=== PATIENT | female | born 1970 | race Caucasian/White ===

== ENCOUNTER 2018-09-19 14:58 | Emergency (ER) | payer OTHER ==
[~2018-09-19] VITALS: Ht 162.6 cm; Wt 91.6 kg
--- OUTSIDE RECORDS SUMMARY | 2018-09-19 15:03 | XMS REPORT | Summary of Care ---
Author Author [facility] Organization [facility] Address Unknown Phone Unavailable Encounter [facility](FIN) [phone] Date(s): 04/11/17 - 04/11/17 [facility] [address], [address] [place] [address]- [phone] Discharge Disposition: Home or Self Care Attending Physician: Joanne Yi MD Vital Signs Most recent to 1 oldest [Reference Range]: Height 154.94 cm (04/11/17 1:07 PM) Temperature Oral 98.1 DegF [96.4-99.1 DegF] (04/11/17 1:07 PM) Blood Pressure 132/74 mmHg [90-140/60-90 mmHg] (04/11/17 1:07 PM) Respiratory Rate 14 BRMIN [14-20 BRMIN] (04/11/17 1:07 PM) Peripheral Pulse 83 bpm Rate [60-100 bpm] (04/11/17 1:07 PM) Weight 101.591 kg (04/11/17 1:07 PM) Body Mass Index 42.32 m2 (04/11/17 1:07 PM) Problem List Condition Effective Dates Status Health Status Informant Amenorrhea1 11/02/08 Active Anemia(Confirmed) Active Anxiety(Confirmed) Active Asthma(Confirmed) Active Asthma(Confirmed)2 02/12/08 Active Asthma(Confirmed) Active Benign essential Active HTN(Confirmed) Benign hypertension3 Active Breast cancer Active screening(Confirmed) Pap smear for Active cervical cancer screening(Confirmed) Carpal tunnel Active syndrome4 Chronic Active cough(Confirmed) Coarse Active tremors(Confirmed) Cough5 07/30/08 Active Depressive disorder6 02/12/08 Active Ringworm(Confirmed) Active Diabetes(Confirmed) Resolved DM type 2 with Active diabetic peripheral neuropathy(Confirmed ) Dysplastic nevus of 11/04/08 Active skin7 Fatigue8 02/12/08 Active Foot pain9 12/09/07 Active Graves' 03/24/09 Active Hand pain11 11/02/08 Active Fuetrnjj95 11/27/07 Active HTN Resolved (hypertension)(Confi rmed) Skmwpcipworcpfg74 02/08/09 Active Lbwifusncyrlgf95 11/10/08 Active Increased frequency 02/12/08 Active of nwcglmutc21 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 Knee pain17 11/02/08 Active Ovynodkitoolx56 11/04/08 Active Malabsorption of 11/02/08 Active bkqayua83 Anxiety and Active depression(Confirmed ) Mixed anxiety and 04/16/08 Active depressive xycaqixi54 Morbid Active obesity(Confirmed) Bleeding Active nose(Confirmed) Obstructive sleep Active apnea Onychomycosis(Confir Active med) Annual physical Active exam(Confirmed) Severe major Active depression(Confirmed ) Skin tag22 11/04/08 Active Sleep Active apnea(Confirmed) Spasm of back 11/27/07 Active zhawlna36 Swelling of both Active lower extremities(Confirme d) Tear meniscus Active knee(Confirmed) Hnozepolvbh43 11/19/08 Active Type 2 diabetes 02/08/09 Active hgsdmaya36 Lhsxvdkpn46 11/26/08 Active Vitamin D 11/19/08 Active onexrihjsz86 1Data migrated from [employer] on 10/10/14. 2Data migrated from [employer] on 10/10/14. 3Data migrated from [employer] on 10/10/14. 4Data migrated from [employer] on 10/10/14. 5Data migrated from [employer] on 10/10/14. 6Data migrated from [employer] on 10/10/14. 7Data migrated from [employer] on 10/10/14. 8Data migrated from [employer] on 10/10/14. 9Data migrated from [employer] on 10/10/14. 10Data migrated from [employer] on 10/10/14. 11Data migrated from [employer] on 10/10/14. 12Data migrated from [employer] on 10/10/14. 13Data migrated from [employer] on 10/10/14. 14Data migrated from [employer] on 10/10/14. 15Data migrated from [employer] on 10/10/14. 16Data migrated from [employer] on 10/10/14. 17Data migrated from [employer] on 10/10/14. 18Data migrated from [employer] on 10/10/14. 19Data migrated from [employer] on 10/10/14. 20Data migrated from [employer] on 10/10/14. 21Data migrated from [employer] on 10/10/14. 22Data migrated from [employer] on 10/10/14. 23Data migrated from [employer] on 10/10/14. 24Data migrated from [employer] on 10/10/14. 25Data migrated from [employer] on 10/10/14. 26Data migrated from [employer] on 10/10/14. 27Data migrated from [employer] on 10/10/14. Allergies, Adverse Reactions, Alerts Substance Reaction Severity Status glipiZIDE Rash Mild Active Food Nuts1 Active Other Food Allergy2 Active NKDA Active 1Data migrated from [employer] on 07/09/15. Originally documented as PEANUTS. 2Data migrated from [employer] on 07/09/15. Originally documented as APRICOTS. Medications sertraline 100 mg oral tablet 100 mg=1 tab, PO, Daily, # 90 tab, 1 Refill(s), Pharmacy: [facility]/pharmacy #[id number] Start Date: 04/11/17 Stop Date: 04/11/17 Status: Discontinued Zoloft 100 mg oral tablet 100 mg=1 tab, PO, Daily, # 90 tab, 1 Refill(s), Pharmacy: [facility]/pharmacy #[id number] Start Date: 04/11/17 Stop Date: 10/08/17 Status: Ordered Results No data available for this section Immunizations Given and Recorded Vaccine Date Status Refusal Reason influenza virus vaccine, inactivated 03/08/17 Given Hx influenza vaccine-unspecified1 02/08/09 Given Not Given Vaccine Date Status Refusal Reason pneumococcal 23-valent vaccine 03/19/16 Not Given Patient Refuses 1Result Comment: fluvirin. Migrated from OBS ; Data migrated from [employer] on 06/14/2015. Procedures Procedure Date Related Diagnosis Body Site Diabetic retinopathy screening1 10/2016 CS - Caesarean section CS - section 1No retinopathy Social History Social History Type Response Smoking Status Never smoker; Type: Cigarettes; Exposure to Tobacco Smoke None; Cigarette Smoking Last 365 Days No; Reg Smoking Cessation Counseling No Assessment and Plan No data available for this section
--- OUTSIDE RECORDS SUMMARY | 2018-09-19 15:03 | XMS REPORT | Continuity of Care Document ---
Author Author [facility] Interface Address Unknown Phone Unavailable Problems Problem Status Onset Date Classification Date Reported Comments Source UNSTEADINESS ON FEET; KNEE PAIN, OA Active 07/31/2018 [facility] [place] Shortness of breath 01/19/2018 07/31/2018 [facility] XRAY Active 01/11/2018 [facility] XRAY Active 01/11/2018 [facility] UNK Active 10/24/2017 [facility] Other fracture of upper and lower end of right fibula, initial encounter for closed fracture 07/05/2017 10/05/2017 [facility] FALL Active 06/27/2017 [facility] CLOSED RT FIBULAR FX Active 06/27/2017 [facility] E66.01 - MORBID (SEVERE) OBESITY DUE TO Active 09/04/2016 [facility] ASTHMA Active 07/12/2016 [facility] Exacerbation of asthma 03/18/2016 Diagnosis 03/18/2016 [facility] ACUTE ASTHMA EXACERBATION Active 03/18/2016 [facility] WHEEZING Active 03/18/2016 [facility] Discharge Diagnosis: Back pain 02/29/2016 03/03/2016 [facility] BACK PAIN Active 02/28/2016 [facility] DX: E66.01=MORBID (SEVERE) OBESITY DUE T Active 12/23/2015 [facility] ASTHMA EXACERBATION Active 10/03/2015 [facility] SOB Active 10/03/2015 [facility] G11.9 - "HEREDITARY ATAXIA, UNSPECIFIED" Active 05/03/2015 [facility] Graves' disease<sup>10</sup> Active 03/24/2009 Problem 11/24/2017 Data migrated from [employer] on 10/10/14. [facility] Graves' disease<sup>8</sup> Active 03/24/2009 Problem 08/03/2018 Data migrated from [employer] on 10/10/14. [facility] Hyperthyroidism<sup>13</sup> Resolved 02/08/2009 Problem 11/24/2017 Data migrated from [employer] on 10/10/14. [facility] Type 2 diabetes mellitus<sup>25</sup> Active 02/08/2009 Problem 11/24/2017 Data migrated from [employer] on 10/10/14. [facility] Hyperthyroidism<sup>9</sup> Resolved 02/08/2009 Problem 08/03/2018 Data migrated from [employer] on 10/10/14. [facility] Type 2 diabetes mellitus<sup>18</sup> Active 02/08/2009 Problem 08/03/2018 Data migrated from [employer] on 10/10/14. [facility] Vaginitis<sup>26</sup> Active 11/26/2008 Problem 11/24/2017 Data migrated from [employer] on 10/10/14. [facility] Thyroiditis<sup>24</sup> Active 11/19/2008 Problem 11/24/2017 Data migrated from [employer] on 10/10/14. [facility] Vitamin D deficiency<sup>27</sup> Active 11/19/2008 Problem 11/24/2017 Data migrated from [employer] on 10/10/14. [facility] Thyroiditis<sup>17</sup> Active 11/19/2008 Problem 08/03/2018 Data migrated from [employer] on 10/10/14. [facility] Vitamin D deficiency<sup>19</sup> Active 11/19/2008 Problem 08/03/2018 Data migrated from [employer] on 10/10/14. [facility] Hypothyroidism<sup>14</sup> Resolved 11/10/2008 Problem 11/24/2017 Data migrated from [employer] on 10/10/14. [facility] Hypothyroidism<sup>10</sup> Resolved 11/10/2008 Problem 08/03/2018 Data migrated from [employer] on 10/10/14. [facility] Dysplastic nevus of skin<sup>7</sup> Active 11/04/2008 Problem 11/24/2017 Data migrated from [employer] on 10/10/14. [facility] Lymphadenitis<sup>18</sup> Active 11/04/2008 Problem 11/24/2017 Data migrated from [employer] on 10/10/14. [facility] Skin tag<sup>22</sup> Active 11/04/2008 Problem 11/24/2017 Data migrated from [employer] on 10/10/14. [facility] Dysplastic nevus of skin<sup>5</sup> Active 11/04/2008 Problem 08/03/2018 Data migrated from [employer] on 10/10/14. [facility] Lymphadenitis<sup>13</sup> Active 11/04/2008 Problem 08/03/2018 Data migrated from [employer] on 10/10/14. [facility] Amenorrhea<sup>1</sup> Active 11/02/2008 Problem 11/24/2017 Data migrated from [employer] on 10/10/14. [facility] Hand pain<sup>11</sup> Active 11/02/2008 Problem 11/24/2017 Data migrated from [employer] on 10/10/14. [facility] Knee pain<sup>17</sup> Active 11/02/2008 Problem 11/24/2017 Data migrated from [employer] on 10/10/14. 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 [facility] Knee pain<sup>12</sup> Active 11/02/2008 Problem 08/03/2018 Data migrated from [employer] on 10/10/14. 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 [facility] Cough<sup>5</sup> Active 07/30/2008 Problem 11/24/2017 Data migrated from [employer] on 10/10/14. [facility] Intrinsic asthma<sup>16</sup> Active 07/30/2008 Problem 11/24/2017 Data migrated from [employer] on 10/10/14. [facility] Mixed anxiety and depressive disorder<sup>20</sup> Active 04/16/2008 Problem 11/24/2017 Data migrated from [employer] on 10/10/14. [facility] Mixed anxiety and depressive disorder<sup>15</sup> Active 04/16/2008 Problem 08/03/2018 Data migrated from [employer] on 10/10/14. [facility] Asthma<sup>2</sup> Active 02/12/2008 Problem 11/24/2017 Data migrated from [employer] on 10/10/14. [facility] Depressive disorder<sup>6</sup> Active 02/12/2008 Problem 11/24/2017 Data migrated from [employer] on 10/10/14. [facility] Fatigue<sup>8</sup> Active 02/12/2008 Problem 11/24/2017 Data migrated from [employer] on 10/10/14. [facility] Increased frequency of urination<sup>15</sup> Active 02/12/2008 Problem 11/24/2017 Data migrated from [employer] on 10/10/14. [facility] Asthma<sup>1</sup> Active 02/12/2008 Problem 08/03/2018 Data migrated from [employer] on 10/10/14. [facility] Depressive disorder<sup>4</sup> Active 02/12/2008 Problem 08/03/2018 Data migrated from [employer] on 10/10/14. [facility] Fatigue<sup>6</sup> Active 02/12/2008 Problem 08/03/2018 Data migrated from [employer] on 10/10/14. [facility] Increased frequency of urination<sup>11</sup> Active 02/12/2008 Problem 08/03/2018 Data migrated from [employer] on 10/10/14. [facility] Foot pain<sup>9</sup> Active 12/09/2007 Problem 11/24/2017 Data migrated from [employer] on 10/10/14. [facility] Foot pain<sup>7</sup> Active 12/09/2007 Problem 08/03/2018 Data migrated from [employer] on 10/10/14. [facility] Headache<sup>12</sup> Active 11/27/2007 Problem 11/24/2017 Data migrated from [employer] on 10/10/14. Medical Group,[facility] Spasm of back muscles<sup>23</sup> Active 11/27/2007 Problem 11/24/2017 Data migrated from [employer] [facility] on 10/10/14. Medical Group,[facility] Pharyngitis Problem 03/18/2016 [facility] Exacerbation of Asthma Problem 03/18/2016 [facility] Anemia Active Problem 08/03/2018 [facility] Group,[facility] Anxiety Active Problem 08/03/2018 [facility] Group,[facility] Asthma Active Problem 08/03/2018 [facility] Group,[facility] Chronic cough Active Problem 08/03/2018 [facility] Coarse tremors Active Problem 08/03/2018 [facility] Diabetes Resolved Problem 08/03/2018 [facility] DM type 2 with diabetic peripheral neuropathy Active Problem 08/03/2018 [facility] HTN (<span ID="[id number]">Confirmed</span>) Resolved Problem 08/03/2018 [facility] Group,[facility] Morbid obesity Active Problem 08/03/2018 [facility] Onychomycosis Active Problem 08/03/2018 [facility] Severe major depression Active Problem 08/03/2018 [facility] Sleep apnea Active Problem 08/03/2018 [facility] Swelling of both lower extremities Active Problem 08/03/2018 [facility] Tear meniscus knee Active Problem 08/03/2018 [facility] Benign essential HTN Active Problem 11/24/2017 [facility] Benign hypertension<sup>3</sup> Active Problem 11/24/2017 Data migrated from [place] [facility] on 10/10/14[facility] Carpal tunnel syndrome<sup>4</sup> Active Problem 11/24/2017 Data migrated from [employer] on 10/10/14. Medical Group,[facility] Anxiety and depression Active Problem 11/24/2017 [facility] Group,[facility] Bleeding nose Active Problem 11/24/2017 [facility] Group,[facility] Obstructive sleep apnea syndrome<sup>21</sup> Active Problem 11/24/2017 Data migrated from [employer] on 10/10/14. Medical Group,[facility] Benign hypertension<sup>2</sup> Active Problem 08/03/2018 Data migrated from [employer] on 10/10/14. [facility] Carpal tunnel syndrome<sup>3</sup> Active Problem 08/03/2018 Data migrated from [employer] on 10/10/14. [facility] Closed right fibular fracture Active Problem 08/03/2018 [facility] Diverticular disease Active Problem 08/03/2018 [facility] Heart murmur Active Problem 08/03/2018 [facility] Hemorrhoids Active Problem 08/03/2018 [facility] Abnormal liver enzymes Active Problem 08/03/2018 [facility] Hyperlipidemia, mixed Active Problem 08/03/2018 [facility] Numbness Active Problem 08/03/2018 [facility] Obstructive sleep apnea syndrome<sup>16</sup> Active Problem 08/03/2018 Data migrated from [employer] on 10/10/14. [facility] Seasonal allergies Active Problem 08/03/2018 [facility] Splenomegaly Active Problem 08/03/2018 [facility] Varicose vein of leg Active Problem 08/03/2018 [facility] Acute bronchitis Active Problem 11/24/2017 [facility] Group,[facility] Breast cancer screening Active Problem 11/24/2017 [facility] Pap smear for cervical cancer screening Active Problem 11/24/2017 [facility] Group,[facility] Ringworm Active Problem 11/24/2017 [facility] Mild intermittent asthma Active Problem 11/24/2017 [facility] Right ankle swelling Active Problem 11/24/2017 [facility] Viral upper respiratory infection Active Problem 11/24/2017 [facility] Group,[facility] Type 2 diabetes mellitus with diabetic polyneuropathy 10/05/2017 [facility] Body mass index 40.0-44.9, adult 10/05/2017 [facility] Fall (from) unspecified stairs and steps, initial encounter 10/05/2017 [facility] Morbid obesity due to excess calories 10/05/2017 [facility] Essential hypertension 10/05/2017 [facility] Major depressive disorder, single episode, unspecified 10/05/2017 [facility] Obstructive sleep apnea (pediatric) 10/05/2017 [facility] Unspecified fracture of shaft of right fibula, initial encounter for closed fracture 10/05/2017 [facility] SOB (<span ID="[id number]">Confirmed</span>) Active Problem 08/03/2018 [facility] Menopause Active Problem 08/03/2018 [facility] DJD of knee(<span ID="[id number]">Confirmed</span>) Active Problem 08/03/2018 [facility] Tremor Active Problem 08/03/2018 [facility] Unstable gait Active Problem 08/03/2018 [facility] UNSPECIFIED ASTHMA WITH (ACUTE) EXACERBA Active [facility] UNSP FRACTURE OF SHAFT OF RIGHT FIBULA, Active [facility] Medications Medication Details Route Status Patient Instructions Ordering Provider Order Date Source citalopram 10 mg oral tablet 10 mg=1 tab, PO, Daily, # 90 tab, 0 Refill(s), Pharmacy: [facility]/pharmacy #[id number] Active 07/31/2018 [facility] Calcium Carbonate 1500 MG / Cholecalciferol 400 UNT Oral Tablet 1 tab, PO, Daily, # 90 tab, 1 Refill(s), Pharmacy: [facility]/pharmacy #[id number] Active 07/31/2018 [facility] lisinopril 10 mg oral tablet 10 mg=1 tab, PO, Daily, # 90 tab, 1 Refill(s), Pharmacy: [facility]/pharmacy #[id number] Active 07/31/2018 [facility] 200 ACTUAT Albuterol 0.09 MG/ACTUAT Metered Dose Inhaler [ProAir HFA] See Instructions, TAKE 2 PUFF(S) (INHALATION) EVERY 6 HOURS NEEDED FOR WHEEZING DISPENSE 2 INHALERS, # 2 ea, 1 Refill(s), Pharmacy: [facility]/pharmacy #[id number] Active 07/31/2018 [facility] Metformin hydrochloride 500 MG Oral Tablet =1 tab, PO, BID-Meals, # 60 tab, 0 Refill(s), Pharmacy: [facility], NEEDS APPOINTMENT Inactive 07/08/2018 [facility] Brompheniramine Maleate 0.4 MG/ML / Dextromethorphan Hydrobromide 2 MG/ML / Pseudoephedrine Hydrochloride 6 MG/ML Oral Solution [Bromfed DM] 5 mL, PO, TID, PRN cough, X 10 day, # 150 mL, 0 Refill(s), [id number] 06/21/2018 [facility] azithromycin 250 mg oral tablet 250 mg=1 tab, PO, Daily, take 2 tablets on the first day, 1 tablet daily to continue, X 5 day, # 6 tab, 0 Refill(s), Pharmacy: [facility]/pharmacy #[id number] Active 06/21/2018 [facility] predniSONE 20 mg oral tablet 40 mg=2 tab, PO, Daily, X 7 day, # 14 tab, 0 Refill(s), [id number] Active 06/21/2018 [facility] Albuterol 0.83 MG/ML Inhalant Solution 2.49 mg, Route: NEB, Drug form: SOLN, ONCE, Dosing Weight 95, kg, Start date: 06/21/18 16:22:00 [employer], Stop date: 06/21/18 16:22:00 [employer] Inactive 06/21/2018 [facility] Hydrochlorothiazide 12.5 MG / Losartan Potassium 100 MG Oral Tablet 1 tab, PO, Daily, # 90 tab, 1 Refill(s), [id number] Active 01/11/2018 [facility] Metformin hydrochloride 500 MG Oral Tablet See Instructions, TAKE 1 TABLET TWICE A DAY WITH MEALS, # 180 tab, 1 Refill(s), [id number] No Longer Active 01/09/2018 [facility] sertraline 100 mg oral tablet 150 mg=1.5 tab, PO, Daily, # 135 tab, 1 Refill(s), Pharmacy: [facility] Active 01/09/2018 [facility] 200 ACTUAT Albuterol 0.09 MG/ACTUAT Metered Dose Inhaler [ProAir HFA] See Instructions, TAKE 2 PUFF(S) (INHALATION) EVERY 6 HOURS NEEDED FOR WHEEZING, # 1 ea, 1 Refill(s), Pharmacy: [facility]/pharmacy #[id number] Active 01/09/2018 [facility] Hydrochlorothiazide 12.5 MG / Losartan Potassium 100 MG Oral Tablet 1 tab, PO, Daily, X 90 day, # 90 tab, 1 Refill(s), Pharmacy: [facility] No Longer Active 01/09/2018 [facility] Metformin hydrochloride 500 MG Oral Tablet See Instructions, # 180 tab, Refill(s) 1, TAKE 1 TABLET TWICE A DAY WITH MEALS, 01/09/18 16:07:28 CDT, Pharmacy: [facility] No Longer Active 01/08/2018 [facility] losartan 100 mg oral tablet 100 mg=1 tab, PO, Daily, # 90 tab, 1 Refill(s), Pharmacy: [facility]/pharmacy #[id number] Active 12/12/2017 [facility] Sertraline 100 MG Oral Tablet [Zoloft] 150 mg=1.5 tab, PO, Daily, # 135 tab, 1 Refill(s), Pharmacy: [facility]/pharmacy #[id number] No Longer Active 12/12/2017 [facility] Sodium Chloride 0.9% IV 1,000 mL 1,000 mL, Rate: 25 ml/hr, Infuse over: 40 hr, Route: IV, Dosing Weight 101.818 kg, Total Volume: 1,000, Start date: 11/21/17 10:14:00 CDT, Duration: 1 day, Stop date: 11/22/17 10:13:00 CDT, 2.14, m2 Inactive 11/21/2017 [facility] 2 ML HYLAN G-F 20 8 MG/ML Prefilled Syringe [Synvisc] intra- ARTICULAR, 0 Refill(s) Active 11/19/2017 [facility] Hydrochlorothiazide 12.5 MG / valsartan 320 MG Oral Tablet See Instructions, # 90 tab, Refill(s) 1, TAKE 1 TABLET BY MOUTH EVERY DAY, Pharmacy: [facility]/pharmacy #[id number] Active 11/06/2017 [facility] Azelastine hydrochloride 0.5 MG/ML Ophthalmic Solution 1 drp, BOTH EYES, BID, PRN Allergic reaction, X 7 day, # 6 mL, 0 Refill(s), Pharmacy: [facility] Active 10/16/2017 [facility] celecoxib 100 mg oral capsule 100 mg=1 cap, PO, Daily, 0 Refill(s) Active 10/16/2017 [facility] 3 ML liraglutide 6 MG/ML Prefilled Syringe [Saxenda] 1.2 mg, SUB-Q, Daily, # 15 mL, 1 Refill(s) Active 09/03/2017 [facility] Brompheniramine Maleate 0.4 MG/ML / Dextromethorphan Hydrobromide 2 MG/ML / Pseudoephedrine Hydrochloride 6 MG/ML Oral Solution [Bromfed DM] 5 mL, PO, TID, PRN cough, X 8 day, # 120 mL, 0 Refill(s), Pharmacy: [facility] Active 09/03/2017 [facility] ibuprofen 800 mg oral tablet 800 mg=1 tab, PO, Q8H, PRN Pain, Take with food, X 10 day, # 30 tab, 0 Refill(s), Pharmacy: [facility] Active 09/03/2017 [facility] loratadine 10 mg oral tablet 10 mg=1 tab, PO, Daily, # 90 tab, 0 Refill(s), Pharmacy: [facility] Active 09/03/2017 [facility] 200 ACTUAT Albuterol 0.09 MG/ACTUAT Metered Dose Inhaler [ProAir HFA] See Instructions, TAKE 2 PUFF(S) (INHALATION) EVERY 6 HOURS NEEDED FOR WHEEZING, # 1 ea, 1 Refill(s), Pharmacy: [facility] Active 09/03/2017 [facility] ibuprofen 800 mg oral tablet 800 mg=1 tab, PO, Q8H, PRN Pain, Take with food, X 10 day, # 30 tab, 0 Refill(s), Pharmacy: [facility] No Longer Active 08/02/2017 [facility] Calcium Carbonate 1500 MG / Cholecalciferol 400 UNT Oral Tablet 1 tab, PO, Daily, # 90 tab, 1 Refill(s), Pharmacy: [facility] Active 08/02/2017 [facility] Sertraline 100 MG Oral Tablet [Zoloft] 150 mg=1.5 tab, PO, Daily, # 135 tab, 1 Refill(s), Pharmacy: [facility] Active 08/02/2017 [facility] sennosides, CARE HOME 8.6 MG Oral Tablet 17.2 mg=2 tab, PO, Bedtime, X 10 day, # 20 tab, 0 Refill(s), Pharmacy: [facility]/pharmacy #[id number] No Longer Active 06/29/2017 [facility] tramadol hydrochloride 50 MG Oral Tablet 50 mg=1 tab, PO, Q6H, X 10 day, # 40 tab, 0 Refill(s) No Longer Active 06/29/2017 [facility] oxyCODONE 5 mg oral capsule 5 mg=1 cap, PO, Q6H, X 5 day, # 20 cap, 0 Refill(s) No Longer Active 06/29/2017 [facility] naproxen 500 mg oral tablet 500 mg=1 tab, PO, A11Emmb, X 10 day, # 20 tab, 0 Refill(s), [id number] Long[facility] Active 06/29/2017 [facility] gabapentin 300 MG Oral Capsule 300 mg=1 cap, PO, Q8Hnow, # 30 cap, 0 Refill(s), [id number] Active 06/29/2017 [facility] Docusate Sodium 100 MG Oral Capsule 100 mg=1 cap, PO, BID, # 20 cap, 0 Refill(s), [id number] Active 06/29/2017 [facility] acetaminophen 500 mg oral tablet 1,000 mg=2 tab, PO, Q6Hnow, X 10 day, # 80 tab, 0 Refill(s), [id number] No Long[facility] Active 06/29/2017 [facility] Lidocaine Hydrochloride 0.05 MG/MG Transdermal Patch [Lidoderm] 1 patch, TOP, Q24H, # 30 patch, 0 Refill(s), [id number] Active 06/29/2017 [facility] remove patch 1 patch, Route: TOP, Daily, Drug form: ERFILM, Start date: 06/29/17 4:00:00 [employer], Duration: 30 day, Stop date: 07/28/17 4:00:00 CDTNotes: Remove patch 12 hours after application each day. Inactive 06/29/2017 [facility] sennosides, CARE [facility] 17.2 mg, 2 tab, Route: PO, Drug Form: TAB, Dosing Weight 100, kg, Bedtime, Start date: 06/28/17 21:00:00 [employer], Duration: 30 day, Stop date: 07/27/17 21:00:00 CDTNotes: (Same as: Senokot) No Longer Active 06/29/2017 [facility] tramadol hydrochloride 50 MG Oral Tablet 50 mg, 1 tab, Route: PO, Drug form: TAB, Q6H, Dosing Weight 100, kg, Start date: 06/28/17 18:00:00 [employer], Duration: 30 day, Stop date: 07/28/17 12:00:00 CDTNotes: Not to exceed 400mg/day. (Same As: Ultram) No Longer Active 06/29/2017 [facility] Docusate 100 mg, 1 cap, Route: PO, Drug form: CAP, BID, Dosing Weight 100, kg, Start date: 06/28/17 17:00:00 [employer], Duration: 30 day, Stop date: 07/28/17 9:00:00 CDTNotes: (Same as: Colace) (Do Not Crush) No Longer Active 06/28/2017 [facility] Acetaminophen 1,000 mg, 2 tab, Route: PO, Drug form: TAB, Q6Hnow, Dosing Weight 100, kg, Start date: 06/28/17 16:00:00 [employer], Duration: 30 day, Stop date: 07/28/17 10:00:00 CDTNotes: Max acetaminophen 4000 mg/day (4 gm/day). (Same as: Tylenol Extra Strength) No Longer Active 06/28/2017 [facility] Lidocaine Hydrochloride 0.05 MG/MG Transdermal Patch [Lidoderm] 1 patch, Route: TOP, Q24H, Drug form: FILM, Start date: 06/28/17 16:00:00 [employer], Duration: 30 day, Stop date: 07/27/17 16:00:00 CDTNotes: Apply only once for up to 12 hours in a 24-hour period (12 hours on and 12 hours off). (Same as: Lidoderm) "Remove old patch before application of new patch" No Longer Active 06/28/2017 [facility] gabapentin 300 mg, 1 cap, Route: PO, Drug form: CAP, Q8Hnow, Dosing Weight 100, kg, Start date: 06/28/17 16:00:00 [employer], Duration: 30 day, Stop date: 07/28/17 8:00:00 CDTNotes: (Same as: Neurontin) No Longer Active 06/28/2017 [facility] Naproxen 500 mg, 1 tab, Route: PO, Drug form: TAB, [id number], Dosing Weight 100, kg, Start date: 06/28/17 16:00:00 [employer], Duration: 30 day, Stop date: 07/28/17 4:00:00 CDTNotes: (Same as: Naprosyn) Take with food. No Longer Active 06/28/2017 [facility] Losartan Potassium 100 MG Oral Tablet [Cozaar] 100 mg=1 tab, PO, Daily, 0 Refill(s) Inactive 06/28/2017 [facility] atorvastatin 20 mg oral tablet 20 mg=1 tab, PO, QPM, 0 Refill(s) Inactive 06/28/2017 [facility] Ondansetron 4 mg, 2 mL, Route: IVP, Drug form: INJ, Q8H, Dosing Weight 100, kg, PRN Nausea & Vomiting, Start date: 06/28/17 15:26:00 [employer], Duration: 30 day, Stop date: 07/28/17 15:25:00 CDTNotes: (Same as: Zofran) MEDICATION WASTE Product Size: 4 mg Product Wasted: _0_ mg No Longer Active 06/28/2017 [facility] Oxycodone Hydrochloride 5 MG Oral Tablet 10 mg, 2 tab, Route: PO, Drug form: TAB, Q4H, Dosing Weight 100, kg, PRN Pain Score 7-10, Start date: 06/28/17 15:26:00 [employer], Duration: 30 day, Stop date: 07/28/17 15:25:00 CDTNotes: (Same as: Roxicodone) No Longer Active 06/28/2017 [facility] Ibuprofen 400 MG Oral Tablet 800 mg, 1 tab, Route: PO, Drug form: TAB, Q8H, Dosing Weight 100, kg, PRN For Temp > 100.4 F, Start date: 06/28/17 11:44:00 [employer], Duration: 30 day, Stop date: 07/28/17 11:43:00 CDTNotes: (Same as: Motrin) "Do Not Crush" Take with food. No Longer Active 06/28/2017 [facility] Zoloft 100 mg, 1 tab, Route: PO, Drug form: TAB, Daily, Dosing Weight 100, kg, Start date: 06/28/17 9:00:00 [employer], Duration: 30 day, Stop date: 07/27/17 9:00:00 CDTNotes: (Same as: Zoloft) No Longer Active 06/28/2017 [facility] Hydrochlorothiazide 12.5 MG / valsartan 320 MG Oral Tablet 1 tab, Route: PO, Drug Form: TAB, Dosing Weight 100, kg, Daily, Start date: 06/28/17 9:00:00 [employer], Duration: 30 day, Stop date: 07/27/17 9:00:00 CDT No Longer Active 06/28/2017 [facility] Microzide 12.5 mg, 1 cap, Route: PO, Drug form: CAP, Daily, Start date: 06/28/17 9:00:00 [employer], Duration: 30 day, Stop date: 07/27/17 9:00:00 CDTNotes: (Same as: Microzide) With food. No Longer Active 06/28/2017 [facility] valsartan 320 mg, 2 tab, Route: PO, Drug form: TAB, Daily, Start date: 06/28/17 9:00:00 [employer], Duration: 30 day, Stop date: 07/27/17 9:00:00 CDTNotes: Same as Diovan No Longer Active 06/28/2017 [facility] Metformin hydrochloride 1000 MG Oral Tablet 1,000 mg, 1 tab, Route: PO, Drug form: TAB, BID-Meals, Dosing Weight 100, kg, Start date: 06/28/17 8:00:00 [employer], Duration: 30 day, Stop date: 07/27/17 17:00:00 CDTNotes: Same as Glucophage No Longer Active 06/28/2017 [facility] Ativan 0.5 mg, 1 tab, Route: PO, Drug form: TAB, TID, Dosing Weight 100, kg, PRN Anxiety, Start date: 06/27/17 21:56:00 [employer], Duration: 30 day, Stop date: 07/27/17 21:55:00 CDT No Longer Active 06/28/2017 [facility] meloxicam 10 mg, PO, PRN, 0 Refill(s) Active 06/28/2017 [facility] Enoxaparin 40 mg, 0.4 mL, Route: SUB-Q, Drug form: INJ, [id number], Dosing Weight 100, kg, Consider for obese patients, Start date: 06/27/17 20:00:00 [employer], Duration: 30 day, Stop date: 07/27/17 8:00:00 CDTNotes: ( Same as: Lovenox) No Longer Active 06/28/2017 [facility] Acetaminophen 325 MG / Hydrocodone Bitartrate 5 MG Oral Tablet 1 tab, Route: PO, Drug Form: TAB, Dosing Weight 100, kg, Q4H, PRN Pain Score 4-6, Start date: 06/27/17 19:57:00 [employer], Duration: 30 day, Stop date: 07/27/17 19:56:00 CDTNotes: (Same as: [place] 325/5) Do not exceed 4gm/day of acetaminophen. No Longer Active 06/28/2017 [facility] Morphine 2 mg, 0.5 mL, Route: IVP, Drug form: SOLN, Q4H, Dosing Weight 100, kg, PRN Pain Score 7-10, Start date: 06/27/17 19:57:00 [employer], Duration: 30 day, Stop date: 07/27/17 19:56:00 CDTNotes: (Same as:MORPhine Sulfate) No Longer Active 06/28/2017 [facility] Acetaminophen 650 mg, 2 tab, Route: PO, Drug form: TAB, Q4H, Dosing Weight 100, kg, PRN Pain 1-3/Temp > 100.4 F, Start date: 06/27/17 19:57:00 [employer], Duration: 30 day, Stop date: 07/27/17 19:56:00 CDTNotes: Do not e xceed 4 gm/day. (Same as: Tylenol) No Longer Active 06/28/2017 [facility] Acetaminophen 325 MG / Hydrocodone Bitartrate 5 MG Oral Tablet [[place] 5/325] 1 tab, Route: PO, Drug Form: TAB, Dosing Weight 99.545, kg, ONCE, PRN Pain Score 1-3, Start date: 06/27/17 18:50:00 [employer] Inactive 06/28/2017 [facility] Sodium Chloride 0.9% (Bolus) IV 1,000 mL, Infuse Over: 1 hr, Route: IV, ONCE, Priority: STAT, Dosing Weight 99.545 kg, Start date: 06/27/17 15:25:00 [employer], Stop date: 06/27/17 15:25:00 [employer] Inactive 06/27/2017 [facility] Ibuprofen 600 mg, Route: PO, ONCE, Dosing Weight 99.545, kg, Priority: STAT, Start date: 06/27/17 14:58:00 [employer], Stop date: 06/27/17 14:58:00 [employer] MARK[employer]ER Inactive 06/27/2017 [facility] Acetaminophen 650 mg, Route: PO, Drug form: TAB, ONCE, Dosing Weight 99.545, kg, Priority: STAT, Start date: 06/27/17 14:58:00 [employer], Stop date: 06/27/17 14:58:00 [employer] MARK[employer]ER Inactive 06/27/2017 [facility] Zofran 4 mg, 2 mL, Route: IVP, Drug form: INJ, ONCE, Dosing Weight 99.545, kg, Priority: STAT, Start date: 06/27/17 12:31:00 [employer], Stop date: 06/27/17 12:31:00 CSTNotes: (Same as: Zofran) MEDICATION WASTE Product Size: 4 mg Product Wasted: ___ mg Inactive 06/27/2017 [facility] Morphine 4 mg, 1 mL, Route: IVP, Drug form: SOLN, ONCE, Dosing Weight 99.545, kg, Priority: STAT, Start date: 06/27/17 12:31:00 [employer], Stop date: 06/27/17 12:31:00 CSTNotes: (Same as:MORPhine Sulfate) Inactive 06/27/2017 [facility] Zofran 4 mg, Route: IVP, Drug form: INJ, ONCE, Dosing Weight 99.545, kg, Priority: STAT, Start date: 06/27/17 9:42:00 [employer], Stop date: 06/27/17 9:42:00 [employer] MARKETER Inactive 06/27/2017 [facility] Morphine 4 mg, Route: IVP, ONCE, Dosing Weight 99.545, kg, Priority: STAT, Start date: 06/27/17 9:41:00 [employer], Stop date: 06/27/17 9:41:00 [employer] MARK[employer]ER Inactive 06/27/2017 [facility] Zofran ODT 4 mg, Route: PO, Drug form: TABDIS, ONCE, Dosing Weight 99.545, kg, Priority: STAT, Start date: 06/27/17 7:45:00 [employer], Stop date: 06/27/17 7:45:00 [employer] MARKETER Inactive 06/27/2017 [facility] Zofran ODT 4 mg, Route: PO, Drug form: TABDIS, ONCE, Dosing Weight 99.545, kg, Priority: STAT, Start date: 06/27/17 7:43:00 [employer] MARKETER, Stop date: 06/27/17 7:43:00 [employer] MARKETER Inactive 06/27/2017 [facility] Acetaminophen 325 MG / Hydrocodone Bitartrate 5 MG Oral Tablet 1 tab, Route: PO, Drug Form: TAB, Dosing Weight 99.545, kg, ONCE, STAT, Start date: 06/27/17 7:26:00 [employer], Stop date: 06/27/17 7:26:00 [employer] MARKETER Inactive 06/27/2017 [facility] biotin 5000 mcg oral tablet, disintegrating 5,000 microgram=1 tab, PO, Daily, # 90 tab, 1 Refill(s), Pharmacy: [facility]/pharmacy #[id number] Active [facility] zinc acetate 50 mg oral capsule 50 mg=1 cap, PO, Daily, # 90 cap, 1 Refill(s), Pharmacy: [facility]/pharmacy #[id number] Active 05/15/[facility] Brompheniramine Maleate 0.4 MG/ML / Dextromethorphan Hydrobromide 2 MG/ML / Pseudoephedrine Hydrochloride 6 MG/ML Oral Solution [Bromfed DM] 5 mL, PO, TID, PRN cough, X 8 day, # 120 mL, 0 Refill(s), Pharmacy: [facility]/pharmacy #[id number] Active 05/15/[facility] Metformin hydrochloride 1000 MG Oral Tablet 1,000 mg=1 tab, PO, BID-Meals, # 180 tab, 1 Refill(s) Active 05/15/2017 [facility] Sertraline 100 MG Oral Tablet [Zoloft] 100 mg=1 tab, PO, Daily, # 90 tab, 1 Refill(s), Pharmacy: [facility]/pharmacy #[id number] Active 04/11/2017 [facility] sertraline 100 mg oral tablet 100 mg=1 tab, PO, Daily, # 90 tab, 1 Refill(s), Pharmacy: [facility]/pharmacy #[id number] Inactive 04/11/2017 [facility] Vitamin D2 Route: PO, Drug form: CAP, Daily, Dosing Weight 130.909, kg, Start date: 03/20/16 9:00:00 [employer], Duration: 30 day, Stop date: 04/18/16 9:00:00 [employer] MARKETER No Longer Active 03/20/2016 [facility] Simvastatin 20 mg, 1 tab, Route: PO, Drug form: TAB, Bedtime, Dosing Weight 130.909, kg, Start date: 03/19/16 21:00:00 [employer] MARKETER, Duration: 30 day, Stop date: 04/17/16 21:00:00 CSTNotes: (Same as: Zocor) Inactive 03/20/2016 [facility] Clarithromycin 500 mg, 1 tab, Route: PO, Drug form: TAB, Q12H, Dosing Weight 130.909, kg, Start date: 03/19/16 21:00:00 [employer] MARKETER, Duration: 30 day, Stop date: 04/18/16 9:00:00 CSTNotes: (Same As: Biaxin) Inactive 03/20/2016 [facility] Amoxicillin 1,000 mg, 2 cap, Route: PO, Drug form: CAP, Q12H, Dosing Weight 130.909, kg, Start date: 03/19/16 21:00:00 [employer] MARKETER, Duration: 30 day, Stop date: 04/18/16 9:00:00 CSTNotes: (Same as: Amoxil) Inactive 03/20/2016 [facility] Metformin hydrochloride 1000 MG Oral Tablet 1,000 mg, 2 tab, Route: PO, Drug form: TAB, BID-Meals, Dosing Weight 130.909, kg, Start date: 03/19/16 17:00:00 [employer] MARKETER, Duration: 30 day, Stop date: 04/18/16 8:00:00 CSTNotes: (Same as: Glucophage) Take with meal Inactive 03/19/2016 [facility] pantoprazole 40 mg, 1 tab, Route: PO, Drug form: ECTAB, Before Dinner, Dosing Weight 130.909, kg, Start date: 03/19/16 16:30:00 [employer] MARKETER, Duration: 30 day, Stop date: 04/17/16 16:30:00 CSTNotes: Tablet should not be c hewed or crushed. (Same as: Protonix) Inactive 03/19/2016 [facility] Glipizide 10 MG Oral Tablet 10 mg, 1 tab, Route: PO, Drug form: TAB, BID-Before Meals, Dosing Weight 130.909, kg, Start date: 03/19/16 16:30:00 [employer] MARKETER, Duration: 30 day, Stop date: 04/18/16 7:30:00 CSTNotes: (Same as: Glucotrol) 30 min before meals. Inactive 03/19/2016 [facility] Atenolol 25 MG Oral Tablet 25 mg=1 tab, PO, BID, # 60 tab, 0 Refill(s) No Longer Active 03/19/2016 [facility] Prednisone 40 mg, 2 tab, Route: PO, Drug form: TAB, Daily, Dosing Weight 130.909, kg, Start date: 03/19/16 9:00:00 [employer] MARKETER, Duration: 30 day, Stop date: 04/17/16 9:00:00 CSTNotes: Take with food. Inactive 03/19/2016 [facility] pneumococcal capsular polysaccharide type 1 vaccine / pneumococcal capsular polysaccharide type 10A vaccine / pneumococcal capsular polysaccharide type 11A vaccine / pneumococcal capsular polysaccharide type 12F vaccine / pneumococcal capsular polysacchar 0.5 mL, Route: IM, Drug Form: INJ, Daily, Start date: 03/19/16 9:00:00 [employer] MED[employer] MARKETER, Stop date: 03/19/16 11:00:00 CSTNotes: (Same as: Pneumovax 23) Refrigerate Inactive 03/19/2016 [facility] Ibuprofen 400 MG Oral Tablet 400 mg, 1 tab, Route: PO, Drug form: TAB, Q6H, Dosing Weight 130.909, kg, PRN Pain Score 1-5, Start date: 03/19/16 3:04:00 [employer] MARKETER, Duration: 30 day, Stop date: 04/18/16 3:03:00 CSTNotes: (Same as: Motrin) "Do Not Crush" Give with food. Inactive 03/19/2016 [facility] Albuterol 0.833 MG/ML / Ipratropium Drayden 0.167 MG/ML Inhalant Solution 3 mL, Route: NEB, Drug Form: SOLN, Dosing Weight 130.909, kg, RQ6H, Start date: 03/19/16 2:00:00 [employer] MARKETER, Duration: 30 day, Stop date: 04/17/16 20:00:00 CSTNotes: (Same as: Duoneb) Inactive 03/19/2016 [facility] Ibuprofen 400 MG Oral Tablet 400 mg, 1 tab, Route: PO, Drug form: TAB, ONCE, Dosing Weight 130.909, kg, Start date: 03/19/16 0:12:00 CDT, Stop date: 03/19/16 0:12:00 CDTNotes: (Same as: Phyllisrin) "Do Not Crush" Give with food. Inactive 03/19/2016 [facility] Insulin, Aspart, Human 4 unit, 0.04 mL, Route: SUB-Q, Drug form: SOLN, TID-Before Meals, Dosing Weight 130.909, kg, PRN Blood Glucose Results, Start date: 03/19/16 0:11:00 CDT, Duration: 30 day, Stop date: 04/18/16 0:10:00 CSTNotes: Roll in palms of hands gently; Do not shake vigorously. (Same as: NovoLOG) "single patient use only" WASTE: F/P - Black; E - Municipal Trash Bin Stable for 28 days at room temperature. Expires in days from Date Inactive 03/19/2016 [facility] Dextrose 50% Syringe 25 gm, 50 mL, Route: IVP, Drug Form: INJ, Dosing Weight 130.909, kg, PRN, PRN Blood Glucose Results, Start date: 03/19/16 0:11:00 CDT, Duration: 30 day, Stop date: 04/17/16 23:10:00 [employer] MARKETER Inactive 03/19/2016 [facility] Glucagon 1 mg, Route: IM, Drug form: PDR/INJ, PRN, Dosing Weight 130.909, kg, PRN Blood Glucose Results, Start date: 03/19/16 0:11:00 CDT, Duration: 30 day, Stop date: 04/17/16 23:10:00 SOC[employer] MARKETER Inactive 03/19/2016 [facility] lisinopril 20 mg oral tablet 20 mg=1 tab, PO, Daily, # 30 tab, 0 Refill(s) No Longer Active 03/19/2016 [facility] Enoxaparin 40 mg, 0.4 mL, Route: SUB-Q, Drug form: INJ, [id number], Dosing Weight 130.909, kg, Consider for obese patients, Start date: 03/18/16 22:00:00 CDT, Duration: 30 day, Stop date: 04/17/16 10:00:00 CSTNotes: (Same as: Lovenox) No Longer Active 03/19/2016 [facility] Amoxicillin 875 MG / Clavulanate 125 MG Oral Tablet 1 tab, Route: PO, Drug Form: TAB, Dosing Weight 130.909, kg, [id number], For CrCl >/=30, Start date: 03/18/16 22:00:00 CDT, Duration: 30 day, Stop date: 04/17/16 10:00:00 CSTNotes: With food. (Same as: Augmentin 875) No Longer Active 03/19/2016 [facility] ketOROLAC 30 mg/mL injectable solution 30 mg, 1 mL, Route: IVP, Drug form: INJ, ONCE, Dosing Weight 130.909, kg, Priority: STAT, Start date: 03/18/16 19:51:00 CDT, Stop date: 03/18/16 19:51:00 CDTNotes: (Same as:Toradol) IV bolus must be given >15 seconds. Give IM administration slowly and deeply into the muscle. Not for use > 4 days MEDICATION WASTE Product Size: 30 mg Product Wasted: ___ mg Inactive 03/19/2016 [facility] Albuterol 0.833 MG/ML / Ipratropium Drayden 0.167 MG/ML Inhalant Solution 3 mL, Route: NEB, Drug Form: SOLN, Dosing Weight 130.909, kg, ONCE, STAT, Start date: 03/18/16 18:54:00 CDT, Stop date: 03/18/16 18:54:00 CDTNotes: (Same as: Duoneb) Inactive 03/18/2016 [facility] Saline Flush 0.9% 10 mL, Route: IVP, Drug Form: INJ, Dosing Weight 130.909, kg, PRN, PRN Line Flush, Start date: 03/18/16 18:54:00 CDT, Duration: 30 day, Stop date: 04/17/16 17:53:00 CSTNotes: (Same as: BD Posiflush) No Longer Active 03/18/2016 [facility] Albuterol 0.833 MG/ML / Ipratropium Drayden 0.167 MG/ML Inhalant Solution 3 mL, Route: NEB, Drug Form: SOLN, Dosing Weight 130.909, kg, PRN, PRN Wheezing, Routine, Start date: 03/18/16 18:33:00 CDT, Stop date: 04/17/16 17:32:00 CSTNotes: (Same as: Duoneb) No Longer Active 03/18/2016 [facility] GI cocktail 30 mL, Route: PO, Drug Form: SUSP, Dosing Weight 130.909, kg, ONCE, STAT, Start date: 03/18/16 18:22:00 CDT, Stop date: 03/18/16 18:22:00 CDTNotes: G.I. Cocktail=antacid with simethicone 22.5 mL - lidocaine viscous 7.5 mL Inactive 03/18/2016 [facility] Racepinephrine 22.5 MG/ML Inhalant Solution 11.25 mg, 0.5 mL, Route: NEB, Drug Form: SOLN, Dosing Weight 130.909, kg, ONCE, STAT, Start date: 03/18/16 18:21:00 CDT, Stop date: 03/18/16 18:21:00 CDTNotes: (racepinephrine *2.25% inh 0.5ml SOLN) (Same as:S2) Inactive 03/18/2016 [facility] Magnesium Sulfate 2 gm, 50 mL, Route: IV, Drug form: INJ, ONCE, Dosing Weight 130.909, kg, Priority: STAT, Start date: 03/18/16 18:20:00 CDT, Stop date: 03/18/16 18:20:00 CDTNotes: WASTE: F/P - Sink; E - Municipal Tra Bin Inactive 03/18/2016 [facility] Albuterol 0.833 MG/ML / Ipratropium Drayden 0.167 MG/ML Inhalant Solution 3 mL, Route: NEB, Drug Form: SOLN, Dosing Weight 130.909, kg, ONCE, STAT, Start date: 03/18/16 17:47:00 CDT, Stop date: 03/18/16 17:47:00 CDTNotes: (Same as: Duoneb) Inactive 03/18/2016 [facility] Solu-Medrol 125 mg, Route: IVP, ONCE, Dosing Weight 130.909, kg, Priority: STAT, Start date: 03/18/16 17:47:00 CDT, Stop date: 03/18/16 17:47:00 CDT Inactive 03/18/2016 [facility] Acetaminophen 300 MG / Codeine Phosphate 60 MG Oral Tablet [Tylenol with Codeine #4] 1 tab, PO, Q6H, PRN pain, X 7 day, # 20 tab, 0 Refill(s) Active 02/29/2016 [facility] diazepam 10 mg oral tablet 10 mg=1 tab, PO, BID, PRN Muscle Spasms, X 5 day, # 10 tab, 0 Refill(s) Active 02/29/2016 [facility] naproxen 500 mg oral tablet 500 mg=1 tab, PO, BID, PRN Pain, X 7 day, # 30 tab, 0 Refill(s) Active 02/29/2016 [facility] 12 HR Orphenadrine Citrate 100 MG Extended Release Tablet 100 mg=1 tab, PO, BID, X 7 day, # 14 tab, 0 Refill(s) Active 02/29/2016 [facility] Dexamethasone 10 mg, 2.5 mL, Route: IM, Drug form: INJ, ONCE, Dosing Weight 141.989, kg, Priority: STAT, Start date: 02/29/16 14:25:00 CDT, Stop date: 02/29/16 14:25:00 CDT Inactive 02/29/2016 [facility] Valium 10 mg, 2 tab, Route: PO, Drug form: TAB, ONCE, Dosing Weight 141.989, kg, Priority: STAT, Start date: 02/29/16 14:24:00 CDT, Stop date: 02/29/16 14:24:00 CDTNotes: (Same as: Valium) Inactive 02/29/2016 [facility] Ketorolac 60 mg, 2 mL, Route: IM, Drug form: INJ, ONCE, Dosing Weight 141.989, kg, Priority: STAT, Start date: 02/29/16 14:24:00 CDT, Stop date: 02/29/16 14:24:00 CDTNotes: (Same as:Toradol) IV bolus must be given >15 seconds. Give IM administration slowly and deeply into the muscle. Not for use > 4 days MEDICATION WASTE Product Size: 60 mg Product Wasted: ___ mg Inactive 02/29/2016 [facility] Acetaminophen 325 MG / Hydrocodone Bitartrate 10 MG Oral Tablet [[place] 10/325] 1 tab, Route: PO, Drug Form: TAB, Dosing Weight 141.989, kg, ONCE, Start date: 02/29/16 14:24:00 CDT, Stop date: 02/29/16 14:24:00 CDTNotes: Do not exceed 4gm/day of acetaminophen. (Same as: [place] 325/10) Inactive 02/29/2016 [facility] Protonix 40 mg, 1 tab, Route: PO, Drug form: ECTAB, Before Dinner, Dosing Weight 139.545, kg, Start date: 10/04/15 16:30:00 CDT, Duration: 30 day, Stop date: 11/02/15 16:30:00 CDTNotes: Tablet should not be chewed or crushed. (Same as: Protonix) Inactive 10/04/2015 [facility] 200 ACTUAT Albuterol 0.09 MG/ACTUAT Metered Dose Inhaler [Proventil] 180 microgram=2 puff, INHALER, Q4H, PRN wheezing, coughing, or shortness of breath, # 1 ea, 1 Refill(s) Active 10/04/2015 [facility] levofloxacin 750 mg oral tablet 750 mg=1 tab, PO, Daily, X 7 day, # 7 tab, 0 Refill(s) Active 10/04/2015 [facility] dextromethorphan-guaiFENesin 10 mg-100 mg/5 mL oral liquid 5 mL, PO, Q4H, PRN Cough, X 7 day, # 210 mL, 0 Refill(s) Active 10/04/2015 [facility] benzonatate 100 MG Oral Capsule [Tessalon Perles] 200 mg, PO, TID, PRN Cough, X 7 day, # 21 ea, 0 Refill(s) Active 10/04/2015 [facility] Albuterol 0.83 MG/ML Inhalant Solution 2.5 mg=3 mL, NEB, PRN, PRN Respiratory Protocol, # 100 ea, 0 Refill(s) Active 10/04/2015 [facility] predniSONE 20 mg oral tablet 60 mg=3 tab, PO, Daily, Take 3 tablets for 60 mg dose, X 5 day, # 15 tab, 0 Refill(s) Active 10/04/2015 [facility] Nebulizer 1 ea, MISC, ONCALL, # 1 ea, 0 Refill(s) Active 10/04/2015 [facility] dextromethorphan-guaiFENesin 10 mg-100 mg/5 mL oral liquid 5 ml, Route: PO, Drug Form: SYRP, Dosing Weight 139.545, kg, Q4H, PRN Cough, Start date: 10/04/15 13:44:00 CDT, Duration: 30 day, Stop date: 11/03/15 13:43:00 CDTNotes: (dextromethorphan-guaifenesin 10-100mg/5ml 10 ml oral SOLN ud) (Same as: Robitussin DM) Inactive 10/04/2015 [facility] Tessalon Perles 200 mg, 2 cap, Route: PO, Drug form: CAP, TID, Dosing Weight 139.545, kg, PRN Cough, Start date: 10/04/15 13:43:00 CDT, Duration: 30 day, Stop date: 11/03/15 13:42:00 CDTNotes: (Same As: Tessalon Per les) "Do Not Crush" Inactive 10/04/2015 [facility] Prednisone 60 mg, 3 tab, Route: PO, Drug form: TAB, Daily, Dosing Weight 120.455, kg, Start date: 10/04/15 9:00:00 CDT, Duration: 30 day, Stop date: 11/02/15 9:00:00 CDTNotes: Take with food. Inactive 10/04/2015 [facility] Enoxaparin 40 mg, 0.4 mL, Route: SUB-Q, Drug form: INJ, [id number], Dosing Weight 139.545, kg, Start date: 10/04/15 8:00:00 CDT, Duration: 30 day, Stop date: 11/02/15 20:00:00 CDTNotes: (Same as: Lovenox) Inactive 10/04/2015 [facility] Zofran 4 mg, 2 mL, Route: IV, Drug form: INJ, Q8H, Dosing Weight 139.545, kg, PRN Nausea, Start date: 10/04/15 7:53:00 CDT, Duration: 30 day, Stop date: 11/03/15 7:52:00 CDTNotes: (Same as: Zofran) MEDICATION WASTE Product Size: 4 mg Product Wasted: ___ mg Inactive 10/04/2015 [facility] docusate sodium 100 mg oral capsule 100 mg, 1 cap, Route: PO, Drug form: CAP, BID, Dosing Weight 139.545, kg, PRN Constipation, Start date: 10/04/15 7:53:00 CDT, Duration: 30 day, Stop date: 11/03/15 7:52:00 CDTNotes: (Same as: Colace) (Do Not Crush) Inactive 10/04/2015 [facility] tramadol hydrochloride 50 MG Oral Tablet 50 mg, 1 tab, Route: PO, Drug form: TAB, Q6H, Dosing Weight 139.545, kg, PRN Pain Score 4-6, Start date: 10/04/15 7:52:00 CDT, Duration: 30 day, Stop date: 11/03/15 7:51:00 CDTNotes: Not to exceed 400mg/day. (Same As: Ultram) Inactive 10/04/2015 [facility] Acetaminophen 650 mg, 2 tab, Route: PO, Drug form: TAB, Q6H, Dosing Weight 139.545, kg, PRN Pain 1-3/Temp > 99.5 F, Start date: 10/04/15 7:52:00 CDT, Duration: 30 day, Stop date: 11/03/15 7:51:00 CDTNotes: Do not exceed 4 gm/day. (Same as: Tylenol) Inactive 10/04/2015 [facility] 200 ACTUAT Albuterol 0.09 MG/ACTUAT Metered Dose Inhaler [Proventil] 2 puff, Route: INHALER, Drug Form: AERO/A, Dosing Weight 139.545, kg, Q4H, PRN as needed for wheezing, Start date: 10/04/15 7:51:00 CDT, Duration: 30 day, Stop date: 11/03/15 7:50:00 CDTNotes: Same as: Ventolin HFA WASTE: Aerosol - Return to Pharmacy Inactive 10/04/2015 [facility] 200 ACTUAT Albuterol 0.09 MG/ACTUAT Metered Dose Inhaler [Proventil] 2 puff, INHALER, Q4H, PRN wheezing, coughing, or shortness of breath, # 1 ea, 1 Refill(s) Inactive 10/04/2015 [facility] Azithromycin 500 mg, Route: IVPB, [id number], Dosing Weight 120.455, kg, Start date: 10/04/15 2:00:00 CDT, Duration: 30 day, Stop date: 11/02/15 2:00:00 CDTNotes: (Same As: Zithromax IV) Inactive 10/04/2015 [facility] Albuterol 0.833 MG/ML / Ipratropium Drayden 0.167 MG/ML Inhalant Solution 3 mL, Route: NEB, Drug Form: SOLN, Dosing Weight 120.455, kg, RQ6H, PRN Respiratory Protocol, Start date: 10/04/15 1:28:00 CDT, Duration: 30 day, Stop date: 11/03/15 1:27:00 CDTNotes: (Same as: Duoneb) Inactive 10/04/2015 [facility] Albuterol 0.83 MG/ML Inhalant Solution 2.49 mg, 3 mL, Route: NEB, Drug form: SOLN, PRN, Dosing Weight 120.455, kg, PRN Respiratory Protocol, Start date: 10/04/15 1:28:00 CDT, Duration: 30 day, Stop date: 11/03/15 1:27:00 CDTNotes: SEE RT DOCUMENTATION (Same as: Proventil) Inactive 10/04/2015 [facility] Hydralazine 20 mg, 2 tab, Route: PO, Drug form: TAB, Q6H, Dosing Weight 120.455, kg, PRN Hypertension, Start date: 10/03/15 23:44:00 CDT, Duration: 30 day, Stop date: 11/02/15 23:43:00 CDTNotes: (Same as: Apresoline) May interfere w/enteral feedings. Take With Food No Longer Active 10/04/2015 [facility] Labetalol 10 mg, 2 mL, Route: IVP, Drug form: INJ, ONCE, Dosing Weight 120.455, kg, Priority: STAT, Start date: 10/03/15 20:35:00 CDT, Stop date: 10/03/15 20:35:00 CDTNotes: (Same as: Normodyne, Trandate) Push over 2 minutes Give bolus over 2-3 minutes. Inactive 10/04/2015 [facility] Magnesium Sulfate 2 gm, 50 mL, Route: IV, Drug form: INJ, ONCE, Dosing Weight 120.455, kg, Priority: STAT, Start date: 10/03/15 20:29:00 CDT, Stop date: 10/03/15 20:29:00 CDTNotes: WASTE: F/P - Sink; E - Municipal Tra sh Bin Inactive 10/04/2015 [facility] Albuterol 0.833 MG/ML / Ipratropium [place]ray[place] 0.167 MG/ML Inhalant Solution [DuoNeb] 3 ml, Route: NEB, Drug Form: SOLN, Dosing Weight 120.455, kg, PRN, PRN Respiratory Protocol, Start date: 10/03/15 20:29:00 CDT, Duration: 30 day, Stop date: 11/02/15 20:28:00 CDTNotes: (Same as: Duoneb) No Longer Active 10/04/2015 [facility] Solu-Medrol 125 mg, 2 mL, Route: IVP, Drug form: INJ, ONCE, Dosing Weight 120.455, kg, Priority: STAT, Start date: 10/03/15 20:14:00 CDT, Stop date: 10/03/15 20:14:00 CDTNotes: (Same as:Solu-MEDROL, A-Methapred) Inactive 10/04/2015 [facility] Albuterol 0.833 MG/ML / Ipratropium Drayden 0.167 MG/ML Inhalant Solution [DuoNeb] 3 ml, Route: INHALATION, Drug Form: SOLN, Dosing Weight 120.455, kg, PRN, PRN Respiratory Protocol, Start date: 10/03/15 20:14:00 CDT, Duration: 30 day, Stop date: 11/02/15 20:13:00 CDTNotes: (Same as: [place]) Inactive 10/04/2015 [facility] Acetaminophen 300 MG / Codeine Phosphate 60 MG Oral Tablet acetaminophen 300 mg-codeine 60 mg tablet Active [facility] Albuterol 0.83 MG/ML Inhalant Solution albuterol sulfate 2.5 mg/3 mL (0.083 %) solution for nebulization Give 1 inhalation every 20 minutes by nebulizer route as needed Active [facility] Azelastine hydrochloride 0.5 MG/ML Ophthalmic Solution azelastine 0.05 % eye drops Active [facility] Azithromycin 250 MG Oral Tablet azithromycin 250 mg tablet Active [facility] benzonatate 100 MG Oral Capsule benzonatate 100 mg capsule Active [facility] Clarithromycin 500 MG Oral Tablet clarithromycin 500 mg tablet Active [facility] Diazepam 10 MG Oral Tablet diazepam 10 mg tablet Active [facility] Fluticasone propionate 0.05 MG/ACTUAT Metered Dose Nasal [place] fluticasone 50 mcg/actuation nasal spray,suspension Active [facility] Glipizide 10 MG Oral Tablet glipizide 10 mg tablet Active [facility] Levofloxacin 750 MG Oral Tablet levofloxacin 750 mg tablet Active [facility] Lisinopril 10 MG Oral Tablet lisinopril 10 mg tablet Active [facility] Hydrochlorothiazide 12.5 MG / Lisinopril 10 MG Oral Tablet lisinopril 10 mg-hydrochlorothiazide 12.5 mg tablet Active [facility] Metformin hydrochloride 1000 MG Oral Tablet metformin 1,000 mg tablet Active [facility] Metformin hydrochloride 500 MG Oral Tablet metformin 500 mg tablet Active [facility] Naproxen 500 MG Oral Tablet naproxen 500 mg tablet Active [facility] Dexamethasone 1 MG/ML / Neomycin 3.5 MG/ML / Polymyxin B 84810 UNT/ML Ophthalmic Suspension zgzygeoq-mzyuwzlwo-yagktgvo 3.5 mg/mL-10,000 unit/mL-0.1% eye drops Active [facility] OneTouch Delica Lancets 30 gauge OneTouch Delica Lancets 30 gauge Active [facility] OneTouch Verio IQ Meter OneTouch Verio IQ Meter Active [facility] OneTouch Verio strips OneTouch Verio strips Active [facility] 12 HR Orphenadrine Citrate 100 MG Extended Release Oral Tablet orphenadrine citrate ER 100 mg tablet,extended release Active [facility] pantoprazole 40 MG Delayed Release Oral Tablet pantoprazole 40 mg tablet,delayed release Active [facility] Prednisone 20 MG Oral Tablet prednisone 20 mg tablet Active [facility] 200 ACTUAT Albuterol 0.09 MG/ACTUAT Metered Dose Inhaler [ProAir] ProAir HFA 90 mcg/actuation aerosol inhaler TAKE 2 PUFF(S) (INHALATION) EVERY 6 HOURS NEEDED FOR WHEEZING Active [facility] Dextromethorphan Hydrobromide 2 MG/ML / Guaifenesin 20 MG/ML Oral Solution Q-Tussin DM 10 mg-100 mg/5 mL syrup TAKE 5 MLS BY MOUTH EVERY 4 HOURS NEEDED FOR COUGH FOR 7 DAYS Active [facility] Simvastatin 20 MG Oral Tablet simvastatin 20 mg tablet Active [facility] Ergocalciferol 83403 UNT Oral Capsule Vitamin D2 50,000 unit capsule Active [facility] Allergies, Adverse Reactions, Alerts Substance Category Reaction Severity Reaction type Status Date Reported Comments Source glipiZIDE Assertion Rash Mild Drug allergy Active [facility] Food Nuts<sup>1</sup> Assertion Drug allergy Active Data migrated from [facility] on 07/09/15. Originally documented as PEANUTS. [facility] Other Food Allergy<sup>2</sup> Assertion Drug allergy Active Data migrated from [facility] on 07/09/15. Originally documented as APRICOTS. [facility] Immunizations Immunization Date Given Site Status Last Updated Comments Source influenza virus vaccine, inactivated 03/08/2017 Right Deltoid completed [facility] pneumococcal 23-valent vaccine 03/19/2016 Not Given [facility] pneumococcal 23-valent vaccine<sup>2</sup> 03/19/2016 Not Given [facility] Hx influenza vaccine-unspecified<sup>1</sup> 02/08/2009 Left Deltoid completed [facility] Result Comment: fluvirin. Migrated from OBS ; Data migrated from [facility] on 06/14/2015. [facility] Results Order Name Results Value Reference Range Date Interpretation Comments Source Chest 2 views DX Chest 2 views DX Patient Name: ROMEO LARA : 1970; Age: 47 years y/o Female MR: [id number] Study: Chest 2 views DX 01/11/2018 5:22 PM CDT Ordering Physician: Clinical Indication: ; Comparison: July 12, 2016 Chest 2 views Lungs are clear. Heart size normal. There is no pleural effusion or pneumothorax. No bony abnormalities. IMPRESSION: Negative. SL: [id number] 01/11/2018 - - Read by: Yoan Smith MD Dictated Date/time: 01/11/18 17:36 Electronically Signed by: Yoan Smith MD 01/11/18 17:36 FINAL REPORT [facility] ED Abdomen/Pelvis IV contrast only CT ED Abdomen/Pelvis IV contrast only CT Patient Name: ROMEO LARA : 1970; Age: 47 years y/o Female MR: [id number] Study: ED Abdomen/Pelvis IV contrast only CT 11/21/2017 12:01 PM CDT Ordering Physician: Ofelia Cota MD Clinical Indication: - RETROPERITONEAL MASS, s/p endoscopy, pt states she has a mass in her lower abd; c/o mid to lower abd pain Comparison: US of same day TECHNIQUE: Sequential trans-axial images were obtained with a multi-detector helical CT with IV contrast. Coronal and sagittal reconstructions were obtained. 100 mL of Omni intravenously were used for the exam. CT Radiation Dose DLP 1190 mGy-cm FINDINGS: CT ABDOMEN: VISUALIZED LUNG BASES: demonstrate some LLL subsegmental atelectasis. ABDOMINAL ORGANS: The liver, spleen, pancreas, adrenals and kidneys demonstrate no acute pathology. The spleen is mildly enlarged at 12.3cm in craniocaudal dimension. Further work up for etiology and follow up recommended. STOMACH AND ABDOMINAL BOWEL: The stomach demonstrates no acute pathology. There is no evidence of bowel obstruction or free air. PERITONEUM AND RETROPERITONEUM: There is no lymphadenopathy appreciated. VASCULAR STRUCTURES: The abdominal aorta demonstrates no acute pathology, moderate amount of atheromatous plaque noted at left common iliac artery origin. CT PELVIS: PELVIC BOWEL: The appendix does not appear inflamed. PERITONEUM AND EXTRAPERITONEAL REGIONS: There is no pelvic sidewall lymphadenopathy. The inguinal regions demonstrate no acute pathology. BLADDER: The bladder demonstrate no acute pathology. OSSEOUS STRUCTURES: There are no focal suspicious lesions appreciated. IMPRESSION: Splenomegaly, follow up recommended as above. Left common iliac moderate plaque, does not appear likely hemodynamically significant at this point. No mass appreciated, it appears finding on US may have been caused by bone artifact. STEPHAN: MILLI 11/21/2017 - - Read by: Patito Jones MD Dictated Date/time: 11/21/17 16:03 Electronically Signed by: Patito Jones MD 11/21/17 16:25 FINAL REPORT [facility] Abdomen complete US Abdomen complete US Patient Name: ROMEO LARA : 1970; Age: 47 years y/o Female MR: [id number] Study: Abdomen complete US 11/21/2017 8:53 AM CDT Ordering Physician: Ofelia Cota MD Clinical Indication: - R10.9 Unspecified abdominal pain. Comparison: None TECHNIQUE: Grayscale and limited color sonographic evaluation of the abdomen was performed with standard technique. FINDINGS: LIVER: The visualized liver shows normal contour, size, and morphology with normal parenchymal echo texture. BILE DUCTS: The intrahepatic duct is not dilated. The common bile duct measuring 7.0 mm. GALLBLADDER: There are no gallstones, gallbladder sludge, pericholecystic fluid or wall thickening. PANCREAS: The visualized pancreas appears unremarkable.. SPLEEN: The spleen is unremarkable and measures 12.9 cm x 7.0 cm x 6.4 cm. KIDNEY: The right kidney measures 11.0 cm x 5.3 cm x 4.0 cm. The left kidney measures 11.2 cm x 5.2 cm x 5.1 cm. There is normal renal contour and morphology, with normal parenchymal echotexture. There is no hydronephrosis. AORTA AND INFERIOR VENA CAVA: Visualized portions appear unremarkable. ASCITES: There is no right abdominal ascites. A 11.5 cm x 5.7 cm x 5.0 cm complex lesion is present within deep lower abdomen near the iliac vasculature may represent retroperitoneal adenopathy or mass. IMPRESSION: 1. No definite gallstones. 2. A 11.5 cm x 5.7 cm x 5.0 cm complex lesion is present within deep lower abdomen near the iliac vasculature may represent retroperitoneal adenopathy or mass. Dedicated CT abdomen pelvis with IV and p.o. contrast recommended for further evaluation. Critical findings were called to medical coding technician Becca to notify Ofelia Cota MD on 11/21/2017 11:41 AM CDT. SL: [id number] 11/21/2017 - - Read by: Abhishek Pearl MD Dictated Date/time: 11/21/17 11:21 Electronically Signed by: Abhishek Pearl MD 11/21/17 12:03 FINAL REPORT [facility] ELECTROLYTES CO2 32 meq/L 24 - 32 11/19/2017 [facility] ELECTROLYTES Chloride Lvl 107 meq/L 95 - 109 11/19/2017 [facility] eGFR 117 mL/min/1.73m2 11/19/2017 Result Comment: The eGFR is calculated using the CKD-EPI formula. In most young, healthy individuals the eGFR will be >90 mL/min/1.73m2. The eGFR declines with age. An eGFR of 60-89 may be normal in some populations, particularly the elderly, for whom the CKD-EPI formula has not been extensively validated. Use of the eGFR is not recommended in the following populations: Individuals with unstable creatinine concentrations, including patients and those with serious co-morbid conditions. Patients with extremes in muscle mass or diet. The data above are obtained from the National Kidney Disease Education Program (NKDEP) which additionally recommends that when the eGFR is used in patients with extremes of body mass index for purposes of drug dosing, the eGFR should be multiplied by the estimated BMI. [facility] ELECTROLYTES Potassium Lvl 4.9 meq/L 3.5 - 5.1 11/19/2017 [facility] ELECTROLYTES Creatinine Lvl 0.47 mg/dL 0.50 - 1.40 11/19/2017 [facility] ELECTROLYTES Sodium Lvl 144 meq/L 135 - 145 11/19/2017 [facility] ELECTROLYTES Calcium Lvl 9.9 mg/dL 8.5 - 10.5 11/19/2017 [facility] ELECTROLYTES AGAP 9.9 meq/L 10.0 - 20.0 11/19/2017 [facility] ELECTROLYTES BUN 16 mg/dL 7 - 22 11/19/2017 [facility] ELECTROLYTES Glucose Lvl 104 mg/dL 70 - 99 11/19/2017 [facility] ANEMIA STUDY % Satur Fe 18 % 12 - 57 06/28/2017 [facility] ANEMIA STUDY UIBC 206 ug/dl 110 - 370 06/28/2017 [facility] ANEMIA STUDY TIBC 252 ug/dl 228 - 428 06/28/2017 [facility] ANEMIA STUDY Iron 46 ug/dl 30 - 160 06/28/2017 [facility] Knee wo contrast MRI Knee wo contrast MRI EXAM: MR LEFT KNEE WITHOUT CONTRAST DATE: 06/27/2017 4:53 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 FINDINGS: MENISCI: Medial meniscus: * Complex degenerative tearing of the anterior horn and horn/body junction with extrusion of macerated meniscal tissue into the inferior recess. * Degenerative tearing extends into the anterior root ligament. * Intrameniscal degenerative changes of the posterior horn. Lateral meniscus: * Small undersurface fraying of the posterior horn/body junction. Capsular ligaments remain intact LIGAMENTS: ACL: The anterior cruciate ligament is intact. High signal within the mid substance of the ligament may represent a low-grade sprain. PCL: The posterior cruciate ligament is intact. MCL: The medial collateral ligament is intact. LCL: The lateral collateral ligament complex is intact. EXTENSOR MECHANISM: The quadriceps tendon, patella and the patellar tendon are intact. MUSCLES: No signal abnormality in the muscles. CARTILAGE: Patellofemoral compartment: Diffuse patellar cartilage thinning with focal full- thickness fissuring of the lateral patellar facet with small amount of underlying reactive bone marrow edema. Mild thinning of the trochlear cartilage. Medial compartment: Severe cartilage thinning involving the almost entire weightbearing surface of the medial compartment with minimal subjacent marrow edema. Lateral compartment: Diffuse cartilage thinning without focal defect BONE: No fractures. Visualized bone marrow signal is normal. SOFT TISSUE: Small septated popliteal bursal effusion . Small knee joint effusion and synovitis. No abnormality of the neurovascular structures. IMPRESSION: 1. Complex degenerative tearing of the anterior horn and horn/body junction of the medial meniscus with extension into the anterior root ligament and extrusion of macerated meniscal tissue. 2. Undersurface fraying of the posterior horn/body junction of the lateral meniscus. 3. Increased signal of the ACL may represent mucoid degeneration or low-grade sprain. 4. Severe cartilage thinning involving the almost entire weightbearing surface of the medial compartment with minimal subjacent marrow edema. 5. Small knee joint effusion and synovitis. 06/27/2017 - - This report was dictated by a Generation Manager/Fellow. I have personally reviewed the images as well as the Resident's interpretation and agree with the findings. Read by: Miguel Carter (Fellow Resident: Miguel Carter (Fellow Dictated Date/time: 06/27/17 22:52 Electronically Signed by: Billy Araujo MD 06/29/17 10:54 FINAL REPORT [facility] CHEM PANEL Calcium Lvl 9.9 mg/dL 8.5 - 10.5 06/27/2017 [facility] CHEM PANEL Chloride Lvl 105 meq/L 95 - 109 06/27/2017 [facility] CHEM PANEL CO2 27 meq/L 24 - 32 06/27/2017 [facility] CHEM PANEL Creatinine Lvl 0.43 mg/dL 0.50 - 1.40 06/27/2017 [facility] CHEM PANEL Sodium Lvl 139 meq/L 135 - 145 06/27/2017 [facility] CHEM PANEL Potassium Lvl 5.0 meq/L 3.5 - 5.1 06/27/2017 [facility] CHEM PANEL BUN 20 mg/dL 7 - 22 06/27/2017 [facility] CHEM PANEL Glucose Lvl 115 mg/dL 70 - 99 06/27/2017 [facility] CHEM PANEL eGFR 120 mL/min/1.73m2 06/27/2017 Result Comment: The eGFR is calculated using the CKD-EPI formula. In most young, healthy individuals the eGFR will be >90 mL/min/1.73m2. The eGFR declines with age. An eGFR of 60-89 may be normal in some populations, particularly the elderly, for whom the CKD-EPI formula has not been extensively validated. Use of the eGFR is not recommended in the following populations: Individuals with unstable creatinine concentrations, including patients and those with serious co-morbid conditions. Patients with extremes in muscle mass or diet. The data above are obtained from the National Kidney Disease Education Program (NKDEP) which additionally recommends that when the eGFR is used in patients with extremes of body mass index for purposes of drug dosing, the eGFR should be multiplied by the estimated BMI. [facility] CHEM PANEL AGAP 12.0 meq/L 10.0 - 20.0 06/27/2017 [facility] HEMATOLOGY Monocytes # 0.6 K/CMM 0.0 - 0.8 06/27/2017 [facility] HEMATOLOGY Lymphocytes # 2.4 K/CMM 1.0 - 5.5 06/27/2017 [facility] HEMATOLOGY Segs-Bands # 3.9 K/CMM 1.5 - 8.1 06/27/2017 [facility] HEMATOLOGY Basophils 0.4 % 0.0 - 1.0 06/27/2017 [facility] HEMATOLOGY Eosinophils # 0.2 K/CMM 0.0 - 0.5 06/27/2017 [facility] HEMATOLOGY Microcyte 1+ *ABN* (06/27/17 10:00 AM) None Seen 06/27/2017 [facility] HEMATOLOGY Lymphocytes 33.7 % 20.0 - 40.0 06/27/2017 [facility] HEMATOLOGY Segs 55.4 % 45.0 - 75.0 06/27/2017 [facility] HEMATOLOGY Monocytes 8.3 % 2.0 - 12.0 06/27/2017 [facility] HEMATOLOGY Eosinophils 2.2 % 0.0 - 4.0 06/27/2017 [facility] HEMATOLOGY PTT 32.2 s 22.9 - 35.8 06/27/2017 [facility] HEMATOLOGY PT 13.6 s 12.0 - 14.7 06/27/2017 [facility] HEMATOLOGY INR 1.04 0.85 - 1.17 06/27/2017 [facility] HEMATOLOGY RDW 14.0 % 11.5 - 14.5 06/27/2017 [facility] HEMATOLOGY Hct 34.6 % 36.0 - 48.0 06/27/2017 [facility] HEMATOLOGY MCH 25.5 pg 27.0 - 31.0 06/27/2017 [facility] HEMATOLOGY MCV 76.8 fL 80.0 - 98.0 06/27/2017 [facility] HEMATOLOGY MPV 8.4 fL 7.4 - 10.4 06/27/2017 [facility] HEMATOLOGY Platelet 234 K/CMM 133 - 450 06/27/2017 [facility] HEMATOLOGY MCHC 33.2 g/dL 32.0 - 36.0 06/27/2017 [facility] HEMATOLOGY RBC 4.51 M/CMM 4.20 - 5.40 06/27/2017 [facility] HEMATOLOGY WBC 7.1 K/CMM 3.7 - 10.4 06/27/2017 [facility] HEMATOLOGY Hgb 11.5 g/dL 12.0 - 16.0 06/27/2017 [facility] Ankle 2 views DX Ankle 2 views DX EXAM: XR RIGHT ANKLE 2 VIEWS DATE: 06/27/2017 12:39 PM 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 There is no widening of the ankle joint on the stress view. No acute fracture or malalignment is identified. No evidence of fracture. No soft tissue abnormality is identified. IMPRESSION: Right ankle joint osteoarthritis medially with no evidence of instability on stress view. 06/27/2017 - - Read by: Sherman Hood MD Dictated Date/time: 06/27/17 13:39 Electronically Signed by: Sherman Hood MD 06/27/17 13:41 FINAL REPORT [facility] Ankle 3 views DX Ankle 3 views DX EXAM: XR RIGHT ANKLE 3 VIEWS DATE: 06/27/2017 8:54 AM SOCIAL MEDIA MARKETER INDICATION: - prox fibula fx COMPARISON: Previous right tibia and fibula showing a proximal shaft fibular fracture TECHNIQUE: AP, oblique and lateral radiographs of the ankle FINDINGS: No acute fracture or malalignment is identified. The ankle mortise is congruent. No soft tissue abnormality is identified. IMPRESSION: No acute abnormality. 06/27/2017 - - Read by: Sherman Hood MD Dictated Date/time: 06/27/17 10:47 Electronically Signed by: Sherman Hood MD 06/27/17 10:47 FINAL REPORT [facility] Foot series DX Foot series DX EXAM: XR RIGHT FOOT 3 VIEWS DATE: 06/27/2017 9:12 AM SOCIAL MEDIA MARKETER INDICATION: - high fibula fracture, assess for foot and ankle (pain) COMPARISON: Accompanying right ankle TECHNIQUE: AP, lateral and oblique radiographs of the foot FINDINGS: No acute fracture or malalignment is identified. There is osteoarthritis of the first MTP joint. A prominent talar beak is present and a large plantar calcaneal enthesophyte is noted. No soft tissue abnormality is identified. IMPRESSION: No acute abnormality. First MTP osteoarthritis. 06/27/2017 - - Read by: Sherman Hood MD Dictated Date/time: 06/27/17 10:47 Electronically Signed by: Sherman Hood MD 06/27/17 10:49 FINAL REPORT [facility] Tibia fibula series DX Tibia fibula series DX EXAM: XR RIGHT TIBIA 2 VIEWS DATE: 06/27/2017 7:28 AM SOCIAL MEDIA MARKETER INDICATION: - trauma fall COMPARISON: Accompanying right knee radiographs TECHNIQUE: AP and lateral radiographs of the tibia FINDINGS: Acute long oblique fracture of the proximal shaft of the fibula is noted. No abnormality is seen at the ankle but a medial ankle injury needs to be excluded with a standard 3 view right ankle series. No other abnormalities are seen elsewhere in the right tibia and fibula. No soft tissue abnormality is identified. IMPRESSION: Acute proximal shaft fracture the fibula. Standard 3 view right ankle series recommended. 06/27/2017 - - Read by: Sherman Hood MD Dictated Date/time: 06/27/17 08:46 Electronically Signed by: Sherman Hood MD 06/27/17 08:47 FINAL REPORT [facility] Pelvis AP DX Pelvis AP DX EXAM: XR PELVIS 1 VIEW DATE: 06/27/2017 7:33 AM SOCIAL MEDIA MARKETER INDICATION: - trauma fall, hip and leg pain COMPARISON: None TECHNIQUE: A single AP supine radiograph of the pelvis FINDINGS: No acute fracture or malalignment is identified. The soft tissues are unremarkable. IMPRESSION: No acute abnormality. 06/27/2017 - - Read by: Sherman Hood MD Dictated Date/time: 06/27/17 08:39 Electronically Signed by: Sherman Hood MD 06/27/17 08:42 FINAL REPORT [facility] Knee 3 views DX Knee 3 views DX EXAM: XR LEFT KNEE 3 VIEWS DATE: 06/27/2017 7:58 AM SOCIAL MEDIA MARKETER INDICATION: - trauma fall, knee pain COMPARISON: 11/10/1999 TECHNIQUE: 3 views of the knee FINDINGS: No acute fracture or malalignment is identified. Joint space narrowing seen in the medial compartment. Marginal osteophytes are seen in all 3 compartments, largest medially. No knee joint effusion is present. No soft tissue abnormality is identified. IMPRESSION: 3 compartment osteoarthritis, most severe medially, new since 2008. 06/27/2017 - - Read by: Sherman Hood MD Dictated Date/time: 06/27/17 08:49 Electronically Signed by: Sherman Hood MD 06/27/17 08:50 FINAL REPORT [facility] Knee 3 views DX Knee 3 views DX EXAM: XR RIGHT KNEE 3 VIEWS DATE: 06/27/2017 7:28 AM SOCIAL MEDIA MARKETER INDICATION: - fall COMPARISON: None TECHNIQUE: 3 views of the knee FINDINGS: An acute long oblique fracture of the proximal shaft of the fibula is seen, minimally displaced. Joint space narrowing is seen in the medial compartment on this nonweightbearing image. Moderately large marginal osteophytes are seen along the medial compartment. Smaller osteophytes are seen along the lateral compartment and the patellofemoral joint No knee joint effusion is present. No soft tissue abnormality is identified. IMPRESSION: 1. Acute proximal shaft fracture the fibula. 2. Osteoarthritis of the right knee 3 compartment but most severe medially. 06/27/2017 - - Read by: Sherman Hood MD Dictated Date/time: 06/27/17 08:42 Electronically Signed by: Sherman Hood MD 06/27/17 09:12 FINAL REPORT [facility] Chest 4 views DX Chest 4 views DX Study: 4 views of chest History: Short of breath Comments: The trachea is midline. The cardiomediastinal silhouette is normal in size. No pneumonia. No pleural effusions or pneumothorax. Impression: No acute cardiopulmonary disease. 07/12/2016 - - Read by: Molly Faria MD Dictated Date/time: 07/12/16 18:36 Electronically Signed by: Molly Faria MD 07/13/16 02:12 FINAL REPORT [facility] CHEM PANEL eGFR 108 mL/min/1.73m2 03/18/2016 Result Comment: The eGFR is calculated using the CKD-EPI formula. In most young, healthy individuals the eGFR will be >90 mL/min/1.73m2. The eGFR declines with age. An eGFR of 60-89 may be normal in some populations, particularly the elderly, for whom the CKD-EPI formula has not been extensively validated. Use of the eGFR is not recommended in the following populations: Individuals with unstable creatinine concentrations, including patients and those with serious co-morbid conditions. Patients with extremes in muscle mass or diet. The data above are obtained from the National Kidney Disease Education Program (NKDEP) which additionally recommends that when the eGFR is used in patients with extremes of body mass index for purposes of drug dosing, the eGFR should be multiplied by the estimated BMI. [facility] CHEM PANEL CO2 30 meq/L 24 - 32 03/18/2016 [facility] CHEM PANEL Potassium Lvl 3.8 meq/L 3.5 - 5.1 03/18/2016 [facility] CHEM PANEL Chloride Lvl 98 meq/L 95 - 109 03/18/2016 [facility] CHEM PANEL Calcium Lvl 9.2 mg/dL 8.5 - 10.5 03/18/2016 [facility] CHEM PANEL Sodium Lvl 134 meq/L 135 - 145 03/18/2016 [facility] CHEM PANEL BUN 12 mg/dL 7 - 22 03/18/2016 [facility] CHEM PANEL Creatinine Lvl 0.62 mg/dL 0.50 - 1.40 03/18/2016 [facility] CHEM PANEL Glucose Lvl 146 mg/dL 70 - 99 03/18/2016 [facility] CHEM PANEL AGAP 9.8 meq/L 10.0 - 20.0 03/18/2016 [facility] HEMATOLOGY MCHC 32.5 g/dL 32.0 - 36.0 03/18/2016 [facility] HEMATOLOGY RDW 13.1 % 11.5 - 14.5 03/18/2016 [facility] HEMATOLOGY Platelet 247 K/CMM 133 - 450 03/18/2016 [facility] [facility] HEMATOLOGY MPV 8.8 fL 7.4 - 10.4 03/18/2016 [facility] HEMATOLOGY RBC 5.51 M/CMM 4.20 - 5.40 03/18/2016 [facility] HEMATOLOGY WBC 7.5 K/CMM 3.7 - 10.4 03/18/2016 [facility] HEMATOLOGY Hgb 14.7 g/dL 12.0 - 16.0 03/18/2016 [facility] HEMATOLOGY Hct 45.2 % 36.0 - 48.0 03/18/2016 [facility] HEMATOLOGY MCH 26.7 pg 27.0 - 31.0 03/18/2016 [facility] HEMATOLOGY MCV 82.0 fL 80.0 - 98.0 03/18/2016 [facility] HEMATOLOGY Segs 50.7 % 45.0 - 75.0 03/18/2016 [facility] HEMATOLOGY Monocytes 11.7 % 2.0 - 12.0 03/18/2016 [facility] HEMATOLOGY Lymphocytes 33.6 % 20.0 - 40.0 03/18/2016 [facility] HEMATOLOGY Basophils 0.5 % 0.0 - 1.0 03/18/2016 [facility] HEMATOLOGY Eosinophils 3.5 % 0.0 - 4.0 03/18/2016 [facility] HEMATOLOGY Lymphocytes # 2.5 K/CMM 1.0 - 5.5 03/18/2016 [facility] HEMATOLOGY Segs-Bands # 3.8 K/CMM 1.5 - 8.1 03/18/2016 [facility] HEMATOLOGY Eosinophils # 0.3 K/CMM 0.0 - 0.5 03/18/2016 [facility] HEMATOLOGY Monocytes # 0.9 K/CMM 0.0 - 0.8 03/18/2016 [facility] Neck soft tissue DX Neck soft tissue DX EXAM: XR NECK SOFT TISSUE, 2 VIEWS DATE: 03/18/2016 6:20 PM CDT INDICATION: Coughing. Hoarseness. COMPARISON: 10/03/2015 TECHNIQUE: AP and lateral views of the neck were obtained. FINDINGS: The visualized airway is patent. The lower airway was not well visualized due to body habitus. No abnormality of the epiglottis or aryepiglottic folds are identified. Minimal prominence of the prevertebral soft tissues at the C2 vertebral body level is unchanged from the prior exam. No acute osseous abnormality is present. Mild degenerative changes of the cervical spine are visualized. IMPRESSION: Unremarkable radiographs of the neck. The upper airway is patent. SL: [id number] 03/18/2016 - - Read by: Eduardo Avitia MD Dictated Date/time: 03/18/16 19:26 Electronically Signed by: Eduardo Avitia MD 03/18/16 19:27 FINAL REPORT [facility] Chest 1view DX Chest 1view DX CHEST RADIOGRAPH SINGLE VIEW INDICATION: Coughing COMPARISON: Chest radiograph 10/03/2015 IMPRESSION: The lungs are underinflated. The cardiac silhouette appears prominent. There may be mild pulmonary vascular congestion. Grossly, no consolidation, pleural effusion, or pneumothorax are visible. SL:16 03/18/2016 - - Read by: Marcello Trejo MD Dictated Date/time: 03/18/16 18:14 Electronically Signed by: Marcello Trejo MD 03/18/16 18:14 FINAL REPORT [facility] RESULT negative 03/18/2016 [facility] SWAB LOCATION Left and Right tonsillar pillars 03/18/2016 [facility] URINE CHEM U Preg Negative (02/29/16 4:36 PM) Negative 02/29/2016 [facility] URINE AND STOOL UA Spec Grav 1.030 <=1.030 02/29/2016 [facility] URINE AND STOOL UA Turbidity Clear (02/29/16 4:34 PM) Clear 02/29/2016 [facility] URINE AND STOOL UA pH 6.0 5.0 - 8.0 02/29/2016 [facility] URINE AND STOOL UA Protein 30 mg/dL Negative mg/dL 02/29/2016 [facility] URINE AND STOOL UA Sq Epi Occasional /LPF Few /LPF 02/29/2016 [facility] URINE AND STOOL UA Bacteria Occasional /HPF None Seen /HPF 02/29/2016 [facility] URINE AND STOOL UA Urobilinogen <=1.0 mg/dL 0.1 - 1.0 02/29/2016 [facility] URINE AND STOOL UA Color Ltyellow 02/29/2016 [facility] URINE AND STOOL UA Ketones Negative mg/dL Negative mg/dL 02/29/2016 [facility] URINE AND STOOL UA Glucose 500 mg/dL Negative mg/dL 02/29/2016 [facility] URINE AND STOOL UA Nitrite Negative (02/29/16 4:34 PM) Negative 02/29/2016 [facility] URINE AND STOOL UA Leuk Est Negative (02/29/16 4:34 PM) Negative 02/29/2016 [facility] URINE AND STOOL UA Blood Negative (02/29/16 4:34 PM) Negative 02/29/2016 [facility] URINE AND STOOL UA Bili Negative *NA* (02/29/16 4:34 PM) Negative 02/29/2016 [facility] Spine lumbar 2 or 3 views DX Spine lumbar 2 or 3 views DX Study: Lumbar spine, 3 views Clinical Indication: Backache Comparison: None FINDINGS: Multiple views of the lumbar spine show 5 nonrib-bearing lumbar vertebra. No acute compression fracture or subluxation is seen. Intervertebral disc spaces are well-maintained. IMPRESSION: No acute bony abnormality of the lumbar spine. SL: [id number] 02/29/2016 - - Read by: Moses Lu MD Dictated Date/time: 02/29/16 17:04 Electronically Signed by: Moses Lu MD 02/29/16 17:05 FINAL REPORT [facility] CHEM PANEL eGFR 86 mL/min/1.73m2 10/04/2015 Result Comment: The eGFR is calculated using the CKD-EPI formula. In most young, healthy individuals the eGFR will be >90 mL/min/1.73m2. The eGFR declines with age. An eGFR of 60-89 may be normal in some populations, particularly the elderly, for whom the CKD-EPI formula has not been extensively validated. Use of the eGFR is not recommended in the following populations: Individuals with unstable creatinine concentrations, including patients and those with serious co-morbid conditions. Patients with extremes in muscle mass or diet. The data above are obtained from the National Kidney Disease Education Program (NKDEP) which additionally recommends that when the eGFR is used in patients with extremes of body mass index for purposes of drug dosing, the eGFR should be multiplied by the estimated BMI. [facility] CHEM PANEL AGAP 16.2 meq/L 10.0 - 20.0 10/04/2015 [facility] CHEM PANEL CO2 23 meq/L 24 - 32 10/04/2015 [facility] CHEM PANEL Calcium Lvl 9.3 mg/dL 8.5 - 10.5 10/04/2015 [facility] CHEM PANEL Glucose Lvl 295 mg/dL 70 - 99 10/04/2015 [facility] CHEM PANEL Creatinine Lvl 0.81 mg/dL 0.50 - 1.40 10/04/2015 [facility] CHEM PANEL BUN 10 mg/dL 7 - 22 10/04/2015 [facility] CHEM PANEL Chloride Lvl 100 meq/L 95 - 109 10/04/2015 [facility] CHEM PANEL Potassium Lvl 4.2 meq/L 3.5 - 5.1 10/04/2015 [facility] CHEM PANEL Sodium Lvl 135 meq/L 135 - 145 10/04/2015 [facility] CHEM PANEL Phosphorus 3.2 mg/dL 2.5 - 4.5 10/04/2015 [facility] CHEM PANEL Magnesium Lvl 2.0 mg/dL 1.8 - 2.4 10/04/2015 [facility] HEMATOLOGY Lymphocytes 10.4 % 20.0 - 40.0 10/04/2015 [facility] HEMATOLOGY Segs 88.1 % 45.0 - 75.0 10/04/2015 [facility] HEMATOLOGY Monocytes 1.2 % 2.0 - 12.0 10/04/2015 [facility] HEMATOLOGY Eosinophils 0.1 % 0.0 - 4.0 10/04/2015 [facility] HEMATOLOGY Basophils 0.2 % 0.0 - 1.0 10/04/2015 [facility] HEMATOLOGY Segs-Bands # 6.7 K/CMM 1.5 - 8.1 10/04/2015 [facility] HEMATOLOGY Lymphocytes # 0.8 K/CMM 1.0 - 5.5 10/04/2015 [facility] HEMATOLOGY Monocytes # 0.1 K/CMM 0.0 - 0.8 10/04/2015 [facility] HEMATOLOGY RDW 13.4 % 11.5 - 14.5 10/04/2015 [facility] HEMATOLOGY Platelet 212 K/CMM 133 - 450 10/04/2015 [facility] HEMATOLOGY MCV 82.7 fL 80.0 - 98.0 10/04/2015 [facility] HEMATOLOGY MCH 27.1 pg 27.0 - 31.0 10/04/2015 [facility] HEMATOLOGY MPV 8.4 fL 7.4 - 10.4 10/04/2015 [facility] HEMATOLOGY MCHC 32.8 g/dL 32.0 - 36.0 10/04/2015 [facility] HEMATOLOGY Hct 40.4 % 36.0 - 48.0 10/04/2015 [facility] HEMATOLOGY WBC 7.6 K/CMM 3.7 - 10.4 10/04/2015 [facility] HEMATOLOGY RBC 4.88 M/CMM 4.20 - 5.40 10/04/2015 [facility] HEMATOLOGY Hgb 13.2 g/dL 12.0 - 16.0 10/04/2015 [facility] URINE AND STOOL UA Glucose Negative mg/dL Negative mg/dL 10/04/2015 [facility] URINE AND STOOL UA Protein 30 mg/dL Negative mg/dL 10/04/2015 [facility] URINE AND STOOL UA Spec Grav 1.012 <=1.030 10/04/2015 [facility] URINE AND STOOL UA pH 6.0 5.0 - 8.0 10/04/2015 [facility] URINE AND STOOL UA Blood Negative (10/04/15 12:03 AM) Negative 10/04/2015 [facility] URINE AND STOOL UA Turbidity Clear (10/04/15 12:03 AM) Clear 10/04/2015 [facility] URINE AND STOOL UA RBC 3 /HPF 0 - 2 10/04/2015 [facility] URINE AND STOOL UA WBC null 0 - 5 10/04/2015 [facility] URINE AND STOOL UA Bili Negative *NA* (10/04/15 12:03 AM) Negative 10/04/2015 [facility] URINE AND STOOL UA Ketones Negative mg/dL Negative mg/dL 10/04/2015 [facility] URINE AND STOOL UA Leuk Est Negative (10/04/15 12:03 AM) Negative 10/04/2015 [facility] URINE AND STOOL UA Sq Epi Occasional /LPF Few /LPF 10/04/2015 [facility] URINE AND STOOL UA Nitrite Negative (10/04/15 12:03 AM) Negative 10/04/2015 [facility] URINE AND STOOL UA Mucus Few /LPF None Seen /LPF 10/04/2015 [facility] URINE AND STOOL UA Color Ltyellow 10/04/2015 [facility] URINE AND STOOL UA Urobilinogen <=1.0 mg/dL 0.1 - 1.0 10/04/2015 [facility] CARDIAC ENZYMES BNP 12 pg/mL <=100 pg/mL 10/04/2015 [facility] CHEM PANEL eGFR 107 mL/min/1.73m2 10/04/2015 Result Comment: The eGFR is calculated using the CKD-EPI formula. In most young, healthy individuals the eGFR will be >90 mL/min/1.73m2. The eGFR declines with age. An eGFR of 60-89 may be normal in some populations, particularly the elderly, for whom the CKD-EPI formula has not been extensively validated. Use of the eGFR is not recommended in the following populations: Individuals with unstable creatinine concentrations, including patients and those with serious co-morbid conditions. Patients with extremes in muscle mass or diet. The data above are obtained from the National Kidney Disease Education Program (NKDEP) which additionally recommends that when the eGFR is used in patients with extremes of body mass index for purposes of drug dosing, the eGFR should be multiplied by the estimated BMI. [facility] CHEM PANEL Chloride Lvl 100 meq/L 95 - 109 10/04/2015 [facility] CHEM PANEL Calcium Lvl 8.8 mg/dL 8.5 - 10.5 10/04/2015 [facility] CHEM PANEL CO2 27 meq/L 24 - 32 10/04/2015 [facility] CHEM PANEL Alk Phos 88 unit/L 39 - 136 10/04/2015 [facility] CHEM PANEL ALT 47 unit/L 0 - 65 10/04/2015 [facility] CHEM PANEL AST 23 unit/L 0 - 37 10/04/2015 [facility] CHEM PANEL Bili Total 0.5 mg/dL 0.2 - 1.3 10/04/2015 [facility] CHEM PANEL Creatinine Lvl 0.64 mg/dL 0.50 - 1.40 10/04/2015 [facility] CHEM PANEL Sodium Lvl 137 meq/L 135 - 145 10/04/2015 [facility] CHEM PANEL Potassium Lvl 3.8 meq/L 3.5 - 5.1 10/04/2015 [facility] CHEM PANEL BUN 8 mg/dL 7 - 22 10/04/2015 [facility] CHEM PANEL Glucose Lvl 104 mg/dL 70 - 99 10/04/2015 [facility] CHEM PANEL Albumin Lvl 3.9 g/dL 3.5 - 5.0 10/04/2015 [facility] CHEM PANEL Total Protein 7.8 g/dL 6.4 - 8.4 10/04/2015 [facility] CHEM PANEL B/C Ratio 12 6 - 25 10/04/2015 [facility] CHEM PANEL AGAP 13.8 meq/L 10.0 - 20.0 10/04/2015 [facility] CHEM PANEL A/G Ratio 1.0 0.7 - 1.6 10/04/2015 [facility] CHEM PANEL Globulin 3.9 g/dL 2.0 - 4.0 10/04/2015 [facility] HEMATOLOGY Basophils # 0.1 K/CMM 0.0 - 0.2 10/04/2015 [facility] HEMATOLOGY Eosinophils # 0.5 K/CMM 0.0 - 0.5 10/04/2015 [facility] HEMATOLOGY Segs-Bands # 6.5 K/CMM 1.5 - 8.1 10/04/2015 [facility] HEMATOLOGY Lymphocytes # 2.4 K/CMM 1.0 - 5.5 10/04/2015 [facility] HEMATOLOGY Monocytes # 0.8 K/CMM 0.0 - 0.8 10/04/2015 [facility] HEMATOLOGY Eosinophils 4.9 % 0.0 - 4.0 10/04/2015 [facility] HEMATOLOGY Monocytes 7.6 % 2.0 - 12.0 10/04/2015 [facility] HEMATOLOGY Lymphocytes 23.7 % 20.0 - 40.0 10/04/2015 [facility] HEMATOLOGY Segs 63.2 % 45.0 - 75.0 10/04/2015 [facility] HEMATOLOGY Basophils 0.6 % 0.0 - 1.0 10/04/2015 [facility] HEMATOLOGY MPV 8.2 fL 7.4 - 10.4 10/04/2015 [facility] MCHC 32.7 g/dL 32.0 - 36.0 10/04/2015 [facility] HEMATOLOGY RDW 13.8 % 11.5 - 14.5 10/04/2015 [facility] HEMATOLOGY Platelet 212 K/CMM 133 - 450 10/04/2015 [facility] HEMATOLOGY RBC 5.05 M/CMM 4.20 - 5.40 10/04/2015 [facility] HEMATOLOGY Hct 41.5 % 36.0 - 48.0 10/04/2015 [facility] Hgb 13.6 g/dL 12.0 - 16.0 10/04/2015 [facility] HEMATOLOGY MCH 26.8 pg 27.0 - 31.0 10/04/2015 [facility] HEMATOLOGY MCV 82.1 fL 80.0 - 98.0 10/04/2015 [facility] HEMATOLOGY WBC 10.2 K/CMM 3.7 - 10.4 10/04/2015 [facility] Chest 2 views DX Chest 2 views DX Patient Name: ROMEO LARA : 1970; Age: 45 years y/o Female MR: [id number] * CHEST, 2 views HISTORY: Coughing, ; COMPARISON: 05/03/2015 TECHNIQUE: Frontal and lateral radiographs of the chest were obtained. FINDINGS: The lungs are clear. There are no pleural effusions. There is borderline cardiomegaly. There is no overt failure. The cardiac size may be accentuated by the patient's habitus. The regional skeleton is unremarkable. IMPRESSION: 1. No active disease. 2. Borderline cardiomegaly. 3. No significant change from 05/03/2015. SL: [id number] 10/03/2015 - - Read by: Mikey Adler MD Dictated Date/time: 10/03/15 21:38 Electronically Signed by: Mikey Adler MD 10/03/15 21:39 FINAL REPORT [facility] Neck soft tissue DX Neck soft tissue DX Patient Name: ROMEO LARA : 1970; Age: 45 years Female MR: [id number] Study: Neck soft tissue DX 10/03/2015 8:30 PM CDT Clinical Indication: Cough and fever. COMPARISON: None FINDINGS: 2 views left Limited exam secondary to motion. Prevertebral soft tissue prominence anterior to C1 and C2. Cervical spondylosis spanning C4-C6. Small bilateral cervical ribs. IMPRESSION: 1. Prevertebral soft tissue prominence anterior to C1 and C2. This could be secondary to expiration and technique. Consider repeat imaging without motion to reevaluate. 2. Cervical spondylosis spanning C4-C6. SL: [id number] 10/03/2015 - - Read by: Samuel Tompkins MD Dictated Date/time: 10/03/15 23:39 Electronically Signed by: Samuel Tompkins MD 10/03/15 23:40 FINAL REPORT [facility] Chest 2 views DX Chest 2 views DX REASON FOR EXAM: Pneumonia, unspecified organism. Note: The patient reports chest congestion and weakness. COMPARISON: Chest x-ray 07/30/2008. FINDINGS: Two view chest x-ray. The lateral view is limited due to underpenetration likely from the patient's body habitus. The cardiac silhouette is enlarged demonstrating interval increase in size from the comparison examination. The central pulmonary vessels are upper limits of normal. There is no demonstrable infiltrate, pneumothorax or significant pleural effusion. There is no significant osseous abnormality. IMPRESSION: 1. Enlarged cardiac silhouette. 2. There is no demonstrable acute pulmonary abnormality. SL: 15 05/03/2015 - - Read by: Narciso Varma MD Dictated Date/time: 05/03/15 14:44 Electronically Signed by: Narciso Varma MD 05/03/15 15:06 FINAL REPORT [facility] Vital Signs Vital Sign Value Date Comments Source BMI Calculated 39.19 07/31/2018 [facility] Weight 94.091 07/31/2018 [facility] Temperature Oral (F) 97.2 F 07/31/2018 [facility] Respitory Rate 15 07/31/2018 [facility] Heart Rate 73 07/31/2018 [facility] Height 154.94 cm 07/31/2018 [facility] Systolic (mm Hg) 149 07/31/2018 [facility] Diastolic (mm Hg) 80 07/31/2018 [facility] Height 154.94 cm 06/21/2018 [facility] Weight 95 06/21/2018 [facility] BMI Calculated 39.57 06/21/2018 [facility] Systolic (mm Hg) 139 06/21/2018 [facility] Diastolic (mm Hg) 83 06/21/2018 [facility] Heart Rate 83 06/21/2018 [facility] Temperature Oral (F) 98.1 F 06/21/2018 [facility] Respitory Rate 14 06/21/2018 [facility] Temperature Oral (F) 98.7 F 01/09/2018 [facility] Respitory Rate 14 01/09/2018 [facility] BMI Calculated 44.16 01/09/2018 [facility] Weight 106.023 01/09/2018 [facility] Height 154.94 cm 01/09/2018 [facility] Heart Rate 69 01/09/2018 [facility] BMI Calculated 43.03 12/12/2017 [facility] Weight 103.295 12/12/2017 [facility] Temperature Oral (F) 99.1 F 12/12/2017 [facility] Heart Rate 83 12/12/2017 [facility] Respitory Rate 14 12/12/2017 [facility] Systolic (mm Hg) 152 12/12/2017 [facility] Diastolic (mm Hg) 85 12/12/2017 [facility] Height 154.94 cm 12/12/2017 [facility] Systolic (mm Hg) 122 11/21/2017 [facility] Diastolic (mm Hg) 70 11/21/2017 [facility] Respitory Rate 12 11/21/2017 [facility] Systolic (mm Hg) 109 11/21/2017 [facility] Diastolic (mm Hg) 95 11/21/2017 [facility] Respitory Rate 13 11/21/2017 [facility] Respitory Rate 17 11/21/2017 [facility] Heart Rate 81 11/21/2017 [facility] Systolic (mm Hg) 120 11/21/2017 [facility] Diastolic (mm Hg) 48 11/21/2017 [facility] BMI Calculated 42.41 11/19/2017 [facility] Weight 101.818 11/19/2017 [facility] Height 154.94 cm 11/19/2017 [facility] Heart Rate 64 11/19/2017 [facility] Temperature Oral (F) 98.4 F 11/19/2017 [facility] Weight 102.955 10/16/2017 [facility] BMI Calculated 42.89 10/16/2017 [facility] Height 154.94 cm 10/16/2017 [facility] Temperature Oral (F) 98.3 F 10/16/2017 [facility] Systolic (mm Hg) 120 10/16/2017 [facility] Diastolic (mm Hg) 67 10/16/2017 [facility] Heart Rate 58 10/16/2017 [facility] BMI Calculated 42.22 09/03/2017 [facility] Weight 101.364 09/03/2017 [facility] Systolic (mm Hg) 136 09/03/2017 [facility] Diastolic (mm Hg) 77 09/03/2017 [facility] Respitory Rate 14 09/03/2017 [facility] Heart Rate 95 09/03/2017 [facility] Temperature Oral (F) 98.4 F 09/03/2017 [facility] Height 154.94 cm 09/03/2017 [facility] Height 154.94 cm 08/02/2017 [facility] Weight 99.773 08/02/2017 [facility] BMI Calculated 41.56 08/02/2017 [facility] Heart Rate 79 08/02/2017 [facility] Respitory Rate 14 08/02/2017 [facility] Temperature Oral (F) 98.6 F 08/02/2017 [facility] Systolic (mm Hg) 141 08/02/2017 [facility] Diastolic (mm Hg) 85 08/02/2017 [facility] BMI Calculated 41.28 07/03/2017 [facility] Weight 99.091 07/03/2017 [facility] Height 154.94 cm 07/03/2017 [facility] Heart Rate 62 07/03/2017 [facility] Temperature Oral (F) 97.1 F 07/03/2017 [facility] Respitory Rate 14 07/03/2017 [facility] Systolic (mm Hg) 152 07/03/2017 [facility] Diastolic (mm Hg) 81 07/03/2017 [facility] Respitory Rate 18 06/29/2017 [facility] Heart Rate 63 06/29/2017 [facility] Temperature Oral (F) 97.7 F 06/29/2017 [facility] Systolic (mm Hg) 131 06/29/2017 [facility] Diastolic (mm Hg) 76 06/29/2017 [facility] Systolic (mm Hg) 124 06/29/2017 [facility] Diastolic (mm Hg) 76 06/29/2017 [facility] Temperature Oral (F) 97.3 F 06/29/2017 [facility] Respitory Rate 18 06/29/2017 [facility] Heart Rate 69 06/29/2017 [facility] Respitory Rate 18 06/29/2017 [facility] Temperature Oral (F) 97 F 06/29/2017 [facility] Heart Rate 60 06/29/2017 [facility] Systolic (mm Hg) 112 06/29/2017 [facility] Diastolic (mm Hg) 56 06/29/2017 [facility] Height 152.4 cm 06/28/2017 [facility] BMI Calculated 43.06 06/28/2017 [facility] Weight 100 06/28/2017 [facility] BMI Calculated 41.47 05/15/2017 [facility] Weight 99.545 05/15/2017 [facility] Temperature Oral (F) 98 F 05/15/2017 [facility] Respitory Rate 14 05/15/2017 [facility] Height 154.94 cm 05/15/2017 [facility] Heart Rate 71 05/15/2017 [facility] Systolic (mm Hg) 146 05/15/2017 [facility] Diastolic (mm Hg) 80 05/15/2017 [facility] BMI Calculated 42.32 04/11/2017 [facility] Height 154.94 cm 04/11/2017 [facility] Weight 101.591 04/11/2017 [facility] Systolic (mm Hg) 132 04/11/2017 [facility] Diastolic (mm Hg) 74 04/11/2017 [facility] Respitory Rate 14 04/11/2017 [facility] Heart Rate 83 04/11/2017 [facility] Temperature Oral (F) 98.1 F 04/11/2017 [facility] Respitory Rate 20 03/19/2016 [facility] Systolic (mm Hg) 119 03/19/2016 [facility] Diastolic (mm Hg) 65 03/19/2016 [facility] Heart Rate 75 03/19/2016 [facility] Temperature Oral (F) 97.5 F 03/19/2016 [facility] Systolic (mm Hg) 145 03/19/2016 [facility] Diastolic (mm Hg) 76 03/19/2016 [facility] Temperature Oral (F) 97.6 F 03/19/2016 [facility] Heart Rate 69 03/19/2016 [facility] Respitory Rate 19 03/19/2016 [facility] Systolic (mm Hg) 105 03/19/2016 [facility] Diastolic (mm Hg) 70 03/19/2016 [facility] Respitory Rate 15 03/19/2016 [facility] Heart Rate 68 03/19/2016 [facility] Temperature Oral (F) 97.8 F 03/19/2016 [facility] Height 154.94 cm 03/19/2016 [facility] BMI Calculated 54.53 03/19/2016 [facility] Weight 130.909 03/19/2016 [facility] BMI Calculated 54.53 03/18/2016 [facility] Weight 130.909 03/18/2016 [facility] Height 154.94 cm 03/18/2016 [facility] Diastolic (mm Hg) 88 03/18/2016 [facility] Height 61 03/18/2016 [facility] Systolic (mm Hg) 150 03/18/2016 [facility] Weight 288 03/18/2016 [facility] Temperature Oral (F) 98.1 F 02/29/2016 [facility] Systolic (mm Hg) 153 02/29/2016 [facility] Diastolic (mm Hg) 98 02/29/2016 [facility] Respitory Rate 18 02/29/2016 [facility] Heart Rate 82 02/29/2016 [facility] Weight 136.364 02/29/2016 [facility] Height 154.94 cm 02/29/2016 [facility] Temperature Oral (F) 97.9 F 02/29/2016 [facility] Respitory Rate 18 02/29/2016 [facility] BMI Calculated 56.8 02/29/2016 [facility] Heart Rate 79 02/29/2016 [facility] Systolic (mm Hg) 171 02/29/2016 [facility] Diastolic (mm Hg) 104 02/29/2016 [facility] Systolic (mm Hg) 148 10/04/2015 [facility] Diastolic (mm Hg) 74 10/04/2015 [facility] Respitory Rate 19 10/04/2015 [facility] Heart Rate 83 10/04/2015 [facility] Temperature Oral (F) 98.1 F 10/04/2015 [facility] Systolic (mm Hg) 113 10/04/2015 [facility] Diastolic (mm Hg) 71 10/04/2015 [facility] Heart Rate 85 10/04/2015 [facility] Temperature Oral (F) 98.5 F 10/04/2015 [facility] Respitory Rate 20 10/04/2015 [facility] Temperature Oral (F) 98.3 F 10/04/2015 [facility] Heart Rate 101 10/04/2015 [facility] Systolic (mm Hg) 126 10/04/2015 [facility] Diastolic (mm Hg) 78 10/04/2015 [facility] Respitory Rate 20 10/04/2015 [facility] Weight 139.545 10/04/2015 [facility] BMI Calculated 58.13 10/04/2015 [facility] Height 154.94 cm 10/04/2015 [facility] Encounters Location Location Details Encounter Type Encounter Number Reason For Visit Attending Provider ADM Date DC Date Status Source [facility] Outpatient Imaging [facility] Services [id number] Cate Shane 05/03/2015 05/04/2015 [facility] OBS Observation Patient [id number] Anjelica Patino 10/04/2015 10/04/2015 [facility] Outpatient [id number] JOANNE MANE 12/22/2015 Active [facility] Emergency [id number] Miguel Adore 02/29/2016 02/29/2016 [facility] Outpatient [id number] JOANNE MANE 03/02/2016 Active [facility] Outpatient [id number] JOANNE MANE 03/09/2016 Active [facility] [place] - [facility] - [id number] Anatoliy Emiola, RUG WASHER: [id number] [facility] [place] [address], Ph. [phone] [id number] Anatoliy Emiola 03/18/2016 [facility] [place] - [facility] - [id number] Anatoliy Emiola, RUG WASHER: [id number] [facility] [place] [address], Ph. [phone] [id number] Anatoliy Emiola 03/18/2016 [facility] [id number] Anant Hitchcock Jr 03/18/2016 03/19/2016 [facility] Outpatient [id number] JOANNE MANE 03/20/2016 Active [facility] Outpatient [id number] JOANNE MANE 03/27/2016 Active [facility] Outpatient [id number] JOANNE MANE 04/13/2016 Active [facility] Outpatient [id number] JOANNE MANE 06/06/2016 Active [facility] [id number] JOANNE MANE 06/23/2016 [facility] [id number] JOANNE MANE 07/07/2016 Active [facility] Outpatient [id number] JOANNE MANE 07/12/2016 Active [facility] Outpatient [id number] Joanne Herron 07/12/2016 07/13/2016 [facility] Outpatient [id number] JOANNE MANE 07/24/2016 Active [facility]patient [id number] JOANNE MANE 09/05/2016 Active [facility] Outpatient [id number] [place] 09/12/2016 09/13/2016 [facility] Outpatient [id number] JOANNE MANE 10/16/2016 Active [facility] [id number] JOANNE MANE 11/24/2016 Active [facility] [id number] JOANNE MANE 12/01/2016 Active [facility] [id number] JOANNE MANE 02/06/2017 Active [facility] Outpatient [id number] JOANNE MANE 03/08/2017 Active [facility] Outpatient [id number] JOANNE MANE 04/11/[address] [facility] Primary [facility] Outpatient [id number] Joanne Herron 04/11/2017 04/12/2017 [facility] Outpatient [id number] JOANNE MANE 05/15/[address] [facility] Outpatient [id number] Joanne Herron 05/15/2017 05/16/2017 [facility] Inpatient [id number] [place] 06/27/2017 06/29/2017 [facility] Outpatient [id number] JOANNE MANE 07/03/[address] [facility] Outpatient [id number] Joanne Herron 07/03/2017 07/04/2017 [facility] Outpatient [id number] JOANNE MANE 08/02/[address] [facility] Outpatient [id number] Joanne Herron 08/02/2017 08/03/2017 [facility] Outpatient [id number] JOANNE MANE 09/03/[address] [facility] Primary [facility] Outpatient [id number] Joanne Herron 09/03/2017 09/04/2017 [facility] Outpatient [id number] JOANNE MANE 10/16/[address] [facility] Outpatient [id number] Joanne Herron 10/16/2017 10/17/2017 [facility] Phone Message [id number] 11/06/2017 11/08/[address] [facility] [id number] Ofelia Cota 11/21/2017 11/21/2017 [facility] Outpatient [id number] JOANNE MANE 12/12/[address] [facility] Outpatient [id number] Joanne Herron 12/12/2017 12/13/2017 [facility] Outpatient [id number] JOANNE MANE 01/09/[address] [facility] [id number] Joanne Herron 01/09/2018 01/10/[address] [facility] Outpatient [id number] Joanne Herron 01/11/2018 01/12/2018 [facility] Outpatient [id number] JOANNE MANE 05/22/2018 Active [facility] Outpatient [id number] TALIB CHAGO 06/21/[address] [facility] Outpatient [id number] Talib Riverah 06/21/2018 06/22/2018 [facility] Outpatient [id number] JOANNE MANE 07/31/[address] [facility] Outpatient [id number] Joanne Herron 07/31/2018 08/01/2018 Medical [facility] Procedures Procedure Code Date Perfomer Comments Source Colon cancer screening<sup>1</sup> [id number] 11/21/2017 Repeat in 2027 Diverticular disease [facility] Colon cancer screening<sup>1</sup> [id number] 11/21/2017 Repeat in 2027 Diverticular disease [facility] Diabetic retinopathy screening<sup>1</sup> [id number] 10/12/2016 No retinopathy [facility] Diabetic retinopathy screening<sup>2</sup> [id number] 10/12/2016 No retinopathy [facility] Diabetic retinopathy screening<sup>2</sup> [id number] 10/12/2016 No retinopathy [facility] Diabetic retinopathy screening<sup>1</sup> [id number] 10/12/2016 No retinopathy [facility] Diabetic retinopathy screening<sup>1</sup> [id number] 10/12/2016 No retinopathy [facility] CS - Caesarean section [id number] [facility] CS - section [id number] [facility] CS - Caesarean section [id number] [facility] CS - section [id number] [facility] Operation [id number] [facility] Operation [id number] [facility] CS - Caesarean section [id number] [facility] CS - section [id number] [facility]
--- OUTSIDE RECORDS SUMMARY | 2018-09-19 15:03 | XMS REPORT | Summary of Care ---
Author Author [facility] Organization [facility] Address Unknown Phone Unavailable Encounter HENRIETTA Tinajero(BLU) [id number] Date(s): 06/27/17 - 06/29/17 [facility] [address] [employer] provided by [facility] [place] [address]- Encounter Diagnosis Other fracture of upper and lower end of right fibula, initial encounter for aziza sed fracture (Final) - 07/04/17 Type 2 diabetes mellitus with diabetic polyneuropathy (Final) - Body mass index (BMI) 40.0-44.9, adult (Final) - Fall (on) (from) unspecified stairs and steps, initial encounter (Final) - Morbid (severe) obesity due to excess calories (Final) - Essential (primary) hypertension (Final) - Major depressive disorder, single episode, unspecified (Final) - Obstructive sleep apnea (adult) (pediatric) (Final) - Unspecified fracture of shaft of right fibula, initial encounter for closed frac ture (Final) - Discharge Disposition: Home Care with Home Health Attending Physician: Rancho Denis DO Admitting Physician: Rancho Denis DO Vital Signs 1 2 3 Most recent to oldest [Reference Range]: 152.4 cm (06/27/17 7:28 PM) Height 97.7 DegF (06/29/17 3:24 PM) 97.3 DegF (06/29/17 11:50 AM) 97 DegF (06/29/17 8:03 AM) Temperature Oral [96.4-99.1 DegF] 131/76 mmHg (06/29/17 3:24 PM) 124/76 mmHg (06/29/17 11:50 AM) 112/56 mmHg (06/29/17 8:03 AM) Blood Pressure [90-140/60-90 mmHg] 18 BRMIN (06/29/17 3:24 PM) 18 BRMIN (06/29/17 11:50 AM) 18 BRMIN (06/29/17 8:03 AM) Respiratory Rate [14-20 BRMIN] 63 bpm (06/29/17 3:24 PM) 69 bpm (06/29/17 11:50 AM) 60 bpm (06/29/17 8:03 AM) Peripheral Pulse Rate [60-100 bpm] 100 kg (06/27/17 7:28 PM) Weight 43.06 m2 (06/27/17 7:28 PM) Body Mass Index Problem List Condition Effective Dates Status Health Status Informant Acute Active bronchitis(Confirmed ) Amenorrhea1 11/02/08 Active Anemia(Confirmed) Active Anxiety(Confirmed) Active Asthma(Confirmed) Active Asthma(Confirmed)2 02/12/08 Active Asthma(Confirmed) Active Benign essential Active HTN(Confirmed) Benign hypertension3 Active Breast cancer Active screening(Confirmed) Pap smear for Active cervical cancer screening(Confirmed) Carpal tunnel Active syndrome4 Chronic Active cough(Confirmed) Closed right fibular Active fracture(Confirmed) Coarse Active tremors(Confirmed) Cough5 07/30/08 Active Depressive 02/12/08 Active disorder(Confirmed)6 Ringworm(Confirmed) Active Diabetes(Confirmed) Resolved DM type 2 with Active diabetic peripheral neuropathy(Confirmed ) Dysplastic nevus of 11/04/08 Active skin7 Fatigue8 02/12/08 Active Foot pain9 12/09/07 Active Graves' oowgmnc96 03/24/09 Active Hand pain11 11/02/08 Active Zeuozxqs37 11/27/07 Active HTN Resolved (hypertension)(Confi rmed) Kvagmjywwnnrffg50 02/08/09 Resolved Lpbixkrnonyzlq13 11/10/08 Resolved Increased frequency 02/12/08 Active of bbarnejos23 Intrinsic vbselw05 07/30/08 Active Knee pain17 11/02/08 Active Jcnmidokxcigi43 11/04/08 Active Malabsorption of 11/02/08 Active ednayyo57 Anxiety and Active depression(Confirmed ) Mixed anxiety and 04/16/08 Active depressive zjnmavgh39 Hyperlipidemia, Active mixed(Confirmed) Morbid Active obesity(Confirmed) Bleeding Active nose(Confirmed) Obstructive sleep Active apnea yvtdgdlm50 Onychomycosis(Confir Active med) Annual physical Active exam(Confirmed) Seasonal Active allergies(Confirmed) Severe major Active depression(Confirmed ) Skin tag22 11/04/08 Active Sleep Active apnea(Confirmed) Spasm of back 11/27/07 Active wtaukwe66 Swelling of both Active lower extremities(Confirme d) Right ankle Active swelling(Confirmed) Tear meniscus Active knee(Confirmed) Uxluufbbwxr67 11/19/08 Active Type 2 diabetes 02/08/09 Active mellitus(Confirmed)2 5 Dcbnefxca61 11/26/08 Active Viral upper Active respiratory infection(Confirmed) Vitamin D 11/19/08 Active zceioroieq73 1Data migrated from [employer] on 10/10/14. [...] [employer] on 10/10/14. 27Data migrated from [employer] on 10/10/14. Allergies, Adverse Reactions, Alerts Substance Reaction Severity Status glipiZIDE Rash Mild Active Food Nuts1 Active Other Food Allergy2 Active 1Data migrated from [employer] on 07/09/15. Originally documented as PEANUTS. 2Data migrated from [employer] on 07/09/15. Originally documented as APRICOTS. Medications acetaminophen 1,000 mg, 2 tab, Route: PO, Drug form: TAB, Q6Hnow, Dosing Weight 100, kg, Start date: 06/28/17 16:00:00 ACTIVITIES DIRECTOR SCOUTING, Duration: 30 day, Stop date: 07/28/17 10:00:00 CDT Notes: Max acetaminophen 4000 mg/day (4 gm/day). (Same as: Tylenol Extra Streng th) Start Date: 06/28/17 Stop Date: 06/29/17 Status: Discontinued acetaminophen 650 mg, 2 tab, Route: PO, Drug form: TAB, Q4H, Dosing Weight 100, kg, PRN Pain 1 -3/Temp > 100.4 F, Start date: 06/27/17 19:57:00 ACTIVITIES DIRECTOR SCOUTING, Duration: 30 day, Stop date: 07/27/17 19:56:00 CDT Notes: Do not exceed 4 gm/day. (Same as: Tylenol) Start Date: 06/27/17 Stop Date: 06/28/17 Status: Discontinued acetaminophen 650 mg, Route: PO, Drug form: TAB, ONCE, Dosing Weight 99.545, kg, Priority: STA T, Start date: 06/27/17 14:58:00 ACTIVITIES DIRECTOR SCOUTING, Stop date: 06/27/17 14:58:00 ACTIVITIES DIRECTOR SCOUTING Start Date: 06/27/17 Stop Date: 06/27/17 Status: Completed acetaminophen 500 mg oral tablet 1,000 mg=2 tab, PO, Q6Hnow, X 10 day, # 80 tab, 0 Refill(s), Pharmacy: [id number] Start Date: 06/29/17 Stop Date: 07/09/17 Status: Completed acetaminophen-hydrocodone 325 mg-5 mg oral tablet 1 tab, Route: PO, Drug Form: TAB, Dosing Weight 100, kg, Q4H, PRN Pain Score 4-6 , Start date: 06/27/17 19:57:00 ACTIVITIES DIRECTOR SCOUTING, Duration: 30 day, Stop date: 07/27/17 19:56 :00 CDT Notes: (Same as: Clute 325/5) Do not exceed 4gm/day of acetaminophen. Start Date: 06/27/17 Stop Date: 06/28/17 Status: Discontinued acetaminophen-hydrocodone 325 mg-5 mg oral tablet 2 tab, Route: PO, Drug Form: TAB, Dosing Weight 100, kg, Q4H, PRN Pain Score 7-1 0, Start date: 06/27/17 19:57:00 ACTIVITIES DIRECTOR SCOUTING, Duration: 30 day, Stop date: 07/27/17 19:5 6:00 CDT Notes: (Same as: Clute 325/5) Do not exceed 4gm/day of acetaminophen. Start Date: 06/27/17 Stop Date: 06/28/17 Status: Discontinued acetaminophen-hydrocodone 325 mg-5 mg oral tablet 1 tab, Route: PO, Drug Form: TAB, Dosing Weight 99.545, kg, ONCE, STAT, Start da te: 06/27/17 7:26:00 ACTIVITIES DIRECTOR SCOUTING, Stop date: 06/27/17 7:26:00 ACTIVITIES DIRECTOR SCOUTING Start Date: 06/27/17 Stop Date: 06/27/17 Status: Completed Ativan 0.5 mg, 1 tab, Route: PO, Drug form: TAB, TID, Dosing Weight 100, kg, PRN Anxiet y, Start date: 06/27/17 21:56:00 ACTIVITIES DIRECTOR SCOUTING, Duration: 30 day, Stop date: 07/27/17 21:5 5:00 CDT Start Date: 06/27/17 Stop Date: 06/29/17 Status: Discontinued atorvastatin 20 mg oral tablet 20 mg=1 tab, PO, QPM, 0 Refill(s) Start Date: 06/28/17 Stop Date: 06/28/17 Status: Discontinued Cozaar 100 mg oral tablet 100 mg=1 tab, PO, Daily, 0 Refill(s) Start Date: 06/28/17 Stop Date: 06/28/17 Status: Discontinued docusate 100 mg, 1 cap, Route: PO, Drug form: CAP, BID, Dosing Weight 100, kg, Start date : 06/28/17 17:00:00 ACTIVITIES DIRECTOR SCOUTING, Duration: 30 day, Stop date: 07/28/17 9:00:00 CDT Notes: (Same as: Colace) (Do Not Crush) Start Date: 06/28/17 Stop Date: 06/29/17 Status: Discontinued docusate sodium 100 mg oral capsule 100 mg=1 cap, PO, BID, # 20 cap, 0 Refill(s), Pharmacy: [facility]/pharmacy #[id number] Start Date: 06/29/17 Stop Date: 07/09/17 Status: Ordered enoxaparin 40 mg, 0.4 mL, Route: SUB-Q, Drug form: INJ, [id number], Dosing Weight 100, kg, Co nsider for obese patients, Start date: 06/27/17 20:00:00 ACTIVITIES DIRECTOR SCOUTING, Duration: 30 day, Stop date: 07/27/17 8:00:00 CDT Notes: (Same as: Lovenox) Start Date: 06/27/17 Stop Date: 06/29/17 Status: Discontinued gabapentin 300 mg, 1 cap, Route: PO, Drug form: CAP, Q8Hnow, Dosing Weight 100, kg, Start d ate: 06/28/17 16:00:00 ACTIVITIES DIRECTOR SCOUTING, Duration: 30 day, Stop date: 07/28/17 8:00:00 CDT Notes: (Same as: Neurontin) Start Date: 06/28/17 Stop Date: 06/29/17 Status: Discontinued gabapentin 300 mg oral capsule 300 mg=1 cap, PO, Q8Hnow, # 30 cap, 0 Refill(s), Pharmacy: [facility]/pharmacy #[id number] Start Date: 06/29/17 Stop Date: 07/09/17 Status: Ordered hydrochlorothiazide-valsartan 12.5 mg-320 mg oral tablet 1 tab, Route: PO, Drug Form: TAB, Dosing Weight 100, kg, Daily, Start date: 06/14 09/28 9:00:00 ACTIVITIES DIRECTOR SCOUTING, Duration: 30 day, Stop date: 07/27/17 9:00:00 CDT Start Date: 06/28/17 Stop Date: 06/27/17 Status: Discontinued ibuprofen 800 mg, 1 tab, Route: PO, Drug form: TAB, Q8H, Dosing Weight 100, kg, PRN For Te mp > 100.4 F, Start date: 06/28/17 11:44:00 ACTIVITIES DIRECTOR SCOUTING, Duration: 30 day, Stop date: 07/28/17 11:43:00 CDT Notes: (Same as: Motrin)"Do Not Crush" Take with food. Start Date: 06/28/17 Stop Date: 06/29/17 Status: Discontinued ibuprofen 600 mg, Route: PO, ONCE, Dosing Weight 99.545, kg, Priority: STAT, Start date: 0 06/27/17 14:58:00 ACTIVITIES DIRECTOR SCOUTING, Stop date: 06/27/17 14:58:00 ACTIVITIES DIRECTOR SCOUTING Start Date: 06/27/17 Stop Date: 06/27/17 Status: Completed Lidoderm 5% topical film (patch) 1 patch, Route: TOP, Q24H, Drug form: FILM, Start date: 06/28/17 16:00:00 ACTIVITIES DIRECTOR SCOUTING, D uration: 30 day, Stop date: 07/27/17 16:00:00 CDT Notes: Apply only once for up to 12 hours in p98-hfoh period (12 hours on and 12 hours off).(Same as: Lidoderm)"Remove old patch before application of new patch" Start Date: 06/28/17 Stop Date: 06/29/17 Status: Discontinued Lidoderm 5% topical film (patch) 1 patch, TOP, Q24H, # 30 patch, 0 Refill(s), Pharmacy: [facility]/pharmacy #[id number] Start Date: 06/29/17 Stop Date: 07/29/17 Status: Ordered meloxicam 10 mg, PO, PRN, 0 Refill(s) Start Date: 06/27/17 Status: Ordered metFORMIN 1000 mg oral tablet 1,000 mg, 1 tab, Route: PO, Drug form: TAB, BID-Meals, Dosing Weight 100, kg, St art date: 06/28/17 8:00:00 ACTIVITIES DIRECTOR SCOUTING, Duration: 30 day, Stop date: 07/27/17 17:00:00 C DT Notes: Same as Glucophage Start Date: 06/28/17 Stop Date: 06/29/17 Status: Discontinued Microzide 12.5 mg, 1 cap, Route: PO, Drug form: CAP, Daily, Start date: 06/28/17 9:00:[address], Duration: 30 day, Stop date: 07/27/17 9:00:00 CDT Notes: (Same as: Microzide) With food. Start Date: 06/28/17 Stop Date: 06/29/17 Status: Discontinued morphine Sulfate 2 mg, 0.5 mL, Route: IVP, Drug form: SOLN, Q4H, Dosing Weight 100, kg, PRN Pain Score 7-10, Start date: 06/27/17 19:57:00 ACTIVITIES DIRECTOR SCOUTING, Duration: 30 day, Stop date: 07/12 10/29 19:56:00 CDT Notes: (Same as:MORPhine Sulfate) Start Date: 06/27/17 Stop Date: 06/29/17 Status: Discontinued morphine Sulfate 4 mg, 1 mL, Route: IVP, Drug form: SOLN, ONCE, Dosing Weight 99.545, kg, Priorit y: STAT, Start date: 06/27/17 12:31:00 ACTIVITIES DIRECTOR SCOUTING, Stop date: 06/27/17 12:31:00 ACTIVITIES DIRECTOR SCOUTING Notes: (Same as:MORPhine Sulfate) Start Date: 06/27/17 Stop Date: 06/27/17 Status: Completed morphine Sulfate 4 mg, Route: IVP, ONCE, Dosing Weight 99.545, kg, Priority: STAT, Start date: 9:41:00 ACTIVITIES DIRECTOR SCOUTING, Stop date: 06/27/17 9:41:00 ACTIVITIES DIRECTOR SCOUTING Start Date: 06/27/17 Stop Date: 06/27/17 Status: Completed naproxen 500 mg, 1 tab, Route: PO, Drug form: TAB, [id number], Dosing Weight 100, kg, Start date: 06/28/17 16:00:00 ACTIVITIES DIRECTOR SCOUTING, Duration: 30 day, Stop date: 07/28/17 4:00:00 CDT Notes: (Same as: Naprosyn) Take with food. Start Date: 06/28/17 Stop Date: 06/29/17 Status: Discontinued naproxen 500 mg oral tablet 500 mg=1 tab, PO, [id number], X 10 day, # 20 tab, 0 Refill(s), Pharmacy: [facility] #[id number] Start Date: 06/29/17 Stop Date: 07/09/17 Status: Completed Clute 5/325 oral tablet 1 tab, Route: PO, Drug Form: TAB, Dosing Weight 99.545, kg, ONCE, PRN Pain Score 1-3, Start date: 06/27/17 18:50:00 ACTIVITIES DIRECTOR SCOUTING Start Date: 06/27/17 Stop Date: 06/27/17 Status: Completed ondansetron 4 mg, 2 mL, Route: IVP, Drug form: INJ, Q8H, Dosing Weight 100, kg, PRN Nausea & Vomiting, Start date: 06/28/17 15:26:00 ACTIVITIES DIRECTOR SCOUTING, Duration: 30 day, Stop date: 07/28 15:25:00 CDT Notes: (Same as: Roberth) MEDICATION WASTE Product Size: 4 mgProduct Was vel: _0_ mg Start Date: 06/28/17 Stop Date: 06/29/17 Status: Discontinued oxyCODONE 5 mg immediate release 10 mg, 2 tab, Route: PO, Drug form: TAB, Q4H, Dosing Weight 100, kg, PRN Pain Sc ore 7-10, Start date: 06/28/17 15:26:00 ACTIVITIES DIRECTOR SCOUTING, Duration: 30 day, Stop date: 15:25:00 CDT Notes: (Same as: Roxicodone) Start Date: 06/28/17 Stop Date: 06/29/17 Status: Discontinued oxyCODONE 5 mg immediate release 5 mg, 1 tab, Route: PO, Drug form: TAB, Q4H, Dosing Weight 100, kg, PRN Pain Sco re 4-6, Start date: 06/28/17 15:26:00 ACTIVITIES DIRECTOR SCOUTING, Duration: 30 day, Stop date: 07/28/17 15:25:00 CDT Notes: (Same as: Roxicodone) Start Date: 06/28/17 Stop Date: 06/29/17 Status: Discontinued oxyCODONE 5 mg oral capsule 5 mg=1 cap, PO, Q6H, X 5 day, # 20 cap, 0 Refill(s) Start Date: 06/29/17 Stop Date: 07/04/17 Status: Completed remove patch 1 patch, Route: TOP, Daily, Drug form: ERFILM, Start date: 06/29/17 4:00:00 ACTIVITIES DIRECTOR SCOUTING, Duration: 30 day, Stop date: 07/28/17 4:00:00 CDT Notes: Remove patch 12 hours after application each day. Start Date: 06/29/17 Stop Date: 06/29/17 Status: Discontinued senna 17.2 mg, 2 tab, Route: PO, Drug Form: TAB, Dosing Weight 100, kg, Bedtime, Start date: 06/28/17 21:00:00 ACTIVITIES DIRECTOR SCOUTING, Duration: 30 day, Stop date: 07/27/17 21:00:00 CDT Notes: (Same as: Sury) Start Date: 06/28/17 Stop Date: 06/29/17 Status: Discontinued senna 8.6 mg oral tablet 17.2 mg=2 tab, PO, Bedtime, X 10 day, # 20 tab, 0 Refill(s), Pharmacy: [facility] #[id number] Start Date: 06/29/17 Stop Date: 07/09/17 Status: Completed Sodium Chloride 0.9% (Bolus) IV 1,000 mL, Infuse Over: 1 hr, Route: IV, ONCE, Priority: STAT, Dosing Weight 99.5 45 kg, Start date: 06/27/17 15:25:00 ACTIVITIES DIRECTOR SCOUTING, Stop date: 06/27/17 15:25:00 ACTIVITIES DIRECTOR SCOUTING Start Date: 06/27/17 Stop Date: 06/27/17 Status: Completed tramadol 50 mg oral tablet 50 mg, 1 tab, Route: PO, Drug form: TAB, Q6H, Dosing Weight 100, kg, Start date: 06/28/17 18:00:00 ACTIVITIES DIRECTOR SCOUTING, Duration: 30 day, Stop date: 07/28/17 12:00:00 CDT Notes: Not to exceed 400mg/day. (Same As: Michael) Start Date: 06/28/17 Stop Date: 06/29/17 Status: Discontinued tramadol 50 mg oral tablet 50 mg=1 tab, PO, Q6H, X 10 day, # 40 tab, 0 Refill(s) Start Date: 06/29/17 Stop Date: 07/09/17 Status: Completed valsartan 320 mg, 2 tab, Route: PO, Drug form: TAB, Daily, Start date: 06/28/17 9:00:00 CS T, Duration: 30 day, Stop date: 07/27/17 9:00:00 CDT Notes: Same as Saskia Start Date: 06/28/17 Stop Date: 06/29/17 Status: Discontinued Zofran 4 mg, 2 mL, Route: IVP, Drug form: INJ, ONCE, Dosing Weight 99.545, kg, Priority : STAT, Start date: 06/27/17 12:31:00 ACTIVITIES DIRECTOR SCOUTING, Stop date: 06/27/17 12:31:00 ACTIVITIES DIRECTOR SCOUTING Notes: (Same as: Zofran) MEDICATION WASTE Product Size: 4 mgProduct Was vel: ___ mg Start Date: 06/27/17 Stop Date: 06/27/17 Status: Completed Zofran 4 mg, Route: IVP, Drug form: INJ, ONCE, Dosing Weight 99.545, kg, Priority: STAT , Start date: 06/27/17 9:42:00 ACTIVITIES DIRECTOR SCOUTING, Stop date: 06/27/17 9:42:00 ACTIVITIES DIRECTOR SCOUTING Start Date: 06/27/17 Stop Date: 06/27/17 Status: Completed Zofran ODT 4 mg, Route: PO, Drug form: TABDIS, ONCE, Dosing Weight 99.545, kg, Priority: ST AT, Start date: 06/27/17 7:43:00 ACTIVITIES DIRECTOR SCOUTING, Stop date: 06/27/17 7:43:00 ACTIVITIES DIRECTOR SCOUTING Start Date: 06/27/17 Stop Date: 06/27/17 Status: Completed Zofran ODT 4 mg, Route: PO, Drug form: TABDIS, ONCE, Dosing Weight 99.545, kg, Priority: ST AT, Start date: 06/27/17 7:45:00 ACTIVITIES DIRECTOR SCOUTING, Stop date: 06/27/17 7:45:00 ACTIVITIES DIRECTOR SCOUTING Start Date: 06/27/17 Stop Date: 06/27/17 Status: Completed Zoloft 100 mg, 1 tab, Route: PO, Drug form: TAB, Daily, Dosing Weight 100, kg, Start da te: 06/28/17 9:00:00 ACTIVITIES DIRECTOR SCOUTING, Duration: 30 day, Stop date: 07/27/17 9:00:00 CDT Notes: (Same as: Zoloft) Start Date: 06/28/17 Stop Date: 06/29/17 Status: Discontinued Results ELECTROLYTES Most recent to 1 oldest [Reference Range]: Sodium Lvl [135-145 139 mEq/L mEq/L] (06/27/17 10:00 AM) Potassium Lvl 5.0 mEq/L [3.5-5.1 mEq/L] (06/27/17 10:00 AM) Chloride Lvl [95-109 105 mEq/L mEq/L] (06/27/17 10:00 AM) CO2 [24-32 mEq/L] 27 mEq/L (06/27/17 10:00 AM) AGAP [10.0-20.0 12.0 mEq/L mEq/L] (06/27/17 10:00 AM) CHEM PANEL Most recent to 1 oldest [Reference Range]: Creatinine Lvl 0.43 mg/dL [0.50-1.40 mg/dL] *LOW* (06/27/17 10:00 AM) eGFR 120 mL/min/1.73m2 1 *NA* (06/27/17 10:00 AM) BUN [7-22 mg/dL] 20 mg/dL (06/27/17 10:00 AM) Glucose Lvl [70-99 115 mg/dL mg/dL] *HI* (06/27/17 10:00 AM) Calcium Lvl 9.9 mg/dL [8.5-10.5 mg/dL] (06/27/17 10:00 AM) 1Result Comment: The eGFR is calculated using the [...] from the National Kidney Disease Education Program ( NKDEP) which additionally recommends that when the eGFR is used in patients with extremes of body mass index for purposes of drug dosing, the eGFR should be mul tiplied by the estimated BMI. ANEMIA STUDY Most recent to 1 oldest [Reference Range]: Iron [30-160 ug/dl] 46 ug/dl (06/28/17 4:12 AM) % Satur Fe [12-57 %] 18 % (06/28/17 4:12 AM) UIBC [110-370 ug/dl] 206 ug/dl (06/28/17 4:12 AM) TIBC [228-428 ug/dl] 252 ug/dl (06/28/17 4:12 AM) HEMATOLOGY Most recent to 1 oldest [Reference Range]: WBC [3.7-10.4 K/CMM] 7.1 K/CMM (06/27/17 10:00 AM) RBC [4.20-5.40 4.51 M/CMM M/CMM] (06/27/17 10:00 AM) Hgb [12.0-16.0 g/dL] 11.5 g/dL *LOW* (06/27/17:00 AM) Hct [36.0-48.0 %] 34.6 % *LOW* (06/27/17 10:00 AM) MCV [80.0-98.0 fL] 76.8 fL *LOW* (06/27/17 10:00 AM) MCH [27.0-31.0 pg] 25.5 pg *LOW* (06/27/17 10:00 AM) MCHC [32.0-36.0 33.2 g/dL g/dL] (06/27/17 10:00 AM) RDW [11.5-14.5 %] 14.0 % (06/27/17 10:00 AM) MPV [7.4-10.4 fL] 8.4 fL (06/27/17 10:00 AM) Platelet [133-450 234 K/CMM K/CMM] (06/27/17 10:00 AM) Segs [45.0-75.0 %] 55.4 % (06/27/17 10:00 AM) Lymphocytes 33.7 % [20.0-40.0 %] (06/27/17 10:00 AM) Monocytes [2.0-12.0 8.3 % %] (06/27/17 10:00 AM) Eosinophils [0.0-4.0 2.2 % %] (06/27/17 10:00 AM) Basophils [0.0-1.0 0.4 % %] (06/27/17 10:00 AM) Segs-Bands # 3.9 K/CMM [1.5-8.1 K/CMM] (06/27/17 10:00 AM) Lymphocytes # 2.4 K/CMM [1.0-5.5 K/CMM] (06/27/17 10:00 AM) Monocytes # [0.0-0.8 0.6 K/CMM K/CMM] (06/27/17 10:00 AM) Eosinophils # 0.2 K/CMM [0.0-0.5 K/CMM] (06/27/17 10:00 AM) [employer]te [None 1+ Seen] *ABN* (06/27/17 10:00 AM) PT [12.0-14.7 13.6 seconds seconds] (06/27/17 10:00 AM) INR [0.85-1.17] 1.04 (06/27/17 10:00 AM) PTT [22.9-35.8 32.2 seconds seconds] (06/27/17 10:00 AM) Immunizations Given and Recorded Vaccine Date Status Refusal Reason influenza virus vaccine, inactivated 03/08/17 Given Hx influenza vaccine-unspecified1 02/08/09 Given Not Given Vaccine Date Status Refusal Reason pneumococcal 23-valent vaccine 03/19/16 Not Given Patient Refuses 1Result Comment: fluvirin. Migrated from OBS ; Data migrated from [employer] on 06/14/2015. Procedures Procedure Date Related Diagnosis Body Site Status Diabetic retinopathy screening1 10/2016 Completed CS - Caesarean section Completed CS - section Completed 1No retinopathy Social History Social History Type Response Alcohol Current, Type Wine. Frequency: 1-2 times per month. Smoking Status Never smoker; Type: Cigarettes; Exposure to Tobacco Smoke None; Cigarette Smoking Last 365 Days No; Reg Smoking Cessation Counseling No entered on: 09/03/17 Assessment and Plan Extracted from: Title: Progress Note Author: Rancho Denis DO Date: 06/28/17 47 year old with PMH obesity, HTN, T2DM who tripped and fell and suffered a proximal nondisplaced fibular fracture. 1.Closed right fibular fracture WBAT BLE. Shruthi RLE for comfort. pt/ot/is/pain control Ordered: Admit/Condition, 06/28/17 15:27:00 ACTIVITIES DIRECTOR SCOUTING, Status: Inpatient, Acute, Expected LOS: 2 Midnights, Rancho Denis DO, Admit MD Review/Approve Yes, Isolation: No Isolation/Standard Precautions 2.Benign essential HTN bp well controlled. continue current meds 3.DM type 2 with diabetic peripheral neuropathy fsbg well controlled 4.Depressive disorder sertraline 5.NIDIA on CPAP cpap while sleeping 6.Intractable pain start acute pain mpp with apap / gabapentin / lidoderm / naproxen / tramadol. prn oxycodone 7.Debility pt/ot lovenox home pending pt/ot, pain control please page with any further questions Extracted from: Title: History and Physical Author: Star Schroeder DO Date: 06/27/17 1.Closed right fibular fracture The orthopedic surgical service has placed her in a knee immobilizer brace. There is no immediate surgical intervention planned. They recommended her to be weightbearing as tolerated with physical therapytomorrow. Continue multimodal regimen for pain control. MRI of the left knee is pending at this time. 2.Benign essential HTN Continue home regimen of hydrochlorothiazide lylfkfmj74.5 320 mg p.o. daily. 3.DM type 2 with diabetic peripheral neuropathy Continue home regimen of metformin 1 g p.o. twice daily. 4.Depressive disorder Continue Zoloft 100 mg p.o. daily. 5.NIDIA on CPAP Respiratory therapy has been consulted for CPAPwhile sleeping. SCDs observation pending PT evaluation Addendum by She also has a microcytic anemia. Alexandre, She should have a colonoscopy as an outpatient to look for possible sources of anemia. Star Gerardo will check iron studies. Lester FORTUNE on 06/27/2017 23:26 ACTIVITIES DIRECTOR SCOUTING Extracted from: Title: ORS Consultation Note Author: Sal Humphrey MD Date: 06/27/17 ORS Trauma History and Physical Reason for consult: left proximal fibula fracture Consulting physician: Adi Joshi MD Attending physician: Dr. Boyer Date of service: 06/27/2017 12:42 Chief complaint: R leg pain HPI: The pt is a 47 year old female with a history of HTN, T2DM, and NIDIA who presents after a fall from on stair with Right leg pain. ORS consublted to evaluate R proximal fibula fracture. She reports that she was descending her stairs at home, thought she was at the bottom, mis-stepped, and then fell. She had immediate pain to her RLE located directly over the proximal fibula and inability to bear weight due to pain. She denies trauma to her head or LOC. The patient denies any numbness ot tingling to the Right leg. She denies pain to her R hip and R ankle. She also endorse mild L knee pain. Kavin reports she has chronic osteoarthritis of bilateral knees. PMH: -HTN -T2DM (A1c 5 per pt) -NIDIA -Anxiety PSH: -C/S 1990 Medications: denies blood thinner/anti-coagulants, denies bisphosphonates -Valsartan-HCTZ -Zoloft Qam Allergies: NKDA; Other Food Allergy; Food Nuts; glipiZIDE Review of Systems: Gen: Denies fever/chills/night sweats HEENT: Denies vision change, hearing changes CV: Denies CP, Palpitations Resp: Denies SOB, wheezing, cough GI: Denies Abd pain, N/V/D/Constipation. Denies incontinence. : Denies urinary retention/urgency Back/Spine: Denies pain. Neuro: Denies headaches, weakness/numbness in extremities. Integumentary: Denies open wounds, rashes, simpson. Endocrine: Denies recent weight changes, Psych: Endorses anxiety Musculoskeletal: Denies all but HPI. All other systems negative except HPI. Social History: Employment/Lifestyle: primary grade teacher, lives with son Tobacco: Denies EtOH: Social Illicit drugs: Denies Physical Exam VitalsTmp(F)[id number] 06/27 10:37----[id number]--- 06/27 08:27----[id number]--- 06/27 07:[id number]--- 24 Hr Tmax: 97.6F (36.44c) at 06/27 07:00Vital Signs are the last 5 in the past 48 hours. Gen:A/Ox4, NAD HEENT:no C-collar in place Resp: Unlabored, NOLVIA CV: Distal pulses palpated, RRR Abd:NT, ND Pelvis:Nontender to A/P and lateral compression stress, no open wounds. RUE: Inspection: No erythema or ecchymosis. No tenderness, no obvious abnormalities, no open wounds. Compartments soft and compressible, no pain to passive stretch Sensation: SILT to D1W, palmar IF, palmar SF at the hand Motor: intact AIN/PIN/Ulnar in hand; 5/5 Wrist flex/ext; 5/5 Elbow flex/ext; 5/5 Shoulder ABd,Flex Vascular: 2+ radial pulse palpated, BCR all fingers <2 sec. LUE: Inspection: No erythema or ecchymosis. No tenderness, no obvious abnormalities, no open wounds. Compartments soft and compressible, pain within proportion, no pain to passive stretch Sensation: SILT to D1W, palmar IF, palmar SF at the hand Motor: intact AIN/PIN/Ulnar in hand; 5/5 Wrist flex/ext; 5/5 Elbow flex/ext; 5/5 Shoulder ABd,Flex Vascular: 2+ radial pulse palpated, BCR all fingers <2 sec. RLE: Inspection: No open wounds, minimal knee effusion, TTP about the proximal fibula. Non ttp about the knee joint. Patient is very sensitive to pain and screams on gentle palpation to the proximal fibula. -PROM/AROM is limited by pain, 0-70 degrees -No appreciable laxity to varus/valgus stress, mariluz stable Sensation: SPLT DP, SP, Tib, Shayy, Saph Motor: 5/5 EHL, 5/5 FHL, 5/5 TA, 5/5GS, 4/5 Quad, 3/5 Hamexam limited by pain Vascular: 2+ DP/PT, all toes BCR <2 sec LLE: Inspection: no open wounds compartments are s/c, mild ttp about the left knee Pain to direct palpation over the medial joint line Pain with compression of medial knee with ROM Patinet is able to PROM/AROM to the L knee from 0-100 with minimal pain No laxity to varus valgus stress Sensation: SPLT DP, SP, Tib, Shayy, Saph Motor: 5/5 EHL, 5/5 FHL, 5/5 TA, 5/5GS, 5/5 Quad, 5/5 Ham, 5/5 hip extension Vascular: 2+ DP/PT, all toes BCR <2 sec Labs: 24hr Labs 06/27 1000 WBC7.1 RBC4.51 Hgb11.5 L Mndbasae268 PT13.6 INR1.04 PTT32.2 Imaging: EXAM: XR RIGHT KNEE 3 VIEWS DATE: 06/27/2017 7:28 AM [employer]IVITIES DIRECTOR [employer]ING IMPRESSION: 1. Acute proximal shaft fracture the fibula. 2. Osteoarthritis of the right knee 3 compartment but most severe medially. EXAM: XR RIGHT ANKLE 2 VIEWS DATE: 06/27/2017 12:39 PM ACTIVITIES DIRECTOR SCOUTING IMPRESSION: Right ankle joint osteoarthritis medially with no evidence of instability on stress view. Assessment: Patient is a 47 year old female with a history of T2DM, HTN, and NIDIA s/p fall from one stair a closed Right proximal fibula fracture Plan: -R ankle stress views obtained in the ED showing a stable ankle mortise -Placed in a RLE KI -L knee MRI to evaluate for soft tissue injury -PT/OT for ambulation -Acute traumatic pain control: MMPT - Weight bearing status: WBAT RLE in KI - Dispo: Pending discussion with staff Ortho Surgery PGY-2 Attestation: I have personally and independently examined the patient and agree with the above note. Changes have been made as needed. Assessment and Plan: Patient is a 47 yo F s/p fall down stair who sustained the following injuries: 1) R proximal fibula fx 2) Subacute vs acute L knee medial and lateral meniscus tears - Weight bearing status: WBAT BLE - KI to RLE for comfort - Admit to: Hospitalist - Pain control: per primary - DVT PPx: TEDS/SCD, chem ppx per primary - PT: consulted - Pending ORS surgeries: None acutely - Dispo: -Admit for pain control, PT clearance -Will f/u official read of L knee MRI - Follow up with Dr. Boyer in 2 weeks. Please call [phone] for an appointment. Michael Perez MD [facility] Orthopedic Surgery PGY-2 Pager # [phone]
--- OUTSIDE RECORDS SUMMARY | 2018-09-19 15:03 | XMS REPORT | Summary of Care ---
Author Author [facility] Organization [facility] Address Unknown Phone Unavailable Encounter [facility] Lior(FIN) [id number] Date(s): 05/15/17 - 05/15/17 [facility] [address], [address] [place], [place] [address]- [phone] Discharge Disposition: Home or Self Care Attending Physician: Joanne Yi MD Vital Signs Most recent to 1 oldest [Reference Range]: Height 154.94 cm (05/15/17 9:30 AM) Temperature Oral 98 DegF [96.4-99.1 DegF] (05/15/17 9:30 AM) Blood Pressure 146/80 mmHg [90-140/60-90 mmHg] *HI* (05/15/17 9:30 AM) Respiratory Rate 14 BRMIN [14-20 BRMIN] (05/15/17 9:30 AM) Peripheral Pulse 71 bpm Rate [60-100 bpm] (05/15/17 9:30 AM) Weight 99.545 kg (05/15/17 9:30 AM) Body Mass Index 41.47 m2 (05/15/17 9:30 AM) Problem List Condition Effective Dates Status Health [...] 02/12/08 Active Foot pain9 12/09/07 Active Graves' vonflkf42 03/24/09 Active Hand pain11 11/02/08 Active Dkqpkwpw11 11/27/07 Active HTN Resolved (hypertension)(Confi rmed) Sqrkvivoxpqgksx42 02/08/09 Resolved Abfzbwajtdugpf13 11/10/08 Resolved Increased frequency 02/12/08 Active of lnsebagtq92 Intrinsic 07/30/08 Active Knee pain17 11/02/08 Active Ipjovuyviourn31 11/04/08 Active Malabsorption of 11/02/08 Active gpdgiiv67 Anxiety and Active depression(Confirmed ) Mixed anxiety and 04/16/08 Active depressive vhobaixc67 Morbid Active obesity(Confirmed) Bleeding Active nose(Confirmed) Obstructive sleep Active apnea sakdfcmw22 Onychomycosis(Confir Active med) Annual physical Active exam(Confirmed) Severe major Active depression(Confirmed ) Skin tag22 11/04/08 Active Sleep Active apnea(Confirmed) Spasm of back 11/27/07 Active wzyrmib83 Swelling of both Active lower extremities(Confirme d) Tear meniscus Active knee(Confirmed) Icbohvncvzo34 11/19/08 Active Type 2 diabetes 02/08/09 Active iggkinbt27 Xxobbtrjy83 11/26/08 Active Vitamin D 11/19/08 Active qxjmzgubui29 1Data migrated from [employer] on 10/10/14. [...] on 07/09/15. Originally documented as APRICOTS. Medications biotin 5000 mcg oral tablet, disintegrating 5,000 microgram=1 tab, PO, Daily, # 90 tab, 1 Refill(s), [id number] Start Date: 05/15/17 Stop Date: 11/11/17 Status: Ordered Bromfed DM oral syrup 5 mL, PO, TID, PRN cough, X 8 day, # 120 mL, 0 Refill(s), [id number] Start Date: 05/15/17 Stop Date: 05/23/17 Status: Ordered metFORMIN 1000 mg oral tablet 1,000 mg=1 tab, PO, BID-Meals, # 180 tab, 1 Refill(s) Start Date: 05/15/17 Status: Ordered zinc acetate 50 mg oral capsule 50 mg=1 cap, PO, Daily, # 90 cap, 1 Refill(s), [id number] Start Date: 05/15/17 Stop Date: 11/11/17 Status: Ordered Results No data available for this section Immunizations Given and Recorded Vaccine Date Status Refusal Reason influenza virus vaccine, inactivated 03/08/17 Given Hx influenza vaccine-unspecified1 02/08/09 Given Not Given Vaccine Date Status Refusal Reason pneumococcal 23-valent vaccine 03/19/16 Not Given Patient Refuses 1Result Comment: fluvirin. Migrated from OBS ; Data migrated from Whistle on 06/14/2015. Procedures Procedure Date Related Diagnosis [...]
--- OUTSIDE RECORDS SUMMARY | 2018-09-19 15:03 | XMS REPORT | Encounter Summary ---
Author Organization Unknown Address [address] [place] [address] Phone [phone] Reason for Visit Medical Complaint Instructions 1. Pharyngitis rapid strep group A, throat albuterol sulfate 2.5 mg/3 mL (0.083 %) solution for nebulization patient follow up phone call 2. Exacerbation of asthma Discussion Note Follow up immediately with ER for further evaluation and treatment Patient educational handouts: No information available. Plan of Care Reminders Provider Appointments None recorded. Lab Rapid Strep Group a, Throat 03/18/2016 [facility] Referral None recorded. Procedures None recorded. Surgeries None recorded. Imaging None recorded. Medications Name Start Date acetaminophen 300 mg-codeine 60 mg tablet albuterol sulfate 2.5 mg/3 mL (0.083 %) solution for nebulization Give 1 inhalation every 20 minutes by nebulizer route as needed azelastine 0.05 % eye drops azithromycin 250 mg tablet benzonatate 100 mg capsule clarithromycin 500 mg tablet diazepam 10 mg tablet fluticasone 50 mcg/actuation nasal spray,suspension glipizide 10 mg tablet levofloxacin 750 mg tablet lisinopril 10 mg tablet lisinopril 10 mg-hydrochlorothiazide 12.5 mg tablet metformin 1,000 mg tablet metformin 500 mg tablet naproxen 500 mg tablet gzgravfx-tmxdslvao-hswbzgoi 3.5 mg/mL-10,000 unit/mL-0.1% eye drops OneTouch Delica Lancets 30 gauge OneTouch Verio IQ Meter OneTouch Verio strips orphenadrine citrate ER 100 mg tablet,extended release pantoprazole 40 mg tablet,delayed release prednisone 20 mg tablet ProAir HFA 90 mcg/actuation aerosol inhaler TAKE 2 PUFF(S) (INHALATION) EVERY 6 HOURS NEEDED FOR WHEEZING Q-Tussin DM 10 mg-100 mg/5 mL syrup TAKE 5 MLS BY MOUTH EVERY 4 HOURS NEEDED FOR COUGH FOR 7 DAYS simvastatin 20 mg tablet Vitamin D2 50,000 unit capsule Medications Administered Name Date albuterol sulfate 2.5 mg/3 mL (0.083 %) solution for nebulization Give 1 inhalation every 20 minutes by nebulizer route as needed [id number]:40:23 Vitals Height Weight BMI Blood Pressure 5 ft 1 in 288 lbs 54.4 150/88 Lab Results Date Name Result Description Value Range Status Rapid Strep Group a, Throat Result negative Swab Location Left and Right tonsillar pillars Allergies Name Reaction Severity Onset NKDA Problems Name Status Onset Date Source Pharyngitis Active Encounter Exacerbation of Asthma Active Encounter Procedures None recorded. Vaccine List None recorded. Social History Smoking Status Never Smoker Past Encounters 03/18/2016 Pharyngitis; Exacerbation of Asthma Anatoliyeric Beasleymika, [facility]: [address] [place] [address], Ph. [phone] History of Present Illness Wheezing / Cough Reported By: Patient HPI: Quality: tightness, productive cough, wheezy cough, wheezing. Severity: moderate. Duration: 3 days. Onset/Timing: gradual. Context: no sick contacts, no foreign travel, non-smoker, hx of asthma. Modifying factors: inhaler: using how often? Review of Systems Basic Reported By: Patient Constitutional: Constitutional: no fever Frrm-Mfgb-Ptzpa-Throat: Ears: no ear complaints. Nose: no nose/sinus problems. Mouth/Throat: no bleeding gums, no mouth complaints, no teeth problems, sore throat Cardiovascular: Cardiovascular: no chest pain, no shortness of breath, no known heart murmur Respiratory: Respiratory: cough, wheezing, shortness of breath Musculoskeletal: Musculoskeletal: no muscle aches, no muscle weakness, no arthralgias/joint pain, no back pain Neurologic: Neurologic: no loss of consciousness, no weakness, no numbness, no seizures, no dizziness, no headaches Physical Exam Adult Basic, Adult Female Complete Reported By: Patient Constitutional: General Appearance: healthy-appearing, well-nourished, well-developed. Level of Distress: NAD. Ambulation: ambulating normally Psychiatric: Mental Status: active and alert. Orientation: to time, to place, to person Sfl-Mjmr-Rhmwb-Throat: Ears: no lesions on external ear, no outer ear tenderness, EACs clear, TMs clear. Hearing: no hearing loss. Nose: no lesions on external nose, nares patent, no septal deviation, nasal passages clear, no sinus tenderness, no nasal discharge. Lips, Teeth, and Gums: no mouth or lip ulcers, no bleeding gums, normal dentition. Oropharynx: moist mucous membranes, no erythema, no exudates, tonsils not enlarged Lungs: Respiratory effort: no dyspnea, no tachypnea, no use of accessory muscles, no intercostal retractions. Auscultation: inspiratory wheezing, rhonchi Cardiovascular: Heart Auscultation: RRR, no murmurs. Pulses including femoral / pedal: normal throughout
--- OUTSIDE RECORDS SUMMARY | 2018-09-19 15:03 | XMS REPORT | Encounter Summary ---
Author Organization Unknown Address [address] [place] [address] Phone [phone] Reason for Visit Medical Complaint Instructions 1. Pharyngitis rapid strep group A, throat albuterol sulfate 2.5 mg/3 mL (0.083 %) solution for nebulization 2. Exacerbation of asthma Discussion Note Follow [...] 500 mg tablet naproxen 500 mg tablet cksurkul-lpnqnqldh-flsdpmtl 3.5 mg/mL-10,000 unit/mL-0.1% eye drops OneTouch Delica [...] 20 minutes by nebulizer route as needed [id number]:40:23 Vitals Height Weight BMI Blood Pressure 5 [...] Past Encounters 03/18/2016 Pharyngitis; Exacerbation of Asthma Anatoliy Gleason, [facility]: [address] [place] [address], Ph. [phone] History of Present Illness Wheezing / Cough Reported By: Patient HPI: Quality: tightness, productive cough, wheezy cough, wheezing. Severity: moderate. Duration: 3 days. Onset/Timing: gradual. Context: no sick contacts, no foreign travel, non-smoker, hx of asthma. Modifying factors: inhaler: using how often? Review of Systems Basic Reported By: Patient Constitutional: Constitutional: no fever Aizj-Emmp-Zloxd-Throat: Ears: no ear complaints. Nose: no nose/sinus [...] Orientation: to time, to place, to person Boe-Dcfv-Wopgo-Throat: Ears: no lesions on external ear, no [...]
--- OUTSIDE RECORDS SUMMARY | 2018-09-19 15:03 | XMS REPORT | Summary of Care ---
Author Author [facility] Primary [facility] Organization [facility] [place] [facility] Address Unknown Phone Unavailable Encounter HQ Lior(FIN) [id number] Date(s): 07/03/17 - 07/03/17 [facility] [place] [facility] [address], [address] [place] [address] [phone] Discharge Disposition: Home or Self Care Attending Physician: Joanne Yi MD Vital Signs Most recent to 1 oldest [Reference Range]: Height 154.94 cm (07/03/17 11:57 AM) Temperature Oral 97.1 DegF [96.4-99.1 DegF] (07/03/17 11:57 AM) Blood Pressure 152/81 mmHg [90-140/60-90 mmHg] *HI* (07/03/17 11:57 AM) Respiratory Rate 14 BRMIN [14-20 BRMIN] (07/03/17 11:57 AM) Peripheral Pulse 62 bpm Rate [60-100 bpm] (07/03/17 11:57 AM) Weight 99.091 kg (07/03/17 11:57 AM) Body Mass Index 41.28 m2 (07/03/17 11:57 AM) Problem List Condition Effective Dates Status [...] Graves' 03/24/09 Active Hand pain11 11/02/08 Active Fjsppchc12 11/27/07 Active HTN Resolved (hypertension)(Confi rmed) Csvgltuhlrjqswm24 02/08/09 Resolved Euajyyebkaxmog39 11/10/08 Resolved Increased frequency 02/12/08 Active of vfcyvixpc86 Intrinsic 07/30/08 Active Knee pain17 11/02/08 Active Ktfqylmnwjwpq40 11/04/08 Active Malabsorption of 11/02/08 Active Anxiety and Active depression(Confirmed ) Mixed anxiety and 04/16/08 Active depressive icbpiytu96 Hyperlipidemia, Active mixed(Confirmed) Morbid Active obesity(Confirmed) Bleeding Active nose(Confirmed) Obstructive sleep Active apnea ulytegrg20 Onychomycosis(Confir Active med) Annual physical Active exam(Confirmed) Seasonal Active allergies(Confirmed) Severe major Active depression(Confirmed ) Skin tag22 11/04/08 Active Sleep Active apnea(Confirmed) Spasm of back 11/27/07 Active ebcaduq90 Swelling of both Active lower extremities(Confirme d) Right ankle Active swelling(Confirmed) Tear meniscus Active knee(Confirmed) Vpnhadbiujk79 11/19/08 Active Type 2 diabetes 02/08/09 Active mellitus(Confirmed)2 5 Hagyqziul45 11/26/08 Active Viral upper Active respiratory infection(Confirmed) Vitamin D 11/19/08 Active ubrfblkebz51 1Data migrated from [employer] on 10/10/14. [...] Other Food Allergy2 Active 1Data migrated from [employer] on 07/09/15. Originally documented as PEANUTS. 2Data migrated from [employer] on 07/09/15. Originally documented as APRICOTS. Medications No Known Medications Results No data available for this section [...] No entered on: 09/03/17 Assessment and Plan No data available for this section
--- OUTSIDE RECORDS SUMMARY | 2018-09-19 15:03 | XMS REPORT | Summary of Care ---
Author Author [facility] Primary [facility] Organization [facility] Address Unknown Phone Unavailable Encounter [facility]ior(FIN) [id number] Date(s): 09/03/17 - 09/03/17 [facility] [address], [address] [place] [address]- [phone] Discharge Disposition: Home or Self Care Attending Physician: Joanne Yi MD Vital Signs Most recent to 1 oldest [Reference Range]: Height 154.94 cm (09/03/17 1:07 PM) Temperature Oral 98.4 DegF [96.4-99.1 DegF] (09/03/17 1:07 PM) Blood Pressure 136/77 mmHg [90-140/60-90 mmHg] (09/03/17 1:07 PM) Respiratory Rate 14 BRMIN [14-20 BRMIN] (09/03/17 1:07 PM) Peripheral Pulse 95 bpm Rate [60-100 bpm] (09/03/17 1:07 PM) Weight 101.364 kg (09/03/17 1:07 PM) Body Mass Index 42.22 m2 (09/03/17 1:07 PM) Problem List Condition Effective Dates [...] 02/12/08 Active Foot pain9 12/09/07 Active Graves' ozntjxw50 03/24/09 Active Hand pain11 11/02/08 Active Luefdpdk45 11/27/07 Active HTN Resolved (hypertension)(Confi rmed) Vfqparsfiabmfsw45 02/08/09 Resolved Kczyuxzhruhrzl97 11/10/08 Resolved Increased frequency 02/12/08 Active of xyrqyikls67 Intrinsic almyfi42 07/30/08 Active Knee pain17 11/02/08 Active Cjjpduqfeqzpj26 11/04/08 Active Malabsorption of 11/02/08 Active nhsmjiq81 Anxiety and Active depression(Confirmed ) Mixed anxiety and 04/16/08 Active depressive tuxqdrtr29 Hyperlipidemia, Active mixed(Confirmed) Morbid Active obesity(Confirmed) Bleeding Active nose(Confirmed) Obstructive sleep Active apnea Onychomycosis(Confir Active med) Annual physical Active exam(Confirmed) Seasonal Active allergies(Confirmed) Severe major Active depression(Confirmed ) Skin tag22 11/04/08 Active Sleep Active apnea(Confirmed) Spasm of back 11/27/07 Active fcllruo40 Swelling of both Active lower extremities(Confirme d) Right ankle Active swelling(Confirmed) Tear meniscus Active knee(Confirmed) Mnjhtjvwvat97 11/19/08 Active Type 2 diabetes 02/08/09 Active mellitus(Confirmed)2 5 Kxntbqokq84 11/26/08 Active Viral upper Active respiratory infection(Confirmed) Vitamin D 11/19/08 Active oceyuzdtad38 1Data migrated from [employer] on 10/10/14. [...] on 07/09/15. Originally documented as APRICOTS. Medications Bromfed DM oral syrup 5 mL, PO, TID, PRN cough, X 8 day, # 120 mL, 0 Refill(s), Pharmacy: [facility] Start Date: 09/03/17 Stop Date: 09/11/17 Status: Ordered ibuprofen 800 mg oral tablet 800 mg=1 tab, PO, Q8H, PRN Pain, Take with food, X 10 day, # 30 tab, 0 Refill(s) , Pharmacy: [facility] Start Date: 09/03/17 Stop Date: 09/13/17 Status: Ordered loratadine 10 mg oral tablet 10 mg=1 tab, PO, Daily, # 90 tab, 0 Refill(s), Pharmacy: [facility] Start Date: 09/03/17 Stop Date: 12/02/17 Status: Ordered ProAir HFA 90 mcg/inh inhalation aerosol with adapter See Instructions, TAKE 2 PUFF(S) (INHALATION) EVERY 6 HOURS NEEDED FOR WHEEZI NG, # 1 ea, 1 Refill(s), Pharmacy: [facility] Start Date: 09/03/17 Status: Ordered Saxenda 18 mg/3 mL subcutaneous solution 1.2 mg, SUB-Q, Daily, # 15 mL, 1 Refill(s) Start Date: 09/03/17 Stop Date: 03/02/18 Status: Ordered Results No data available for this section Immunizations Given and Recorded Vaccine Date Status Refusal Reason influenza virus vaccine, inactivated 03/08/17 Given Hx influenza vaccine-unspecified1 02/08/09 Given Not Given Vaccine Date Status Refusal Reason pneumococcal 23-valent vaccine 03/19/16 Not Given Patient Refuses 1Result Comment: fluvirin. Migrated from OBS ; Data migrated from [email or web address] on 06/14/2015. Procedures Procedure Date Related Diagnosis [...]
--- OUTSIDE RECORDS SUMMARY | 2018-09-19 15:04 | XMS REPORT | Summary of Care ---
Author Author [facility] Organization [facility] Address Unknown Phone Unavailable Encounter HQ Lior(FIN) [id number] Date(s): 07/31/18 - 07/31/18 [facility] [address] [facility] [address] [place] [address]- Discharge Disposition: Home or Self Care Attending Physician: Joanne Yi MD Vital Signs Most recent to 1 oldest [Reference Range]: Height 154.94 cm (07/31/18 1:25 PM) Temperature Oral 97.2 DegF [96.4-99.1 DegF] (07/31/18 1:25 PM) Blood Pressure 149/80 mmHg [90-140/60-90 mmHg] *HI* (07/31/18 1:25 PM) Respiratory Rate 15 BRMIN [14-20 BRMIN] (07/31/18 1:25 PM) Peripheral Pulse 73 bpm Rate [60-100 bpm] (07/31/18 1:25 PM) Weight 94.091 kg (07/31/18 1:25 PM) Body Mass Index 39.19 m2 (07/31/18 1:25 PM) Problem List Condition Effective Dates Status Health Status Informant Anemia(Confirmed) Active Anxiety(Confirmed) Active Asthma(Confirmed) Active Asthma(Confirmed)1 02/12/08 Active Benign hypertension2 Active Carpal tunnel Active syndrome3 Chronic Active cough(Confirmed) Closed right fibular Active fracture(Confirmed) Coarse Active tremors(Confirmed) Depressive 02/12/08 Active disorder(Confirmed)4 Diabetes(Confirmed) Resolved DM type 2 with Active diabetic peripheral neuropathy(Confirmed ) Diverticular Active disease(Confirmed) Dysplastic nevus of 11/04/08 Active skin5 SOB (shortness of Active breath)(Confirmed) Fatigue6 02/12/08 Active Foot pain7 12/09/07 Active Graves' disease8 03/24/09 Active Heart Active murmur(Confirmed) Hemorrhoids(Confirme Active d) HTN Resolved (hypertension)(Confi rmed) Hyperthyroidism9 02/08/09 Resolved Wcryezhgmbsqkm99 11/10/08 Resolved Increased frequency 02/12/08 Active of Knee pain12 11/02/08 Active Abnormal liver Active enzymes(Confirmed) Svunxqgipfknn57 11/04/08 Active Malabsorption of 11/02/08 Active plrhwno96 Menopause(Confirmed) Active Mixed anxiety and 04/16/08 Active depressive xuyxalxp83 Hyperlipidemia, Active mixed(Confirmed) Morbid Active obesity(Confirmed) Numbness(Confirmed) Active Obstructive sleep Active apnea ntgyrelp86 Onychomycosis(Confir Active med) DJD (degenerative Active joint disease) of knee(Confirmed) Seasonal Active allergies(Confirmed) Severe major Active depression(Confirmed ) Sleep Active apnea(Confirmed) Splenomegaly(Confirm Active ed) Swelling of both Active lower extremities(Confirme d) Tear meniscus Active knee(Confirmed) Allobisclad75 11/19/08 Active Tremor(Confirmed) Active Type 2 diabetes 02/08/09 Active mellitus(Confirmed)1 8 Unstable Active gait(Confirmed) Varicose vein of Active leg(Confirmed) Vitamin D 11/19/08 Active zozsmuuucp76 1Data migrated from [employer] on 10/10/14. [...] [employer] on 10/10/14. 17Data migrated from [facility] [employer] on 10/10/14. 18Data migrated from [facility] [employer] on 10/10/14. 19Data migrated from [employer] on 10/10/14. Allergies, Adverse Reactions, Alerts Substance Reaction Severity Status glipiZIDE Rash Mild Active Food Nuts1 Active Other Food Allergy2 Active 1Data migrated from [employer] on 07/09/15. Originally documented as PEANUTS. 2Data migrated from [employer] on 07/09/15. Originally documented as APRICOTS. Medications calcium-vitamin D 600 mg-400 intl units oral tablet 1 tab, PO, Daily, # 90 tab, 1 Refill(s), [id number] Start Date: 07/31/18 Stop Date: 01/27/19 Status: Ordered citalopram 10 mg oral tablet 10 mg=1 tab, PO, Daily, # 90 tab, 0 Refill(s), [id number] Start Date: 07/31/18 Stop Date: 10/29/18 Status: Ordered lisinopril 10 mg oral tablet 10 mg=1 tab, PO, Daily, # 90 tab, 1 Refill(s), [id number] Start Date: 07/31/18 Stop Date: 01/27/19 Status: Ordered ProAir HFA 90 mcg/inh inhalation aerosol with adapter See Instructions, TAKE 2 PUFF(S) (INHALATION) EVERY 6 HOURS NEEDED FOR WHEEZI NG DISPENSE 2 INHALERS, # 2 ea, 1 Refill(s), [id number] Start Date: 07/31/18 Status: Ordered Results No data available for this section Immunizations Given and Recorded Vaccine Date Status Refusal Reason influenza virus vaccine, inactivated 03/08/17 Given Hx influenza vaccine-unspecified1 02/08/09 Given Not Given Vaccine Date Status Refusal Reason pneumococcal 23-valent vaccine2 03/19/16 Not Given Patient Refuses 1Result Comment: fluvirin. Migrated from OBS ; Data migrated from [employer] on 06/14/2015. 2Result Note: patient stated she could get the vaccine at school. Procedures Procedure Date Related Diagnosis Body Site Status Colon cancer screening1 11/21/17 Completed Diabetic retinopathy screening2 10/2016 Completed CS - Caesarean section Completed CS - section Completed Operation Completed 1Repeat in 2027 Diverticular disease 2No retinopathy Social History Social History Type Response Employment/School Status: Employed. 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 Alcohol Current, Type Wine. Frequency: 1-2 times per month. Smoking Status Never smoker; Type: Cigarettes; Exposure to Tobacco Smoke None; Cigarette Smoking Last 365 Days No; Reg Smoking Cessation Counseling No entered on: 07/31/18 Assessment and Plan No data available for this section
--- OUTSIDE RECORDS SUMMARY | 2018-09-19 15:04 | XMS REPORT | Summary of Care ---
Author Author [facility] Primary [facility] Organization [facility] Address Unknown Phone Unavailable Encounter HQ Derrickr_eliza(FIN) [id number] Date(s): 11/06/17 - 11/07/17 [facility] [address], [address] [place], [place] [address]- [phone] Vital Signs No data available for this section Problem List Condition Effective Dates Status Health [...] 02/12/08 Active Foot pain9 12/09/07 Active Graves' plemewt08 03/24/09 Active Hand pain11 11/02/08 Active Kecrnhei20 11/27/07 Active Heart Active murmur(Confirmed) Hemorrhoids(Confirme Active d) HTN Resolved (hypertension)(Confi rmed) Owxarrasogfbiap44 02/08/09 Resolved Ydxsmssnkrppdb94 11/10/08 Resolved Increased frequency 02/12/08 Active of zfqrdjcup47 Intrinsic noxchs11 07/30/08 Active Knee pain17 11/02/08 Active Abnormal liver Active enzymes(Confirmed) Onmhpxqevulkx76 11/04/08 Active Malabsorption of 11/02/08 Active Mild intermittent Active asthma(Confirmed) Anxiety and Active depression(Confirmed ) Mixed anxiety and 04/16/08 Active depressive qbzoidzq32 Hyperlipidemia, Active mixed(Confirmed) Morbid Active obesity(Confirmed) Bleeding Active nose(Confirmed) Obstructive sleep Active apnea zoavsijv74 Onychomycosis(Confir Active med) Annual physical Active exam(Confirmed) Seasonal Active allergies(Confirmed) Severe major Active depression(Confirmed ) Skin tag22 11/04/08 Active Sleep Active apnea(Confirmed) Spasm of back 11/27/07 Active ldikbvm44 Swelling of both Active lower extremities(Confirme d) Right ankle Active swelling(Confirmed) Tear meniscus Active knee(Confirmed) Nnkrldxhjgs26 11/19/08 Active Type 2 diabetes 02/08/09 Active mellitus(Confirmed)2 5 Itovpfnph99 11/26/08 Active Varicose vein of Active leg(Confirmed) Viral upper Active respiratory infection(Confirmed) Vitamin D 11/19/08 Active xotpziryke31 1Data migrated from [employer] on 10/10/14. [...] on 07/09/15. Originally documented as APRICOTS. Medications hydrochlorothiazide-valsartan 12.5 mg-320 mg oral tablet See Instructions, # 90 tab, Refill(s) 1, TAKE 1 TABLET BY MOUTH EVERY DAY, Pharm acy: [id number] Start Date: 11/06/17 Status: Ordered Results No data available for [...] Reg Smoking Cessation Counseling No entered on: 10/16/17 Assessment and Plan No data available for this section
--- OUTSIDE RECORDS SUMMARY | 2018-09-19 15:04 | XMS REPORT | Summary of Care ---
Author Author [facility] Organization [facility] Address Unknown Phone Unavailable Encounter HENRIETTA Tinajero(BLU) [id number] Date(s): 11/21/17 - 11/21/17 [facility] [address] [place] [address]- Discharge Disposition: Home or Self Care Attending Physician: Ofelia Cota V Referring Physician: Ofelia Cota V Vital Signs 1 2 3 Most recent to oldest [Reference Range]: 154.94 cm (11/19/17 10:55 AM) Height 98.4 DegF (11/19/17 10:55 AM) Temperature Oral [96.4-99.1 DegF] 122/70 mmHg (11/21/17 2:56 PM) 109/95 mmHg (11/21/17 2:36 PM) 120/48 mmHg (11/21/17 10:00 AM) Blood Pressure [90-140/60-90 mmHg] 12 BRMIN *LOW* (11/21/17 2:56 PM) 13 BRMIN *LOW* (11/21/17 2:36 PM) 17 BRMIN (11/21/17 10:00 AM) Respiratory Rate [14-20 BRMIN] 81 bpm (11/21/17 10:00 AM) 64 bpm (11/19/17 10:55 AM) Peripheral Pulse Rate [60-100 bpm] 101.818 kg (11/19/17 10:55 AM) Weight 42.41 m2 (11/19/17 10:55 AM) Body Mass Index Problem List Condition Effective [...] 02/12/08 Active Foot pain9 12/09/07 Active Graves' heomqnm18 03/24/09 Active Hand pain11 11/02/08 Active Ygyxwelo94 11/27/07 Active Heart Active murmur(Confirmed) Hemorrhoids(Confirme Active d) HTN Resolved (hypertension)(Confi rmed) Vexweuhuwpndtxg94 02/08/09 Resolved Irrwavnskzrasb74 11/10/08 Resolved Increased frequency 02/12/08 Active of runccdizk82 Intrinsic eonjqa63 07/30/08 Active Knee pain17 11/02/08 Active Abnormal liver Active enzymes(Confirmed) Vhsyxlhykgeuw21 11/04/08 Active Malabsorption of 11/02/08 Active culvgom33 Mild intermittent Active asthma(Confirmed) Anxiety and Active depression(Confirmed ) Mixed anxiety and 04/16/08 Active depressive evhhdbrs59 Hyperlipidemia, Active mixed(Confirmed) Morbid Active obesity(Confirmed) Bleeding Active nose(Confirmed) Obstructive sleep Active apnea Onychomycosis(Confir Active med) Annual physical Active exam(Confirmed) Seasonal Active allergies(Confirmed) Severe major Active depression(Confirmed ) Skin tag22 11/04/08 Active Sleep Active apnea(Confirmed) Spasm of back 11/27/07 Active tidcnjl67 Swelling of both Active lower extremities(Confirme d) Right ankle Active swelling(Confirmed) Tear meniscus Active knee(Confirmed) Rqzbcaamqzz91 11/19/08 Active Type 2 diabetes 02/08/09 Active mellitus(Confirmed)2 5 Xutgxtkzj04 11/26/08 Active Varicose vein of Active leg(Confirmed) Viral upper Active respiratory infection(Confirmed) Vitamin D 11/19/08 Active lhalrilojx29 1Data migrated from [employer] on 10/10/14. [...] on 07/09/15. Originally documented as APRICOTS. Medications Sodium Chloride 0.9% IV 1,000 mL 1,000 mL, Rate: 25 ml/hr, Infuse over: 40 hr, Route: IV, Dosing Weight 101.818 k g, Total Volume: 1,000, Start date: 11/21/17 10:14:00 CDT, Duration: 1 day, Stop date: 11/22/17 10:13:00 CDT, 2.14, m2 Start Date: 11/21/17 Stop Date: 11/21/17 Status: Discontinued Synvisc 8 mg/mL intra-articular solution intra-ARTICULAR, 0 Refill(s) Start Date: 11/19/17 Status: Ordered Results ELECTROLYTES Most recent to 1 oldest [Reference Range]: Sodium Lvl [135-145 144 mEq/L mEq/L] (11/19/17 11:08 AM) Potassium Lvl 4.9 mEq/L [3.5-5.1 mEq/L] (11/19/17 11:08 AM) Chloride Lvl [95-109 107 mEq/L mEq/L] (11/19/17 11:08 AM) CO2 [24-32 mEq/L] 32 mEq/L (11/19/17 11:08 AM) AGAP [10.0-20.0 9.9 mEq/L mEq/L] *LOW* (11/19/17 11:08 AM) CHEM PANEL Most recent to 1 oldest [Reference Range]: Creatinine Lvl 0.47 mg/dL [0.50-1.40 mg/dL] *LOW* (11/19/17 11:08 AM) eGFR 117 mL/min/1.73m2 1 *NA* (11/19/17 11:08 AM) BUN [7-22 mg/dL] 16 mg/dL (11/19/17 11:08 AM) Glucose Lvl [70-99 104 mg/dL mg/dL] *HI* (11/19/17 11:08 AM) Calcium Lvl 9.9 mg/dL [8.5-10.5 mg/dL] (11/19/17 11:08 AM) 1Result Comment: The eGFR is calculated [...] be mul tiplied by the estimated BMI. Immunizations Given and Recorded Vaccine Date Status Refusal Reason influenza virus vaccine, inactivated 03/08/17 Given Hx influenza vaccine-unspecified1 02/08/09 Given Not Given Vaccine Date Status Refusal Reason pneumococcal 23-valent vaccine 03/19/16 Not Given Patient Refuses 1Result Comment: fluvirin. Migrated from OBS ; Data migrated from [employer] on 06/14/2015. Procedures Procedure Date Related Diagnosis Body Site Status Diabetic retinopathy screening1 10/2016 Completed CS - Caesarean section Completed CS - section Completed Operation Completed 1No retinopathy Social History Social History Type Response Alcohol Current, Type Wine. Frequency: 1-2 times per month. Smoking Status Never smoker; Type: Cigarettes; Exposure to Tobacco Smoke None; Cigarette Smoking Last 365 Days No; Reg Smoking Cessation Counseling No entered on: 11/19/17 Assessment and Plan No data available for this section
--- OUTSIDE RECORDS SUMMARY | 2018-09-19 15:04 | XMS REPORT | Summary of Care ---
Author Author [facility] Primary [facility] Organization [facility] Address Unknown Phone Unavailable Encounter HQ Lior(FIN) [id number] Date(s): 12/12/17 - 12/12/17 [facility] [address], [address] [place] [address] [phone] Discharge Disposition: Home or Self Care Attending Physician: Joanne Yi MD Vital Signs Most recent to 1 oldest [Reference Range]: Height 154.94 cm (12/12/17 1:24 PM) Temperature Oral 99.1 DegF [96.4-99.1 DegF] (12/12/17 1:24 PM) Blood Pressure 152/85 mmHg [90-140/60-90 mmHg] *HI* (12/12/17 1:24 PM) Respiratory Rate 14 BRMIN [14-20 BRMIN] (12/12/17 1:24 PM) Peripheral Pulse 83 bpm Rate [60-100 bpm] (12/12/17 1:24 PM) Weight 103.295 kg (12/12/17 1:24 PM) Body Mass Index 43.03 m2 (12/12/17 1:24 PM) Problem List Condition Effective Dates Status Health Status Informant Anemia(Confirmed) Active Anxiety(Confirmed) Active Asthma(Confirmed) Active Asthma(Confirmed)1 02/12/08 Active Benign hypertension2 Active Carpal tunnel Active syndrome3 Chronic Active cough(Confirmed) Closed right fibular Active fracture(Confirmed) Coarse Active tremors(Confirmed) Depressive 02/12/08 Active disorder(Confirmed)4 Diabetes(Confirmed) Resolved DM type 2 with Active diabetic peripheral neuropathy(Confirmed ) Diverticular Active disease(Confirmed) Dysplastic nevus of 11/04/08 Active skin5 Fatigue6 02/12/08 Active Foot pain7 12/09/07 Active Graves' disease8 03/24/09 Active Heart Active murmur(Confirmed) Hemorrhoids(Confirme Active d) HTN Resolved (hypertension)(Confi rmed) Hyperthyroidism9 02/08/09 Resolved Fnqdxfwsgmrhhq55 11/10/08 Resolved Increased frequency 02/12/08 Active of vnfwsugsf37 Knee pain12 11/02/08 Active Abnormal liver Active enzymes(Confirmed) Ubbeyrczvjfdg63 11/04/08 Active Malabsorption of 11/02/08 Active hnykrua67 Mixed anxiety and 04/16/08 Active depressive nkklhmoc86 Hyperlipidemia, Active mixed(Confirmed) Morbid Active obesity(Confirmed) Numbness(Confirmed) Active Obstructive sleep Active apnea ljrpakge50 Onychomycosis(Confir Active med) Seasonal Active allergies(Confirmed) Severe major Active depression(Confirmed ) Sleep Active apnea(Confirmed) Splenomegaly(Confirm Active ed) Swelling of both Active lower extremities(Confirme d) Tear meniscus Active knee(Confirmed) Ilejzfwtcua84 11/19/08 Active Type 2 diabetes 02/08/09 Active mellitus(Confirmed)1 8 Varicose vein of Active leg(Confirmed) Vitamin D 11/19/08 Active pdweyhxmnj46 1Data migrated from [employer] on 10/10/14. [...] Other Food Allergy2 Active 1Data migrated from [employer] on 07/09/15. Originally documented as PEANUTS. 2Data migrated from [employer] on 07/09/15. Originally documented as APRICOTS. Medications losartan 100 mg oral tablet 100 mg=1 tab, PO, Daily, # 90 tab, 1 Refill(s), Pharmacy: [id number] Start Date: 12/12/17 Stop Date: 06/10/18 Status: Ordered metFORMIN 500 mg oral tablet See Instructions, # 180 tab, Refill(s) 1, TAKE 1 TABLET TWICE A DAY WITH MEALS, 01/09/18 16:07:28 CDT, Pharmacy: [facility] Start Date: 01/08/18 Stop Date: 01/09/18 Status: Completed Zoloft 100 mg oral tablet 150 mg=1.5 tab, PO, Daily, # 135 tab, 1 Refill(s), [id number] Start Date: 12/12/17 Stop Date: 12/17/17 Status: Completed Results No data available for this section Immunizations Given and Recorded Vaccine Date Status Refusal Reason influenza virus vaccine, inactivated 03/08/17 Given Hx influenza vaccine-unspecified1 02/08/09 Given Not Given Vaccine Date Status Refusal Reason pneumococcal 23-valent vaccine2 03/19/16 Not Given Patient Refuses 1Result Comment: fluvirin. Migrated from [facility] ; Data migrated from [employer] on 06/14/2015. 2Result Note: patient stated she could get the vaccine at school. Procedures Procedure Date Related Diagnosis Body Site Status Colon cancer screening1 11/21/17 Completed Diabetic retinopathy screening2 10/2016 Completed CS - Caesarean section Completed CS - section Completed Operation Completed 1Repeat in 2027 Diverticular disease 2No retinopathy Social History Social History Type Response Employment/School Status: Employed. 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 Alcohol Current, Type Wine. Frequency: 1-2 times per month. Smoking Status Never smoker; Type: Cigarettes; Exposure to Tobacco Smoke None; Cigarette Smoking Last 365 Days No; Reg Smoking Cessation Counseling No entered on: 06/21/18 Assessment and Plan No data available for this section
--- OUTSIDE RECORDS SUMMARY | 2018-09-19 15:04 | XMS REPORT | Summary of Care ---
Author Author [facility] Organization [facility] Address Unknown Phone Unavailable Encounter HQ Lior(FIN) [id number] Date(s): 08/02/17 - 08/02/17 [facility] [address], [address] [place], [place] [address]- [phone] Discharge Disposition: Home or Self Care Attending Physician: Joanne Yi MD Vital Signs Most recent to 1 oldest [Reference Range]: Height 154.94 cm (08/02/17 2:10 PM) Temperature Oral 98.6 DegF [96.4-99.1 DegF] (08/02/17 2:10 PM) Blood Pressure 141/85 mmHg [90-140/60-90 mmHg] *HI* (08/02/17 2:10 PM) Respiratory Rate 14 BRMIN [14-20 BRMIN] (08/02/17 2:10 PM) Peripheral Pulse 79 bpm Rate [60-100 bpm] (08/02/17 2:10 PM) Weight 99.773 kg (08/02/17 2:10 PM) Body Mass Index 41.56 m2 (08/02/17 2:10 PM) Problem List Condition Effective Dates Status [...] 02/12/08 Active Foot pain9 12/09/07 Active Graves' udirkhw52 03/24/09 Active Hand pain11 11/02/08 Active Macgixuq46 11/27/07 Active Heart Active murmur(Confirmed) Hemorrhoids(Confirme Active d) HTN Resolved (hypertension)(Confi rmed) Cvfnvezgcpmfcol68 02/08/09 Resolved Mbhuvrqdkvsmdr65 11/10/08 Resolved Increased frequency 02/12/08 Active of Intrinsic ceusjf85 07/30/08 Active Knee pain17 11/02/08 Active Abnormal liver Active enzymes(Confirmed) Jvsblwxohomxn03 11/04/08 Active Malabsorption of 11/02/08 Active qzdmejx31 Mild intermittent Active asthma(Confirmed) Anxiety and Active depression(Confirmed ) Mixed anxiety and 04/16/08 Active depressive mvgumypw94 Hyperlipidemia, Active mixed(Confirmed) Morbid Active obesity(Confirmed) Bleeding Active nose(Confirmed) Obstructive sleep Active apnea vzxzcine06 Onychomycosis(Confir Active med) Annual physical Active exam(Confirmed) Seasonal Active allergies(Confirmed) Severe major Active depression(Confirmed ) Skin tag22 11/04/08 Active Sleep Active apnea(Confirmed) Spasm of back 11/27/07 Active ormjkcg20 Swelling of both Active lower extremities(Confirme d) Right ankle Active swelling(Confirmed) Tear meniscus Active knee(Confirmed) Pucgzhawpkq30 11/19/08 Active Type 2 diabetes 02/08/09 Active mellitus(Confirmed)2 5 Egkrsslck82 11/26/08 Active Varicose vein of Active leg(Confirmed) Viral upper Active respiratory infection(Confirmed) Vitamin D 11/19/08 Active cvedvymmpt72 1Data migrated from [employer] on 10/10/14. [...] Daily, # 90 tab, 1 Refill(s), Pharmacy: [facility] Start Date: 08/02/17 Stop Date: 01/29/18 Status: Ordered ibuprofen 800 mg oral tablet 800 mg=1 tab, PO, Q8H, PRN Pain, Take with food, X 10 day, # 30 tab, 0 Refill(s) , Pharmacy: [facility] Start Date: 08/02/17 Stop Date: 08/12/17 Status: Completed Zoloft 100 mg oral tablet 150 mg=1.5 tab, PO, Daily, # 135 tab, 1 Refill(s), [facility]acy[facility] Start Date: 08/02/17 Stop Date: 01/29/18 Status: Ordered Results No data available for this section Immunizations Given and Recorded Vaccine Date Status Refusal Reason influenza virus vaccine, inactivated 03/08/17 Given Hx influenza vaccine-unspecified1 02/08/09 Given Not Given Vaccine Date Status Refusal Reason pneumococcal 23-valent vaccine 03/19/16 Not Given Patient Refuses 1Result Comment: fluvirin. Migrated from OBS ; Data migrated from [employer] on 06/14/2015. Procedures Procedure Date Related Diagnosis [...]
--- OUTSIDE RECORDS SUMMARY | 2018-09-19 15:04 | XMS REPORT | Summary of Care ---
Author Author [facility] Organization [facility] Address Unknown Phone Unavailable Encounter [facility] Lior(FIN) [id number] Date(s): 01/09/18 - 01/09/18 [facility] [address], [address] [place] [address]- [phone] Discharge Disposition: Home or Self Care Attending Physician: Joanne Yi MD Vital Signs Most recent to 1 oldest [Reference Range]: Height 154.94 cm (01/09/18 3:54 PM) Temperature Oral 98.7 DegF [96.4-99.1 DegF] (01/09/18 3:54 PM) Respiratory Rate 14 BRMIN [14-20 BRMIN] (01/09/18 3:54 PM) Peripheral Pulse 69 bpm Rate [60-100 bpm] (01/09/18 3:54 PM) Weight 106.023 kg (01/09/18 3:54 PM) Body Mass Index 44.16 m2 (01/09/18 3:54 PM) Problem List Condition Effective Dates Status [...] HTN Resolved (hypertension)(Confi rmed) Hyperthyroidism9 02/08/09 Resolved Uqhyvhovdwpisi48 11/10/08 Resolved Increased frequency 02/12/08 Active of wxnghevex01 Knee pain12 11/02/08 Active Abnormal liver Active enzymes(Confirmed) Ktqncacsgymtx57 11/04/08 Active Malabsorption of 11/02/08 Active suhcesv04 Mixed anxiety and 04/16/08 Active depressive pytporir15 Hyperlipidemia, Active mixed(Confirmed) Morbid Active obesity(Confirmed) Numbness(Confirmed) Active Obstructive sleep Active apnea Onychomycosis(Confir Active med) Seasonal Active allergies(Confirmed) Severe major Active depression(Confirmed ) Sleep Active apnea(Confirmed) Splenomegaly(Confirm Active ed) Swelling of both Active lower extremities(Confirme d) Tear meniscus Active knee(Confirmed) Qineyhibhcw42 11/19/08 Active Type 2 diabetes 02/08/09 Active mellitus(Confirmed)1 8 Varicose vein of Active leg(Confirmed) Vitamin D 11/19/08 Active zsyvosfnsc92 1Data migrated from [employer] on 10/10/14. [...] Other Food Allergy2 Active 1Data migrated from [employer] on 07/09/15. Originally documented as PEANUTS. 2Data migrated from [employer] on 07/09/15. Originally documented as APRICOTS. Medications hydrochlorothiazide-losartan 12.5 mg-100 mg oral tablet 1 tab, PO, Daily, X 90 day, # 90 tab, 1 Refill(s), Pharmacy: [facility] Start Date: 01/09/18 Stop Date: 01/11/18 Status: Completed hydrochlorothiazide-losartan 12.5 mg-100 mg oral tablet 1 tab, PO, Daily, # 90 tab, 1 Refill(s), Pharmacy: [facility]/pharmacy #[id number] Start Date: 01/11/18 Stop Date: 07/10/18 Status: Ordered metFORMIN 500 mg oral tablet See Instructions, TAKE 1 TABLET TWICE A DAY WITH MEALS, # 180 tab, 1 Refill(s), Pharmacy: [facility] #[id number] Start Date: 01/09/18 Stop Date: 07/08/18 Status: Completed ProAir HFA 90 mcg/inh inhalation aerosol with adapter See Instructions, TAKE 2 PUFF(S) (INHALATION) EVERY 6 HOURS NEEDED FOR WHEEZI NG, # 1 ea, 1 Refill(s), Pharmacy: [facility]/pharmacy #[id number] Start Date: 01/09/18 Status: Ordered sertraline 100 mg oral tablet 150 mg=1.5 tab, PO, Daily, # 135 tab, 1 Refill(s), Pharmacy: [facility] Start Date: 01/09/18 Stop Date: 07/08/18 Status: Ordered Results No data available for this section Immunizations Given and Recorded Vaccine Date Status Refusal Reason influenza virus vaccine, inactivated 03/08/17 Given Hx influenza vaccine-unspecified1 02/08/09 Given Not Given Vaccine Date Status Refusal Reason pneumococcal 23-valent vaccine2 03/19/16 Not Given Patient Refuses 1Result Comment: fluvirin. Migrated from OBS ; Data migrated from [employer] on 06/14/2015. 2Result Note: patient stated she could get the vaccine at school. Procedures Procedure Date Related Diagnosis Body Site Status Colon cancer screening1 11/21/17 Completed Diabetic retinopathy screening2 10/2016 Completed CS - Caesarean section Completed CS - section Completed Operation Completed 1Repeat in 2027 Diverticular disease 2No retinopathy Social History Social History Type Response Employment/School Status: Employed. Work/School description: [employer]. Alcohol Current, Type Wine. Frequency: 1-2 times per month. Smoking Status Never smoker; Type: Cigarettes; Exposure to Tobacco Smoke None; Cigarette Smoking Last 365 Days No; Reg Smoking Cessation Counseling No entered on: 06/21/18 Assessment and Plan No data available for this section
--- OUTSIDE RECORDS SUMMARY | 2018-09-19 15:04 | XMS REPORT | Summary of Care ---
Author Author [facility] Organization [facility] Address Unknown Phone Unavailable Encounter [facility] Lior(FIN) [id number] Date(s): 01/11/18 - 01/11/18 [facility] [address] [place] [address]- [phone] Encounter Diagnosis Shortness of breath (Final) - 01/18/18 Discharge Disposition: Home or Self Care Attending Physician: Joanne Yi MD Vital Signs No data available for this [...] HTN Resolved (hypertension)(Confi rmed) Hyperthyroidism9 02/08/09 Resolved Dhydibjyshdqir22 11/10/08 Resolved Increased frequency 02/12/08 Active of ohsqwoqir70 Knee pain12 11/02/08 Active Abnormal liver Active enzymes(Confirmed) Amgegxvdumhti84 11/04/08 Active Malabsorption of 11/02/08 Active aesklij99 Mixed anxiety and 04/16/08 Active depressive yqvpeobl66 Hyperlipidemia, Active mixed(Confirmed) Morbid Active obesity(Confirmed) Numbness(Confirmed) Active Obstructive sleep Active apnea bycpjqpd66 Onychomycosis(Confir Active med) Seasonal Active allergies(Confirmed) Severe major Active depression(Confirmed ) Sleep Active apnea(Confirmed) Splenomegaly(Confirm Active ed) Swelling of both Active lower extremities(Confirme d) Tear meniscus Active knee(Confirmed) Nuatjqhcbpx36 11/19/08 Active Type 2 diabetes 02/08/09 Active mellitus(Confirmed)1 8 Varicose vein of Active leg(Confirmed) Vitamin D 11/19/08 Active sslqekwcgr58 1Data migrated from [employer] on 10/10/14. [...] on 07/09/15. Originally documented as APRICOTS. Medications metFORMIN 500 mg oral tablet =1 tab, PO, BID-Meals, # 60 tab, 0 Refill(s), Pharmacy: [facility] Start Date: 07/08/18 Stop Date: 07/08/18 Status: Discontinued Results No data available for this section Immunizations Given and Recorded Vaccine Date Status Refusal Reason influenza virus vaccine, inactivated 03/08/17 Given Hx influenza vaccine-unspecified1 02/08/09 Given Not Given Vaccine Date Status Refusal Reason pneumococcal 23-valent vaccine2 03/19/16 Not Given Patient Refuses 1Result Comment: fluvirin. Migrated from OBS ; Data migrated from [employer] on 06/14/2015. 2Result Note: patient stated she could get the vaccine at school. Procedures Procedure Date Related Diagnosis Body Site Status Colon cancer screening1 11/21/17 Completed Diabetic retinopathy screening2 10/2016 Completed CS - Caesarean section Completed CS - section Completed Operation Completed 1Repeat in 2027 Diverticular disease 2No retinopathy Social History Social History Type Response Employment/School Status: Employed. Work/School description: [employer]. Alcohol Current, Type Wine. Frequency: 1-2 times per month. Smoking Status Never smoker; Type: Cigarettes; Exposure to Tobacco Smoke None; Cigarette Smoking Last 365 Days No; Reg Smoking Cessation Counseling No entered on: 06/21/18 Assessment and Plan No data available for this section
--- OUTSIDE RECORDS SUMMARY | 2018-09-19 15:04 | XMS REPORT | Summary of Care ---
Author Author [facility] Primary [facility] Organization [facility] Address Unknown Phone Unavailable Encounter [facility] Lior(FIN) [id number] Date(s): 10/16/17 - 10/16/17 [facility] [address], [address] [place], [place] [address]- [phone] Discharge Disposition: Home or Self Care Attending Physician: Joanne Yi MD Vital Signs Most recent to 1 oldest [Reference Range]: Height 154.94 cm (10/16/17 10:39 AM) Temperature Oral 98.3 DegF [96.4-99.1 DegF] (10/16/17 10:39 AM) Blood Pressure 120/67 mmHg [90-140/60-90 mmHg] (10/16/17 10:39 AM) Peripheral Pulse 58 bpm Rate [60-100 bpm] *LOW* (10/16/17 10:39 AM) Weight 102.955 kg (10/16/17 10:39 AM) Body Mass Index 42.89 m2 (10/16/17 10:39 AM) Problem List Condition Effective Dates Status [...] 02/12/08 Active Foot pain9 12/09/07 Active Graves' gunqldw42 03/24/09 Active Hand pain11 11/02/08 Active Zfuewqsr40 11/27/07 Active Heart Active murmur(Confirmed) Hemorrhoids(Confirme Active d) HTN Resolved (hypertension)(Confi rmed) Pofhnnkjnypezke38 02/08/09 Resolved Wrropgykndpwul77 11/10/08 Resolved Increased frequency 02/12/08 Active of wlujijxti51 Intrinsic rqdryw98 07/30/08 Active Knee pain17 11/02/08 Active Abnormal liver Active enzymes(Confirmed) Rnenxulkmymec56 11/04/08 Active Malabsorption of 11/02/08 Active qoumqem18 Mild intermittent Active asthma(Confirmed) Anxiety and Active depression(Confirmed ) Mixed anxiety and 04/16/08 Active depressive Hyperlipidemia, Active mixed(Confirmed) Morbid Active obesity(Confirmed) Bleeding Active nose(Confirmed) Obstructive sleep Active apnea latekujw67 Onychomycosis(Confir Active med) Annual physical Active exam(Confirmed) Seasonal Active allergies(Confirmed) Severe major Active depression(Confirmed ) Skin tag22 11/04/08 Active Sleep Active apnea(Confirmed) Spasm of back 11/27/07 Active mqdrpgu32 Swelling of both Active lower extremities(Confirme d) Right ankle Active swelling(Confirmed) Tear meniscus Active knee(Confirmed) Pgklvkhrzgn43 11/19/08 Active Type 2 diabetes 02/08/09 Active mellitus(Confirmed)2 5 Mwyjclyfk87 11/26/08 Active Varicose vein of Active leg(Confirmed) Viral upper Active respiratory infection(Confirmed) Vitamin D 11/19/08 Active pusdwyctsr49 1Data migrated from [employer] on 10/10/14. [...] on 07/09/15. Originally documented as [employer]. Medications azelastine 0.05% ophthalmic solution 1 drp, BOTH EYES, BID, PRN Allergic reaction, X 7 day, # 6 mL, 0 Refill(s), [facility]: [facility] Start Date: 10/16/17 Stop Date: 10/23/17 Status: Ordered celecoxib 100 mg oral capsule 100 mg=1 cap, PO, Daily, 0 Refill(s) Start Date: 10/16/17 Status: Ordered Results No data available for this section Immunizations Given and Recorded Vaccine Date Status Refusal Reason influenza virus vaccine, inactivated 03/08/17 Given Hx influenza vaccine-unspecified1 02/08/09 Given Not Given Vaccine Date Status Refusal Reason pneumococcal 23-valent vaccine 03/19/16 Not Given Patient Refuses 1Result Comment: fluvirin. Migrated from OBS ; Data migrated from [facility] on 06/14/2015. Procedures Procedure Date Related Diagnosis [...]
--- OUTSIDE RECORDS SUMMARY | 2018-09-19 15:04 | XMS REPORT | Summary of Care ---
Author Author [facility] Primary [facility] Organization [facility] Address Unknown Phone Unavailable Encounter [facility] Lior(FIN) [id number] Date(s): 06/21/18 - 06/21/18 [facility] [address], [address] [place] [address]- [phone] Discharge Disposition: Home or Self Care Attending Physician: Vielka Anders DO Vital Signs Most recent to 1 oldest [Reference Range]: Height 154.94 cm (06/21/18 4:03 PM) Temperature Oral 98.1 DegF [96.4-99.1 DegF] (06/21/18 4:03 PM) Blood Pressure 139/83 mmHg [90-140/60-90 mmHg] (06/21/18 4:03 PM) Respiratory Rate 14 BRMIN [14-20 BRMIN] (06/21/18 4:03 PM) Peripheral Pulse 83 bpm Rate [60-100 bpm] (06/21/18 4:03 PM) Weight 95 kg (06/21/18 4:03 PM) Body Mass Index 39.57 m2 (06/21/18 4:03 PM) Problem List Condition Effective Dates Status [...] HTN Resolved (hypertension)(Confi rmed) Hyperthyroidism9 02/08/09 Resolved Bmbmlqpdpocncu40 11/10/08 Resolved Increased frequency 02/12/08 Active of ttborqbnc05 Knee pain12 11/02/08 Active Abnormal liver Active enzymes(Confirmed) Oaljxdapfzzod42 11/04/08 Active Malabsorption of 11/02/08 Active bshhhak31 Mixed anxiety and 04/16/08 Active depressive ixexxsto83 Hyperlipidemia, Active mixed(Confirmed) Morbid Active obesity(Confirmed) Numbness(Confirmed) Active Obstructive sleep Active apnea gpmovjyc02 Onychomycosis(Confir Active med) Seasonal Active allergies(Confirmed) Severe major Active depression(Confirmed ) Sleep Active apnea(Confirmed) Splenomegaly(Confirm Active ed) Swelling of both Active lower extremities(Confirme d) Tear meniscus Active knee(Confirmed) Pftzplcrapl11 11/19/08 Active Type 2 diabetes 02/08/09 Active mellitus(Confirmed)1 8 Varicose vein of Active leg(Confirmed) Vitamin D 11/19/08 Active 1Data migrated from [employer] on 10/10/14. [...] Other Food Allergy2 Active 1Data migrated from [employer] on 07/09/15. Originally documented as PEANUTS. 2Data migrated from [employer] on 07/09/15. Originally documented as APRICOTS. Medications albuterol 0.083% inhalation solution 2.49 mg, Route: NEB, Drug form: SOLN, ONCE, Dosing Weight 95, kg, Start date: 16:22:00 [employer]INT [employer], Stop date: 06/21/18 16:22:00 [employer] COM[employer]INT [employer]ERK Start Date: 06/21/18 Stop Date: 06/21/18 Status: Completed azithromycin 250 mg oral tablet 250 mg=1 tab, PO, Daily, take 2 tablets on the first day, 1 tablet daily to cont inue, X 5 day, # 6 tab, 0 Refill(s), Pharmacy: [facility]/pharmacy #[id number] Start Date: 06/21/18 Stop Date: 06/26/18 Status: Ordered Bromfed DM oral syrup 5 mL, PO, TID, PRN cough, X 10 day, # 150 mL, 0 Refill(s), Pharmacy: [facility]/pharmac y #[id number] Start Date: 06/21/18 Stop Date: 07/01/18 Status: Ordered predniSONE 20 mg oral tablet 40 mg=2 tab, PO, Daily, X 7 day, # 14 tab, 0 Refill(s), Pharmacy: [facility]/pharmacy # [id number] Start Date: 06/21/18 Stop Date: 06/28/18 Status: Ordered Results No data available for this section Immunizations Given and Recorded Vaccine Date Status Refusal Reason influenza virus vaccine, inactivated 03/08/17 Given Hx influenza vaccine-unspecified1 02/08/09 Given Not Given Vaccine Date Status Refusal Reason pneumococcal 23-valent vaccine2 03/19/16 Not Given Patient Refuses 1Result Comment: fluvirin. Migrated from OBS ; Data migrated from [employer] on 06/14/2015. 2Result Note: patient stated she could get the vaccine at school. Procedures Procedure Date Related Diagnosis Body Site Status Colon cancer screening1 11/21/17 Completed Diabetic retinopathy screening2 10/2016 Completed CS - Caesarean section Completed CS - section Completed Operation Completed 1Repeat in 2028 Diverticular disease 2No retinopathy Social History Social History Type Response Employment/School Status: Employed. Work/School description: [employer]. Alcohol Current, Type Wine. Frequency: 1-2 times per month. Smoking Status Never smoker; Type: Cigarettes; Exposure to Tobacco Smoke None; Cigarette Smoking Last 365 Days No; Reg Smoking Cessation Counseling No entered on: 06/21/18 Assessment and Plan No data available for this section
--- OUTSIDE RECORDS SUMMARY | 2018-09-19 15:05 | XMS REPORT | Summary of Care ---
Author Author [facility] Organization [facility] Address Unknown Phone Unavailable Encounter [facility](BLU) [id number] Date(s): 10/03/15 - 10/04/15 [facility] [address] [place] [address]- Discharge Disposition: Home Attending Physician: Anjelica Patino MD Admitting Physician: Anjelica Patino MD Vital Signs 1 2 3 Most recent to oldest [Reference Range]: 154.94 cm (10/04/15 1:42 AM) Height 98.1 DegF (10/04/15 3:04 PM) 98.5 DegF (10/04/15 11:08 AM) 98.3 DegF (10/04/15 7:12 AM) Temperature Oral [96.4-99.1 DegF] 148/74 mmHg *HI* (10/04/15 3:04 PM) 113/71 mmHg (10/04/15 11:08 AM) 126/78 mmHg (10/04/15 7:12 AM) Blood Pressure [90-140/60-90 mmHg] 19 BRMIN (10/04/15 3:04 PM) 20 BRMIN (10/04/15 11:08 AM) 20 BRMIN (10/04/15 7:12 AM) Respiratory Rate [14-20 BRMIN] 83 bpm (10/04/15 3:04 PM) 85 bpm (10/04/15 11:08 AM) 101 bpm *HI* (10/04/15 7:12 AM) Peripheral Pulse Rate [60-100 bpm] 139.545 kg (10/04/15 1:42 AM) Weight 58.13 m2 (10/04/15 1:42 AM) Body Mass Index Problem List Condition Effective Dates Status Health Status Informant Amenorrhea1 11/02/08 Active Asthma2 02/12/08 Active Asthma(Confirmed) Active Benign hypertension3 Active Carpal tunnel Active syndrome4 Cough5 07/30/08 Active Depressive disorder6 02/12/08 Active Dysplastic nevus of 11/04/08 Active skin7 Fatigue8 02/12/08 Active Foot pain9 12/09/07 Active Graves' klxkelc02 03/24/09 Active Hand pain11 11/02/08 Active Nfrgfeam15 11/27/07 Active Jmpkzhetdhxvbru41 02/08/09 Active Flbkmuvhtyzneg79 11/10/08 Active Increased frequency 02/12/08 Active of dbhdgeywp30 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 [...] Adverse Reactions, Alerts Substance Reaction Severity Status Food Nuts1 Active NKDA Active Other Food Allergy2 Active 1Data migrated from [employer] on 07/09/15. Originally documented as PEANUTS. 2Data migrated from [employer] on 07/09/15. Originally documented as APRICOTS. Medications acetaminophen 650 mg, 2 tab, Route: PO, Drug form: TAB, Q6H, Dosing Weight 139.545, kg, PRN Pa in 1-3/Temp > 99.5 F, Start date: 10/04/15 7:52:00 CDT, Duration: 30 day, Stop date: 11/03/15 7:51:00 CDT Notes: Do not exceed 4 gm/day. (Same as: Tylenol) Start Date: 10/04/15 Stop Date: 10/04/15 Status: Discontinued albuterol 0.083% inhalation solution 2.5 mg=3 mL, NEB, PRN, PRN Respiratory Protocol, # 100 ea, 0 Refill(s) Start Date: 10/04/15 Stop Date: 11/03/15 Status: Ordered albuterol 0.083% inhalation solution 2.49 mg, 3 mL, Route: NEB, Drug form: SOLN, PRN, Dosing Weight 120.455, kg, PRN Respiratory Protocol, Start date: 10/04/15 1:28:00 CDT, Duration: 30 day, Stop d ate: 11/03/15 1:27:00 CDT Notes: SEE RT DOCUMENTATION (Same as: Proventil) Start Date: 10/04/15 Stop Date: 10/04/15 Status: Discontinued albuterol-ipratropium 2.5-0.5 mg inhalation solution 3 mL, Route: NEB, Drug Form: SOLN, Dosing Weight 120.455, kg, RQ6H, PRN Respirat ory Protocol, Start date: 10/04/15 1:28:00 CDT, Duration: 30 day, Stop date: 1:27:00 CDT Notes: (Same as: Duoneb) Start Date: 10/04/15 Stop Date: 10/04/15 Status: Discontinued azithromycin + Sodium Chloride 0.9% IV 250 mL 500 mg, Route: IVPB, [id number], Dosing Weight 120.455, kg, Start date: 10/04/15 2: 00:00 CDT, Duration: 30 day, Stop date: 11/02/15 2:00:00 CDT Notes: (Same As: Zithromax IV) Start Date: 10/04/15 Stop Date: 10/04/15 Status: Discontinued dextromethorphan-guaiFENesin 10 mg-100 mg/5 mL oral liquid 5 mL, PO, Q4H, PRN Cough, X 7 day, # 210 mL, 0 Refill(s) Start Date: 10/04/15 Stop Date: 10/11/15 Status: Ordered dextromethorphan-guaiFENesin 10 mg-100 mg/5 mL oral liquid 5 ml, Route: PO, Drug Form: SYRP, Dosing Weight 139.545, kg, Q4H, PRN Cough, Sta rt date: 10/04/15 13:44:00 CDT, Duration: 30 day, Stop date: 11/03/15 13:43:00 C DT Notes: (dextromethorphan-guaifenesin 10-100mg/5ml 10 ml oral SOLN ud) (Same as: Efrenitussin DM) Start Date: 10/04/15 Stop Date: 10/04/15 Status: Discontinued docusate sodium 100 mg oral capsule 100 mg, 1 cap, Route: PO, Drug form: CAP, BID, Dosing Weight 139.545, kg, PRN Co nstipation, Start date: 10/04/15 7:53:00 CDT, Duration: 30 day, Stop date: 11/02 7:52:00 CDT Notes: (Same as: Colace) (Do Not Crush) Start Date: 10/04/15 Stop Date: 10/04/15 Status: Discontinued DuoNeb inhalation solution 3 ml, Route: NEB, Drug Form: SOLN, Dosing Weight 120.455, kg, PRN, PRN Respirato ry Protocol, Start date: 10/03/15 20:29:00 CDT, Duration: 30 day, Stop date: 20:28:00 CDT Notes: (Same as: Duoneb) Start Date: 10/03/15 Stop Date: 10/04/15 Status: Discontinued DuoNeb inhalation solution 3 ml, Route: INHALATION, Drug Form: SOLN, Dosing Weight 120.455, kg, PRN, PRN Re spiratory Protocol, Start date: 10/03/15 20:14:00 CDT, Duration: 30 day, Stop da te: 11/02/15 20:13:00 CDT Notes: (Same as: Duoneb) Start Date: 10/03/15 Stop Date: 10/03/15 Status: Voided With Results enoxaparin 40 mg, 0.4 mL, Route: SUB-Q, Drug form: INJ, [id number], Dosing Weight 139.545, kg , Start date: 10/04/15 8:00:00 CDT, Duration: 30 day, Stop date: 11/02/15 20:00: 00 CDT Notes: (Same as: Lovenox) Start Date: 10/04/15 Stop Date: 10/04/15 Status: Discontinued hydrALAZINE 20 mg, 2 tab, Route: PO, Drug form: TAB, Q6H, Dosing Weight 120.455, kg, PRN Hyp ertension, Start date: 10/03/15 23:44:00 CDT, Duration: 30 day, Stop date: 11/01 23:43:00 CDT Notes: (Same as: Apresoline) May interfere w/enteral feedings.Take With Food Start Date: 10/03/15 Stop Date: 10/04/15 Status: Discontinued labetalol 10 mg, 2 mL, Route: IVP, Drug form: INJ, ONCE, Dosing Weight 120.455, kg, Priori ty: STAT, Start date: 10/03/15 20:35:00 CDT, Stop date: 10/03/15 20:35:00 CDT Notes: (Same as: Normodyne, Trandate)Push over 2 minutes Give bolus over 2-3 mi nutes. Start Date: 10/03/15 Stop Date: 10/03/15 Status: Discontinued levofloxacin 750 mg oral tablet 750 mg=1 tab, PO, Daily, X 7 day, # 7 tab, 0 Refill(s) Start Date: 10/04/15 Stop Date: 10/11/15 Status: Ordered magnesium sulfate 2 gm, 50 mL, Route: IV, Drug form: INJ, ONCE, Dosing Weight 120.455, kg, Priorit y: STAT, Start date: 10/03/15 20:29:00 CDT, Stop date: 10/03/15 20:29:00 CDT Notes: WASTE: F/P - Sink; E - Municipal Trash Bin Start Date: 10/03/15 Stop Date: 10/03/15 Status: Completed Nebulizer 1 ea, MISC, ONCALL, # 1 ea, 0 Refill(s) Start Date: 10/04/15 Status: Ordered predniSONE 60 mg, 3 tab, Route: PO, Drug form: TAB, Daily, Dosing Weight 120.455, kg, Start date: 10/04/15 9:00:00 CDT, Duration: 30 day, Stop date: 11/02/15 9:00:00 CDT Notes: Take with food. Start Date: 10/04/15 Stop Date: 10/04/15 Status: Discontinued predniSONE 20 mg oral tablet 60 mg=3 tab, PO, Daily, Take 3 tablets for 60 mg dose, X 5 day, # 15 tab, 0 Refi ll(s) Start Date: 10/04/15 Stop Date: 10/09/15 Status: Ordered Protonix 40 mg, 1 tab, Route: PO, Drug form: ECTAB, Before Dinner, Dosing Weight 139.545, kg, Start date: 10/04/15 16:30:00 CDT, Duration: 30 day, Stop date: 11/02/15 16 :30:00 CDT Notes: Tablet should not be chewed or crushed.(Same as: Protonix) Start Date: 10/04/15 Stop Date: 10/04/15 Status: Discontinued Proventil HFA 90 mcg/inh inhalation aerosol with adapter 2 puff, INHALER, Q4H, PRN wheezing, coughing, or shortness of breath, # 1 ea, 1 Refill(s) Start Date: 10/04/15 Stop Date: 10/04/15 Status: Discontinued Proventil HFA 90 mcg/inh inhalation aerosol with adapter 2 puff, Route: INHALER, Drug Form: AERO/A, Dosing Weight 139.545, kg, Q4H, PRN a s needed for wheezing, Start date: 10/04/15 7:51:00 CDT, Duration: 30 day, Stop date: 11/03/15 7:50:00 CDT Notes: Same as: Ventolin HFAWASTE: Aerosol - Return to Pharmacy Start Date: 10/04/15 Stop Date: 10/04/15 Status: Discontinued Proventil HFA 90 mcg/inh inhalation aerosol with adapter 180 microgram=2 puff, INHALER, Q4H, PRN wheezing, coughing, or shortness of nandini th, # 1 ea, 1 Refill(s) Start Date: 10/04/15 Status: Ordered Solu-MEDROL 125 mg, 2 mL, Route: IVP, Drug form: INJ, ONCE, Dosing Weight 120.455, kg, Prior ity: STAT, Start date: 10/03/15 20:14:00 CDT, Stop date: 10/03/15 20:14:00 CDT Notes: (Same as:Solu-MEDROL, A-Methapred) Start Date: 10/03/15 Stop Date: 10/03/15 Status: Completed Tessalon Perles 200 mg, 2 cap, Route: PO, Drug form: CAP, TID, Dosing Weight 139.545, kg, PRN Co ugh, Start date: 10/04/15 13:43:00 CDT, Duration: 30 day, Stop date: 11/03/15 13 :42:00 CDT Notes: (Same As: Tessalon Perles)"Do Not Crush" Start Date: 10/04/15 Stop Date: 10/04/15 Status: Discontinued Tessalon Perles 100 mg oral capsule 200 mg, PO, TID, PRN Cough, X 7 day, # 21 ea, 0 Refill(s) Start Date: 10/04/15 Stop Date: 10/11/15 Status: Ordered tramadol 50 mg oral tablet 50 mg, 1 tab, Route: PO, Drug form: TAB, Q6H, Dosing Weight 139.545, kg, PRN Taylor n Score 4-6, Start date: 10/04/15 7:52:00 CDT, Duration: 30 day, Stop date: 10/13 06/29 7:51:00 CDT Notes: Not to exceed 400mg/day. (Same As: Ultram) Start Date: 10/04/15 Stop Date: 10/04/15 Status: Discontinued Zofran 4 mg, 2 mL, Route: IV, Drug form: INJ, Q8H, Dosing Weight 139.545, kg, PRN Nause a, Start date: 10/04/15 7:53:00 CDT, Duration: 30 day, Stop date: 11/03/15 7:52: 00 CDT Notes: (Same as: Zofran) MEDICATION WASTE Product Size: 4 mgProduct Was vel: ___ mg Start Date: 10/04/15 Stop Date: 10/04/15 Status: Discontinued Results ELECTROLYTES Most recent to 1 2 oldest [Reference Range]: Sodium Lvl [135-145 135 mEq/L 137 mEq/L mEq/L] (10/04/15 8:07 AM) (10/03/15 8:31 PM) Potassium Lvl 4.2 mEq/L 3.8 mEq/L [3.5-5.1 mEq/L] (10/04/15 8:07 AM) (10/03/15 8:31 PM) Chloride Lvl [95-109 100 mEq/L 100 mEq/L mEq/L] (10/04/15 8:07 AM) (10/03/15 8:31 PM) CO2 [24-32 mEq/L] 23 mEq/L 27 mEq/L *LOW* (10/03/15 8:31 PM) (10/04/15 8:07 AM) AGAP [10.0-20.0 16.2 mEq/L 13.8 mEq/L mEq/L] (10/04/15 8:07 AM) (10/03/15 8:31 PM) CHEM PANEL Most recent to 1 2 oldest [Reference Range]: Creatinine Lvl 0.81 mg/dL 0.64 mg/dL [0.50-1.40 mg/dL] (10/04/15 8:07 AM) (10/03/15 8:31 PM) eGFR 86 mL/min/1.73m2 1 107 mL/min/1.73m2 2 *NA* *NA* (10/04/15 8:07 AM) (10/03/15 8:31 PM) BUN [7-22 mg/dL] 10 mg/dL 8 mg/dL (10/04/15 8:07 AM) (10/03/15 8:31 PM) B/C Ratio [6-25] 12 (10/03/15 8:31 PM) Glucose Lvl [70-99 295 mg/dL 104 mg/dL mg/dL] *HI* *HI* (10/04/15 8:07 AM) (10/03/15 8:31 PM) Total Protein 7.8 g/dL [6.4-8.4 g/dL] (10/03/15 8:31 PM) Albumin Lvl [3.5-5.0 3.9 g/dL g/dL] (10/03/15 8:31 PM) Globulin [2.0-4.0 3.9 g/dL g/dL] (10/03/15 8:31 PM) A/G Ratio [0.7-1.6] 1.0 (10/03/15 8:31 PM) Calcium Lvl 9.3 mg/dL 8.8 mg/dL [8.5-10.5 mg/dL] (10/04/15 8:07 AM) (10/03/15 8:31 PM) Phosphorus [2.5-4.5 3.2 mg/dL mg/dL] (10/04/15 8:07 AM) Magnesium Lvl 2.0 mg/dL [1.8-2.4 mg/dL] (10/04/15 8:07 AM) ALT [0-65 unit/L] 47 unit/L (10/03/15 8:31 PM) AST [0-37 unit/L] 23 unit/L (10/03/15 8:31 PM) Alk Phos [39-136 88 unit/L unit/L] (10/03/15 8:31 PM) Bili Total [0.2-1.3 0.5 mg/dL mg/dL] (10/03/15 8:31 PM) 1Result Comment: The eGFR is calculated using [...] be mul tiplied by the estimated BMI. 2Result Comment: The eGFR is calculated using the [...] be mul tiplied by the estimated BMI. CARDIAC ENZYMES Most recent to 1 2 oldest [Reference Range]: BNP [<=100 pg/mL] 12 pg/mL (10/03/15 8:31 PM) URINE AND STOOL Most recent to 1 2 oldest [Reference Range]: UA Turbidity [Clear] Clear (10/04/15 12:03 AM) UA Color Ltyellow *NA* (10/04/15 12:03 AM) UA pH [5.0-8.0] 6.0 (10/04/15 12:03 AM) UA Spec Grav 1.012 [<=1.030] (10/04/15 12:03 AM) UA Glucose [Negative Negative mg/dL mg/dL] *NA* (10/04/15 12:03 AM) UA Blood [Negative] Negative (10/04/15 12:03 AM) UA Ketones [Negative Negative mg/dL mg/dL] *NA* (10/04/15 12:03 AM) UA Protein [Negative 30 mg/dL mg/dL] *ABN* (10/04/15 12:03 AM) UA Urobilinogen <=1.0 mg/dL [0.1-1.0 mg/dL] *NA* (10/04/15 12:03 AM) UA Bili [Negative] Negative *NA* (10/04/15 12:03 AM) UA Leuk Est Negative [Negative] (10/04/15 12:03 AM) UA Nitrite Negative [Negative] (10/04/15 12:03 AM) UA WBC [0-5 /HPF] <1 /HPF (10/04/15 12:03 AM) UA RBC [0-2 /HPF] 3 /HPF *HI* (10/04/15 12:03 AM) UA Sq Epi [Few /LPF] Occasional /LPF *NA* (10/04/15 12:03 AM) UA Mucus [None Seen Few /LPF /LPF] *NA* (10/04/15 12:03 AM) HEMATOLOGY Most recent to 1 2 oldest [Reference Range]: WBC [3.7-10.4 K/CMM] 7.6 K/CMM 10.2 K/CMM (10/04/15 8:07 AM) (10/03/15 8:31 PM) RBC [4.20-5.40 4.88 M/CMM 5.05 M/CMM M/CMM] (10/04/15 8:07 AM) (10/03/15 8:31 PM) Hgb [12.0-16.0 g/dL] 13.2 g/dL 13.6 g/dL (10/04/15 8:07 AM) (10/03/15 8:31 PM) Hct [36.0-48.0 %] 40.4 % 41.5 % (10/04/15 8:07 AM) (10/03/15 8:31 PM) MCV [80.0-98.0 fL] 82.7 fL 82.1 fL (10/04/15 8:07 AM) (10/03/15 8:31 PM) MCH [27.0-31.0 pg] 27.1 pg 26.8 pg (10/04/15 8:07 AM) *LOW* (10/03/15 PM) MCHC [32.0-36.0 32.8 g/dL 32.7 g/dL g/dL] (10/04/15 8:07 AM) (10/03/15 8:31 PM) RDW [11.5-14.5 %] 13.4 % 13.8 % (10/04/15 8:07 AM) (10/03/15 8:31 PM) Platelet [133-450 212 K/CMM 212 K/CMM K/CMM] (10/04/15 8:07 AM) (10/03/15 8:31 PM) MPV [7.4-10.4 fL] 8.4 fL 8.2 fL (10/04/15 8:07 AM) (10/03/15 8:31 PM) Segs [45.0-75.0 %] 88.1 % 63.2 % *HI* (10/03/15 8:31 PM) (10/04/15 8:07 AM) Lymphocytes 10.4 % 23.7 % [20.0-40.0 %] *LOW* (10/03/15 8:31 PM) (10/04/15 8:07 AM) Monocytes [2.0-12.0 1.2 % 7.6 % %] *LOW* (10/03/15:31 PM) (10/04/15 8:07 AM) Eosinophils [0.0-4.0 0.1 % 4.9 % %] (10/04/15 8:07 AM) *HI* (10/03/15 8:31 PM) Basophils [0.0-1.0 0.2 % 0.6 % %] (10/04/15 8:07 AM) (10/03/15 8:31 PM) Segs-Bands # 6.7 K/CMM 6.5 K/CMM [1.5-8.1 K/CMM] (10/04/15 8:07 AM) (10/03/15 8:31 PM) Lymphocytes # 0.8 K/CMM 2.4 K/CMM [1.0-5.5 K/CMM] *LOW* (10/03/15 8:31 PM) (10/04/15 8:07 AM) Monocytes # [0.0-0.8 0.1 K/CMM 0.8 K/CMM K/CMM] (10/04/15 8:07 AM) (10/03/15 8:31 PM) Eosinophils # 0.5 K/CMM [0.0-0.5 K/CMM] (10/03/15 8:31 PM) Basophils # [0.0-0.2 0.1 K/CMM K/CMM] (10/03/15 8:31 PM) Immunizations Vaccine Date Refusal Reason Hx influenza vaccine-unspecified1 02/08/09 1Result Comment: fluvirin. Migrated from [employer] ; Data migrated from [employer] on 06/14/2015. Procedures Procedure Date Related Diagnosis Body Site CS - section Social History Social History Type Response Smoking Status Never smoker; Type: Cigarettes; Exposure to Tobacco Smoke None; Cigarette Smoking Last 365 Days No; Reg Smoking Cessation Counseling No Assessment and Plan Extracted from: Title: Clinical Document Author: Jin Javed MD Date: 10/03/15 History and Physical Attending: Estevan Jo MDPhone: Service: Emergency Medicine Service Code status: None Specified=FULL CODE Reason for Admission: SOB Working DRG: None Documented Isolation: None Documented Consulting Physicians: (none on file) CC: SOB HPI: This is a 45 yo w/ below PMHx who p/w 2 day h/o SOB. SOB at rest but worsens w/ exertion. Wheezing and cough w/ greenish sputum. Her nebulizer and inhalers have not helped. Some subjective fevers. No new exposures, no sick contacts. Denies CP or any other additional complaints. Gets about 3-4 asthma exacerbations a year, this feels like her past pneumonia than her asthma exacerbation. No recent intubation, may have been intubated as a kid but no sure. PMHx: asthma HTN NIDIA PSHx: section FHx: reviewed and noncontributory SHx: Denies T/E/D Meds: See medicine reconciliation Medication List Active Medications Ordered albuterol-ipratropium: 3 ml, NEB, PRN, PRN: Respiratory Protocol. Medications Inactivated in the Last 72 Hours albuterol-ipratropium: 3 ml, INHALATION, PRN, PRN: Respiratory Protocol. albuterol-ipratropium: 9 mL, PYXIS, ONCE. labetalol: 10 mg, 2 mL, IVP, ONCE. magnesium sulfate: 2 gm, 50 mL, PYXIS, ONCE. magnesium sulfate: 2 gm, 50 mL, 25 ml/hr, IV, ONCE. methylPREDNISolone: 125 mg, 2 mL, PYXIS, ONCE. methylPREDNISolone: 125 mg, 2 mL, IVP, ONCE. Allergies: Other Food Allergy, Food Nuts, NKDA ROS: See HPI. All other systems reviewed by myself are negative unless noted above. Physical Exam: VitalsTmp(F)[id number] 10/02 21:[id number] 3.0L/m 10/02 20:23 2496 3.0L/m 10/02 20:[id number]--- 24 Hr Tmax: 97.8F (36.56c) at 10/02 21:00Vital Signs are the last 5 in the past 48 hours. General: NAD, nontoxic appearing, morbidly obese HEENT: NCAT, PERRL, MMM, no JVD Cardiovascular: RRR, S1S2 Respiratory: diffuse expiratory wheezes Abdomen: soft, +BS, NT/ND Extremities: no b/l LE edema Skin: no rashes Neurologic: comprehension and speech intact, CN III-XII grossly intact Musculoskeletal: symmetric strength in all extremities Rectal/: deferred Labs: 24hr Labs 10/025 Site ArtRight Br Temp Art37.0 pH Art7.41 pCO2 Art39 pO2 Art85 HCO3 Art25 BE Art0 O2 Sat Art96.5 Allens ArtN/A Flow Art3.0 Mode ArtNC FiO2 Art32.0 10/02 203 Sodium Pig469 Potassium Lvl3.8 Chloride Nig955 CO227 AGAP13.8 Glucose Lxd273 H Creatinine Lvl0.64 BUN8 B/C Ratio12 Total Protein7.8 Albumin Lvl3.9 Globulin3.9 A/G Ratio1.0 Calcium Lvl8.8 ALT47 AST23 Alk Phos88 Bili Total0.5 yNVF940 BNP12 WBC10.2 RBC5.05 Hgb13.6 Hct41.5 MCV82.1 MCH26.8 L MCHC32.7 RDW13.8 Pfvctgwo865 MPV8.2 Segs63.2 Monocytes7.6 Usnbikeriqm03.7 Eosinophils4.9 H Basophils0.6 Segs-Bands #6.5 Lymphocytes #2.4 Monocytes #0.8 Eosinophils #0.5 Basophils #0.1 Micro: none Imaging: CXR: 1. No active disease. 2. Borderline cardiomegaly. 3. No significant change from 05/03/2015. CT neck pending Assessment and Plan: This is a 45 yo who p/w SOB, wheezing, and productive cough. Admitted for asthma exacerbation. # asthma exacerbation: breathing txts, prednisone burst, peak flows; pt states that it feels like pneumonia and with her increased sputum production will give azithromycin # h/o NIDIA: CPAP 12 # elevated BP and h/o HTN: does not take her meds, will give something prn for now Prophylaxis: ambulation Diet: heart healthy Jin Javed Executive Vice President And Chief Operating Officer
--- OUTSIDE RECORDS SUMMARY | 2018-09-19 15:05 | XMS REPORT | Summary of Care ---
Author Author [facility] [place] Address Unknown Phone Unavailable Encounter [facility](BLU) [id number] Date(s): 05/03/15 - 05/03/15 [facility] [address] [place], [place] [address]- [phone] Discharge Disposition: Home Attending Physician: Cate Shane MD Vital Signs No data available for this section Problem List Condition Effective Dates Status Health Status Informant Amenorrhea1 11/02/08 Active Asthma2 02/12/08 Active Benign hypertension3 Active Carpal tunnel Active syndrome4 Cough5 07/30/08 Active Depressive disorder6 02/12/08 Active Dysplastic nevus of 11/04/08 Active skin7 Fatigue8 02/12/08 Active Foot pain9 12/09/07 Active Graves' 03/24/09 Active Hand pain11 11/02/08 Active Vjcvnyok32 11/27/07 Active Xgnlmrwvbatihbz06 02/08/09 Active Bezvdoexddiibm56 11/10/08 Active Increased frequency 02/12/08 Active of yvumhnerz91 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 [...] Adverse Reactions, Alerts Substance Reaction Severity Status NKDA Active Medications No data available for this section Results No data available for this section Immunizations No data available for this section Procedures No data available for this section Social History No data available for this section Assessment and Plan No data available for this section
--- OUTSIDE RECORDS SUMMARY | 2018-09-19 15:05 | XMS REPORT | Summary of Care ---
Author Author [facility] Organization [facility] Address Unknown Phone Unavailable Encounter [facility](BLU) [id number] Date(s): 09/12/16 - 09/12/16 [facility] [address] [address]- Discharge Disposition: Home or Self Care Attending Physician: Rancho Meng MD Referring Physician: Rancho Meng MD Vital Signs No data available for this section Problem List Condition Effective Dates Status Health Status Informant Amenorrhea1 11/02/08 Active Anxiety(Confirmed) Active Asthma(Confirmed) Active Asthma(Confirmed)2 02/12/08 Active Asthma(Confirmed) Active Benign essential Active HTN(Confirmed) Benign hypertension3 Active Carpal tunnel Active syndrome4 Chronic Active cough(Confirmed) Coarse Active tremors(Confirmed) Cough5 07/30/08 Active Depressive disorder6 02/12/08 Active Diabetes(Confirmed) Resolved DM type 2 with Active diabetic peripheral neuropathy(Confirmed ) Dysplastic nevus of 11/04/08 Active skin7 Fatigue8 02/12/08 Active Foot pain9 12/09/07 Active Graves' fzomkdq46 03/24/09 Active Hand pain11 11/02/08 Active Ggbfzskc39 11/27/07 Active HTN Resolved (hypertension)(Confi rmed) Ojtaimczxpbhzvp75 02/08/09 Active Cehrcxblnrjrsm99 11/10/08 Active Increased frequency 02/12/08 Active of bcrqfepsa41 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 Knee pain17 11/02/08 Active Ievuhliqhlwkx71 11/04/08 Active Malabsorption of 11/02/08 Active lnjvsli52 Anxiety and Active depression(Confirmed ) Mixed anxiety and 04/16/08 Active depressive dhgyefjv22 Morbid Active obesity(Confirmed) Bleeding Active nose(Confirmed) Obstructive sleep Active apnea Skin tag22 11/04/08 Active Sleep Active apnea(Confirmed) Spasm of back 11/27/07 Active nqvhnuk34 Swelling of both Active lower extremities(Confirme d) Ncnzidjjzqq20 11/19/08 Active Type 2 diabetes 02/08/09 Active jzfajsru25 Jocfirqyh78 11/26/08 Active Vitamin D 11/19/08 Active vvwupuutoz59 1Data migrated from [employer] on 10/10/14. [...] Substance Reaction Severity Status Food Nuts1 Active glipiZIDE Rash Mild Active NKDA Active Other Food Allergy2 Active 1Data migrated from [employer] on 07/09/15. Originally documented as PEANUTS. 2Data migrated from [employer] on 07/09/15. Originally documented as APRICOTS. Medications No data available for this section Results No data available for this section Immunizations Given and Recorded Vaccine Date Status Refusal Reason Hx influenza vaccine-unspecified1 02/08/09 Given Not Given Vaccine Date Status Refusal Reason pneumococcal 23-valent vaccine 03/19/16 Not Given Patient Refuses 1Result Comment: fluvirin. Migrated from [facility] ; Data migrated from [employer] on 06/14/2015. Procedures Procedure Date Related Diagnosis Body Site CS - Caesarean section CS - section Social History Social History Type Response Smoking Status Never smoker; Type: Cigarettes; Exposure to Tobacco Smoke None; Cigarette Smoking Last 365 Days No; Reg Smoking Cessation Counseling No Assessment and Plan No data available for this section
--- OUTSIDE RECORDS SUMMARY | 2018-09-19 15:05 | XMS REPORT | Summary of Care ---
Author Author [facility] Organization [facility] Address Unknown Phone Unavailable Encounter HENRIETTA Tinajero(BLU) [id number] Date(s): 03/18/16 - 03/19/16 [facility] [address] [place] [address]- Discharge Disposition: Home or Self Care Attending Physician: Anant Guevara MD Admitting Physician: Anant Guevara MD Vital Signs 1 2 3 Most recent to oldest [Reference Range]: 154.94 cm (03/18/16 11:22 PM) 154.94 cm (03/18/16 5:39 PM) Height 97.5 DegF (03/19/16 11:14 AM) 97.6 DegF (03/19/16 7:13 AM) 97.8 DegF (03/19/16 4:49 AM) Temperature Oral [96.4-99.1 DegF] 119/65 mmHg (03/19/16 11:14 AM) 145/76 mmHg *HI* (03/19/16 10:04 AM) 105/70 mmHg (03/19/16 7:13 AM) Blood Pressure [90-140/60-90 mmHg] 20 BRMIN (03/19/16 11:14 AM) 19 BRMIN (03/19/16 7:13 AM) 15 BRMIN (03/19/16 6:37 AM) Respiratory Rate [14-20 BRMIN] 75 bpm (03/19/16 11:14 AM) 69 bpm (03/19/16 7:13 AM) 68 bpm (03/19/16 4:49 AM) Peripheral Pulse Rate [60-100 bpm] 130.909 kg (03/18/16 11:22 PM) 130.909 kg (03/18/16 5:39 PM) Weight 54.53 m2 (03/18/16 11:22 PM) 54.53 m2 (03/18/16 5:39 PM) Body Mass Index Problem List Condition Effective Dates Status Health Status Informant Amenorrhea1 11/02/08 Active Asthma2 02/12/08 Active Asthma(Confirmed) Active Benign hypertension3 Active Carpal tunnel Active syndrome4 Cough5 07/30/08 Active Depressive disorder6 02/12/08 Active Diabetes(Confirmed) Resolved Dysplastic nevus of 11/04/08 Active skin7 Fatigue8 02/12/08 Active Foot pain9 12/09/07 Active Graves' nxkedcn54 03/24/09 Active Hand pain11 11/02/08 Active Juwswakt57 11/27/07 Active HTN Resolved (hypertension)(Confi rmed) Xhkdflxljozvkxl16 02/08/09 Active Jvljxjsswtczel60 11/10/08 Active Increased frequency 02/12/08 Active of nlrpvzwiz56 Intrinsic tfagkm95 07/30/08 Active Knee pain17 11/02/08 Active Dsyibajrsnrnj22 11/04/08 Active Malabsorption of 11/02/08 Active ramqsvj45 Mixed anxiety and 04/16/08 Active depressive yfztkjts36 Morbid Active obesity(Confirmed) Obstructive sleep Active apnea zrhwarfk89 Skin tag22 11/04/08 Active Sleep Active apnea(Confirmed) Spasm of back 11/27/07 Active ogpsbjg16 Jmysmgnxbxr97 11/19/08 Active Type 2 diabetes 02/08/09 Active mwtksnfy55 Zrtcbqaot10 11/26/08 Active Vitamin D 11/19/08 Active bzxvdksmyc55 1Data migrated from [employer] on 10/10/14. [...] on 07/09/15. Originally documented as APRICOTS. Medications albuterol-ipratropium 2.5-0.5 mg inhalation solution 3 mL, Route: NEB, Drug Form: SOLN, Dosing Weight 130.909, kg, ONCE, STAT, Start date: 03/18/16 18:54:00 CDT, Stop date: 03/18/16 18:54:00 CDT Notes: (Same as: Ky) Start Date: 03/18/16 Stop Date: 03/18/16 Status: Completed albuterol-ipratropium 2.5-0.5 mg inhalation solution 3 mL, Route: NEB, Drug Form: SOLN, Dosing Weight 130.909, kg, ONCE, STAT, Start date: 03/18/16 17:47:00 CDT, Stop date: 03/18/16 17:47:00 CDT Notes: (Same as: Duoneb) Start Date: 03/18/16 Stop Date: 03/18/16 Status: Completed albuterol-ipratropium 2.5-0.5 mg inhalation solution 3 mL, Route: NEB, Drug Form: SOLN, Dosing Weight 130.909, kg, PRN, PRN Wheezing, Routine, Start date: 03/18/16 18:33:00 CDT, Stop date: 04/17/16 17:32:00 CHILD ATTENDANT Notes: (Same as: Duoneb) Start Date: 03/18/16 Stop Date: 03/19/16 Status: Discontinued albuterol-ipratropium 2.5-0.5 mg inhalation solution 3 mL, Route: NEB, Drug Form: SOLN, Dosing Weight 130.909, kg, RQ6H, Start date: 03/19/16 2:00:00 CHILD ATTENDANT, Duration: 30 day, Stop date: 04/17/16 20:00:00 CHILD ATTENDANT Notes: (Same as: Duoneb) Start Date: 03/19/16 Stop Date: 03/19/16 Status: Discontinued amoxicillin 1,000 mg, 2 cap, Route: PO, Drug form: CAP, Q12H, Dosing Weight 130.909, kg, Sta rt date: 03/19/16 21:00:00 CHILD ATTENDANT, Duration: 30 day, Stop date: 04/18/16 9:00:00 CS T Notes: (Same as: Amoxil) Start Date: 03/19/16 Stop Date: 03/19/16 Status: Canceled amoxicillin-clavulanate 875 mg-125 mg oral tablet 1 tab, Route: PO, Drug Form: TAB, Dosing Weight 130.909, kg, [id number], For CrCl > /=30, Start date: 03/18/16 22:00:00 CDT, Duration: 30 day, Stop date: 04/17/16 1 0:00:00 CHILD ATTENDANT Notes: With food.(Same as: Augmentin 875) Start Date: 03/18/16 Stop Date: 03/19/16 Status: Discontinued atenolol 25 mg oral tablet 25 mg=1 tab, PO, BID, # 60 tab, 0 Refill(s) Start Date: 03/19/16 Stop Date: 03/20/16 Status: Discontinued clarithromycin 500 mg, 1 tab, Route: PO, Drug form: TAB, Q12H, Dosing Weight 130.909, kg, Start date: 03/19/16 21:00:00 CHILD ATTENDANT, Duration: 30 day, Stop date: 04/18/16 9:00:00 CHILD ATTENDANT Notes: (Same As: Biaxin) Start Date: 03/19/16 Stop Date: 03/19/16 Status: Canceled Dextrose 50% Syringe 25 gm, 50 mL, Route: IVP, Drug Form: INJ, Dosing Weight 130.909, kg, PRN, PRN Bl ood Glucose Results, Start date: 03/19/16 0:11:00 CDT, Duration: 30 day, Stop da te: 04/17/16 23:10:00 CHILD ATTENDANT Start Date: 03/19/16 Stop Date: 03/19/16 Status: Discontinued Dextrose 50% Syringe 12.5 gm, 25 mL, Route: IVP, Drug Form: INJ, Dosing Weight 130.909, kg, PRN, PRN Blood Glucose Results, Start date: 03/19/16 0:11:00 CDT, Duration: 30 day, Stop date: 04/17/16 23:10:00 CHILD ATTENDANT Start Date: 03/19/16 Stop Date: 03/19/16 Status: Discontinued enoxaparin 40 mg, 0.4 mL, Route: SUB-Q, Drug form: INJ, [id number], Dosing Weight 130.909, kg , Consider for obese patients, Start date: 03/18/16 22:00:00 CDT, Duration: 30 d ay, Stop date: 04/17/16 10:00:00 CHILD ATTENDANT Notes: (Same as: Lovenox) Start Date: 03/18/16 Stop Date: 03/19/16 Status: Discontinued GI cocktail 30 mL, Route: PO, Drug Form: SUSP, Dosing Weight 130.909, kg, ONCE, STAT, Start date: 03/18/16 18:22:00 CDT, Stop date: 03/18/16 18:22:00 CDT Notes: G.I. Cocktail=antacid with simethicone 22.5 mL - lidocaine viscous 7.5 mL Start Date: 03/18/16 Stop Date: 03/18/16 Status: Completed glipiZIDE 10 mg oral tablet 10 mg, 1 tab, Route: PO, Drug form: TAB, BID-Before Meals, Dosing Weight 130.909 , kg, Start date: 03/19/16 16:30:00 CHILD ATTENDANT, Duration: 30 day, Stop date: 04/18/16 7 :30:00 CHILD ATTENDANT Notes: (Same as: Glucotrol) 30 min before meals. Start Date: 03/19/16 Stop Date: 03/19/16 Status: Discontinued glucagon 1 mg, Route: IM, Drug form: PDR/INJ, PRN, Dosing Weight 130.909, kg, PRN Blood G lucose Results, Start date: 03/19/16 0:11:00 CDT, Duration: 30 day, Stop date: 06/18/15 23:10:00 CHILD ATTENDANT Start Date: 03/19/16 Stop Date: 03/19/16 Status: Discontinued ibuprofen 400 mg oral tablet 400 mg, 1 tab, Route: PO, Drug form: TAB, ONCE, Dosing Weight 130.909, kg, Start date: 03/19/16 0:12:00 CDT, Stop date: 03/19/16 0:12:00 CDT Notes: (Same as: Motrin)"Do Not Crush" Give with food. Start Date: 03/19/16 Stop Date: 03/19/16 Status: Completed ibuprofen 400 mg oral tablet 400 mg, 1 tab, Route: PO, Drug form: TAB, Q6H, Dosing Weight 130.909, kg, PRN Pa in Score 1-5, Start date: 03/19/16 3:04:00 CHILD ATTENDANT, Duration: 30 day, Stop date: 10/27 3:03:00 CHILD ATTENDANT Notes: (Same as: Motrin)"Do Not Crush" Give with food. Start Date: 03/19/16 Stop Date: 03/19/16 Status: Discontinued insulin aspart 4 unit, 0.04 mL, Route: SUB-Q, Drug form: SOLN, TID-Before Meals, Dosing Weight 130.909, kg, PRN Blood Glucose Results, Start date: 03/19/16 0:11:00 CDT, Durati on: 30 day, Stop date: 04/18/16 0:10:00 CHILD ATTENDANT Notes: Roll in palms of hands gently; Do not shake vigorously. (Same as: NovoLO G)"single patient use only"WASTE: F/P - Black; E - Municipal Trash Bin Stable f or 28 days at room temperature.Expires in days from Date Start Date: 03/19/16 Stop Date: 03/19/16 Status: Discontinued insulin aspart 6 unit, 0.06 mL, Route: SUB-Q, Drug form: SOLN, TID-Before Meals, Dosing Weight 130.909, kg, PRN Blood Glucose Results, Start date: 03/19/16 0:11:00 CDT, Durati on: 30 day, Stop date: 04/18/16 0:10:00 CHILD ATTENDANT Notes: Roll in palms of hands gently; Do not shake vigorously. (Same as: Marley Peña)"single patient use only"WASTE: F/P - Black; E - Municipal Trash Bin Stable f or 28 days at room temperature.Expires in days from Date Start Date: 03/19/16 Stop Date: 03/19/16 Status: Discontinued insulin aspart 2 unit, 0.02 mL, Route: SUB-Q, Drug form: SOLN, TID-Before Meals, Dosing Weight 130.909, kg, PRN Blood Glucose Results, Start date: 03/19/16 0:11:00 CDT, Durati on: 30 day, Stop date: 04/18/16 0:10:00 CHILD ATTENDANT Notes: Roll in palms of hands gently; Do not shake vigorously. (Same as: Marley Peña)"single patient use only"WASTE: F/P - Black; E - Municipal Trash Bin Stable f or 28 days at room temperature.Expires in days from Date Start Date: 03/19/16 Stop Date: 03/19/16 Status: Discontinued insulin aspart 3 unit, 0.03 mL, Route: SUB-Q, Drug form: SOLN, Bedtime, Dosing Weight 130.909, kg, PRN Blood Glucose Results, Start date: 03/19/16 0:11:00 CDT, Duration: 30 da y, Stop date: 04/18/16 0:10:00 CHILD ATTENDANT Notes: Roll in palms of hands gently; Do not shake vigorously. (Same as: NovoPHIL Peña)"single patient use only"WASTE: F/P - Black; E - Municipal Trash Bin Stable f or 28 days at room temperature.Expires in days from Date Start Date: 03/19/16 Stop Date: 03/19/16 Status: Discontinued insulin aspart 4 unit, 0.04 mL, Route: SUB-Q, Drug form: SOLN, Bedtime, Dosing Weight 130.909, kg, PRN Blood Glucose Results, Start date: 03/19/16 0:11:00 CDT, Duration: 30 da y, Stop date: 04/18/16 0:10:00 CHILD ATTENDANT Notes: Roll in palms of hands gently; Do not shake vigorously. (Same as: Marley Peña)"single patient use only"WASTE: F/P - Black; E - Municipal Trash Bin Stable f or 28 days at room temperature.Expires in days from Date Start Date: 03/19/16 Stop Date: 03/19/16 Status: Discontinued insulin aspart 1 unit, 0.01 mL, Route: SUB-Q, Drug form: SOLN, Bedtime, Dosing Weight 130.909, kg, PRN Blood Glucose Results, Start date: 03/19/16 0:11:00 CDT, Duration: 30 da y, Stop date: 04/18/16 0:10:00 CHILD ATTENDANT Notes: Roll in palms of hands gently; Do not shake vigorously. (Same as: NovoPHIL Peña)"single patient use only"WASTE: F/P - Black; E - Municipal Trash Bin Stable f or 28 days at room temperature.Expires in days from Date Start Date: 03/19/16 Stop Date: 03/19/16 Status: Discontinued insulin aspart 2 unit, 0.02 mL, Route: SUB-Q, Drug form: SOLN, Bedtime, Dosing Weight 130.909, kg, PRN Blood Glucose Results, Start date: 03/19/16 0:11:00 CDT, Duration: 30 da y, Stop date: 04/18/16 0:10:00 CHILD ATTENDANT Notes: Roll in palms of hands gently; Do not shake vigorously. (Same as: Marley Peña)"single patient use only"WASTE: F/P - Black; E - Municipal Trash Bin Stable f or 28 days at room temperature.Expires in days from Date Start Date: 03/19/16 Stop Date: 03/19/16 Status: Discontinued insulin aspart 10 unit, 0.1 mL, Route: SUB-Q, Drug form: SOLN, TID-Before Meals, Dosing Weight 130.909, kg, PRN Blood Glucose Results, Start date: 03/19/16 0:11:00 CDT, Durati on: 30 day, Stop date: 04/18/16 0:10:00 CHILD ATTENDANT Notes: Roll in palms of hands gently; Do not shake vigorously. (Same as: Marley Peña)"single patient use only"WASTE: F/P - Black; E - Municipal Trash Bin Stable f or 28 days at room temperature.Expires in days from Date Start Date: 03/19/16 Stop Date: 03/19/16 Status: Discontinued insulin aspart 8 unit, 0.08 mL, Route: SUB-Q, Drug form: SOLN, TID-Before Meals, Dosing Weight 130.909, kg, PRN Blood Glucose Results, Start date: 03/19/16 0:11:00 CDT, Durati on: 30 day, Stop date: 04/18/16 0:10:00 CHILD ATTENDANT Notes: Roll in palms of hands gently; Do not shake vigorously. (Same as: Marley Peña)"single patient use only"WASTE: F/P - Black; E - Municipal Trash Bin Stable f or 28 days at room temperature.Expires in days from Date Start Date: 03/19/16 Stop Date: 03/19/16 Status: Discontinued ketOROLAC 30 mg/mL injectable solution 30 mg, 1 mL, Route: IVP, Drug form: INJ, ONCE, Dosing Weight 130.909, kg, Priori ty: STAT, Start date: 03/18/16 19:51:00 CDT, Stop date: 03/18/16 19:51:00 CDT Notes: (Same as:Toradol) IV bolus must be given >15 seconds. Give IM administration slowly and deeply into the muscle.Not for use > 4 days MEDICATION WASTE Product Size: 30 mgProduct Wasted: ___ mg Start Date: 03/18/16 Stop Date: 03/18/16 Status: Completed lisinopril 20 mg oral tablet 20 mg=1 tab, PO, Daily, # 30 tab, 0 Refill(s) Start Date: 03/18/16 Stop Date: 03/19/16 Status: Discontinued magnesium sulfate 2 gm, 50 mL, Route: IV, Drug form: INJ, ONCE, Dosing Weight 130.909, kg, Priorit y: STAT, Start date: 03/18/16 18:20:00 CDT, Stop date: 03/18/16 18:20:00 CDT Notes: WASTE: F/P - Sink; E - Municipal Trash Bin Start Date: 03/18/16 Stop Date: 03/18/16 Status: Completed metFORMIN 1000 mg oral tablet 1,000 mg, 2 tab, Route: PO, Drug form: TAB, BID-Meals, Dosing Weight 130.909, kg , Start date: 03/19/16 17:00:00 CHILD ATTENDANT, Duration: 30 day, Stop date: 04/18/16 8:00: 00 CHILD ATTENDANT Notes: (Same as: Glucophage) Take with meal Start Date: 03/19/16 Stop Date: 03/19/16 Status: Discontinued pantoprazole 40 mg, 1 tab, Route: PO, Drug form: ECTAB, Before Dinner, Dosing Weight 130.909, kg, Start date: 03/19/16 16:30:00 CHILD ATTENDANT, Duration: 30 day, Stop date: 04/17/16 16 :30:00 CHILD ATTENDANT Notes: Tablet should not be chewed or crushed.(Same as: Protonix) Start Date: 03/19/16 Stop Date: 03/19/16 Status: Discontinued pneumococcal 23-valent vaccine 0.5 mL, Route: IM, Drug Form: INJ, Daily, Start date: 03/19/16 9:00:00 CHILD ATTENDANT, Stop date: 03/19/16 11:00:00 CHILD ATTENDANT Notes: (Same as: Pneumovax 23) Refrigerate Start Date: 03/19/16 Stop Date: 03/19/16 Status: Completed predniSONE 40 mg, 2 tab, Route: PO, Drug form: TAB, Daily, Dosing Weight 130.909, kg, Start date: 03/19/16 9:00:00 CHILD ATTENDANT, Duration: 30 day, Stop date: 04/17/16 9:00:00 CHILD ATTENDANT Notes: Take with food. Start Date: 03/19/16 Stop Date: 03/19/16 Status: Discontinued racemic epinephrine 2.25% inhalation solution 11.25 mg, 0.5 mL, Route: NEB, Drug Form: SOLN, Dosing Weight 130.909, kg, ONCE, STAT, Start date: 03/18/16 18:21:00 CDT, Stop date: 03/18/16 18:21:00 CDT Notes: (racepinephrine *2.25% inh 0.5ml SOLN) (Same as:S2) Start Date: 03/18/16 Stop Date: 03/18/16 Status: Completed Saline Flush 0.9% 10 mL, Route: IVP, Drug Form: INJ, Dosing Weight 130.909, kg, PRN, PRN Line Flus h, Start date: 03/18/16 18:54:00 CDT, Duration: 30 day, Stop date: 04/17/16 17:5 3:00 CHILD ATTENDANT Notes: (Same as: BD Posiflush) Start Date: 03/18/16 Stop Date: 03/19/16 Status: Discontinued simvastatin 20 mg, 1 tab, Route: PO, Drug form: TAB, Bedtime, Dosing Weight 130.909, kg, Sta rt date: 03/19/16 21:00:00 CHILD ATTENDANT, Duration: 30 day, Stop date: 04/17/16 21:00:[address] Notes: (Same as: Zocor) Start Date: 03/19/16 Stop Date: 03/19/16 Status: Canceled Solu-MEDROL 125 mg, Route: IVP, ONCE, Dosing Weight 130.909, kg, Priority: STAT, Start date: 03/18/16 17:47:00 CDT, Stop date: 03/18/16 17:47:00 CDT Start Date: 03/18/16 Stop Date: 03/18/16 Status: Completed Vitamin D2 Route: PO, Drug form: CAP, Daily, Dosing Weight 130.909, kg, Start date: 9:00:00 CHILD ATTENDANT, Duration: 30 day, Stop date: 04/18/16 9:00:00 CHILD ATTENDANT Start Date: 03/20/16 Stop Date: 03/19/16 Status: Discontinued Results ELECTROLYTES Most recent to 1 oldest [Reference Range]: Sodium Lvl [135-145 134 mEq/L mEq/L] *LOW* (03/18/16 6:57 PM) Potassium Lvl 3.8 mEq/L [3.5-5.1 mEq/L] (03/18/16 6:57 PM) Chloride Lvl [95-109 98 mEq/L mEq/L] (03/18/16 6:57 PM) CO2 [24-32 mEq/L] 30 mEq/L (03/18/16 6:57 PM) AGAP [10.0-20.0 9.8 mEq/L mEq/L] *LOW* (03/18/16 6:57 PM) CHEM PANEL Most recent to 1 oldest [Reference Range]: Creatinine Lvl 0.62 mg/dL [0.50-1.40 mg/dL] (03/18/16 6:57 PM) eGFR 108 mL/min/1.73m2 1 *NA* (03/18/16 6:57 PM) BUN [7-22 mg/dL] 12 mg/dL (03/18/16 6:57 PM) Glucose Lvl [70-99 146 mg/dL mg/dL] *HI* (03/18/16 6:57 PM) Calcium Lvl 9.2 mg/dL [8.5-10.5 mg/dL] (03/18/16 6:57 PM) 1Result Comment: The eGFR is calculated [...] be mul tiplied by the estimated BMI. HEMATOLOGY Most recent to 1 oldest [Reference Range]: WBC [3.7-10.4 K/CMM] 7.5 K/CMM (03/18/16 6:57 PM) RBC [4.20-5.40 5.51 M/CMM M/CMM] *HI* (03/18/16 6:57 PM) Hgb [12.0-16.0 g/dL] 14.7 g/dL (03/18/16 6:57 PM) Hct [36.0-48.0 %] 45.2 % (03/18/16 6:57 PM) MCV [80.0-98.0 fL] 82.0 fL (03/18/16 6:57 PM) MCH [27.0-31.0 pg] 26.7 pg *LOW* (03/18/16 6:57 PM) MCHC [32.0-36.0 32.5 g/dL g/dL] (03/18/16 6:57 PM) RDW [11.5-14.5 %] 13.1 % (03/18/16 6:57 PM) Platelet [133-450 247 K/CMM K/CMM] (03/18/16 6:57 PM) MPV [7.4-10.4 fL] 8.8 fL (03/18/16 6:57 PM) Segs [45.0-75.0 %] 50.7 % (03/18/16 6:57 PM) Lymphocytes 33.6 % [20.0-40.0 %] (03/18/16 6:57 PM) Monocytes [2.0-12.0 11.7 % %] (03/18/16 6:57 PM) Eosinophils [0.0-4.0 3.5 % %] (03/18/16 6:57 PM) Basophils [0.0-1.0 0.5 % %] (03/18/16 6:57 PM) Segs-Bands # 3.8 K/CMM [1.5-8.1 K/CMM] (03/18/16 6:57 PM) Lymphocytes # 2.5 K/CMM [1.0-5.5 K/CMM] (03/18/16 6:57 PM) Monocytes # [0.0-0.8 0.9 K/CMM K/CMM] *HI* (03/18/16 6:57 PM) Eosinophils # 0.3 K/CMM [0.0-0.5 K/CMM] (03/18/16 6:57 PM) Immunizations Given and Recorded Vaccine Date Status Refusal Reason Hx influenza vaccine-unspecified1 02/08/09 Given Not Given Vaccine Date Status Refusal Reason pneumococcal 23-valent vaccine 03/19/16 Not Given Patient Refuses 1Result Comment: fluvirin. Migrated from OBS ; Data migrated from [employer] on 06/14/2015. Procedures Procedure Date Related Diagnosis Body Site CS - Caesarean section CS - section Social History Social History Type Response Smoking Status Never smoker; Type: Cigarettes; Exposure to Tobacco Smoke None; Cigarette Smoking Last 365 Days No; Reg Smoking Cessation Counseling No Assessment and Plan Extracted from: Title: Clinical Document Author: Anant Guevara Date: 03/19/16 Progress Note - Daily [facility] Completed: Mar, 13:45 by Anant Guevara MD RM: CCDU - 10, SE CORY [id number] (: 1970) F Attending: Anant Guevara MDPhone: Service: Internal Medicine Reason for Admission: ACUTE ASTHMA EXACERBATION Working DRG: None Documented Code status: Full Code [Ordered]Current diet: Isolation: None Documented Allergies: Other Food Allergy, Food Nuts, NKDA SUBJECTIVE Dyspnea x 5 days, wheezings, sore throat OBJECTIVE Heart: S1, S2 Lungs: clear bilaterally Abd: soft, non-tender, BS + Skin: no rash, no lesions Extremeties: no clubbing, no edema, no cyanosis Neuro: Alert oriented X 3, non-focal Psych: normal mood, no anxiety, proper judgement HEENT: no gross abnomalities, neck supple, no JVD 24hr Labs 03/19 1209 Glucose SUF973 H 03/19 0727 Glucose QVG610 H 03/19 0450 Glucose TNN017 H 03/18 2346 Glucose VBW764 H 03/18 1857 Glucose Bcx146 H BUN12 Creatinine Lvl0.62 Sodium Kry852 L Potassium Lvl3.8 Chloride Lvl98 CO230 AGAP9.8 L Calcium Lvl9.2 wTXW409 WBC7.5 RBC5.51 H Hgb14.7 Hct45.2 MCV82.0 MCH26.7 L MCHC32.5 RDW13.1 Pvyvlgjs928 MPV8.8 Segs50.7 Gittdrizb56.7 Delubinyesu87.6 Eosinophils3.5 Basophils0.5 Segs-Bands #3.8 Lymphocytes #2.5 Monocytes #0.9 H Eosinophils #0.3 Garvin still necessary (Yes/No): Line still necessary (Yes/No): VitalsTmp(F)IqjgpWYKIKpY1FBG9 03/19 12:00 94 21% 03/19 11:1497.434855/[id number]--- 03/19 10:04-------145/76-------- 03/19 07:1397.131741/[id number]--- 03/19 06:37 79094 30% 24 Hr Tmax: 98.4F (36.89c) at 03/18 23:36Vital Signs are the last 5 in the past 48 hours. DateWt(kg)Wt(lb)Ht(cm)Ht(in)Method 03/18 (initial)130.91 288.00Measured 03/18154.94 61.00Stated I&ORecordInOutBal 03/624hr Tot 0 0 0 03/524hr Tot 30 0 30 Medications (26) Active Scheduled Meds (4): 03/19/16 albuterol-ipratropium (albuterol-ipratropium 2.5-0.5 mg inhalation solution) 3 mL NEB RQ6H 03/18/16 amoxicillin-clavulanate (amoxicillin-clavulanate 875 mg-125 mg oral tablet) 1 tab PO [id number] 03/18/16 enoxaparin 40 mg SUB-Q [id number] 03/19/16 predniSONE 40 mg PO Daily Unscheduled Meds: None PRN Meds (14): 03/19/16 Dextrose 50% in Water IV (Dextrose 50% Syringe) 12.5 gm IVP PRN 03/19/16 Dextrose 50% in Water IV (Dextrose 50% Syringe) 25 gm IVP PRN 03/18/16 albuterol-ipratropium (albuterol-ipratropium 2.5-0.5 mg inhalation solution) 3 mL NEB PRN 03/19/16 glucagon 1 mg IM PRN 03/19/16 ibuprofen (ibuprofen 400 mg oral tablet) 400 mg PO Q6H 03/19/16 insulin aspart 2 unit SUB-Q TID-Before Meals 03/19/16 insulin aspart 4 unit SUB-Q TID-Before Meals 03/19/16 insulin aspart 6 unit SUB-Q TID-Before Meals 03/19/16 insulin aspart 8 unit SUB-Q TID-Before Meals 03/19/16 insulin aspart 10 unit SUB-Q TID-Before Meals 03/19/16 insulin aspart 1 unit SUB-Q Bedtime 03/19/16 insulin aspart 2 unit SUB-Q Bedtime 03/19/16 insulin aspart 3 unit SUB-Q Bedtime 03/19/16 insulin aspart 4 unit SUB-Q Bedtime One Time Meds (8): 03/18/16 (Completed) GI cocktail 30 mL PO ONCE 03/18/16 (Completed) albuterol-ipratropium (albuterol-ipratropium 2.5-0.5 mg inhalation solution) 3 mL NEB ONCE 03/18/16 (Completed) albuterol-ipratropium (albuterol-ipratropium 2.5-0.5 mg inhalation solution) 3 mL NEB ONCE 03/19/16 (Completed) ibuprofen (ibuprofen 400 mg oral tablet) 400 mg PO ONCE 03/18/16 (Completed) ketOROLAC (ketOROLAC 30 mg/mL injectable solution) 30 mg IVP ONCE 03/18/16 (Completed) magnesium sulfate 2 gm IV ONCE 150 ml/hr 03/18/16 (Completed) methylPREDNISolone (Solu-MEDROL) 125 mg IVP ONCE 03/18/16 (Completed) racepinephrine (racemic epinephrine 2.25% inhalation solution) 11.25 mg NEB ONCE Continuous Infusions: None ASSESSMENT & EXAM Admitting dx 1. Upper respiratory infection. 2. Acute asthmatic exacerbation. 3. Asthmatic bronchi. 4. Acute bronchitis. 5. The rest of the medical history is as detailed above. 6 Uncontrolled diabetes mellitus. DISCHARGE DX SEE DISCHARGE SUMMARY PLAN & TREATMENT Antibiotics Breahting treatments DVT PROPHYLAXIS IN VIEW OF STABILITY DISCHARGE. DIAGNOSES & PROBLEMS Ready for Discharge (Yes/No)? TEACHING ATTESTATION
--- OUTSIDE RECORDS SUMMARY | 2018-09-19 15:05 | XMS REPORT | Summary of Care ---
Author Author Organization Address Unknown Phone Unavailable Encounter HENRIETTA Tinajero(BLU) [id number] Date(s): 02/29/16 - 02/29/16 [address] [place] [address]- Discharge Diagnosis: Back pain Discharge Disposition: Home or Self Care Attending Physician: Miguel Avitia MD Vital Signs Most recent to 1 2 oldest [Reference Range]: Height 154.94 cm (02/29/16 2:24 PM) Temperature Oral 98.1 DegF 97.9 DegF [96.4-99.1 DegF] (02/29/16 6:42 PM) (02/29/16 2:24 PM) Blood Pressure 153/98 mmHg 171/104 mmHg [90-140/60-90 mmHg] *HI* *HI* (02/29/16 6:42 PM) (02/29/16 2:24 PM) Respiratory Rate 18 BRMIN 18 BRMIN [14-20 BRMIN] (02/29/16 6:42 PM) (02/29/16 2:24 PM) Peripheral Pulse 82 bpm 79 bpm Rate [60-100 bpm] (02/29/16 6:42 PM) (02/29/16 2:24 PM) Weight 136.364 kg (02/29/16 2:24 PM) Body Mass Index 56.8 m2 (02/29/16 2:24 PM) Problem List Condition Effective Dates Status Health Status Informant Amenorrhea1 11/02/08 Active Asthma2 02/12/08 Active Asthma(Confirmed) Active Benign hypertension3 Active Carpal tunnel Active syndrome4 Cough5 07/30/08 Active Depressive disorder6 02/12/08 Active Diabetes(Confirmed) Resolved Dysplastic nevus of 11/04/08 Active skin7 Fatigue8 02/12/08 Active Foot pain9 12/09/07 Active Graves' xswomwa58 03/24/09 Active Hand pain11 11/02/08 Active Hsfnabcd06 11/27/07 Active HTN Resolved (hypertension)(Confi rmed) Vhjouktmgfzujym76 02/08/09 Active Mibartltwxfjrl41 11/10/08 Active Increased frequency 02/12/08 Active of thoehrogt77 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 [...] on 07/09/15. Originally documented as APRICOTS. Medications dexamethasone 10 mg, 2.5 mL, Route: IM, Drug form: INJ, ONCE, Dosing Weight 141.989, kg, Prior ity: STAT, Start date: 02/29/16 14:25:00 CDT, Stop date: 02/29/16 14:25:00 CDT Start Date: 02/29/16 Stop Date: 02/29/16 Status: Completed diazepam 10 mg oral tablet 10 mg=1 tab, PO, BID, PRN Muscle Spasms, X 5 day, # 10 tab, 0 Refill(s) Start Date: 02/29/16 Stop Date: 03/05/16 Status: Ordered ketOROLAC 60 mg, 2 mL, Route: IM, Drug form: INJ, ONCE, Dosing Weight 141.989, kg, Priorit y: STAT, Start date: 02/29/16 14:24:00 CDT, Stop date: 02/29/16 14:24:00 CDT Notes: (Same as:Toradol) IV bolus must be given >15 seconds. Give IM administration slowly and deeply into the muscle.Not for use > 4 days MEDICATION WASTE Product Size: 60 mgProduct Wasted: ___ mg Start Date: 02/29/16 Stop Date: 02/29/16 Status: Completed naproxen 500 mg oral tablet 500 mg=1 tab, PO, BID, PRN Pain, X 7 day, # 30 tab, 0 Refill(s) Start Date: 02/29/16 Stop Date: 03/07/16 Status: Ordered [place] 10/325 oral tablet 1 tab, Route: PO, Drug Form: TAB, Dosing Weight 141.989, kg, ONCE, Start date: 1 14:24:00 CDT, Stop date: 02/29/16 14:24:00 CDT Notes: Do not exceed 4gm/day of acetaminophen. (Same as: [place] 325/10) Start Date: 02/29/16 Stop Date: 02/29/16 Status: Completed orphenadrine 100 mg oral tablet, extended release 100 mg=1 tab, PO, BID, X 7 day, # 14 tab, 0 Refill(s) Start Date: 02/29/16 Stop Date: 03/07/16 Status: Ordered Tylenol with Codeine #4 oral tablet 1 tab, PO, Q6H, PRN pain, X 7 day, # 20 tab, 0 Refill(s) Start Date: 02/29/16 Stop Date: 03/07/16 Status: Ordered Valium 10 mg, 2 tab, Route: PO, Drug form: TAB, ONCE, Dosing Weight 141.989, kg, Priori ty: STAT, Start date: 02/29/16 14:24:00 CDT, Stop date: 02/29/16 14:24:00 CDT Notes: (Same as: Valium) Start Date: 02/29/16 Stop Date: 02/29/16 Status: Completed Results URINE CHEM Most recent to 1 oldest [Reference Range]: U Preg [Negative] Negative (02/29/16 4:36 PM) URINE AND STOOL Most recent to 1 oldest [Reference Range]: UA Turbidity [Clear] Clear (02/29/16 4:34 PM) UA Color Ltyellow *NA* (02/29/16 4:34 PM) UA pH [5.0-8.0] 6.0 (02/29/16 4:34 PM) UA Spec Grav 1.030 [<=1.030] (02/29/16 4:34 PM) UA Glucose [Negative 500 mg/dL mg/dL] *ABN* (02/29/16 4:34 PM) UA Blood [Negative] Negative (02/29/16 4:34 PM) UA Ketones [Negative Negative mg/dL mg/dL] *NA* (02/29/16 4:34 PM) UA Protein [Negative 30 mg/dL mg/dL] *ABN* (02/29/16 4:34 PM) UA Urobilinogen <=1.0 mg/dL [0.1-1.0 mg/dL] *NA* (02/29/16 4:34 PM) UA Bili [Negative] Negative *NA* (02/29/16 4:34 PM) UA Leuk Est Negative [Negative] (02/29/16 4:34 PM) UA Nitrite Negative [Negative] (02/29/16 4:34 PM) UA Bacteria [None Occasional /HPF Seen /HPF] *NA* (02/29/16 4:34 PM) UA Sq Epi [Few /LPF] Occasional /LPF *NA* (02/29/16 4:34 PM) Immunizations Given and Recorded Vaccine Date Status Refusal Reason Hx influenza vaccine-unspecified1 02/08/09 Given 1Result Comment: fluvirin. Migrated from OBS ; Data migrated from [employer] on 06/14/2015. Procedures Procedure Date Related Diagnosis Body Site CS - Caesarean section CS - section Social History Social History Type Response Smoking Status Never smoker; Type: Cigarettes; Exposure to Tobacco Smoke None; Cigarette Smoking Last 365 Days No; Reg Smoking Cessation Counseling No Assessment and Plan No data available for this section
--- OUTSIDE RECORDS SUMMARY | 2018-09-19 15:05 | XMS REPORT ---
Author Author [facility] Address Unknown Phone Unavailable Care Team Providers Care Gas Engine Repairer Name Role Phone Unavailable Unavailable Problems This patient has no known problems. Allergies, Adverse Reactions, Alerts This patient has no known allergies or adverse reactions. Medications This patient has no known medications.
--- OUTSIDE RECORDS SUMMARY | 2018-09-19 15:05 | XMS REPORT | Summary of Care ---
Author Author CLYDE HICKS M.D. Unknown Address Unknown Phone Unavailable Care Team Providers Care Inorganic Chemist Name Role Phone CLYDE HICKS M.D. Unavailable Unavailable CHE ALBARRAN MD Unavailable Unavailable Unavailable Unavailable Functional Status Name Dates Details Functional status health issues are not documented Status: Name Dates Details Cognitive status health issues are not documented Status: Problems Name Dates Details Diabetes (250.00, E11.9) Status: Active Hypertension (401.9, I10) Status: Active Menopause (627.2, Z78.0) Status: Active Menopausal symptoms (627.2, N95.1) Status: Active Cervical cancer screening (V76.2, Z12.4) Status: Active Asthma (493.90, J45.909) Status: Active Helicobacter pylori infection (041.86, A04.8) Status: Active Sleep apnea in adult (327.23, G47.30) Status: Active Morbid obesity (278.01, E66.01) Status: Active Adult BMI 50.0-59.9 kg/sq m (V85.43, Z68.43) Status: Active Breast cancer screening (V76.10, Z12.31) Status: Active Prediabetes (790.29, R73.03) Status: Active Limb pain (729.5, M79.609) Status: Active Pain of right tibia (729.5, M89.8X6) Status: Active Other closed fracture of proximal end of right fibula with routine healing, subsequent encounter (V54.16, S82.831D) Status: Active Primary osteoarthritis of both knees (715.16, M17.0) Status: Active Plantar fasciitis of left foot (728.71, M72.2) Status: Active Medications Name Dates Details MetFORMIN HCl - 500 MG Oral Tablet Active Sertraline HCl TABS * Refills: 0 Active Valsartan TABS * Refills: 0 Active Celecoxib 200 MG Oral Capsule TAKE 1 CAPSULE DAILY WITH A MEAL. * Quantity: 30 Refills: 0 KURT M.D., CLYDE * Start : 02-Oct-2017 Active Synvisc One 48 MG/6ML Intra-articular Solution Prefilled Syringe ONE INJECTION INTO EACH KNEE * Quantity: 2 Refills: 0 CLYDE HICKS M.D. * Start : 10-Oct-2017 Active 6 ML Syringe Allergies and Adverse Reactions Name Dates Details BuSpar (Allergy) Status: Active Past Medical History Name Dates Details History of Diabetes type 2, controlled (250.00, E11.9) Status: Resolved History of essential hypertension (V12.59, Z86.79) Status: Resolved Procedures Procedure Dates Details History of Section Completed Immunization Name Dates Details Immunizations not documented Family History Name Dates Details Family history of diabetes mellitus (V18.0, Z83.3) Status: Active Family history of cardiac disorder (V17.49, Z82.49) Status: Active Family history of cerebrovascular accident (CVA) (V17.1, Z82.3) Status: Active Name Dates Details Family history of diabetes mellitus (V18.0, Z83.3) Status: Active Family history of cardiac disorder (V17.49, Z82.49) Status: Active Family history of cerebrovascular accident (CVA) (V17.1, Z82.3) Status: Active Social History Name Dates Details Unknown if ever smoked Vital Signs Date Test Result Details [id number] BP Systolic 94 mm[Hg] Status: BP Diastolic 79 mm[Hg] Status: Height 61 in Status: Weight 220 lb Status: Body Mass Index Calculated 41.57 kg/m2 Status: Body Surface Area Calculated 1.97 m2 Status: Heart Rate 66 /min Status: Results Date Description Value Details [id number] [U] XR CALCANEUS (HEEL) 2 VWS, MIN. LEFT 19007 XR CALCANEUS (HEEL) 2 VWS, MIN. LEFT Images acquired, not reported on this accession number. Plan of Care Name Dates Details Planned Observations Planned Goals not documented Planned Encounters Appointment; ARCHIE GUERIN On: 21-Nov-2017 11:30 Interventions Provided Labs/Procedures/Imaging* [U] XR CALCANEUS (HEEL) 2 VWS, MIN. LEFT 76231; Done: 08 Nov 2017 Plan* Completed at Today's Appointment: * Injection * Patient Education/Instructions: * Patient Education Provided * Reassurance * Counseling Provided - Discussed with Family/Patient * Instructed to return if experiences any loss of motion, visible deformity or increased pain. * Family/Patient given opportunity to ask questions. * Family/Patient Verbalized Understanding. * Family/Patient informed will continue to monitor. * Physical Activity/ Sports Clearance: Physical Activity: Rest, Home exercise program and Patient advised of activity modifications * Patient/Parent to call or return with any abnormal changes * Orders: * Physical Therapy * Patient Status: routine. * Diagnosis: rehabilitation of the knees. * Rehabilitation Services: evaluate and treat patient as needed and create home exercise program. * Exercise/Treatment: aquatic therapy. * Frequency: 3 times per week, for 4 weeks. Please send progress report. * I hereby certify that the services indicated above are medically necessary. * Medications: * Medications (prescribed or recommended at this visit): * - Celebrex 200mg 1 tab PO QD with meals. * Follow Up: * Return to the clinic in 4 weeks or as needed. * X-rays to be completed at next visit: No follow up Xrays required Instructions Name Dates Details Instructions not documented Encounters Appointment; QUITA BAILEY M.D. Encounter Diagnosis: Problem not documented On: 19-Jan-2016 8:00 Appointment; QUITA BAILEY M.D. Encounter Diagnosis: Problem not documented On: 20-Jan-2016 8:00 Appointment; DOUG MUNROE M.D. Encounter Diagnosis: Problem not documented On: 30-Aug-2016 15:00 Appointment; DOUG MUNROE M.D. Encounter Diagnosis: Problem not documented On: 01-Dec-2016 12:00 Appointment; JEFF DUGAN M.D. Encounter Diagnosis: Problem not documented On: 14-Mar-2017 8:45 Appointment; JEFF DUGAN M.D. Encounter Diagnosis: Problem not documented On: 09-May-2017 10:00 Appointment; CLYDE HICKS M.D. Encounter Diagnosis: Problem not documented On: 11-Jul-2017 15:00 Appointment; CLYDE HICKS M.D. Encounter Diagnosis: Problem not documented On: 01-Aug-2017 15:00 Appointment; CLYDE HICKS M.D. Encounter Diagnosis: Problem not documented On: 16-Aug-2017 9:30 Appointment; CLYDE HICKS M.D. Encounter Diagnosis: Problem not documented On: 02-Oct-2017 14:45 Appointment; ARCHIE GUERIN Encounter Diagnosis: Problem not documented On: 22-Oct-2017 10:30 Appointment; CLYDE HICKS M.D. Encounter Diagnosis: Problem not documented On: 01-Nov-2017 10:00 Appointment; CLYDE HICKS M.D. Encounter Diagnosis: Problem not documented On: 08-Nov-2017 10:45
--- OUTSIDE RECORDS SUMMARY | 2018-09-19 15:05 | XMS REPORT | Summary of Care ---
Author Author [facility] Organization [facility] Address Unknown Phone Unavailable Encounter HENRIETTA Tinajero(BLU) [id number] Date(s): 07/12/16 - 07/12/16 [facility] [address] [place] [address]- [phone] Discharge Disposition: Home or Self Care Attending Physician: Joanne Yi MD Vital Signs No data available for this section Problem List Condition Effective Dates Status Health Status Informant Amenorrhea1 11/02/08 Active Asthma(Confirmed) Active Asthma(Confirmed)2 02/12/08 Active Asthma(Confirmed) Active Benign essential Active HTN(Confirmed) Benign hypertension3 Active Carpal tunnel Active syndrome4 Chronic Active cough(Confirmed) Cough5 07/30/08 Active Depressive disorder6 02/12/08 Active Diabetes(Confirmed) Resolved DM type 2 with Active diabetic peripheral neuropathy(Confirmed ) Dysplastic nevus of 11/04/08 Active skin7 Fatigue8 02/12/08 Active Foot pain9 12/09/07 Active Graves' bkpprty79 03/24/09 Active Hand pain11 11/02/08 Active Ntimngav57 11/27/07 Active HTN Resolved (hypertension)(Confi rmed) Yrzxaaeuhteyolb55 02/08/09 Active Janabzwojaqvdm75 11/10/08 Active Increased frequency 02/12/08 Active of qcrjhvkcy51 Intrinsic yuqgge79 07/30/08 Active Knee pain17 11/02/08 Active Ottlpdqryylfu43 11/04/08 Active Malabsorption of 11/02/08 Active tpwnaoo95 Anxiety and Active depression(Confirmed ) Mixed anxiety and 04/16/08 Active depressive tumwwang76 Morbid Active obesity(Confirmed) Obstructive sleep Active apnea xgwxwgwa00 Skin tag22 11/04/08 Active Sleep Active apnea(Confirmed) Spasm of back 11/27/07 Active Swelling of both Active lower extremities(Confirme d) Qxlvokgqglh60 11/19/08 Active Type 2 diabetes 02/08/09 Active hsiupjul97 Hlvdgxchv40 11/26/08 Active Vitamin D 11/19/08 Active tymonsjysv24 1Data migrated from [employer] on 10/10/14. [...] Patient Refuses 1Result Comment: fluvirin. Migrated from [facility] ; Data migrated from [employer] on 06/14/2015. Procedures Procedure Date Related Diagnosis Body Site CS - Caesarean section CS - section Social History Social History Type Response Smoking Status Never smoker; Type: Cigarettes; Exposure to Tobacco Smoke None; Cigarette Smoking Last 365 Days No; Reg Smoking Cessation Counseling No Assessment and Plan No data available for this section
[2018-09-19] MEDS ORDERED: ACETAMINOPHEN/CODEINE 300MG - 30MG TAB PO ONE (15:30)
--- NOTE | 2018-09-19 15:59 | NUR ---
RECEIVED REPORT FROM [facility] TRIAGE NURSE. PATIENT IS CURRENTLY IN RADIOLOGY FOR CT'S AND XRAYS. RADIOLOGY IS GOING TO PUT PT INTO ER #8 WHEN THEY BRING HER BACK TO THE ER
--- NOTE | 2018-09-19 16:45 | NUR ---
PT RETURNED FROM RADIOLOGY AND IS NOW IN ER #8. SHE SAYS THAT HER PAIN IS A CONSTANT THROBBING /. PT WAS EXPRESSING CONCERN THAT WE WERE NOT FOCUSING ON HER BACK. SHE SAID THAT THEY ONLY DID CT OF HER NECK AND HEAD AND SAID THAT THIS WAS A WORKERS COMP AND THAT SHE NEEDED HER LUMBAR PAIN TO BE ASSESSED. I SPOKE WITH TANI THE FREEZER MACHINE OPERATOR AND HE CAME TO BEDSIDE AND TALKED WITH HER. HE TOLD HER THAT SHE NEVER MENTIONED ANYTHING IN TRIAGE ABOUT HER LOWER BACK HURTING BUT STATED THAT HE WOULD ADD ANOTHER TEST FOR HER LOWER BACK
--- NOTE | 2018-09-19 17:00 | NUR ---
PT DECLINED THAT PAIN MEDS BECAUSE SHE SAID SHE HASN'T EATEN ALL DAY AND THAT THEY WILL MAKE HER SICK. SHE SAID THAT WANTS TO WAIT UNTIL SHE GETS HOME TO TAKE MEDS. SHE DROVE HERSELF HERE AND WOULDN'T HAVE A RIDE IF SHE TOOK THE PAIN MED.
--- NOTE | 2018-09-19 17:00 | Diagnostic Imaging Report ---
EXAM: ELBOW LEFT COMPLETE, FOREARM LEFT 2 VIEW DATE: 09/19/2018 3:19 PM INDICATION:Fall COMPARISON: None FINDINGS: Left elbow: 3 views of the left elbow show no displaced fracture or dislocation. There are mild degenerative changes at the ulnohumeral and radiohumeral joints. No evidence for joint effusion or hemarthrosis. Left forearm: 2 views of the left forearm show no displaced fracture or dislocation. Soft tissues unremarkable. IMPRESSION: No acute bony abnormality. Signed by: Dr. Steve Liao M.D. on 09/19/2018 4:57 PM
--- NOTE | 2018-09-19 17:51 | Diagnostic Imaging Report ---
Images made available for interpretation on 09/19/2018 at 5:30 PM. EXAMINATION: Head CT HISTORY: Status post fall today before, head trauma, pain, evaluate for fracture COMPARISON: None. TECHNIQUE: Multidetector axial images were obtained without contrast from the foramen magnum to the vertex . The images were reconstructed using brain and bone algorithms. Thin section brain images were reformatted into coronal and sagittal planes. Image quality: Motion/streaking artifact limits the evaluation of the skull base and posterior cranial fossa. Dose modulation, iterative reconstruction, and/or weight based adjustment of the mA/kV was utilized to reduce the radiation dose to as low as reasonably achievable. FINDINGS: Parenchyma: 1. No abnormal densities. 2. No mass or hemorrhage. No CT evidence of acute territorial vascular insult. Extra-axial spaces:No abnormal density. No extra-axial fluid collections Brain volume: Normal for age. Ventricles: No hydrocephalus or displacement. Arteries: No density suggestive of thrombus. Dural sinuses: No abnormal density. Extra-axial spaces: No abnormal density. Foramen magnum: Slightly low-lying cerebellar tonsils with minimal fullness at the level of the foramen magnum but no mass effect. Sella: No obvious mass. Paranasal/mastoid sinuses: Imaged portions unremarkable. Skull/Scalp: No lytic or blastic lesions. No fractures. IMPRESSION: No acute posttraumatic intracranial abnormality, particularly no hemorrhage. Signed by: Dr. Smitha Workman M.D. on 09/19/2018 5:48 PM
--- NOTE | 2018-09-19 17:55 | Diagnostic Imaging Report ---
EXAMINATION: CT of the cervical spine HISTORY: Status post fall the day before, pain, evaluate for fracture COMPARISON: None available TECHNIQUE: Multidetector helical axial images were obtained without contrast from the foramen magnum to T1. The images were reconstructed using bone and soft tissue algorithms and were viewed in axial, sagittal and coronal planes. Dose modulation, iterative reconstruction, and/or weight based adjustment of the mA/kV was utilized to reduce the radiation dose to as low as reasonably achievable. FINDINGS: Alignment: Reversal of the cervical lordosis which may be related to muscle spasm or positional. Soft tissues: Severe diffuse enlargement of the thyroid gland, which additionally diffusely hypoattenuating with some scatter nodules and calcifications, most likely related to multinodular goiter, without significant narrowing of the airway or deviation of the trachea. Vertebrae: Normal height and density. No acute fracture, infection or neoplasm Degenerative changes: C1-C2: Normal C2-C3: Mild facet arthrosis without stenoses C3-C4: Normal C4-C5: Normal C5-C6: Disc osteophyte complex formation, bilateral uncovertebral arthrosis. Moderate left foraminal stenosis. Mild canal narrowing. C6-C7: Disc osteophyte complex formation, bilateral uncovertebral arthrosis. Minimal bilateral foramina narrowing. C7-T1: Normal IMPRESSION: 1. No acute cervical spine postraumatic abnormalities. 2. Mild chronic degenerative changes as detailed above. 3. Diffuse enlargement of the thyroid gland, likely from multinodular goiter. Comparison to prior studies if available is recommended, otherwise a thyroid ultrasound and/or thyroid laboratory tests correlation is advised. Note: Acute postraumatic spinal cord, vascular or ligamentous injuries cannot adequately be assessed by CT. Signed by: Dr. Smitha Workman M.D. on 09/19/2018 5:52 PM
--- NOTE | 2018-09-19 18:52 | NUR ---
REPORT GIVEN TO MAG FREITAS FOR CONTINUATION OF CARE
--- NOTE | 2018-09-19 19:58 | Diagnostic Imaging Report ---
Lumbar Spine Radiographs: 3. views HISTORY: Pain. Fall. COMPARISON: None available. DISCUSSION: There are 6 non-rib bearing lumbar vertebral bodies with a transitional vertebra and left sided pseudoarthrosis.. Mild anterolisthesis of L4 in relation to L5. No displaced fracture or compression deformity is identified. Facet arthropathy at L4-L5 and L5-S1. IMPRESSION: No acute abnormality. Facet arthropathy at L4-L5 and L5-S1. Signed by: Dr. Loretta Johnson M.D. on 09/19/2018 7:55 PM
[2018-09-19 20:28] VITALS: BP 134/77
== END 2018-09-19 20:30 | disposition home or self-care (01) ==
LOC: ER 14:58
DX: M54.2 Cervicalgia (principal); S00.83XA Contusion of other part of head, initial encounter; M54.5 Low back pain; S16.1XXA Strain of muscle, fascia and tendon at neck level, initial encounter; S39.012A Strain of muscle, fascia and tendon of lower back, initial encounter; S50.02XA Contusion of left elbow, initial encounter; S50.12XA Contusion of left forearm, initial encounter; W07.XXXA Fall from chair, initial encounter; Y92.008 Other place in unspecified non-institutional (private) residence as the place of occurrence of the external cause; I10 Essential (primary) hypertension; E11.9 Type 2 diabetes mellitus without complications; F41.9 Anxiety disorder, unspecified; F32.9 Major depressive disorder, single episode, unspecified; J45.909 Unspecified asthma, uncomplicated
CPT/HCPCS: 70450; 72100; 72125; 99283

== ENCOUNTER 2020-03-02 17:15 | Observation (INO) | payer OTHER ==
[~2020-03-02] VITALS: Ht 154.9 cm; Wt 102.1 kg
[2020-03-02] MEDS ORDERED: ALBUTEROL/IPRATROPIUM 3 ML NEB NEB STA (17:39)
--- NOTE | 2020-03-02 17:43 | Emergency Department Note ---
History of Present Illnes History of Present Illness Chief Complaint: Chest Pain History of Present Illness This is a 49 year old female presents to the ED for increasing SOB. Pr ior h/o of asthma . Onset (how long ago): week(s) Radiation: Reports non-radiation Severity: moderate Onset quality: gradual Duration (how long): week(s) Timing of current episode: constant Progression: worsening Chronicity: recurrent Context: Denies recent illness, Denies recent surgery, Denies recent immobiliza tion, Denies recent travel, Denies trauma/injury, Denies new medications, Denies hx of DVT/PE, Denies non-compliance w/ medications, Denies other Relieving factors: medication Associated symptoms: Reports shortness of breath Treatments prior to arrival: other (albuterol INH) (TANI MOORE DO) Past Medical/Family History Physician Review I have reviewed the patient's past medical and family history. Any updates have been documented here. (TANI MOORE DO) Past Medical History Recent Fever: No Clinical Suspicion of Infectio: No New/Unexplained Change in Ment: No Past Medical History: Hypertension, Diabetes, Asthma, Anxiety, Depression Other Medical History: SLEEP APNEA Past Surgical History: (TANI MOORE DO) Social History Smoking Cessation: Never Smoker Alcohol Use: None Any Illegal Drug Use: No (TANI MOORE DO) Other Last Tetanus: UTD (TANI MOORE DO) Review of Systems Review of Systems Constitutional: Reports no symptoms EENTM: Reports no symptoms Cardiovascular: Reports no symptoms Respiratory: Reports wheezing Gastrointestinal: Reports no symptoms Genitourinary: Reports no symptoms Musculoskeletal: Reports no symptoms Integumentary: Reports no symptoms Neurological: Reports no symptoms Psychological: Reports no symptoms Endocrine: Reports no symptoms Hematological/Lymphatic: Reports no symptoms (TANI MOORE DO) Physical Exam Related Data Allergies: Coded Allergies: No Known Allergies (Unverified , 09/19/18) Triage Vital Signs Vital Signs Date Time Temp Pulse Resp B/P (MAP) Pulse Ox O2 Delivery O2 Flow Rate FiO2 03/02/20 00:01 76 20 78 18 03/02/20 17:43 98.2 158/88 99 Nasal Cannula 03/02/20 17:59 2.0 Vital signs reviewed: Yes (TANI MOORE DO) Physical Exam CONSTITUTIONAL Constitutional: Present morbidly obese, Present ill appearing HENT HENT: Present normocephalic, Present atraumatic, Present oropharynx clear/moist, Present nose normal HENT L/R: Present left ext ear normal, Present right ext ear normal EYES Eyes: Reports PERRL, Reports conjunctivae normal NECK Neck: Present ROM normal PULMONARY Pulmonary: Present effort normal, Present other (b/l wheezing) CARDIOVASCULAR Cardiovascular: Present LLE edema, Present RLE edema GASTROINTESTINAL Abdominal: Present soft, Present nontender, Present bowel sounds normal GENITOURINARY Genitourinary: Present exam deferred SKIN Skin: Present warm, Present dry MUSCULOSKELETAL Musculoskeletal: Present ROM normal NEUROLOGICAL Neurological: Present alert, Present oriented x 3, Present no gross motor or sensory deficits PSYCHOLOGICAL Psychological: Present mood/affect normal, Present judgement normal (TANI MOORE DO) Results Laboratory Lab results reviewed: Yes (TANI MOORE DO) Imaging Imaging results reviewed: Yes Impressions [place] [id number] Patient Name: ROMEO LARA MR #: [id number] : 1970 Age/Sex: 49/F Req #: [id number] Adm Physician: Ordered by: TANI MOORE DO Report #: [id number] Location: ER Room/Bed: Procedure: [id number] DX/CHEST SINGLE (PORTABLE) Exam Date: 03/02/20 Exam Time: 1815 REPORT STATUS: Signed EXAMINATION: CHEST SINGLE (PORTABLE) INDICATION: Wheezing. COMPARISON: None FINDINGS: TUBES and LINES: None. LUNGS: The lungs are hyperinflated. There is perihilar fullness and diffuse bronchial wall thickening. There is bibasilar atelectasis. No consolidations. PLEURA: No pleural effusion or pneumothorax. HEART AND MEDIASTINUM: The cardiomediastinal silhouette is unremarkable. BONES AND SOFT TISSUES: No acute osseous lesion. Soft tissues are unremarkable. UPPER ABDOMEN: No free air under the diaphragm. IMPRESSION: Peribronchial cuffing which can be seen with airway inflammation such as bronchitis or asthma exacerbation. Signed by: Juan Santos MD on 03/02/2020 7:26 PM Dictated By: JUAN SANTOS MD 25 Transcribed By: RUSTAM on 03/02/201925 COPY TO: TANI MOORE DO~ (TANI MOORE DO) Assessment & Plan Medical Decision Making MDM Diff Dx : URI, sepsis, pna, asthma, covid -19 (TANI MOORE DO) Reassessment Reassessment time: 19:32 Reassessment pt still feels sob still becomes winded when walking down the [place] i spoke with dr oden, will place in obs for q 4 nebs, iv steroids and zithromax (DOUG MISHRA MD) Assessment & Plan Final Impression: (1) Asthma (TANI MOORE DO) Depart Disposition: ADMITTED Home Meds Active Scripts Albuterol Sulfate (PROVENTIL HFA) 6.7 Gm Hfa.aer.ad, 1 INH INH Q4HR PRN for SHORTNESS OF BREATH, #1 INH Prov:LENNIE GARVIN CHEMICAL DEPENDENCY ATTENDANT 03/03/20 Prednisone (PREDNISONE) 20 Mg Tab, 50 MG PO DAILY for 4 Days Prov:LENNIE GARVIN CHEMICAL DEPENDENCY ATTENDANT 03/03/20 Reported Medications Meloxicam (MELOXICAM) 7.5 Mg Tablet, 10 MG PO DAILY, #30 TAB 03/03/20 Multivitamin (MULTI-VITAMIN DAILY) 1 Each Tablet, 1 MG PO DAILY 03/03/20 Losartan Potassium (LOSARTAN POTASSIUM) 25 Mg Tablet, 25 MG PO DAILY@1700 03/03/20 TANI MOORE DO Mar 02, 2020 17:43 DOUG MISHRA MD Mar 02, 2020 19:33
[2020-03-02] MEDS ORDERED: METHYLPREDNISOLONE SOD SUCC 125 MG/2ML VIAL IV ONE (17:45)
[2020-03-02 18:13] LABS: BASOPHILS % 0.2 % (0.0-1.0); EOSINOPHILS # (AUTO) 0.1 (0.0-0.4); EOSINOPHILS % 2.3 % (0.0-6.0); HEMATOCRIT 35.9 % (34.2-44.1); HEMOGLOBIN 11.7 g/dL (12.0-16.0); LYMPHOCYTES # (AUTO) 2.7 (1.0-3.2); LYMPHOCYTES % 48.1 % (18.0-39.1); MEAN CORPUSCULAR HEMOGLOBIN 25.2 pg (28-32); MEAN CORPUSCULAR HGB CONC 32.6 g/dL (31-35); MEAN CORPUSCULAR VOLUME 77.4 fL (81-99); MONOCYTES # (AUTO) 0.5 (0.2-0.8); NEUTROPHILS # (AUTO) 2.3 (2.1-6.9); NEUTROPHILS % 40.2 % (38.7-80.0); PLATELET COUNT 204 x10e3/uL (140-360); RED BLOOD COUNT 4.64 x10e6/uL (3.6-5.1); RED CELL DISTRIBUTION WIDTH 14.2 % (11.7-14.4)
[2020-03-02 18:32] LABS: ALANINE AMINOTRANSFERASE 42 IU/L (0-55); ALBUMIN 3.6 g/dL (3.5-5.0); ALBUMIN/GLOBULIN RATIO 1.3 (0.8-2.0); ALKALINE PHOSPHATASE 154 IU/L (40-150); ANION GAP 13.5 mmol/L (8-16); BLOOD UREA NITROGEN 21 mg/dL (7-26); BUN/CREATININE RATIO 33 (6-25); CALCIUM 9.3 mg/dL (8.4-10.2); CARBON DIOXIDE 23 mmol/L (22-29); CHLORIDE 107 mmol/L (98-107); CREATININE, SERUM 0.64 mg/dL (0.57-1.11); EST GLOMERULAR FILTRATION RATE > 60 ML/MIN (60-); GLUCOSE 109 mg/dL (74-118); POTASSIUM 4.5 mmol/L (3.5-5.1); SODIUM 139 mmol/L (136-145)
--- OUTSIDE RECORDS SUMMARY | 2020-03-02 18:52 | XMS REPORT | Clinical Summary ---
Author Author [facility] Organization [facility] Address Unknown Phone Unavailable Care Team Providers Care Jazz Singer Name Role Phone Asked, No Pcp PCP Unavailable Allergies No Known Active Allergies Medications End Date Status Medication Sig Dispensed Refills Start Date Active ergocalciferol (VITAMIN Take 50,000 0 D2) 50,000 unit capsule Units by 5 mouth. Active losartan (COZAAR) 100 MG 100 mg daily. 0 12/11 tablet 0 Active albuterol (PROAIR HFA) 90 Inhale 2 0 mcg/actuation inhaler puffs as needed for wheezing. Active meloxicam (MOBIC) 15 mg TAKE 1 TABLET 30 tablet 0 tabletIndications: Low BY MOUTH 0 back pain, unspecified EVERY DAY back pain laterality, unspecified chronicity, unspecified whether sciatica present, Spondylolisthesis of lumbar region, Scoliosis of lumbar spine, unspecified scoliosis type, Primary osteoarthritis of left knee, Sprain of left knee, unspecified ligament, initial encounter, Sprain of right ankle, unspecified ligament, initial encounter, Contusion of right wrist, initial encounter 11/12/2019 cephalexin (KEFLEX) 500 Take 1 14 capsule 0 MG capsule capsule (500 0 mg total) by mouth 2 (two) times a day for 7 days. 11/13/2019 acetaminophen-codeine Take 1-2 20 tablet 0 2 (TYLENOL WITH CODEINE #3) tablets by 0 300-30 mg per mouth every 6 tabletIndications: acute (six) hours pain as needed for moderate pain for up to 8 days .acute pain. 12/04/2019 Discontinued meloxicam (Mobic) 15 mg Take 1 tablet 30 tablet 0 tabletIndications: Low (15 mg total) 0 back pain, unspecified by mouth back pain laterality, daily. unspecified chronicity, unspecified whether sciatica present, Spondylolisthesis of lumbar region, Scoliosis of lumbar spine, unspecified scoliosis type, Primary osteoarthritis of left knee, Sprain of left knee, unspecified ligament, initial encounter, Sprain of right ankle, unspecified ligament, initial encounter, Contusion of right wrist, initial encounter 01/05/2020 Discontinued meloxicam (MOBIC) 15 mg TAKE 1 TABLET 30 tablet 0 tabletIndications: Low BY MOUTH 0 back pain, unspecified EVERY DAY back pain laterality, unspecified chronicity, unspecified whether sciatica present, Spondylolisthesis of lumbar region, Scoliosis of lumbar spine, unspecified scoliosis type, Primary osteoarthritis of left knee, Sprain of left knee, unspecified ligament, initial encounter, Sprain of right ankle, unspecified ligament, initial encounter, Contusion of right wrist, initial encounter 02/09/2020 Discontinued meloxicam (MOBIC) 15 mg TAKE 1 TABLET 30 tablet 0 tabletIndications: Low BY MOUTH 0 back pain, unspecified EVERY DAY back pain laterality, unspecified chronicity, unspecified whether sciatica present, Spondylolisthesis of lumbar region, Scoliosis of lumbar spine, unspecified scoliosis type, Primary osteoarthritis of left knee, Sprain of left knee, unspecified ligament, initial encounter, Sprain of right ankle, unspecified ligament, initial encounter, Contusion of right wrist, initial encounter Active Problems Problem Noted Date Abdominal pain 12/13/2019 Low back pain 11/10/2019 Lumbar spondylolysis 11/10/2019 Spondylolisthesis of lumbar region 11/10/2019 Scoliosis of lumbar spine 11/10/2019 Primary osteoarthritis of left knee 11/10/2019 Resolved Problems Problem Noted Date Resolved Date Sprain of left knee 11/10/2019 11/27/2019 Sprain of right ankle 11/10/2019 11/27/2019 Contusion of right wrist 11/10/2019 11/27/2019 Encounters Care Team Description Date Type Specialty Wayne Luciano MD Low back pain, unspecified back pain lat erality, unspecified chronicity, unspecified whether sciatica present; Spondylolisthesis of lumbar region; Scoliosis of lumbar spine, unspecified scoliosis type; Primary osteoarthritis of left knee; Sprain of left knee, unspecified ligament, initial encounter; Sprain of right ankle, unspecified ligament, initial encounter; Contusion of right wrist, initial encounter 02/09/2020 Refill Orthopedic Surgery Wayne Luciano MD Low back pain, unspecified back pain lat erality, unspecified chronicity, unspecified whether sciatica present; Spondylolisthesis of lumbar region; Scoliosis of lumbar spine, unspecified scoliosis type; Primary osteoarthritis of left knee; Sprain of left knee, unspecified ligament, initial encounter; Sprain of right ankle, unspecified ligament, initial encounter; Contusion of right wrist, initial encounter 01/03/2020 Refill Orthopedic Surgery Chano Chisholm MD Alberto, Paul, MD Abdominal pain, unspecified abdominal lo cation (Primary Dx); Gastroenteritis 12/12/2019 Emergency General Surgery - 12/14/2019 12/12/2019 Travel Wayne Luciano MD Low back pain, unspecified back pain lat erality, unspecified chronicity, unspecified whether sciatica present; Spondylolisthesis of lumbar region; Scoliosis of lumbar spine, unspecified scoliosis type; Primary osteoarthritis of left knee; Sprain of left knee, unspecified ligament, initial encounter; Sprain of right ankle, unspecified ligament, initial encounter; Contusion of right wrist, initial encounter 12/02/2019 Refill Orthopedic Surgery Omaira Winslow MA Primary osteoarthritis of left knee (Sasha yessi Dx) 12/01/2019 Orders Only Orthopedic Surgery 12/01/2019 Wayne Cardenas MD Spondylolisthesis of lumbar region (Prim armando Dx); Lumbar spondylolysis; Low back pain, unspecified back pain laterality, unspecified chronicity, unspecified whether sciatica present; Primary osteoarthritis of left knee 11/27/2019 Office Visit Orthopedic Surgery 11/27/2019 Travel 11/18/2019 Travel Wayne Luciano MD Right ankle pain, unspecified chronicity (Primary Dx); Low back pain, unspecified back pain laterality, unspecified chronicity, unspecified whether sciatica present; Spondylolisthesis of lumbar region; Scoliosis of lumbar spine, unspecified scoliosis type; Primary osteoarthritis of left knee; Sprain of left knee, unspecified ligament, initial encounter; Sprain of right ankle, unspecified ligament, initial encounter; Contusion of right wrist, initial encounter; Left knee pain, unspecified chronicity 11/10/2019 Office Visit Orthopedic Surgery 11/10/2019 Travel Anant Lopez MD Acute UTI (Primary Dx); Lower abdominal pain 11/04/2019 Emergency Emergency Medicine - 11/05/2019 after 03/02/2019 Surgical History Surgery Date Site/Laterality Comments SECTION Medical History Medical History Date Comments Arthritis 2017 Osteoporosis Previous xrays 2017 Family History Medical History Relation Name Comments Diabetes Father Adryan Heart disease Father Adryan Stroke Father Adryan Diabetes Mother Stacy Kidney disease Mother Stacy Heart attack Paternal Demarco Grandfather Relation Name Status Comments Father Adryan Mother Stacy Paternal Grandfather Demarco Social History Date Tobacco Use Types Packs/Day Years Used 1986 - 05/06/1993 Former Smoker Cigarettes 0.25 2 Smokeless Tobacco: Never Used Drinks/Week oz/Week Comments Alcohol Use 0 Glasses of wine 0 Cans of beer 0 Shots of liquor 0 Standard drinks or equivalent 0.0 Not Currently Sex Assigned at Date Recorded Not on file Last Filed Vital Signs Reading Time Taken Comments Vital Sign 143/67 12/14/2019 1:01 PM CDT Blood Pressure 107 12/14/2019 1:01 PM CDT Pulse 37.1 C (98.8 F) 12/14/2019 1:01 PM CDT Temperature 18 12/14/2019 1:01 PM CDT Respiratory Rate 92% 12/14/2019 1:01 PM CDT Oxygen Saturation - - Inhaled Oxygen Concentration 99.3 kg (219 lb) 12/13/2019 4:05 AM CDT Weight 154.9 cm (5' 1") 12/13/2019 4:05 AM CDT Height 41.38 12/13/2019 4:05 AM CDT Body Mass Index Plan of Treatment Health Maintenance Due Date Last Done Comments DIABETES: RETINAL EYE 1978 EXAM DIABETIC FOOT EXAM 1978 URINE MICROALBUMIN 1978 CERVICAL CANCER SCREENING 1989 BREAST CANCER SCREENING 2018 COLONOSCOPY SCREENING 2018 SHINGLES VACCINES (#1) 2018 INFLUENZA VACCINE 12/13/2019 Procedures Comments Procedure Name Priority Date/Time Associated Diag nosis GASTROINTESTINAL PANEL Routine 12/13/2019 10:45 PM CDT URINALYSIS SCREEN AND Routine 12/13/2019 MICROSCOPY, WITH REFLEX 6:31 PM CDT TO CULTURE URINE CULTURE Routine 12/13/2019 6:31 PM CDT US GALLBLADDER STAT 12/13/2019 3:27 PM CDT COVID-19 QUALITATIVE PCR STAT 12/13/2019 2:[address] ABDOMEN PELVIS W STAT 12/13/2019 CONTRAST 12:18 AM CDT ESTIMATED GFR STAT 12/12/2019 11:20 PM CDT LIPASE LEVEL STAT 12/12/2019 11:20 PM CDT HEPATIC FUNCTION PANEL STAT 12/12/2019 11:20 PM CDT BASIC METABOLIC PANEL STAT 12/12/2019 11:20 PM CDT HC COMPLETE BLD COUNT STAT 12/12/2019 W/AUTO DIFF 11:20 PM CDT ECG ED PRELIMINARY Routine 12/12/2019 INTERPRETATION 11:14 PM CDT ECG 12-LEAD Routine 12/12/2019 10:35 PM CDT XR LUMBAR SPINE 2 OR 3 VW Routine 11/10/2019 Low back pain, 2:40 PM CDT unspecified back pain laterality, unspecified chronicity, unspecified whether sciatica present XR KNEE 3 VW LEFT Routine 11/10/2019 Left knee pa in, 2:40 PM CDT unspecified chronicity XR ANKLE 3+ VW RIGHT Routine 11/10/2019 Right ank le pain, 2:40 PM CDT unspecified chronicity US PELVIC TRANSABDOMINAL STAT 11/05/2019 12:40 AM CDT US PELVIC TRANSVAGINAL STAT 11/05/2019 12:[address] ABDOMEN PELVIS W STAT 11/05/2019 CONTRAST 12:39 AM CDT URINE CULTURE STAT 11/04/2019 11:03 PM CDT ESTIMATED GFR STAT 11/04/2019 10:38 PM CDT LIPASE LEVEL STAT 11/04/2019 10:38 PM CDT COMPREHENSIVE METABOLIC STAT 11/04/2019 PANEL 10:38 PM CDT HC COMPLETE BLD COUNT STAT 11/04/2019 W/AUTO DIFF 10:38 PM CDT HCG QUALITATIVE, URINE STAT 11/04/2019 SCREEN 10:30 PM CDT URINALYSIS SCREEN AND STAT 11/04/2019 MICROSCOPY, WITH REFLEX 10:30 PM CDT TO CULTURE after 03/02/2019 Results * Gastrointestinal panel (12/13/2019 10:45 PM CDT) Adenovirus Not Detected [place] 40/41 PCR Comment: [facility] Specimen Information HOSPITAL Specimen Source: Stool Specimen Site: Nonpreserved Astrovirus PCR Not Detected [facility] Campylobacter Not Detected [facility] Clostridioides Not Detected [place] difficile PCR [facility] Cryptosporidium Not Detected [facility] Cyclospora Not Detected [place] cayetanensis [facility] Enteroaggregati Not Detected [place] ve E coli PCR [facility] Entamoeba Not Detected [place] histolytica PCR [facility] Enteroinvasive Not Detected [place] E coli PCR [facility] Enteropathogeni Not Detected [place] c E coli PCR [facility] Norovirus PCR Not Detected [facility] Plesiomonas Not Detected [place] shigelloides [facility] Rotavirus PCR Not Detected [facility] Salmonella PCR Not Detected [facility] Sapovirus PCR Not Detected [facility] Enterotoxigenic Not Detected [place] E coli PCR [facility] Shigatoxin Not Detected [place] producing E [facility] coli PCR [facility] E coli O157 PCR Not Reported [facility] Vibrio PCR Not Detected [facility] Vibrio cholerae Not Detected [facility] Yersinia Not Detected [place] enterocolitica [facility] Giardia lamblia Not Detected [facility] Specimen Stool - Nonpreserved Performing Organization Address City/State/ZIP Code P best Number [facility] DEPARTMENT OF [address] [place] [id number] PATHOLOGY AND GENOMIC MEDICINE [address] [address] HOSPITAL * Urinalysis screen and microscopy, with reflex to culture (12/13/2019 6:31 PM CDT) Only the most recent of 2 results within the time period is included. Specimen site Clean catch [facility] Color, UA Yellow [facility] Appearance, UA Clear [facility] Specific 1.011 1.001 - 1.035 [place] gravity, UA [facility] pH, UA 5.0 5.0 - 8.5 [facility] Protein, UA Negative Negative [facility] Glucose, UA Negative Negative [facility] Ketones, UA Negative Negative [facility] Bilirubin, UA Negative Negative [facility] Blood, UA Negative Negative [facility] Nitrite, UA Negative Negative [facility] Urobilinogen, Negative <2.0 [facility] Leukocyte Negative Negative [place] esterase, [facility] Epithelial Few Few /HPF [place] cells, [facility] WBC, UA 0-5 0 - 4 /HPF [facility] RBC, UA 0-5 0 - 5 /HPF [facility] Bacteria, UA None seen None seen [facility] Yeast, UA None seen [facility] Yeast with None seen [place] pseudohyphae, [facility] Specimen Urine Performing Organization Address City/State/ZIP Code P best Number [facility] [place] [address] PATHOLOGY AND GENOMIC MEDICINE [address] * Urine culture (12/13/2019 6:31 PM CDT) Only the most recent of 2 results within the time period is included. Urine culture SEE COMMENTComment: [place] Bacteriuria screen negative. [facility] Specimen Urine Performing Organization Address City/State/ZIP Code P best Number [address] [place], [place] [address] PATHOLOGY AND GENOMIC MEDICINE [address] * US Gallbladder (12/13/2019 3:27 PM CDT) Specimen Narrative Performed At EXAMINATION: US GALLBLADDER [facility] CLINICAL HISTORY: Abd pain unspecif ied TECHNIQUE: Focused sonographic examinat ion of the right upper quadrant of the abdomen performed by a dedicated US hermann hnologist including crowe scale and color doppler flow scan modes. COMPARISON: CT of the abdomen and pel vis from December 13, 2019. IMPRESSION: 1. Gallbladder: Non-distended with norm al wall thickness measuring 3 millimeter without caliculi, sludge, or pericholec ystic fluid. A sonographic Harris's sign was not elicited by the avionics electronics technician nologist. 2. CBD: The common bile duct is within normal limits measuring 5 mm. 3. Main portal vein: Normal in diameter measuring 1.0 cm and patent with normal hepatopetal flow and phasicity. 4. Other Findings: None [id number] Procedure Note Interface, Radiology Results Incoming - 12/13/2019 3:35 PM CDT EXAMINATION: US GALLBLADDER CLINICAL HISTORY: Abd pain unspecified TECHNIQUE: Focused sonographic examination of the right upper quadrant of the abdomen performed by a dedicated US technologist including crowe scale and color doppler flow scan modes. COMPARISON: CT of the abdomen and pelvis from December 13, 2019. IMPRESSION: 1. Gallbladder: Non-distended with yfn l wall thickness measuring 3 millimeter without caliculi, sludge, or pericholecystic fluid. A sonographic Harris's sign was not elicited by the geodetic surveyor technologist. 2. CBD: The common bile duct is within n ormal limits measuring 5 mm. 3. Main portal vein: Normal in diameter measuring 1.0 cm and patent with normal hepatopetal flow and phasicity. 4. Other Findings: None [id number] Performing Organization Address City/State/ZIP Code P best Number [facility] [address] [place] [address] * COVID-19 qualitative PCR (12/13/2019 2:29 AM CDT) Interpretation Negative results do not OROZCO preclude 2019-nCoV infection [facility] and should not be used as the HOSPITAL sole basis for treatment or other patient management decisions. Negative results must be combined with clinical observations, patient history, and epidemiological information. COVID-19 Not-Detected Not-Detected [place] qualitative PCR [facility] result [facility]PITAL COVID-19 See link below for PDF Lab [place] qualitative PCR ReportComment: Case Number: [facility] [id number] HOSPITAL Specimen Nasopharyngeal swab Performing Organization Address City/State/ZIP Code P best Number [facility] DEPARTMENT OF [address] [place] [address] PATHOLOGY AND GENOMIC MEDICINE [place] [facility] [address] [place] [address] [facility] * CT Abdomen Pelvis W Contrast (12/13/2019 12:18 AM CDT) Only the most recent of 2 results within the time period is included. Specimen Narrative Performed At Examination: CT ABDOMEN PELVIS W CONTRAST RADIA NT Clinical History: abd pain Comparison: None. Findings: CT scans are performed using radiation dose reduction techniques. Technical factors are evaluated and adjusted to e nsure appropriate moderation of exposure. Automated dose management technology is applied to adjust radiation exposure while achieving a diagnostic quality image. CT imaging wa s performed with iterative reconstruction techniques and/or automated exposure co ntrol to reduce radiation dose. CT scan of the abdomen and pelvis was p erformed after intravenous contrast. The liver, spleen, pancreas, gallbladde r, and adrenal glands are unremarkable. The kidneys are within normal limits wi thout hydronephrosis. Scattered colonic diverticuli are noted . No bowel thickening or fat stranding is seen. Prominent fluid-filled loops of p roximal small bowel are noted but not grossly distended. No transition point is seen. No bowel dilatation is seen. The appendix is not visualized. No free air or fluid is seen. Urinary b ladder is unremarkable. The visualized lung bases are clear. IMPRESSION: 1. Prominent fluid-filled loops of prox imal small bowel may represent focal enteritis or gastroenteritis. 2. Scattered colonic diverticuli withou t evidence of inflammation. [facility]-[id number] Procedure Note Hm Interface, Radiology Results Incoming - 12/13/2019 12:29 AM CDT Examination: CT ABDOMEN PELVIS W CONTRAST Clinical History: abd pain Comparison: None. Findings: CT scans are performed using radiation dose reduction techniques. Technical factors are evaluated and adjusted to ensure appropriate moderation of exposure. Automated dose management technology is applied to adjust radiation exposure while achieving a diagnostic quality image. CT imaging was performed with iterative reconstruction techniques and/or automated exposure control to reduce radiation dose. CT scan of the abdomen and pelvis was performed after intravenous contrast. The liver, spleen, pancreas, gallbladder, and adrenal glands are unremarkable. The kidneys are within normal limits without hydronephrosis. Scattered colonic diverticuli are noted. No bowel thickening or fat stranding is seen. Prominent fluid-filled loops of proximal small bowel are noted but not grossly distended. No transition point is seen. No bowel dilatation is seen. The appendix is not visualized. No free air or fluid is seen. Urinary bladder is unremarkable. The visualized lung bases are clear. IMPRESSION: 1. Prominent fluid-filled loops of proxi mal small bowel may represent focal enteritis or gastroenteritis. 2. Scattered colonic diverticuli without evidence of inflammation. [id number] Performing Organization Address City/State/ZIP Code P best Number [facility] [address] [place] [address] * Estimated GFR (12/12/2019 11:20 PM CDT) Only the most recent of 2 results within the time period is included. Estimated GFR >=90 mL/min/1.73 m2 [place] Comment: [facility] Interpretation G1 >=90 Normal or high G2 60-89 Mildly decreased G3a 45-59 Mildly to moderately decreased G3b 30-44 Moderately to severely decreased G4 15-29 Severely decreased G5 <15 Kidney failure The eGFR was calculated using the Chronic Kidney Disease Epidemiology Collaboration (CKD-EPI) equation. Interpretation is based on recommendations of the National Kidney Foundation-Kidney Disease Outcomes Quality Initiative (NKF-KDOQI) published in 2014. Specimen Performing Organization Address City/State/[facility] Code P best [place] [address] [place], [place] [address] PATHOLOGY AND GENOMIC MEDICINE [facility] [address] [place] [address] [facility] * CBC with platelet and differential (12/12/2019 11:20 PM CDT) Only the most recent of 2 results within the time period is included. WBC 4.82 4.50 - 11.00 k/uL [facility] RBC 4.28 4.20 - 5.50 m/uL [facility] HGB 10.9 (L) 12.0 - 16.0 g/dL [facility] HCT 32.6 (L) 37.0 - 47.0 % [facility] MCV 76.2 (L) 82.0 - 100.0 fL [facility] MCH 25.5 (L) 27.0 - 34.0 pg [facility] MCHC 33.4 31.0 - 37.0 g/dL [facility] RDW - SD 37.8 37.0 - 55.0 fL [facility] MPV 9.9 8.8 - 13.2 fL [facility] Platelet count 188 150 - 400 k/uL [facility] Nucleated RBC 0.00 /100 WBC [facility] Neutrophils 45.2 39.0 - 69.0 % [facility] Lymphocytes 41.7 25.0 - 45.0 % [facility] Monocytes 10.4 (H) 0.0 - 10.0 % [facility] Eosinophils 2.3 0.0 - 5.0 % [facility] Basophils 0.2 0.0 - 1.0 % [facility] Specimen Blood Performing Organization Address [facility] P best Number [address] [place] [address] PATHOLOGY AND GENOMIC MEDICINE [address] * Lipase level (12/12/2019 11:20 PM CDT) Only the most recent of 2 results within the time period is included. Lipase 17 13 - 60 U/L [facility] Specimen Blood Performing Organization Address City/[facility] P best Number [address] [place] [address] PATHOLOGY AND GENOMIC MEDICINE [address] * Hepatic function panel (12/12/2019 11:20 PM CDT) Albumin 3.6 3.5 - 5.0 g/dL [facility] Total bilirubin 0.3 0.0 - 1.2 mg/dL [facility] Bilirubin <0.1 0.0 - 0.3 mg/dL [place] direct [facility] Alkaline 168 (H) 35 - 104 U/L [place] phosphatase [facility] Protein 5.8 (L) 6.3 - 8.3 g/dL [place] Comment: [facility] [place] 4.6-7.0 g/dL 1 week 4.4-7.6 g/dL 7 months-1year 5.1-7.3 g/dL 1-2 years 5.6-7.5 g/dL >3 years 6.0-8.0 g/dL 18-150 6.3-8.3 g/dL ALT 38 5 - 50 U/L [facility] AST 30 10 - 35 U/L [facility] Specimen Blood Performing Organization Address City/[facility] P best [facility] [place] [address] [place] [address] PATHOLOGY AND GENOMIC MEDICINE [facility] [id number] [place] [address] * Basic metabolic panel (12/12/2019 11:20 PM CDT) Sodium 138 135 - 148 mEq/L [facility] Potassium 4.3 3.5 - 5.0 mEq/L [facility] Chloride 107 98 - 112 mEq/L [facility] CO2 23 (L) 24 - 31 mEq/L [facility] Anion gap 8@ANIO 7 - 15 mEq/L [facility] BUN 23 (H) 6 - 20 mg/dL [facility] Creatinine 0.30 (L) 0.50 - 0.90 mg/dL [facility] Glucose 103 (H) 65 - 99 mg/dL [facility] Calcium 9.5 8.3 - 10.2 mg/dL [facility] Specimen Blood Performing Organization Address [facility] P best Number [facility] [place] [address] [place] [address] Isela Rendon [place] [address] PATHOLOGY AND GENOMIC MEDICINE [address] * ECG ED Preliminary Interpretation - Not an Order (12/12/2019 11:14 PM CDT) Narrative Performed At Chano Chisholm MD 12/13/19 4:50 AM ECG ED Preliminary Interpretation - Not an Order Performed by: Chano Chisholm M D Authorized by: Chano Chisholm MD ECG reviewed by ED Physician in the abs ence of a surgical scrub technician: yes Interpretation: Interpretation: abnormal Rate: ECG rate: 89 ECG rate assessment: normal Rhythm: Rhythm: sinus rhythm Ectopy: Ectopy: none QRS: QRS axis: Left QRS intervals: Normal Conduction: Conduction: normal ST segments: ST segments: Normal T waves: T waves: normal * ECG 12 lead (12/12/2019 10:35 PM CDT) Ventricular 89 [facility] rate Atrial rate 89 [facility] [place] interval 144 [facility] QRSD interval 88 [facility] QT interval 366 [facility] QTC interval 445 [facility] P axis 1 27 [facility] QRS axis 1 -37 [facility] T wave axis 61 [facility] EKG impression Normal sinus rhythm-Left axis [facility] E deviation-Abnormal ECG-In automated comparison with ECG of 01-SEP-2007 18:12,-QRS axis shifted left-T wave amplitude has increased in Inferior leads-T wave amplitude has increased in Lateral leads- Specimen Narrative Performed At This result has an attachment that is n ot available. Performing Organization Address [facility] Code P best Number [facility] [address] [place] [address] * XR Ankle 3+ Vw Right (11/10/2019 2:40 PM CDT) Specimen Narrative Performed At [facility] X-ray of the right ankle demonstrate we ll-maintained mortise syndesmosis and medial clear space. There are no fractures. Performing Organization Address [facility] P best Number [facility] [address] [place] [address] * XR Knee 3 Vw Left (11/10/2019 2:40 PM CDT) Specimen Narrative Performed At [facility] X-ray of the left knee demonstrates brittnee us arthritis with complete loss of the medial joint space and peripheral o steophytes. There are no fractures. Patellofemoral joint is we ll aligned. Performing Organization Address [facility] Code P best Number [facility] [address] [place] [address] * XR Lumbar Spine 2 Or 3 Vw (11/10/2019 2:40 PM CDT) Specimen Narrative Performed At [facility] X-ray of the lumbar spine demonstrates mild mid lumbar scoliosis to the left. She also demonstrates a grade II L4-L5 degenerative spondylolisthesis, which does not appreciably move on flexion an d extension films. There are no fractures or lytic lesions. Performing Organization Address City/State/ZIP Code P best Number [facility] [address] [place] [address] * US Pelvic Transabdominal (11/05/2019 12:40 AM CDT) Specimen Narrative Performed At EXAMINATION: US PELVIC TRANSVAGINAL, US PELVIC MOORE SABDOMINAL [facility] CLINICAL HISTORY: lower abd pain COMPARISON: Same day CT abdomen pelvi s TECHNIQUE: Transabdominal and endovagin al sonographic images of the pelvis were obtained. Grayscale, color Doppler, and spectral waveform analysis of the ovarian vessels was performed. FINDINGS: Uterus: The uterus is anteverted and me asures 6.2 x 2.5 x 3.9 cm. There is a 6 mm calcified intramural fibroid.The end ometrial stripe measures 4 mm. Right Ovary: The right ovary measures 2.0 x 1.3 x 1.2 cm. There is no adnexal mass. Blood flow is detected in the right ovary with Doppler. Left Ovary: The left ovary measures 1 .6 x 0.8 x 1.5 cm. There is no adnexal mass. Blood flow is detected in the l eft ovary with Doppler. Free Fluid: No free pelvic fluid. IMPRESSION: Subcentimeter calcified intramural fibr oid. Otherwise unremarkable transabdominal and endovaginal pelvic u ltrasound examination. [facility]-[id number] Dictated and approved by radiology resi dent/fellow: Jessica Lin M.D. I, ISELA COLLINS MD, personally rev iewed the images and resident's/fellow's findings and agree with the final repor t. Procedure Note Interface, Radiology Results Incoming - 11/05/2019 1:04 AM CDT EXAMINATION: US PELVIC TRANSVAGINAL, US PELVIC TRANSABDOMINAL CLINICAL HISTORY: lower abd pain COMPARISON: Same day CT abdomen pelvis TECHNIQUE: Transabdominal and endovaginal sonographic images of the pelvis were obtained. Grayscale, color Doppler, and spectral waveform analysis of the ovarian vessels was performed. FINDINGS: Uterus: The uterus is anteverted and measures 6.2 x 2.5 x 3.9 cm. There is a 6 mm calcified intramural fibroid.The endometrial stripe measures 4 mm. Right Ovary: The right ovary measures 2.0 x 1.3 x 1.2 cm. There is no adnexal mass. Blood flow is detected in the right ovary with Doppler. Left Ovary: The left ovary measures 1.6 x 0.8 x 1.5 cm. There is no adnexal mass. Blood flow is detected in the left ovary with Doppler. Free Fluid: No free pelvic fluid. IMPRESSION: Subcentimeter calcified intramural fibroid. Otherwise unremarkable transabdominal and endovaginal pelvic ultrasound examination. [facility]-[id number] Dictated and approved by student life vice president/fellow: Jessica Lin M.D. I, ISELA COLLINS MD, personally reviewed the images and resident's/fellow's findings and agree with the final report. Performing Organization Address City/State/ZIP Code P best Number [facility] [address] [place] [address] * US Pelvic Transvaginal (11/05/2019 12:39 AM CDT) Specimen Narrative Performed At EXAMINATION: US PELVIC TRANSVAGINAL, US PELVIC MOORE SABDOMINAL [facility] CLINICAL HISTORY: lower abd pain COMPARISON: Same day CT abdomen pelvi s TECHNIQUE: Transabdominal and endovagin al sonographic images of the pelvis were obtained. Grayscale, color Doppler, and spectral waveform analysis of the ovarian vessels was performed. FINDINGS: Uterus: The uterus is anteverted and me asures 6.2 x 2.5 x 3.9 cm. There is a 6 mm calcified intramural fibroid.The end ometrial stripe measures 4 mm. Right Ovary: The right ovary measures 2.0 x 1.3 x 1.2 cm. There is no adnexal mass. Blood flow is detected in the right ovary with Doppler. Left Ovary: The left ovary measures 1 .6 x 0.8 x 1.5 cm. There is no adnexal mass. Blood flow is detected in the l eft ovary with Doppler. Free Fluid: No free pelvic fluid. IMPRESSION: Subcentimeter calcified intramural fibr oid. Otherwise unremarkable transabdominal and endovaginal pelvic u ltrasound examination. [facility]-[id number] Dictated and approved by radiology resi dent/fellow: Jessica Lin M.D. I, ISELA COLLINS MD, personally rev iewed the images and resident's/fellow's findings and agree with the final repor t. Procedure Note [facility], Radiology Results Incoming - 11/05/2019 1:04 AM CDT EXAMINATION: US PELVIC TRANSVAGINAL, US PELVIC TRANSABDOMINAL CLINICAL HISTORY: lower abd pain COMPARISON: Same day CT abdomen pelvis TECHNIQUE: Transabdominal and endovaginal sonographic images of the pelvis were obtained. Grayscale, color Doppler, and spectral waveform analysis of the ovarian vessels was performed. FINDINGS: Uterus: The uterus is anteverted and measures 6.2 x 2.5 x 3.9 cm. There is a 6 mm calcified intramural fibroid.The endometrial stripe measures 4 mm. Right Ovary: The right ovary measures 2.0 x 1.3 x 1.2 cm. There is no adnexal mass. Blood flow is detected in the right ovary with Doppler. Left Ovary: The left ovary measures 1.6 x 0.8 x 1.5 cm. There is no adnexal mass. Blood flow is detected in the left ovary with Doppler. Free Fluid: No free pelvic fluid. IMPRESSION: Subcentimeter calcified intramural fibroid. Otherwise unremarkable transabdominal and endovaginal pelvic ultrasound examination. [facility]-[id number] Dictated and approved by student life vice president/fellow: Jessica Lin M.D. I, ISELA COLLINS MD, personally reviewed the images and resident's/fellow's findings and agree with the final report. Performing Organization Address City/State/ZIP Code P best Number [facility] [address] [place] [address] * Comprehensive metabolic panel (11/04/2019 10:38 PM CDT) Sodium 139 135 - 148 mEq/L [facility] Potassium 3.5 3.5 - 5.0 mEq/L [facility] Chloride 104 98 - 112 mEq/L [facility] CO2 26 24 - 31 mEq/L [facility] Anion gap 9@ANIO 7 - 15 mEq/L [facility] BUN 20 6 - 20 mg/dL [facility] Creatinine 0.40 (L) 0.50 - 0.90 mg/dL [facility] Glucose 132 (H) 65 - 99 mg/dL [facility] Calcium 9.4 8.3 - 10.2 mg/dL [facility] Protein 6.8 6.3 - 8.3 g/dL [place] Comment: [facility] [place] 4.6-7.0 g/dL 1 week 4.4-7.6 g/dL 7 months-1year 5.1-7.3 g/dL 1-2 years 5.6-7.5 g/dL >3 years 6.0-8.0 g/dL 18-150 6.3-8.3 g/dL Albumin 4.1 3.5 - 5.0 g/dL [facility] A/G ratio 1.5 0.7 - 3.8 [facility] Alkaline 174 (H) 35 - 104 U/L [place] phosphatase [facility] AST 46 (H) 10 - 35 U/L [facility] ALT 51 (H) 5 - 50 U/L [facility] Total bilirubin 0.4 0.0 - 1.2 mg/dL [facility] Specimen Blood Performing Organization Address City/[facility] Code P best Number [facility] [place] [id number] [place] [address] [place], [place] [address] PATHOLOGY AND GENOMIC MEDICINE [facility] [id number] [place] [address] [place] [address] [facility] * hCG qualitative, urine screen (11/04/2019 10:30 PM CDT) hCG Negative Negative [place] qualitative, Comment: [facility] urine The manufacturers stated [facility] sensitivity of HcG test for serum is >/= 10 mIU/ml and urine is >/= 20mIU/ml. Specimen Urine - Urine, clean catch Performing Organization Address City/[facility] Code P best Number [facility] DEPARTMENT OF [id number] [place] [address] [place] [address] PATHOLOGY AND GENOMIC MEDICINE [facility] [id number] [place] [address] [place] [address] [facility] after 03/02/2019 Insurance Type Payer Benefit Subscriber ID Effective Phone Address Plan / Dates Group PPO AETNA AETNA PPO [id number] 2014-[id number] OPEN resent CHOICE HMO [employer] [id number] 2014-P HMO,POS,EP resent O, MC/EC Advance Directives For more information, please contact: [phone] Patient Manager Salt Explanation Type Date Recorded Advance Directives, 11/04/2019 11:00 PM Living Will and Medical Power of Downstairs Maid
--- OUTSIDE RECORDS SUMMARY | 2020-03-02 18:52 | XMS REPORT | Continuity of Care Document ---
Author Author [facility] t Organization [facility] Address [address] [place] [place] [address] Phone Unavailable Care Team Providers Care Hot Molder Name Role Phone NONSTAFF PCP Unavailable Claudia Ochoa MD Attphys Luis Eduardo Chisholm MD Attphys [phone] Luis Eduardo Welsh MD Attphys Omaira Winslow MA Attphys Unavailable John VENCES, Bertin Ny Attphys [phone] Collins CAMPOS Attphys Unavailable Zaida PARRA Attphys Unavailable CLYDE HICKS M.D. Attphys Unavailable ARCHIE GUERIN Attphys Unavailable JEFF DUGAN M.D. Attphys Unavailable DOUG MUNROE M.D. Attphys Unavailable QUITA BAILEY M.D. Attphys Unavailable LUIS EDUARDO WELSH Admphys Unavailable Payers Payer Name Policy Type Policy Number Effective Date Expiration Date Zaida maher AETNAAETNA PPO OPEN [id number] [id number] [id number] 2014 00:00:00 Luna Bahai Problems Condition Name Condition Details Condition Category Status Onset Date Resolution Date Last Treatment Date Treating Clinician Comments Source Abdominal pain Abdominal pain Disease Active 2019-12-13 00:00:00 [place] Low back pain Low back pain Disease Active 2019-11-10 00:00:00 Luna Bahai Lumbar spondylolysis Lumbar spondylolysis Disease Active 00:00:00 Luna Bahai Spondylolisthesis of lumbar region Spondylolisthesis of lumbar r egion Disease Active 2019-11-10 00:00:00 [place] Scoliosis of lumbar spine Scoliosis of lumbar spine Disease Ac tive 2019-11-10 00:00:[address] Primary osteoarthritis of left knee Primary osteoarthritis of le ft knee Disease Active 2019-11-10 00:00:00 [place] History of Diabetes type 2, controlled History of Diabetes t ype 2, controlled Problem HL7.CCDAR2 Resolved [facility] History of essential hypertension History of essential hyper tension Problem HL7.CCDAR2 Resolved [facility] Diabetes Diabetes Problem HL7.CCDAR2 Active [facility] Hypertension Hypertension Problem HL7.CCDAR2 Active [facility] Menopause Menopause Problem HL7.CCDAR2 Active [facility] Menopausal symptoms Menopausal symptoms Problem HL7.CCDAR2 Active [facility] Cervical cancer screening Cervical cancer screening Problem HL7.CCDAR 2 Active [facility] Asthma Asthma Problem HL7.CCDAR2 Active [facility] Helicobacter pylori infection Helicobacter pylori infection Prob john HL7.CCDAR2 Active [facility] Sleep apnea in adult Sleep apnea in adult Problem HL7.CCDAR2 Active [facility] Morbid obesity Morbid obesity Problem HL7.CCDAR2 Active [facility] Adult BMI 50.0-59.9 kg/sq m Adult BMI 50.0-59.9 kg/sq m Problem HL7.CCDAR2 Active [facility] Prediabetes Prediabetes Problem HL7.CCDAR2 Active [facility] Limb pain Limb pain Problem HL7.CCDAR2 Active [facility] Breast cancer screening Breast cancer screening Problem HL7.CCDAR2 Activ e [facility] Pain of right tibia Pain of right tibia Problem HL7.CCDAR2 Active [facility] Other closed fracture of proximal end of right fibula with routine healing, subsequent encounter Other closed fracture of proximal end of right fibula with routine healing, subsequent encounter Problem HL7.CCDAR2 Active [facility] Primary osteoarthritis of both knees Primary osteoarthritis of both knees Problem HL7.CCDAR2 Active [facility] Plantar fasciitis of left foot Plantar fasciitis of left emma t Problem HL7.CCDAR2 Active [facility] History of Past Illness Condition Name Condition Details Condition Category Status Onset Date Resolution Date Last Treatment Date Treating Clinician Comments Source Sprain of left knee Sprain of left knee Disease Resolved 2019-10 00:00:00 2019-11-27 00:00:00 2019-11-27 15:00:00 Jeremy Elmore Sprain of right ankle Sprain of right ankle Disease Resolved 2019-11-10 00:00:00 2019-11-27 00:00:00 2019-11-27 14:59:59 H leatha Elmore Contusion of right wrist Contusion of right wrist Disease Reso lved 2019-11-10 00:00:00 2019-11-27 00:00:00 2019-11-27 14:59:56 H leatha Elmore Allergies, Adverse Reactions, Alerts Allergy Name Allergy Type Status Severity Reaction(s) Onset Date Inacti ve Date Treating Clinician Comments Source No Known Drug Allergies DA Active U 2019-07-02 00:00:00 [facility] peanut FA Active U 2019-07-02 00:00:00 [facility] Apricot Tree DA Active SV 2019-07-02 00:00:00 [facility] No Known Drug Allergies DA Active U 2012-06-08 00:00:00 [facility] Apricot Tree DA Active SV 2012-06-08 00:00:00 [facility] PEANUTS DA Active SV 2012-01-21 00:00:00 [facility] Family History Family Member Diagnosis Comments Start Date Stop Date Source Mother Family history of diabetes mellitus [facility] Mother Family history of cardiac disorder [facility] Mother Family history of cerebrovascular accident (CVA) [facility] Father Family history of diabetes mellitus [facility] Father Family history of cardiac disorder [facility] Father Family history of cerebrovascular accident (CVA) [facility] Natural father Diabetes [place] [facility] Natural father Heart disease Luna Bahai Natural father Stroke [place] [facility] Natural mother Diabetes [facility] Natural mother Kidney disease [place] Paternal grandfather Heart attack Ho bryan Elmore Social History Social Habit Start Date Stop Date Quantity Comments Source Sex Assigned At Nikia Naylorist Cigarettes smoked current (pack per day) - Reported 00:00:00 2019-12-13 00:00:00 Jeremy Elmore Cigarette pack-years 2019-12-13 00:00:00 2019-12-13 00:00:00 Jeremy Elmore Tobacco use and exposure 2019-12-13 00:00:00 2019-12-13 00:00:00 Landen r used Jeremy Elmore Alcohol intake 2019-12-13 00:00:00 2019-12-13 00:00:00 Ex-drinker (fi nding) Jeremy Elmore History of tobacco use 1986 00:00:00 1993-05-06 00:00:00 Curren t smoker Jeremy Elmore Smoking Status Start Date Stop Date Source Former smoker 2019-12-13 00:00:00 2019-12-13 00:00:00 Jeremy Elmore Medications Ordered Medication Name Filled Medication Name Start Date Stop Da te Current Medication? Ordering Clinician Indication Dosage Frequency Signature (SIG) Comments Components Source meloxicam (MOBIC) 15 mg tablet 2020-02-09 00:00:00 Yes Contusion of right wrist, initial encounter TAKE 1 TABLET BY MOUTH EVERY DAY Jeremy Elmore meloxicam (MOBIC) 15 mg tablet 2020-01-05 00:00:00 2020-01-14 8 00:00:00 No Contusion of right wrist, initial encounter TAKE 1 TABLET BY MOUTH EVERY DAY Jeremy Elmore albuterol (PROAIR HFA) 90 mcg/actuation inhaler 2019-12-14 13:08 :47 Yes 2{puff} Inhale 2 puffs as needed for wheezing. Jeremy Elmore losartan (COZAAR) 100 MG tablet 2019-12-12 00:00:00 Yes 100mg QD 100 mg daily. Jeremy Elmore meloxicam (MOBIC) 15 mg tablet 2019-12-04 00:00:00 2019-12-14 4 00:00:00 No Contusion of right wrist, initial encounter TAKE 1 TABLET BY MOUTH EVERY DAY Jreemy Elmore meloxicam (Mobic) 15 mg tablet 2019-11-10 00:00:00 2019-11-13 3 00:00:00 No Contusion of right wrist, initial encounter 15mg QD Take 1 tablet (15 mg total) by mouth daily. Jeremy Elmore acetaminophen-codeine (TYLENOL WITH CODEINE #3) 300-30 mg pe r tablet 2019-11-05 00:00:00 2019-11-13 23:59:00 No acute pain 1{tbl} Q6H Take 1-2 tablets by mouth every 6 (six) hours as needed for moderate pain for up to 8 days .acute pain. Jeremy Elmore cephalexin (KEFLEX) 500 MG capsule 2019-11-05 00:00:00 202 23:59:00 No 500mg Q.5D Take 1 capsule ( 500 mg total) by mouth 2 (two) times a day for 7 days. Jeremy Elmore Synvisc One 48 MG/6ML Intra-articular Solution Prefill ed Syringe Synvisc One 48 MG/6ML Intra-articular Solution Prefilled Syringe 2017-10-10 00:00:00 Yes CLYDE HICKS M.D. ONE INJECTION INTO EACH KNEE [facility] Celecoxib 200 MG Oral Capsule Celecoxib 200 MG Oral Capsule 2017 00:00:00 Yes CLYDE HICKS M.D. QD TAKE 1 CAPSULE DAILY W ITH A MEAL. [facility] ergocalciferol (VITAMIN D2) 50,000 unit capsule 2014-07-23 00:00 :00 Yes [id number] Take 50,000 Units by mouth. Jeremy Elmore MetFORMIN HCl - 500 MG Oral Tablet MetFORMIN HCl - 500 MG Oral Tablet Yes [facility] Sertraline HCl TABS Sertraline HCl TABS Yes [facility] Valsartan TABS Valsartan TABS Yes [facility] Vital Signs Vital Name Observation Time Observation Value Comments Source Systolic blood pressure 2019-12-14 13:01:32 143 mm[Hg] Jeremy Elmore Diastolic blood pressure 2019-12-14 13:01:32 67 mm[Hg] Jeremy Elmore Heart rate 2019-12-14 13:01:32 107 /min Jeremy Elmore Body temperature 2019-12-14 13:01:32 37.11 Do Monique Elmore Respiratory rate 2019-12-14 13:01:32 18 /min Monique Elmore Oxygen saturation in Arterial blood by Pulse oximetry 12-13 13:01:32 92 /min Jeremy Elmore Body height 2019-12-13 04:05:00 154.9 cm Jeremy Elmore Body weight 2019-12-13 04:05:00 99.338 kg Jeremy Elmore BMI 2019-12-13 04:05:00 41.38 kg/m2 Jeremy Elmore BP Systolic 2017-11-08 11:09:00 94 mm[Hg] [facility] BP Diastolic 2017-11-08 11:09:00 79 mm[Hg] [facility] Height 2017-11-08 11:09:00 61 [in_us] [facility] Weight 2017-11-08 11:09:00 220 [lb_av] [facility] Body Mass Index Calculated 2017-11-08 11:09:00 41.57 kg/m2 [facility] Heart Rate 2017-11-08 11:09:00 66 /min [facility] BP Systolic 2017-10-02 15:02:00 129 mm[Hg] [facility] BP Diastolic 2017-10-02 15:02:00 70 mm[Hg] [facility] Height 2017-10-02 15:02:00 61 [in_us] [facility] Weight 2017-10-02 15:02:00 220 [lb_av] [facility] Body Mass Index Calculated 2017-10-02 15:02:00 41.57 kg/m2 [facility] Heart Rate 2017-10-02 15:02:00 69 /min [facility] BP Systolic 2017-08-01 16:29:00 150 mm[Hg] [facility] BP Diastolic 2017-08-01 16:29:00 75 mm[Hg] [facility] Height 2017-08-01 16:29:00 61 [in_us] [facility] Weight 2017-08-01 16:29:00 220 [lb_av] [facility] Body Mass Index Calculated 2017-08-01 16:29:00 41.57 kg/m2 [facility] Heart Rate 2017-08-01 16:29:00 70 /min [facility] BP Systolic 2017-07-11 15:50:00 114 mm[Hg] [facility] BP Diastolic 2017-07-11 15:50:00 62 mm[Hg] [facility] Height 2017-07-11 15:50:00 61 [in_us] [facility] Weight 2017-07-11 15:50:00 220 [lb_av] [facility] Body Mass Index Calculated 2017-07-11 15:50:00 41.57 kg/m2 [facility] Heart Rate 2017-07-11 15:50:00 76 /min [facility] Height 2017-03-14 08:16:00 61 [in_us] [facility] Weight 2017-03-14 08:16:00 228 [lb_av] [facility] Body Mass Index Calculated 2017-03-14 08:16:00 43.08 kg/m2 [facility] Procedures Procedure Date / Time Performed Performing Clinician Sour e GASTROINTESTINAL PANEL 2019-12-13 22:45:00 Chano Chisholm URINE CULTURE 2019-12-13 18:31:00 Hudson Mo URINALYSIS SCREEN AND MICROSCOPY, WITH REFLEX TO CULTURE 18:31:00 Hudson Mo US GALLBLADDER 2019-12-13 15:27:47 Hudson Mo COVID-19 QUALITATIVE PCR 2019-12-13 02:29:[address] ABDOMEN PELVIS W CONTRAST 2019-12-13 00:18:03 Kendall Chisholm HC COMPLETE BLD COUNT W/AUTO DIFF 2019-12-12 23:20:00 Chano Chisholm BASIC METABOLIC PANEL 2019-12-12 23:20:00 Chano Chisholm HEPATIC FUNCTION PANEL 2019-12-12 23:20:00 Chano Chisholm LIPASE LEVEL 2019-12-12 23:20:00 Chano Chisholm on [place] ESTIMATED GFR 2019-12-12 23:20:00 Chano Chisholm on [place]ai ECG ED PRELIMINARY INTERPRETATION 2019-12-12 23:14:59 Chano Chisholm ECG 12-LEAD 2019-12-12 22:35:21 Chano Chisholm XR ANKLE 3+ VW RIGHT 2019-11-10 14:40:28 Wayne Ochoa Bahai XR KNEE 3 VW LEFT 2019-11-10 14:40:28 Wayne Ochoa Bahai XR LUMBAR SPINE 2 OR 3 VW 2019-11-10 14:40:28 Wayne Ochoa Bahai US PELVIC TRANSABDOMINAL 2019-11-05 00:40:03 Yuli Boateng US PELVIC TRANSVAGINAL 2019-11-05 00:39:[address] ABDOMEN PELVIS W CONTRAST 2019-11-05 00:39:34 Yuli Boateng Bahai URINE CULTURE 2019-11-04 23:03:00 Yuli Boateng on Bahai HC COMPLETE BLD COUNT W/AUTO DIFF 2019-11-04 22:38:00 Anju Boateng se COMPREHENSIVE METABOLIC PANEL 2019-11-04 22:38:00 Yuli Boateng LIPASE LEVEL 2019-11-04 22:38:00 Yuli Boateng on [place] ESTIMATED GFR 2019-11-04 22:38:00 Yuli Boateng on Bahai URINALYSIS SCREEN AND MICROSCOPY, WITH REFLEX TO CULTURE 202 22:30:00 Yuli Boateng HCG QUALITATIVE, URINE SCREEN 2019-11-04 22:30:00 Yuli Boateng Computed tomography of cervical spine without contrast 09-19 00:00:00 TANI ROSS [facility] Computed tomography of brain without radiopaque contrast 201 01-16-09 00:00:00 TANI ROSS [facility] [U] XRAY TIBIA FIBULA 2 VWS RIGHT [id number] 2017-10-02 00:00:00 [facility] [U] XRAY TIBIA FIBULA 2 VWS RIGHT [id number] 2017-08-16 00:00:00 [facility] [U] XRAY TIBIA FIBULA 2 VWS RIGHT [id number] 2017-08-01 00:00:00 [facility] [U] XRAY ANKLE MIN 3 VWS RIGHT [id number] 2017-08-01 00:00:00 [facility] [U] XRAY TIBIA FIBULA 2 VWS RIGHT [id number] 2017-07-11 00:00:00 [facility] History of Section [facility] Plan of Care Planned Activity Planned Date Details Comments Source Future Scheduled Test 2019-12-13 00:00:00 INFLUENZA VACCINE [code = INFLUENZA VACCINE] [facility] Future Scheduled Test 2018 00:00:00 BREAST CANCER SCRE ENING [code = BREAST CANCER SCREENING] [facility] Future Scheduled Test 2018 00:00:00 COLONOSCOPY SCREEN ING [code = COLONOSCOPY SCREENING] [facility] Future Scheduled Test 2018 00:00:00 SHINGLES VACCINES (#1) [code = SHINGLES VACCINES (#1)] [facility] Future Scheduled Test 1989 00:00:00 Screening for tequila gnant neoplasm of cervix (procedure) [code = 376107788] [place] [facility] Future Sched[facility] Test 1978 00:00:00 DIABETES: RETINAL EYE EXAM [code = DIABETES: RETINAL EYE EXAM] [facility] Future Scheduled Test 1978 00:00:00 DIABETIC FOOT EXAM [code = DIABETIC FOOT EXAM] [facility] Future Scheduled Test 1978 00:00:00 URINE MICROALBUMIN [code = URINE MICROALBUMIN] [facility] Encounters Start Date/Time End Date/Time Encounter Type Admission Type [facility] Care Department Encounter ID Source 2019-12-12 00:00:00 2019-12-14 00:00:00 Outpatient LUIS EDUARDO WELSH [facility] [id number] [facility] 2019-11-27 00:00:00 2019-11-27 00:00:00 Outpatient JOSÉ MIGUEL OCHOA [facility] [id number] [facility] 2019-11-10 00:00:00 2019-11-10 00:00:00 Outpatient JOSÉ MIGUEL OCHOA [facility] [id number] [facility] 2019-11-10 00:00:00 2019-11-10 00:00:00 Outpatient JOSÉ MIGUEL OCHOA [facility] [id number] [facility] 2019-11-04 00:00:00 2019-11-05 00:00:00 Emergency YULI BOATENG [id number] [facility] 2019-11-04 16:03:00 2019-11-04 16:03:00 Emergency E MHSE MHSE [id number] [facility] 2019-05-25 13:28:00 2019-05-25 15:30:00 Departed Emergency Room 1 BECKY CAMPOS [facility] [id number] [facility] 2018-09-19 14:58:00 2018-09-19 20:30:00 Departed Emergency Room 1 KANCHAN PARRA [facility] [id number] [facility] 2017-11-08 10:45:00 2017-11-08 10:45:00 Appointment; CLYDE HICKS M.D. LEE, JONATHAN, M.D. [facility] Orthopedics [facility] [id number] [facility] 2017-11-01 10:00:00 2017-11-01 10:00:00 Appointment; CLYED HICKS M.D. LEE, JONATHAN, M.D. [facility] [id number] [facility] 2017-10-22 10:30:00 2017-10-22 10:30:00 Appointment; SUE GUERIN MARIANNE [facility] [id number] [facility] 2017-10-02 14:45:00 2017-10-02 14:45:00 Appointment; CLYDE HICKS M.D. LEE, JONATHAN, M.D. [facility] Orthopedics [facility] [id number] [facility] 2017-08-16 09:30:00 2017-08-16 09:30:00 Appointment; CLYDE HICKS M.D. LEE, JONATHAN, M.D. [facility] Orthopedics [facility] [id number] [facility] 2017-08-01 15:00:00 2017-08-01 15:00:00 Appointment; CLYDE HICKS M.D. LEE, JONATHAN, M.D. [facility] Orthopedics [facility] [id number] [facility] 2017-07-11 15:00:00 2017-07-11 15:00:00 Appointment; CLYDE HICKS M.D. LEE, JONATHAN, M.D. [facility] Orthopedics [facility] [id number] [facility] 2017-05-09 10:00:00 2017-05-09 10:00:00 Appointment; JEFF DUGAN M.D. HUANG, EDDIE, M.D. [facility] [id number] [facility] 2017-03-14 08:45:00 2017-03-14 08:45:00 Appointment; JEFF DUGAN M.D. HUANG, EDDIE, M.D. [facility] Orthopedics at [facility] [id number] [facility] 2016-12-01 12:00:00 2016-12-01 12:00:00 Appointment; HARISH MUNROE M.D. TRAHAN, MICHAEL, M.D. [facility] [id number] [facility] 2016-08-30 15:00:00 2016-08-30 15:00:00 Appointment; HARISH MUNROE M.D. TRAHAN, MICHAEL, M.D. [facility] [id number] [facility] 2016-01-20 08:00:00 2016-01-20 08:00:00 Appointment; BRIAN BAILEY M.D. NUGENT, ELIZABETH, M.D. [facility] [id number] [facility] 2016-01-19 08:00:00 2016-01-19 08:00:00 Appointment; BRIAN BAILEY M.D. NUGENT, ELIZABETH, M.D. [facility] [id number] [facility] Results Test Description Test Time Test Comments Results Result Comments Source ECG 12 lead 2019-12-15 16:48:33 Test Item Ventricular rate (test code = 253) 89 Atrial rate (test code = 255) 89 MS interval (test code = 266) 144 QRSD interval (test code = 260) 88 QT interval (test code = 264) 366 QTC interval (test code = 265) 445 P axis 1 (test code = 267) 27 QRS axis 1 (test code = 268) -37 T wave axis (test code = 270) 61 EKG impression (test code = 273) Normal sinus rhythm-L eft axis deviation- Abnormal ECG-In automated comparison with ECG of 01-SEP-2007 18:12,-QRS axis shifted left-T wave amplitude has increased in Inferior leads-T wave amplitude has increased in Lateral leads- [facility] [id number] 08:10:03* Test Item Value Reference Range Interpretation Comments Adenovirus 40/41 PCR (test code = 7113) Not Detected Specimen InformationSpecimen Source: StoolSpecimen Site: Nonpreserved Astrovirus PCR (test code = 4790) Not Detected Campylobacter PCR (test code = 7114) Not Detected Clostridioides difficile PCR (test code = 7115) Not Detected Cryptosporidium PCR (test code = 7116) Not Detected Cyclospora cayetanensis PCR (test code = 7117) Not Detected Enteroaggregative E coli PCR (test code = 4784) Not Detected Entamoeba histolytica PCR (test code = 7118) Not Detected Enteroinvasive E coli PCR (test code = 4788) Not Detected Enteropathogenic E coli PCR (test code = 4785) Not Detected Norovirus PCR (test code = 7119) Not Detected Plesiomonas shigelloides PCR (test code = 4782) Not Detected Rotavirus PCR (test code = 7196105) Not Detected Salmonella PCR (test code = 4783) Not Detected Sapovirus PCR (test code = 4791) Not Detected Enterotoxigenic E coli PCR (test code = 4786) Not Detected Shigatoxin producing E coli PCR (test code = 4787) Not Detected E coli O157 PCR (test code = 7120) Not Reported Vibrio PCR (test code = 7121) Not Detected Vibrio cholerae PCR (test code = 7122) Not Detected Yersinia enterocolitica PCR (test code = 7123) Not Detected Giardia lamblia PCR (test code = 7124) Not Detected [facility] [id number] 18:45:56* Test Item Value Reference Range Interpretation Comments Urine culture (test code = 8576615) SEE COMMENT Bacteriuria screen negative. Jeremy MethodistUrinalysis screen and microscopy, with reflex to culture 2019-12-13 18:45:56* Test Item Value Reference Range Interpretation Comments Specimen site (test code = 4824331) Clean catch Color, UA (test code = 5778-6) Yellow Appearance, UA (test code = 5767-9) Clear Specific gravity, UA (test code = 5811-5) 1.011 1.001-1.035 pH, UA (test code = 5803-2) 5.0 5.0-8.5 Protein, UA (test code = 69682-1) Negative Negative Glucose, UA (test code = 75822-8) Negative Negative Ketones, UA (test code = 2514-8) Negative Negative Bilirubin, UA (test code = 5770-3) Negative Negative Blood, UA (test code = 5794-3) Negative Negative Nitrite, UA (test code = 5802-4) Negative Negative Urobilinogen, UA (test code = 86097-4) Negative <2.0 Leukocyte esterase, UA (test code = 5799-2) Negative Negative Epithelial cells, UA (test code = 5787-7) Few Few /HPF WBC, UA (test code = 5821-4) 0-5 0- 4 /HPF RBC, UA (test code = 01765-3) 0-5 0- 5 /HPF Bacteria, UA (test code = 61867-9) None seen None seen Yeast, UA (test code = 87651-4) None seen Yeast with pseudohyphae, UA (test code = 81135-9) None seen Luna Bahai [id number] 15:32:01Hm Interface, Radiology Results - 12/13/2019 3:35 PM CDTEXAMINATION: US GALLBLADDERCLINICAL HISTORY: Abd pain unspecifiedTECHNIQUE: Focused sonographic examination of the right upper quadrant of the abdomen performed by a dedicated US technologist including crowe scale and color doppler flow scan modes.COMPARISON: CT of the abdomen and pelvis from December 13, 2019.IMPRESSION:1. Gallbladder: Non-distended with normal wall thickness measuring 3 millimeter without caliculi, sludge, or pericholecystic fluid. A sonographic Harris's sign was not elicited by the neurology technologist. 2. CBD: The common bile duct is within normal limits measuring 5 mm.3. Main portal vein: Normal in diameter measuring 1.0 cm and patent with normal hepatopetal flow and phasicity.4. Other Findings: None [id number] MethodistCOVID-19 qualitative [id number] 15:08:15* Test Item Value Reference Range Interpretation Comments Interpretation (test code = 0214841) Negative results do not preclude 2019-nCoV infection and should not be used as the sole basis for treatment or other patient management decisions. Negative results must be combined with clinical observations, patient history, and epidemiological information. COVID-19 qualitative PCR result (test code = 37041-4) Not-Detect ed Not-Detected COVID-19 qualitative PCR (test code = 7070) See link below for P DF Lab Report [place] [facility] Ab[facility]en Pelvis W [id number] 00:26:49Hm Interface, Radiology Results Incoming 12/13/2019 12:29 AM CDTExamination: CT ABDOMEN PELVIS W CONTRASTClinical History: abd painComparison: None.Findings:CT scans are performed using radiation dose reduction techniques. Technical factors are evaluated and adjusted to ensure appropriate moderation of exposure. Automated dose management technology is applied to adjust radiation exposure while achieving a diagnostic quality image. CT imaging was performed with iterative reconstruction techniques and/or automated exposure control to reduce radiation dose.CT scan of the abdomen and pelvis was performed after intravenous contrast. The liver, spleen, pancreas, gallbladder, and adrenal glands are unremarkable.Th e kidneys are within normal limits without hydronephrosis.Scattered colonic dive rticuli are noted. No bowel thickening or fat stranding is seen. Prominent fluid -filled loops of proximal small bowel are noted but not grossly distended. No tr ansition point is seen. No bowel dilatation is seen. The appendix is not visuali zed.No free air or fluid is seen. Urinary bladder is unremarkable.The visualized lung bases are clear.IMPRESSION:1. Prominent fluid-filled loops of proximal sma ll bowel may represent focal enteritis or gastroenteritis.2. Scattered colonic d iverticuli without evidence of inflammation.[facility]-[id number] MethodistBasic metabolic dhfzj6560-13-71 23:56:09* Test Item Value Reference Range Interpretation Comments Sodium (test code = 2951-2) 138 135- 148 mEq/L Potassium (test code = 2823-3) 4.3 3.5- 5.0 mEq/L Chloride (test code = 2075-0) 107 98- 112 mEq/L CO2 (test code = 2027-9) 23 24- 31 mEq/L L Anion gap (test code = 44205-6) 8@ANIO 7- 15 mEq/L BUN (test code = 3094-0) 23 mg/dL 6-20 H Creatinine (test code = 2160-0) 0.30 mg/dL 0.5-0.9 L Glucose (test code = 2345-7) 103 mg/dL 65-99 H Calcium (test code = 00555-1) 9.5 mg/dL 8.3-10.2 Lab Interpretation (test code = 76527-5) Abnormal [place] MethodistHepatic function [id number] 23:56:08* Test Item Value Reference Range Interpretation Comments Albumin (test code = 1751-7) 3.6 g/dL 3.5-5 Total bilirubin (test code = 1974-) 0.3 mg/dL 0-1.2 Bilirubin direct (test code = 1967-) <0.1 0-0.3 Alkaline phosphatase (test code = 6768-6) 168 U/L 35-104 H Protein (test code = 2885-2) 5.8 g/dL 6.3-8.3 L - 4.6- 7.0 g/dL1 week 4.4-7.6 g/dL7 months-1year 5.1-7.3 g/dL1-2 years 5.6-7.5 g/dL>3 years 6.0-8.0 g/kV78-329 6.3-8.3 g/dL ALT (test code = 1742-6) 38 U/L 5-50 AST (test code = 1920-8) 30 U/L 10-35 Lab Interpretation (test code = 89993-6) Abnormal [place] MethodistLipase sbwgj1551-59-69 23:56:08* Test Item Value Reference Range Interpretation Comments Lipase (test code = 3040-3) 17 U/L 13-60 [place] MethodistEstimated [id number] 23:56:08* Test Item Value Reference Range Interpretation Comments Estimated GFR (test code = 5488) >=90 mL/min/1.73 m2 Catergory Units InterpretationG1 >=90 Normal or highG2 60-89 Mildly jnymljrltE6f 45-59 Mildly to moderately xbgdkyqxvW3e 30-44 Moderately to severely decreasedG4 15-29 Severely decreasedG5 <15 Kidney failureThe eGFR was calculated using the Chronic Kidney Disease Epidemiology Collaboration (CKD-EPI) equation. Interpretation is based on recommendations of the National Kidney Foundation-Kidney Disease Outcomes Quality Initiative (NKF-KDOQI) published in 2014. [facility] with platelet and xvpcfqowcyhq8117-56-93 23:43:44* Test Item Value Reference Range Interpretation Comments WBC (test code = 81335-6) 4.82 4.50- 11.00 k/uL RBC (test code = 60738-6) 4.28 m/uL 4.2-5.5 HGB (test code = 718-7) 10.9 g/dL 12-16 L HCT (test code = 4544-3) 32.6 % 37-47 L MCV (test code = 787-2) 76.2 fL 82-100 L MCH (test code = 785-6) 25.5 pg 27-34 L MCHC (test code = 786-4) 33.4 g/dL 31-37 RDW - SD (test code = 10831-6) 37.8 fL 37-55 MPV (test code = 33743-6) 9.9 fL 8.8-13.2 Platelet count (test code = 33279-5) 188 150- 400 k/uL Nucleated RBC (test code = 25297-4) 0.00 /100 WBC Neutrophils (test code = 17234-6) 45.2 % 39-69 Lymphocytes (test code = 29223-2) 41.7 % 25-45 Monocytes (test code = 16391-5) 10.4 % 0-10 H Eosinophils (test code = 65412-6) 2.3 % 0-5 Basophils (test code = 68034-4) 0.2 % 0-1 Lab Interpretation (test code = 74801-4) Abnormal [facility] ED Preliminary Interpretation - Not an Uydbl4761-96-21 23:14:59* Test Item Value Reference Range Interpretation Comments KAILEE (test code = KAILEE) Chano Chisholm MD 12/13/2019 4:50 [facility] ED Preliminary Interpretation - Not an OrderPerformed by: Chano Chisholm MDAuthorized by: Chano Chisholm MD ECG reviewed by ED Physician in the absence of a pack train driver: yes Interpretation: Interpretation: abnormal Rate: ECG rate: 89 ECG rate assessment: normal Rhythm: Rhythm: sinus rhythm Ectopy: Ectopy: none QRS: QRS axis: Left QRS intervals: NormalConduction: Conduction: normal ST segments: ST segments: NormalT waves: T waves: normal Lab Interpretation (test code = 62168-3) Abnormal Jeremy Quinteros Pelvic Exethrcqjbco5708-79-67 01:01:04Hm Interface, Radiology Results 11/05/2019 1:04 AM CDTEXAMINATION: US PELVIC TRANSVAGINAL, US PELVIC TRANSABDOMINALCLINICAL HISTORY: lower abd telly nCOMPARISON: Same day CT abdomen pelvisTECHNIQUE: Transabdominal and endovagina l sonographic images of the pelvis were obtained. Grayscale, color Doppler, and spectral waveform analysis of the ovarian vessels was performed.FINDINGS:Uterus: The uterus is anteverted and measures 6.2 x 2.5 x 3.9 cm. There is a 6 mm calc ified intramural fibroid.The endometrial stripe measures 4 mm.Right Ovary: The right ovary measures 2.0 x 1.3 x 1.2 cm. There is no adnexal mass. Blood flow is detected in the right ovary with Doppler. Left Ovary: The left ovary measure s 1.6 x 0.8 x 1.5 cm. There is no adnexal mass. Blood flow is detected in the left ovary with Doppler. Free Fluid: No free pelvic fluid.IMPRESSION:Subcentime ter calcified intramural fibroid. Otherwise unremarkable transabdominal and endo vaginal pelvic ultrasound examination.[facility]-[id number] and [facility] Jayjay Haque, ISELA COLLINS MD, katerina elias reviewed the images and resident's/fellow's findings and agree with the marco report.Jeremy ElmoreUS Pelvic Fqulchvnqkeujk5050-47-36 01:01:04Hm Interface, Radiology Results 11/05/2019 1:04 AM CDTEXAMINATION: US PELVIC TRANSVAGINAL, US PELVIC TRANSABDOMINALCLINICAL HISTORY: lower abd telly nCOMPARISON: Same day CT abdomen pelvisTECHNIQUE: Transabdominal and endovagina l sonographic images of the pelvis were obtained. Grayscale, color Doppler, and spectral waveform analysis of the ovarian vessels was performed.FINDINGS:Uterus: The uterus is anteverted and measures 6.2 x 2.5 x 3.9 cm. There is a 6 mm calc ified intramural fibroid.The endometrial stripe measures 4 mm.Right Ovary: The right ovary measures 2.0 x 1.3 x 1.2 cm. There is no adnexal mass. Blood flow is detected in the right ovary with Doppler. Left Ovary: The left ovary measure s 1.6 x 0.8 x 1.5 cm. There is no adnexal mass. Blood flow is detected in the left ovary with Doppler. Free Fluid: No free pelvic fluid.IMPRESSION:Subcentime ter calcified intramural fibroid. Otherwise unremarkable transabdominal and endo vaginal pelvic ultrasound examination.[facility]-[id number] and approved [facility]fellow: Jayjay Haque, ISELA COLLINS MD, katerina elias reviewed the images and resident's/fellow's findings and agree with the [facility] hospital report.[place] MethodrustComprehensive metabolic oovgw1047-54-89 23:05:24* Test Item Value Reference Range Interpretation Comments Sodium (test code = 2951-2) 139 135- 148 mEq/L Potassium (test code = 2823-3) 3.5 3.5- 5.0 mEq/L Chloride (test code = 2075-0) 104 98- 112 mEq/L CO2 (test code = 8-9) 26 24- 31 mEq/L Anion gap (test code = 08510-2) 9@ANIO 7- 15 mEq/L BUN (test code = 3094-0) 20 mg/dL 6-20 Creatinine (test code = 2160-0) 0.40 mg/dL 0.5-0.9 L Glucose (test code = 2345-7) 132 mg/dL 65-99 H Calcium (test code = 25139-8) 9.4 mg/dL 8.3-10.2 Protein (test code = 2885-2) 6.8 g/dL 6.3-8.3 -Advance 4.6- 7.0 g/dL1 week 4.4-7.6 g/dL7 months-1year 5.1-7.3 g/dL1-2 years 5.6-7.5 g/dL>3 years 6.0-8.0 g/mE13-614 6.3-8.3 g/dL Albumin (test code = 1751-7) 4.1 g/dL 3.5-5 A/G ratio (test code = 1759-0) 1.5 0.7-3.8 Alkaline phosphatase (test code = 6768-6) 174 U/L 35-104 H AST (test code = 1920-8) 46 U/L 10-35 H ALT (test code = 1742-6) 51 U/L 5-50 H Total bilirubin (test code = 1975-2) 0.4 mg/dL 0-1.2 Lab Interpretation (test code = 93266-6) Abnormal [place] [facility] qualitative, urine spuaiq8454-27-75 22:59:34* Test Item Value Reference Range Interpretation Comments hCG qualitative, urine (test code = 2106-3) Negative Negative The manufacturers stated sensitivity of HcG test for serum is >/= 10 mIU/ml and urine is >/= 20mIU/ml. [place] [facility]- XR SHOULDER 2 + V [id number] 15:00:00 FAX: Richard Kaur MD [phone] [place]: St: REG FAX: Edilia Che [phone] Name: ROMEO LARA [facility] : 1970 Age/S: 49/F [address] [facility] Unit #: [id number] Loc: [place] [address] Phys: Richard Kaur MD Acct: [id number] Dis Date: Status: REG ER PHONE #: [phone] Exam Date: 07/02/2019 1440 FAX #: [phone] Reason: fall EXAMS: CPT CODE: [id number] XR SHOULDER 2 + V RT [address]19 HISTORY: Fall and pain. COMPARISON: None available. Location: [facility]. No acute fracture or dislocation. Joint spaces are preserved. Calcific tendinitis and/or bursitis. Mineralization and soft tissues are normal. Visualized lungs are clear. IMPRESSION: No acute fracture or dislocation. Calcific ten dinitis and/or bursitis. at 1500 Reported and signed by: Kishan cuevas M.D. CC: Richard Kaur MD; Edilia Kilgore MD Technologist: ANNETTE RODRIGEZ RT (R) Trnscrd Date/Time/By: 07/02/2019 (1500) : By: [email or web address] Orig Print D/T: S: 07/02/2019 (1500) PAGE 1 Signed Report - CT HEAD/BRAIN W/O [id number] 14:36:00 Name: ROMEO LARA [facility] : 1970 Age/S: 49 / F [address] [facility] Unit #: [id number] Loc: [place] [address] Phys: Richard Kaur MD Acct: [id number] Dis Date: Status: PRE ER PHONE #: [phone] Exam Date: 07/02/2019 1423 FAX #: [phone] Reason: fall EXAMS: CPT CODE: [id number] CT HEAD/BRAIN W/O CONT 68951 HISTORY: Fall and pain. COMPARISON: None available. Location: [facility]. CT brain without contrast: Automated exposure control. No acute intracranial bleeds or extra-axial collections are noted. No acute territorial vascular infarction is noted. Cerebellar ectopia likely of no clinical consequence. Study slightly motion limited. The sulci, gyri, ventricles and subarachnoid spaces and the basilar cisterns are normal for patient's age. No herniation or hydrocephalus or midline shift is noted. Mild periventricular ischemic gliosis is noted. Age-appropriate atrophy is noted as well. Portions of the visualized paranasal sinuses are normal. No obvious bony calvarial defect is noted. IMPRESSION: No acute intracranial bleeds or extra-axial collections. No acute territorial vascular infarction. No herniation or hydrocephalus or midline shift. Chronic white matter ischemic disease and atrophy . at 1436 Reported and signed by: Kishan Burton M.D. CC: Richard Kaur MD; Edilia Kilgore MD Technologist:Abad Canas RT(R),(MR),(CT) CTDI: DLP: Trnscb Date/Time: 07/02/2019 (3736) t.SDR.TH4 Orig Print D/T: S: 07/02/2019 (5146) PAGE 1 Signed Report FOOT RIGHT [id number] 14:41:00 [place] [address] Patient Name: ROMEO LARA MR #: [id number] : 1970 Age/Sex: 48/F Req #: [id number] Adm Physician: Ordered by: TANI ROSS OUTPATIENT PSYCHIATRIST Report #: [id number] Location: ER Room/Bed: Procedure: [id number] D X/FOOT RIGHT COMPLETE Exam Date: 05/25/19 Exam Time: 1407 REPORT STATUS: Signed Foot complete CPT code: 71263 Indication: Pain. No trauma history provided pain [id number] Technique: A.P., oblique and lateral views of the right foot obtained. Comparison: None Findings: The area of pain is not indicated or marked. Calcaneus is intact with small plantar spur. The midfoot is intact with diffuse degenerative changes. No evidence of displaced fracture or dislocation involving any of the digits. Mild generative changes of the first MTP. No focal osseous lesions. No radiopaque foreign bodies in the soft tissues. IMPRESSION: No fracture or radiopaque foreign body. Degenerative changes as described above. Signed by: Dr. Pop whitaker MD on 05/25/2019 2:42 PM Dictated By: POP DURAN MD [facility] Signed By: POP DURAN MD on 05/25/191441 Transcribed By: RUSTAM on 05/25/191441 COPY TO: TANI ROSS NP SP LUMBAR AP LATERAL [id number] 19:53:00 [place] [address] Patient Name: ROMEO LARA MR #: [id number] : 1970 Age/Sex: 48/F Req #: [id number] Adm Physician: Ordered by: TANI ROSS OUTPATIENT PSYCHIATRIST Report #: [id number] Location: ER Room/Bed: Procedure: [id number] D X/SP LUMBAR AP LATERAL 2-3VWS Exam Date: 09/19/18 Exam Time: 1755 REPORT STATUS: Sign ed Lumbar Spine Radiographs: 3. views HISTORY: Pain. Fall. CO MPARISON: None available. DISCUSSION: There are 6 non-rib bearing lumbar vertebral bodies with a transitional vertebra and left sided pseudoarthrosis.. Mild anterolisthesis of L4 in relation to L5. No displaced fracture or c ompression deformity is identified. Facet arthropathy at L4-L5 and L5-S1. IMPRESSION: No acute abnormality. Facet arthropathy at L4-L5 and L5-S1. Signed by: Dr. Loretta Hassan M.D. on 09/19/2018 7:55 PM Dictated By: JESS HASSAN MD, MD 54 COPY TO: FREDO ROSS OUTPATIENT PSYCHIATRIST CT CERVICAL SPINE [id number] 17:48:00 [place] [address] Patient Name: ROMEO LARA MR #: [id number] : 1970 Age/Sex: 48/F Req #: [id number] Adm Physician: Ordered by: TANI ROSS OUTPATIENT PSYCHIATRIST Report #: [id number] Location: ER Room/Bed: Procedure: [id number] C T/CT CERVICAL SPINE WO Exam Date: 09/19/18 Exam Time : 1550 REPORT STATUS: Signed EXA MINATION: CT of the cervical spine HISTORY: Status post fall the day befor e, pain, evaluate for fracture COMPARISON: None available TECHNIQUE: Multide tector helical axial images were obtained without contrast from the foramen ma gnum to T1. The images were reconstructed using bone and soft tissue algorithm s and were viewed in axial, sagittal and coronal planes. Dose modulation, i terative reconstruction, and/or weight based adjustment of the mA/kV was utili zed to reduce the radiation dose to as low as reasonably achievable. FIND INGS: Alignment: Reversal of the cervical lordosis which may be related to muscle spasm or positional. Soft tissues: Severe di ffuse enlargement of the thyroid gland, which additionally diffusely hypoatten uating with some scatter nodules and calcifications, most likely related to mu ltinodular goiter, without significant narrowing of the airway or deviation of the trachea. Vertebrae: Normal height and density. No acute frac ture, infection or neoplasm Degenerative changes: C1-C2: No rmal C2-C3: Mild facet arthrosis without stenoses C3-C4: Normal C4-C 5: Normal C5-C6: Disc osteophyte complex formation, bilateral uncovertebral arthrosis. Moderate left foraminal stenosis. Mild canal narrowing. C6-C7: Disc osteophyte complex formation, bilateral uncovertebral arthrosis. Minimal bilateral foramina narrowing. C7-T1: Normal IMPRESSION: 1. No a cute cervical spine postraumatic abnormalities. 2. Mild chronic degenerati ve changes as detailed above. 3. Diffuse enlargement of the thyroid gland, likely from multinodular goiter. Comparison to prior studies if available is recommended, otherwise a thyroid ultrasound and/or thyroid laboratory tests co rrelation is advised. Note: Acute postraumatic spinal cord, vascular or lig amentous injuries cannot adequately be assessed by CT. Signed by: Dr. Smitha Workman M.D. on 09/19/2018 5:52 PM Dictated By: SMITHA WORKMAN MD Elect ronuc [facility] Signed By: SMITHA WORKAMN MD on 09/19/181751 Transcribed By: RUSTAM on 09/19/181751 COPY TO: TANI ROSS OUTPATIENT PSYCHIATRIST CT BRAIN [id number] 17:46:00 [place] [address] Patient Name: ROMEO LARA MR #: [id number] : 1970 Age/Sex: 48/F Req #: [id number] Adm Physician: Ordered by: TANI ROSS OUTPATIENT PSYCHIATRIST Report #: [id number] Location: ER Room/Bed: Procedure: [id number] C T/CT BRAIN WO Exam Date: 09/19/18 Exam Time: 1550 REPORT STATUS: Signed Images made available for interpretation on 09/19/2018 at 5:30 PM. EXAMINATION: Head CT HISTORY: Status post fall today before, head trauma, pain, evaluate for f racture COMPARISON: None. TECHNIQUE: Multidetector axial images were obtaine d without contrast from the foramen magnum to the vertex . The images were rec onstructed using brain and bone algorithms. Thin section brain images were re formatted into coronal and sagittal planes. Image quality: Motion/streaking artifact limits the evaluation of the skull base and posterior cranial fossa. Dose modulation, iterative reconstruction, and/or weight based adjustment of the mA/kV was utilized to reduce the radiation dose to as low as reasonably a chievable. FINDINGS: Parenchyma: 1. No abnormal densities. 2. No mass or hemorrhage. No CT evidence of acute territorial vascular insul t. Extra-axial spaces:No abnormal density. No extra-axial fluid collections Brain volume: Normal for age. Ventricles: No hydroc ephalus or displacement. Arteries: No density suggestive of thrombus. Dural sinuses: No abnormal density. Extra-axial spaces: No abnorm al density. Foramen magnum: Slightly low-lying cerebellar tonsils with m inimal fullness at the level of the foramen magnum but no mass effect. Sella: No obvious mass. Paranasal/mastoid sinuses: Imaged portions unr emarkable. Skull/Scalp: No lytic or blastic lesions. No fractures. IMPRESSION: No acute posttraumatic intracranial abnormality, particularly no hemorrhage. Signed by: Dr. Smitha Workman M.D. on 09/19/2018 5:48 PM Dictated By: SMITHA WORKMAN MD 47 COPY TO: TANI ROSS OUTPATIENT PSYCHIATRIST FOREARM LEFT 2 [id number] 16:54:00 [place] [address] Patient Name: ROMEO LARA MR #: [id number] : 1970 Age/Sex: 48/F Req #: [id number] Adm Physician: Ordered by: TANI ROSS OUTPATIENT PSYCHIATRIST Report #: [id number] Location: ER Room/Bed: Procedure: D X/FOREARM LEFT 2 VIEW Exam Date: 09/19/18 Exam Time: 1550 REPORT STATUS: Signed EXAM: ELBOW LEFT COMPLETE, FOREARM LEFT 2 VIEW DATE: 09/19/2018 3:19 PM I NDICATION:Fall COMPARISON: None FINDINGS: Left elbow: 3 views of the left elbow show no displaced fracture or dislocation. There are mild d egenerative changes at the ulnohumeral and radiohumeral joints. No evidence fo r joint effusion or hemarthrosis. Left forearm: 2 views of the left forearm show no displaced fracture or dislocation. Soft tissues unremarkable. IM PRESSION: No acute bony abnormality. Signed by: Diogenes Tabor 09/19/2018 4:57 PM Dictated By: CARLOS MILLS MD 56 Transcribed By: RUSTAM on 09/19/181656 COPY TO: TANI ROSS OUTPATIENT PSYCHIATRIST ELBOW LEFT [id number] 16:54:00 [place] [address] Patient Name: ROMEO LARA MR #: [id number] : [birth year] Age/Sex: 48/F Req #: [id number] Adm Physician: Ordered by: TANI ROSS OUTPATIENT PSYCHIATRIST Report #: [id number] Location: ER Room/Bed: Procedure: D X/ELBOW LEFT COMPLETE Exam Date: 09/19/18 Exam Time: 1550 REPORT STATUS: Signed EXAM: ELBOW LEFT COMPLETE, FOREARM LEFT 2 VIEW DATE: 09/19/2018 3:19 PM I NDICATION:Fall COMPARISON: None FINDINGS: Left elbow: 3 views of the left elbow show no displaced fracture or dislocation. There are mild d egenerative changes at the ulnohumeral and radiohumeral joints. No evidence fo r joint effusion or hemarthrosis. Left forearm: 2 views of the left forearm show no displaced fracture or dislocation. Soft tissues unremarkable. IM PRESSION: No acute bony abnormality. Signed by: Diogenes Tabor 09/19/2018 4:57 PM Dictated By: CARLOS MILLS MD 56 Transcribed By: RUSTAM on 09/19/181656 COPY TO: TANI ROSS OUTPATIENT PSYCHIATRIST [U] XR CALCANEUS (HEEL) 2 VWS, MIN. LEFT [id number] 11:32:00Images acquired, not reported on this accession number.[facility][U] XRAY TIBIA FIBULA 2 VWS RIGHT [id number] 2017-10-02 15:05:00Images acquired, not reported on this accession number. [facility][U] XRAY ANKLE MIN 3 VWS RIGHT [id number] 16:35:00Images acquired, not reported on this accession number.[facility][U] XRAY TIBIA FIBULA 2 VWS RIGHT [id number] 16:32:00Images acquired, not reported on this accession number.[facility] [U] XRAY TIBIA FIBULA 2 VWS RIGHT [id number] 16:06:00Images acquired, not reported on this accession number.[facility] Ankle 3 views [id number] 09:10:00EXAM: XR RIGHT ANKLE 3 VIEWSDATE: 06/27/2017 8:54 AM CSTINDICATION: - prox fibula fxCOMPARISON: Previous right tibia and fibula showing a proximal shaft fibularfractureTECHNIQUE: AP, oblique and lateral radiographs of the ankleFINDINGS: No acute fracture or malalignment is identified. The anklemortise is congruent.No soft tissue abnormality is identified.IMPRESSION: No acute abnormality.--Read by: Sherman Hood MDDictated Date/time: 06/27/17 10:47Electronically Signed by: Sherman Hood MD 06/27/1809:47FINAL REPORTUnLayton Hospital Physicians[U] XRAY KNEE 4 OR MORE VWS BILATERAL [id number] 09:09:00Images acquired, not reported on this accession number.[facility]
[2020-03-02] MEDS ORDERED: ACETAMINOPHEN 325 MG TAB PO ONE (19:00)
[2020-03-02] MEDS ORDERED: ACETAMINOPHEN 325 MG TAB ONE (19:02)
[2020-03-02] MEDS ORDERED: ALBUTEROL SULF 0.083% NEB SOLN 3 ML NEB NEB STA (19:24)
--- NOTE | 2020-03-02 19:29 | Diagnostic Imaging Report ---
EXAMINATION: CHEST SINGLE (PORTABLE) INDICATION: Wheezing. COMPARISON: None FINDINGS: TUBES and LINES: None. LUNGS: The lungs are hyperinflated. There is perihilar fullness and diffuse bronchial wall thickening. There is bibasilar atelectasis. No consolidations. PLEURA: No pleural effusion or pneumothorax. HEART AND MEDIASTINUM: The cardiomediastinal silhouette is unremarkable. BONES AND SOFT TISSUES: No acute osseous lesion. Soft tissues are unremarkable. UPPER ABDOMEN: No free air under the diaphragm. IMPRESSION: Peribronchial cuffing which can be seen with airway inflammation such as bronchitis or asthma exacerbation. Signed by: Ayad Hutchison MD on 03/02/2020 7:26 PM
[2020-03-02] MEDS ORDERED: IPRATROPIUM BROMIDE 0.02% 2.5 ML NEB NEB ONE (19:30)
--- OUTSIDE RECORDS SUMMARY | 2020-03-02 19:44 | XMS REPORT | Clinical Summary ---
Author Author [facility] Address Unknown Phone Unavailable Care Team Providers Care Disability Aide Name Role Phone Asked, No Pcp PCP [...] (12/13/2019 10:45 PM CDT) Adenovirus Not Detected [place] 40/41 PCR Comment: [facility] Specimen Information HOSPITAL Specimen Source: Stool Specimen Site: Nonpreserved Astrovirus PCR Not Detected [facility] Campylobacter Not Detected [facility] Clostridioides Not Detected [place] difficile PCR [facility] Cryptosporidium Not Detected [facility] Cyclospora Not Detected [place] cayetanensis [facility] Enteroaggregati Not Detected [place] ve E coli PCR [facility] Entamoeba Not Detected [place] histolytica PCR [facility] Enteroinvasive Not Detected [place] E coli PCR [facility] Enteropathogeni Not Detected [place] c E coli PCR [facility] Norovirus PCR Not Detected [facility] Plesiomonas Not Detected [place] shigelloides [facility] Rotavirus PCR Not Detected [facility] Salmonella PCR Not Detected [facility] Sapovirus PCR Not Detected [facility] Enterotoxigenic Not Detected [place] E coli PCR [facility] Shigatoxin Not Detected [place] producing E [facility] coli PCR [facility] E coli O157 PCR Not Reported [facility] Vibrio PCR Not Detected [facility] Vibrio cholerae Not Detected [facility] Yersinia Not Detected [place] enterocolitica [facility] Giardia lamblia Not Detected [facility] Specimen Stool - Nonpreserved Performing Organization Address City/State/ZIP Code P best Number [facility] DEPARTMENT OF [address] [place] [address] PATHOLOGY AND GENOMIC MEDICINE [address] [address] HOSPITAL * Urinalysis screen and microscopy, with reflex to culture (12/13/2019 6:31 PM CDT) Only the most recent of 2 results within the time period is included. Specimen site Clean catch [facility] Color, UA Yellow [facility] Appearance, UA Clear [facility] Specific 1.011 1.001 - 1.035 [place] gravity, UA [facility] pH, UA 5.0 5.0 - 8.5 [facility] Protein, UA Negative Negative [facility] Glucose, UA Negative Negative [facility] Ketones, UA Negative Negative [facility] Bilirubin, UA Negative Negative [facility] Blood, UA Negative Negative [facility] Nitrite, UA Negative Negative [facility] Urobilinogen, Negative <2.0 [facility] Leukocyte Negative Negative [place] esterase, [facility] Epithelial Few Few /HPF [place] cells, [facility] WBC, UA 0-5 0 - 4 /HPF [facility] RBC, UA 0-5 0 - 5 /HPF [facility] Bacteria, UA None seen None seen [facility] Yeast, UA None seen [facility] Yeast with None seen [place] pseudohyphae, [facility] Specimen Urine Performing Organization Address City/State/ZIP Code P best Number [facility] [place] [address] PATHOLOGY AND GENOMIC MEDICINE [address] * Urine culture (12/13/2019 6:31 PM CDT) Only the most recent of 2 results within the time period is included. Urine culture SEE COMMENTComment: [place] Bacteriuria screen negative. [facility] Specimen Urine Performing Organization Address City/State/ZIP Code P bets Number [address] [place], [place] [address] PATHOLOGY AND GENOMIC MEDICINE [address] * US Gallbladder (12/13/2019 3:27 PM [...] Harris's sign was not elicited by the medtronics technician nologist. 2. CBD: The common bile duct is within normal limits measuring 5 mm. 3. Main portal vein: Normal in diameter measuring 1.0 cm and patent with normal hepatopetal flow and phasicity. 4. Other Findings: None [id number] Procedure Note Interface, Radiology Results Incoming - [...] Harris's sign was not elicited by the reliability technologist. 2. CBD: The common bile duct is within n ormal limits measuring 5 mm. 3. Main portal vein: Normal in diameter measuring 1.0 cm and patent with normal hepatopetal flow and phasicity. 4. Other Findings: None [id number] Performing Organization Address City/State/ZIP Code P best Number [facility] [address] [place] [address] * COVID-19 qualitative PCR (12/13/2019 2:29 AM CDT) Interpretation Negative results do not OROZCO preclude 2019-nCoV infection [facility] and should not be used as the HOSPITAL sole basis for treatment or other patient management decisions. Negative results must be combined with clinical observations, patient history, and epidemiological information. COVID-19 Not-Detected Not-Detected [place] qualitative PCR [facility] result HOSPITAL COVID-19 See link below for PDF Lab [place] qualitative PCR ReportComment: Case Number: [facility] [id number] HOSPITAL Specimen Nasopharyngeal swab Performing Organization Address City/State/ZIP Code P best Number [facility] DEPARTMENT OF [address] [place] [address] PATHOLOGY AND GENOMIC MEDICINE [place] [facility] [address] [place] [address] [facility] * CT Abdomen Pelvis W Contrast (12/13/2019 [...] colonic diverticuli withou t evidence of inflammation. [facility]-[id number] Procedure Note Hm Interface, Radiology Results Incoming [...] Scattered colonic diverticuli without evidence of inflammation. [facility]-[id number] Performing Organization Address City/State/ZIP Code P best Number [facility] [address] [place] [address] * Estimated GFR (12/12/2019 11:20 PM CDT) Only the most recent of 2 results within the time period is included. Estimated GFR >=90 mL/min/1.73 m2 [place] Comment: [facility] Interpretation G1 >=90 Normal or high [...] published in 2014. Specimen Performing Organization Address City/State/[facility] Code P best [place] [address] [place], [place] [address] PATHOLOGY AND GENOMIC MEDICINE [facility] [address] [place] [address] [facility] * CBC with platelet and differential (12/12/2019 11:20 PM CDT) Only the most recent of 2 results within the time period is included. WBC 4.82 4.50 - 11.00 k/uL [facility] RBC 4.28 4.20 - 5.50 m/uL [facility] HGB 10.9 (L) 12.0 - 16.0 g/dL [facility] HCT 32.6 (L) 37.0 - 47.0 % [facility] MCV 76.2 (L) 82.0 - 100.0 fL [facility] MCH 25.5 (L) 27.0 - 34.0 pg [facility] MCHC 33.4 31.0 - 37.0 g/dL [facility] RDW - SD 37.8 37.0 - 55.0 fL [facility] MPV 9.9 8.8 - 13.2 fL [facility] Platelet count 188 150 - 400 k/uL [facility] Nucleated RBC 0.00 /100 WBC [facility] Neutrophils 45.2 39.0 - 69.0 % [facility] Lymphocytes 41.7 25.0 - 45.0 % [facility] Monocytes 10.4 (H) 0.0 - 10.0 % [facility] Eosinophils 2.3 0.0 - 5.0 % [facility] Basophils 0.2 0.0 - 1.0 % [facility] Specimen Blood Performing Organization Address [facility] P best Number [address] [place] [address] PATHOLOGY AND GENOMIC MEDICINE [address] * Lipase level (12/12/2019 11:20 PM CDT) Only the most recent of 2 results within the time period is included. Lipase 17 13 - 60 U/L [facility] Specimen Blood Performing Organization Address City/[facility] P best Number [address] [place] [address] PATHOLOGY AND GENOMIC MEDICINE [address] * Hepatic function panel (12/12/2019 11:20 PM CDT) Albumin 3.6 3.5 - 5.0 g/dL [facility] Total bilirubin 0.3 0.0 - 1.2 mg/dL [facility] Bilirubin <0.1 0.0 - 0.3 mg/dL [place] direct [facility] Alkaline 168 (H) 35 - 104 U/L [place] phosphatase [facility] Protein 5.8 (L) 6.3 - 8.3 g/dL [place] Comment: [facility] [place] 4.6-7.0 g/dL 1 week 4.4-7.6 g/dL 7 months-1year 5.1-7.3 g/dL 1-2 years 5.6-7.5 g/dL >3 years 6.0-8.0 g/dL 18-150 6.3-8.3 g/dL ALT 38 5 - 50 U/L [facility] AST 30 10 - 35 U/L [facility] Specimen Blood Performing Organization Address City/[facility] P best [facility] [place] [address] [place] [address] PATHOLOGY AND GENOMIC MEDICINE [facility] [id number] [place] [address] * Basic metabolic panel (12/12/2019 11:20 PM CDT) Sodium 138 135 - 148 mEq/L [facility] Potassium 4.3 3.5 - 5.0 mEq/L [facility] Chloride 107 98 - 112 mEq/L [facility] CO2 23 (L) 24 - 31 mEq/L [facility] Anion gap 8@ANIO 7 - 15 mEq/L [facility] BUN 23 (H) 6 - 20 mg/dL [facility] Creatinine 0.30 (L) 0.50 - 0.90 mg/dL [facility] Glucose 103 (H) 65 - 99 mg/dL [facility] Calcium 9.5 8.3 - 10.2 mg/dL [facility] Specimen Blood Performing Organization Address [facility] P best Number [facility] DE[facility]MENT OF [address] [place] [address] Isela Rendon [place] [address] PATHOLOGY AND GENOMIC MEDICINE [address] * ECG ED Preliminary Interpretation - Not an Order (12/12/2019 11:14 PM CDT) Narrative Performed At Chano Chisholm MD 12/13/19 4:50 AM ECG ED Preliminary Interpretation - Not an Order Performed by: Chano Chisholm M D Authorized by: Chano Chisholm MD ECG reviewed by ED Physician in the abs ence of a physical design engineer: yes Interpretation: Interpretation: abnormal Rate: ECG rate: 89 ECG rate assessment: normal Rhythm: Rhythm: sinus rhythm Ectopy: Ectopy: none QRS: QRS axis: Left QRS intervals: Normal Conduction: Conduction: normal ST segments: ST segments: Normal T waves: T waves: normal * ECG 12 lead (12/12/2019 10:35 PM CDT) Ventricular 89 [facility] rate Atrial rate 89 [facility] MI interval 144 [facility] QRSD interval 88 [...] is n ot available. Performing Organization Address [facility] Code P best Number [facility] [address] [place] [address] * XR Ankle 3+ Vw Right (11/10/2019 2:40 PM CDT) Specimen Narrative Performed At [facility] X-ray of the right ankle demonstrate we ll-maintained mortise syndesmosis and medial clear space. There are no fractures. Performing Organization Address [facility] P best Number [facility] [address] [place] [address] * XR Knee 3 Vw Left (11/10/2019 2:40 PM CDT) Specimen Narrative Performed At [facility] X-ray of the left knee demonstrates brittnee us arthritis with complete loss of the medial joint space and peripheral o steophytes. There are no fractures. Patellofemoral joint is we ll aligned. Performing Organization Address [facility] Code P best Number [facility] [address] [place] [address] * XR Lumbar Spine 2 Or 3 [...] Code P best Number [facility] [address] [place] [address] * [place] Pelvic Transabdominal (11/05/2019 12:40 AM [...] transabdominal and endovaginal pelvic u ltrasound examination. [facility]-[id number] Dictated and approved by radiology resi dent/fellow: [...] unremarkable transabdominal and endovaginal pelvic ultrasound examination. [facility]-[id number] Dictated and approved by [employer] income [employer] vice president/fellow: Jessica Lin M.D. I, ISELA COLLINS MD, personally reviewed the images and resident's/fellow's findings and agree with the final report. Performing Organization Address City/State/ZIP Code P best Number [facility] [address] [place] [address] * US Pelvic Transvaginal (11/05/2019 12:39 AM [...] transabdominal and endovaginal pelvic u ltrasound examination. [facility]-[id number] Dictated and approved by radiology resi dent/fellow: Jessica Lin M.D. I, ISELA COLLINS MD, personally rev iewed the images and resident's/fellow's findings and agree with the final repor t. Procedure Note [facility], Radiology Results Incoming - 11/05/2019 1:04 AM [...] unremarkable transabdominal and endovaginal pelvic ultrasound examination. [facility]-[id number] Dictated and approved by [employer] income trading vice president/fellow: Jessica Lin M.D. I, ISELA COLLINS MD, personally reviewed the images and resident's/fellow's findings and agree with the final report. Performing Organization Address City/State/ZIP Code P best Number [facility] [address] [place] [address] * Comprehensive metabolic panel (11/04/2019 10:38 PM CDT) Sodium 139 135 - 148 mEq/L [facility] Potassium 3.5 3.5 - 5.0 mEq/L [facility] Chloride 104 98 - 112 mEq/L [facility] CO2 26 24 - 31 mEq/L [facility] Anion gap 9@ANIO 7 - 15 mEq/L [facility] BUN 20 6 - 20 mg/dL [facility] Creatinine 0.40 (L) 0.50 - 0.90 mg/dL [facility] Glucose 132 (H) 65 - 99 mg/dL [facility] Calcium 9.4 8.3 - 10.2 mg/dL [facility] Protein 6.8 6.3 - 8.3 g/dL [place] Comment: [facility] [place] 4.6-7.0 g/dL 1 week 4.4-7.6 g/dL 7 months-1year 5.1-7.3 g/dL 1-2 years 5.6-7.5 g/dL >3 years 6.0-8.0 g/dL 18-150 6.3-8.3 g/dL Albumin 4.1 3.5 - 5.0 g/dL [facility] A/G ratio 1.5 0.7 - 3.8 [facility] Alkaline 174 (H) 35 - 104 U/L [place] phosphatase [facility] AST 46 (H) 10 - 35 U/L [facility] ALT 51 (H) 5 - 50 U/L [facility] Total bilirubin 0.4 0.0 - 1.2 mg/dL [facility] Specimen Blood Performing Organization Address City/[facility] Code P bset Number [facility] DEPARTMENT [place] [id number] [place] [address] [place], [place] [address] PATHOLOGY AND GENOMIC MEDICINE [facility] [address] [place] [address] [place] [address] [facility] * hCG qualitative, urine screen (11/04/2019 10:30 PM CDT) hCG Negative Negative [place] qualitative, Comment: [facility] urine The manufacturers stated [facility] sensitivity of HcG test for serum is >/= 10 mIU/ml and urine is >/= 20mIU/ml. Specimen Urine - Urine, clean catch Performing Organization Address City/[facility] Code P best Number [facility] [place] [id number] [place] [address] [place] [address] PATHOLOGY AND GENOMIC MEDICINE [facility] [address] [place] [address] [place] [address] [facility] after 03/02/2019 Insurance Type Payer Benefit Subscriber ID Effective Phone Address Plan / Dates Group PPO AETNA AETNA PPO [id number] 2014-P OPEN resent CHOICE HMO [employer]AN [id number] 2014-P HMO,POS,EP resent O, MC/EC Advance Directives For more information, please contact: [phone] Patient Director Of Laboratory Operations Explanation Type Date Recorded Advance Directives, 11/04/2019 11:00 PM Living Will and Medical Power of Vehicle Upholsterer
--- OUTSIDE RECORDS SUMMARY | 2020-03-02 19:44 | XMS REPORT | Continuity of Care Document ---
Author Author [facility] t Organization [facility] Address [address] [place] [address] Phone Unavailable Care Team Providers Care Rfid Strategist Name Role Phone NONSTAFF PCP Unavailable TANI MOORE Attphys Unavailable Claudia Ochoa MD Attphys Luis Eduardo Chisholm MD Attphys [phone] Luis Eduardo Welsh MD Attphys Omaira Winslow MA Attphys Unavailable John VENCES, Bertin Ny Attphys [phone] Collins CAMPOS Attphys Unavailable Zaida PARRA Attphys Unavailable CLYDE HICKS M.D. Attphys Unavailable ARCHIE GUERIN Attphys Unavailable JEFF DUGAN M.D. Attphys Unavailable DOUG MUNROE M.D. Attphys Unavailable QUITA BAILEY M.D. Attphys Unavailable LUIS EDUARDO WELSH Admphys Unavailable Payers Payer Name Policy Type Policy Number Effective Date Expiration Date Zaida maher AETNAAETRAMIRO PPO OPEN [id number] 2014-PresentPPO [id number] 2014 00:00:00 Jeremy Elmore Problems Condition Name Condition Details Condition Category Status Onset Date Resolution Date Last Treatment Date Treating Clinician Comments Source Abdominal pain Abdominal pain Disease Active 2019-12-13 00:00:00 [facility] Low back pain Low back pain Disease Active 2019-11-10 00:00:00 [facility] Lumbar spondylolysis Lumbar spondylolysis Disease Active 00:00:00 [facility] Spondylolisthesis of lumbar region Spondylolisthesis of lumbar r egion Disease Active 2019-11-10 00:00:00 [place] Scoliosis of lumbar spine Scoliosis of lumbar spine Disease Ac tive 2019-11-10 00:00:[address] Primary osteoarthritis of left knee Primary osteoarthritis of le ft knee Disease Active 2019-11-10 00:00:00 [place] History of Diabetes type 2, controlled History of Diabetes t ype 2, controlled Problem HL7.CCDAR2 Resolved [facility] History of essential hypertension History of essential hyper tension Problem HL7.CCDAR2 Resolved [facility] Diabetes Diabetes Problem HL7.CCDAR2 Active [facility] Hypertension Hypertension Problem HL7.CCDAR2 Active [facility] Menopause Menopause Problem HL7.CCDAR2 Active [facility] Menopausal symptoms Menopausal symptoms Problem HL7.CCDAR2 Active [facility] Cervical cancer screening Cervical cancer screening Problem HL7.CCDAR 2 Active [facility] Asthma Asthma Problem HL7.CCDAR2 Active [facility] Helicobacter pylori infection Helicobacter pylori infection Prob john HL7.CCDAR2 Active [facility] Sleep apnea in adult Sleep apnea in adult Problem HL7.CCDAR2 Active [facility] Morbid obesity Morbid obesity Problem HL7.CCDAR2 Active [facility] Adult BMI 50.0-59.9 kg/sq m Adult BMI 50.0-59.9 kg/sq m Problem HL7.CCDAR2 Active [facility] Prediabetes Prediabetes Problem HL7.CCDAR2 Active [facility] Limb pain Limb pain Problem HL7.CCDAR2 Active [facility] Breast cancer screening Breast cancer screening Problem HL7.CCDAR2 Activ e [facility] Pain of right tibia Pain of right tibia Problem HL7.CCDAR2 Active [facility] Other closed fracture of proximal end of right fibula with routine healing, subsequent encounter Other closed fracture of proximal end of right fibula with routine healing, subsequent encounter Problem HL7.CCDAR2 Active [facility] Primary osteoarthritis of both knees Primary osteoarthritis of both knees Problem HL7.CCDAR2 Active [facility] Plantar fasciitis of left foot Plantar fasciitis of left emma t Problem HL7.CCDAR2 Active [facility] History of Past Illness Condition [...] Drug Allergies DA Active U 2019-07-02 00:00:00 [facility] peanut FA Active U 2019-07-02 00:00:00 [facility] Apricot Tree DA Active SV 2019-07-02 00:00:00 [facility] No Known Drug Allergies DA Active U 2012-06-08 00:00:00 [facility] Apricot Tree DA Active SV 2012-06-08 00:00:00 [facility] PEANUTS DA Active SV 2012-01-21 00:00:00 [facility] Family History Family Member Diagnosis Comments Start Date Stop Date Source Mother Family history of diabetes mellitus [facility] Mother Family history of cardiac disorder [facility] Mother Family history of cerebrovascular accident (CVA) [facility] Father Family history of diabetes mellitus [facility] Father Family history of cardiac disorder [facility] Father Family history of cerebrovascular accident (CVA) [facility] Natural father Diabetes [place] [facility] Natural father Heart disease [facility] Natural father Stroke [place] [facility] Natural mother Diabetes [place] [facility] Natural mother Kidney disease [place] [facility] Paternal grandfather Heart attack Ho bryan Elmore Social History Social Habit Start Date Stop Date Quantity Comments Source Sex Assigned At [facility] Cigarettes smoked current (pack per day) - [...] BY MOUTH EVERY DAY Jeremy Elmore meloxicam (Mobic) 15 mg tablet 2019-11-10 [...] M.D. ONE INJECTION INTO EACH KNEE [facility] Celecoxib 200 MG Oral Capsule Celecoxib 200 MG Oral Capsule 2017 00:00:00 Yes CLYDE HICKS M.D. QD TAKE 1 CAPSULE DAILY W ITH A MEAL. [facility] ergocalciferol (VITAMIN D2) 50,000 unit capsule 2014-07-23 00:00 :00 Yes [id number] Take 50,000 Units by mouth. Jeremy Elmore MetFORMIN HCl - 500 MG Oral Tablet MetFORMIN HCl - 500 MG Oral Tablet Yes [facility] Sertraline HCl TABS Sertraline HCl TABS Yes [facility] Valsartan TABS Valsartan TABS Yes [facility] Vital Signs Vital Name Observation Time Observation Value Comments Source Systolic blood pressure 2019-12-14 13:01:32 143 mm[Hg] Jeremy Elmore Diastolic blood pressure 2019-12-14 13:01:32 67 mm[Hg] Jeremy Elmore Heart rate 2019-12-14 13:01:32 107 /min Jeremy Elmore Body temperature 2019-12-14 13:01:32 37.11 [place] Respiratory rate 2019-12-14 13:01:32 18 /min [place] Oxygen saturation in Arterial blood by Pulse oximetry 12-13 13:01:32 92 /min Jeremy Elmore Body height 2019-12-13 04:05:00 154.9 cm Jeremy Elmore Body weight 2019-12-13 04:05:00 99.338 kg Jeremy [facility]into BMI 2019-12-13 04:05:00 41.38 kg/m2 [facility] BP Systolic 2017-11-08 11:09:00 94 mm[Hg] [facility] BP Diastolic 2017-11-08 11:09:00 79 mm[Hg] [facility] Height 2017-11-08 11:09:00 61 [in_us] [facility] Weight 2017-11-08 11:09:00 220 [lb_av] [facility] Body Mass Index Calculated 2017-11-08 11:09:00 41.57 kg/m2 [facility] Heart Rate 2017-11-08 11:09:00 66 /min [facility] BP Systolic 2017-10-02 15:02:00 129 mm[Hg] [facility] BP Diastolic 2017-10-02 15:02:00 70 mm[Hg] [facility] Height 2017-10-02 15:02:00 61 [in_us] [facility] Weight 2017-10-02 15:02:00 220 [lb_av] [facility] Body Mass Index Calculated 2017-10-02 15:02:00 41.57 kg/m2 [facility] Heart Rate 2017-10-02 15:02:00 69 /min [facility] BP Systolic 2017-08-01 16:29:00 150 mm[Hg] [facility] BP Diastolic 2017-08-01 16:29:00 75 mm[Hg] [facility] Height 2017-08-01 16:29:00 61 [in_us] [facility] Weight 2017-08-01 16:29:00 220 [lb_av] [facility] Body Mass Index Calculated 2017-08-01 16:29:00 41.57 kg/m2 [facility] Heart Rate 2017-08-01 16:29:00 70 /min [facility] BP Systolic 2017-07-11 15:50:00 114 mm[Hg] [facility] BP Diastolic 2017-07-11 15:50:00 62 mm[Hg] [facility] Height 2017-07-11 15:50:00 61 [in_us] [facility] Weight 2017-07-11 15:50:00 220 [lb_av] [facility] Body Mass Index Calculated 2017-07-11 15:50:00 41.57 kg/m2 [facility] Heart Rate 2017-07-11 15:50:00 76 /min [facility] Height 2017-03-14 08:16:00 61 [in_us] [facility] Weight 2017-03-14 08:16:00 228 [lb_av] [facility] Body Mass Index Calculated 2017-03-14 08:16:00 43.08 kg/m2 [facility] Procedures Procedure Date / Time Performed Performing Clinician Sour e GASTROINTESTINAL PANEL 2019-12-13 22:45:00 Chano Chisholm URINE CULTURE 2019-12-13 18:31:00 Hudson Mo URINALYSIS SCREEN AND MICROSCOPY, WITH REFLEX TO CULTURE 202 18:31:00 Hudson Mo US GALLBLADDER 2019-12-13 15:27:47 Hudson Mo COVID-19 QUALITATIVE PCR 2019-12-13 02:29:[address] ABDOMEN PELVIS W CONTRAST 2019-12-13 00:18:03 Kendall Chisholm HC COMPLETE BLD COUNT W/AUTO DIFF 2019-12-12 23:20:00 Chano Chisholm BASIC METABOLIC PANEL 2019-12-12 23:20:00 Chano Chisholm HEPATIC FUNCTION PANEL 2019-12-12 23:20:00 Chano Chisholm LIPASE LEVEL 2019-12-12 23:20:00 Chano Chisholm on [facility]into ESTIMATED GFR 2019-12-12 23:20:00 Chano Chisholm on [facility]into ECG ED PRELIMINARY INTERPRETATION 2019-12-12 23:14:59 Chano Chisholm ECG 12-LEAD 2019-12-12 22:35:21 Chano Chisholm on Shinto XR ANKLE 3+ VW RIGHT 2019-11-10 14:40:28 Wayne Ochoa Shinto XR KNEE 3 VW LEFT 2019-11-10 14:40:28 Wayne Ochoa Shinto XR LUMBAR SPINE 2 OR 3 VW 2019-11-10 14:40:28 Wayne Ochoa US PELVIC TRANSABDOMINAL 2019-11-05 00:40:03 Yuli Boateng Shinto US PELVIC TRANSVAGINAL 2019-11-05 00:39:[address] ABDOMEN PELVIS W CONTRAST 2019-11-05 00:39:34 Yuli Boateng Shinto URINE CULTURE 2019-11-04 23:03:00 Yuli Boateng on Shinto HC COMPLETE BLD COUNT W/AUTO DIFF 2019-11-04 22:38:00 Anju Boateng se Shinto COMPREHENSIVE METABOLIC PANEL 2019-11-04 22:38:00 Yuli Boateng LIPASE LEVEL 2019-11-04 22:38:00 Yuli Boateng on Shinto ESTIMATED GFR 2019-11-04 22:38:00 Yuli Boateng on Shinto URINALYSIS SCREEN AND MICROSCOPY, WITH REFLEX TO CULTURE 202 22:30:00 Yuli Boateng HCG QUALITATIVE, URINE SCREEN 2019-11-04 22:30:00 Yuli Boateng Computed tomography of cervical spine without contrast 09-19 00:00:00 TANI ROSS [facility] Computed tomography of brain without radiopaque contrast 201 01-16-09 00:00:00 TANI ROSS [facility] [U] XRAY TIBIA FIBULA 2 VWS RIGHT [id number] 2017-10-02 00:00:00 [facility] [U] XRAY TIBIA FIBULA 2 VWS RIGHT [id number] 2017-08-16 00:00:00 [facility] [U] XRAY TIBIA FIBULA 2 VWS RIGHT [id number] 2017-08-01 00:00:00 [facility] [U] XRAY ANKLE MIN 3 VWS RIGHT [id number] 2017-08-01 00:00:00 [facility] [U] XRAY TIBIA FIBULA 2 VWS RIGHT [id number] 2017-07-11 00:00:00 [facility] History of Section [facility] Plan of Care Planned Activity Planned Date Details Comments Source Future Scheduled Test 2019-12-13 00:00:00 INFLUENZA VACCINE [code = INFLUENZA VACCINE] [facility] Future Scheduled Test 2018 00:00:00 BREAST CANCER SCRE ENING [code = BREAST CANCER SCREENING] [facility] Future Scheduled Test 2018 00:00:00 COLONOSCOPY SCREEN ING [code = COLONOSCOPY SCREENING] [facility] Future Scheduled Test 2018 00:00:00 SHINGLES VACCINES (#1) [code = SHINGLES VACCINES (#1)] [facility] Future Scheduled Test 1989 00:00:00 Screening for tequila gnant neoplasm of cervix (procedure) [code = 410691089] [facility] Future Scheduled Test 1978 00:00:00 DIABETES: RETINAL EYE EXAM [code = DIABETES: RETINAL EYE EXAM] [facility] Future Scheduled Test 1978 00:00:00 DIABETIC FOOT EXAM [code = DIABETIC FOOT EXAM] [facility] Future Scheduled Test 1978 00:00:00 URINE MICROALBUMIN [code = URINE MICROALBUMIN] [facility] Encounters Start Date/Time End Date/Time Encounter Type Admission Type Attendi [facility] Care Department Encounter ID Source 2019-12-12 00:00:00 2019-12-14 00:00:00 Outpatient LUIS EDUARDO WELSH [facility] [id number] [facility] 2019-11-27 00:00:00 2019-11-27 00:00:00 Outpatient JOSÉ MIGUEL OCHOA [facility] [id number] [facility] 2019-11-10 00:00:00 2019-11-10 00:00:00 Outpatient JOSÉ MIGUEL OCHOA [facility] [id number] [facility] 2019-11-10 00:00:00 2019-11-10 00:00:00 Outpatient JOSÉ MIGUEL OCHOA [facility] [id number] [facility] 2019-11-04 00:00:00 2019-11-05 00:00:00 Emergency YULI BOATENG [id number] [facility] 2019-11-04 16:03:00 2019-11-04 16:03:00 Emergency E MHSE MHSE [id number] [facility] 2019-05-25 13:28:00 2019-05-25 15:30:00 Departed Emergency Room 1 BECKY CAMPOS [facility] [id number] [facility] 2018-09-19 14:58:00 2018-09-19 20:30:00 Departed Emergency Room 1 KANCHAN PARRA [facility] [id number] [facility] 2017-11-08 10:45:00 2017-11-08 10:45:00 Appointment; CLYDE HICKS M.D. LEE, JONATHAN, M.D. [facility] [place] [id number] [facility] 2017-11-01 10:00:00 2017-11-01 10:00:00 Appointment; CLYDE HICKS M.D. LEE, JONATHAN, M.D. [facility] [id number] [facility] 2017-10-22 10:30:00 2017-10-22 10:30:00 Appointment; SUE GUERIN MARIANNE [facility] [id number] [facility] 2017-10-02 14:45:00 2017-10-02 14:45:00 Appointment; CLYDE HICKS M.D. LEE, JONATHAN, M.D. [facility] [place] [id number] [facility] 2017-08-16 09:30:00 2017-08-16 09:30:00 Appointment; CLYDE HICKS M.D. LEE, JONATHAN, M.D. [facility] [place] [id number] [facility] 2017-08-01 15:00:00 2017-08-01 15:00:00 Appointment; CLYDE HICKS M.D. LEE, JONATHAN, M.D. [facility] [place] [id number] [facility] 2017-07-11 15:00:00 2017-07-11 15:00:00 Appointment; CLYDE HICKS M.D. LEE, JONATHAN, M.D. [facility] [place] [id number] [facility] 2017-05-09 10:00:00 2017-05-09 10:00:00 Appointment; JEFF DUGAN M.D. HUANG, EDDIE, M.D. [facility] [id number] [facility] 2017-03-14 08:45:00 2017-03-14 08:45:00 Appointment; JEFF DUGAN M.D. HUANG, EDDIE, M.D. [facility] [id number] [facility] 2016-12-01 12:00:00 2016-12-01 12:00:00 Appointment; HARISH MUNROE M.D. TRAHAN, MICHAEL, M.D. [facility] [id number] [facility] 2016-08-30 15:00:00 2016-08-30 15:00:00 Appointment; HARISH MUNROE M.D. TRAHAN, MICHAEL, M.D. [facility] [id number] [facility] 2016-01-20 08:00:00 2016-01-20 08:00:00 Appointment; BRIAN BAILEY M.D. NUGENT, ELIZABETH, M.D. [facility] [id number] [facility] 2016-01-19 08:00:00 2016-01-19 08:00:00 Appointment; BRIAN BAILEY M.D. NUGENT, ELIZABETH, M.D. [facility] [id number] [facility] Results Test Description Test Time Test Comments Results Result Comments Source CHEST SINGLE (PORTABLE) 2020-03-02 19:24:00 [facility] : 1970 Sex: F [facility] [address] [address] Patient Name: ROMEO LARA MR #: [id number] : 1970 Age/Sex: 49/F Req #: [id number] Adm Physician: Ordered by: TANI MOORE DO Report #: [id number] Location: ER Room/Bed: Procedure: [id number] DX/CHEST SINGLE (PORTABLE) Exam Date: 03/02/20 Exam Time: 1814 REPORT STATUS: Signed EXAMINATION: CHEST SINGLE (PORTABLE) INDICATION: Wheezing. COMPARISON: None FINDINGS: TUBES and LINES: None. LUNGS: The lungs are hyperinflated. There is perihilar fullness and diffuse bronchial wall thi ckening. There is bibasilar atelectasis. No consolidations. PLEURA: No pleural effusion or pneumothorax. HEART AND MEDIASTINUM: The cardiomediastinal silhouette is unremarkable. BONES AND SOFT TISSUES: No acute osseous lesion. Soft tissues are unremarkable. UPPER ABDOMEN: No free air under the diaphragm. IMPRESSION: Peribronchial cuffing which can be seen with airway inflammation such as bronchitis or asthma exacerbation. Signed by: Juan Santos MD on 03/02/2020 7:26 PM Dictated By: JUAN SANTOS MD 25 Transcribed By: RUSTAM on 03/02/201925 COPY TO: TANI MOORE DO ECG 12 lead 2019-12-15 16:48:33 Test Item Ventricular rate (test code = 253) 89 Atrial rate (test code = 255) 89 CA interval (test code = 266) 144 QRSD [...] has increased in Lateral leads- [facility] [id number] 08:10:03* Test Item Value Reference Range Interpretation [...] Not Detected Rotavirus PCR (test code = 7998516) Not Detected Salmonella PCR (test code = [...] (test code = 7124) Not Detected [facility] [id number] 18:45:56* Test Item Value Reference Range Interpretation Comments Urine culture (test code = 7362778) SEE COMMENT Bacteriuria screen negative. Jeremy MethodistUrinalysis screen and microscopy, with reflex to culture 2019-12-13 18:45:56* Test Item Value Reference Range Interpretation Comments Specimen site (test code = 4684321) Clean catch Color, UA (test code = 5778-6) Yellow Appearance, UA (test code = 5767-9) Clear Specific gravity, UA (test code = 5811-5) 1.011 1.001-1.035 pH, UA (test code = 5803-2) 5.0 5.0-8.5 Protein, UA (test code = 81079-2) Negative Negative Glucose, UA (test code = 22662-6) Negative Negative Ketones, UA (test code = 2514-8) Negative Negative Bilirubin, UA (test code = 5770-3) Negative Negative Blood, UA (test code = 5794-3) Negative Negative Nitrite, UA (test code = 5802-4) Negative Negative Urobilinogen, UA (test code = 44803-5) Negative <2.0 Leukocyte esterase, UA (test code = 5799-2) Negative Negative Epithelial cells, UA (test code = 5787-7) Few Few /HPF WBC, UA (test code = 5821-4) 0-5 0- 4 /HPF RBC, UA (test code = 96747-9) 0-5 0- 5 /HPF Bacteria, UA (test code = 09557-2) None seen None seen Yeast, UA (test code = 89871-1) None seen Yeast with pseudohyphae, UA (test code = 82742-5) None seen Jeremy Quinteros [id number] 15:32:01Hm Interface, Radiology Results 12/13/2019 3:35 PM CDTEXAMINATION: US GALLBLADDERCLINICAL HISTORY: [...] Harris's sign was not elicited by the electroencephalograph technologist. 2. CBD: The common bile duct is within normal limits measuring 5 mm.3. Main portal vein: Normal in diameter measuring 1.0 cm and patent with normal hepatopetal flow and phasicity.4. Other Findings: None [facility]-[id number] MethodistCOVID-19 qualitative [id number] 15:08:15* Test Item Value Reference Range Interpretation Comments Interpretation (test code = 1192450) Negative results do not preclude 2019-nCoV infection and should not be used as the sole basis for treatment or other patient management decisions. Negative results must be combined with clinical observations, patient history, and epidemiological information. COVID-19 qualitative PCR result (test code = 93030-8) Not-Detect ed Not-Detected COVID-19 qualitative PCR (test code = 7070) See link below for P DF Lab Report [place] [facility] Abdomen Pelvis W [id number] 00:26:49Hm Interface, Radiology Results 12/13/2019 12:29 AM CDTExamination: CT ABDOMEN PELVIS [...] Scattered colonic d iverticuli without evidence of inflammation.[facility]-[id number] MethodistBasic metabolic [id number] 23:56:09* Test Item Value Reference Range Interpretation Comments Sodium (test code = 2951-2) 138 135- 148 mEq/L Potassium (test code = 2823-3) 4.3 3.5- 5.0 mEq/L Chloride (test code = 5-0) 107 98- 112 mEq/L CO2 (test code = 8-9) 23 24- 31 mEq/L L Anion gap (test code = 69497-8) 8@ANIO 7- 15 mEq/L BUN (test code = 3094-0) 23 mg/dL 6-20 H Creatinine (test code = 2160-0) 0.30 mg/dL 0.5-0.9 L Glucose (test code = 2345-7) 103 mg/dL 65-99 H Calcium (test code = 84257-6) 9.5 mg/dL 8.3-10.2 Lab Interpretation (test code = 04416-3) Abnormal [place] Methodist[facility]atic function [id number] 23:56:08* Test Item Value Reference Range Interpretation Comments Albumin (test code = 1751-7) 3.6 g/dL 3.5-5 Total bilirubin (test code = 1974-2) 0.3 mg/dL 0-1.2 Bilirubin direct (test code = 1967-7) <0.1 0-0.3 Alkaline phosphatase (test code = 6768-6) 168 U/L 35-104 H Protein (test code = 2885-2) 5.8 g/dL 6.3-8.3 L -[place] 4.6- 7.0 g/dL1 week 4.4-7.6 g/dL7 months-1year 5.1-7.3 g/dL1-2 years 5.6-7.5 g/dL>3 years 6.0-8.0 g/zP75-669 6.3-8.3 g/dL ALT (test code = 1742-6) 38 U/L 5-50 AST (test code = 1920-8) 30 U/L 10-35 Lab Interpretation (test code = 04657-7) Abnormal [place] MethodistLipase [id number] 23:56:08* Test Item Value Reference Range Interpretation Comments Lipase (test code = 3040-3) 17 U/L 13-60 [place] MethodistEstimated [id number] 23:56:08* Test Item Value Reference Range Interpretation Comments Estimated GFR (test code = 5488) >=90 mL/min/1.73 m2 Catergory Units InterpretationG1 >=90 Normal or highG2 60-89 Mildly zoamdnsajP7l 45-59 Mildly to moderately angqttlitO7m 30-44 Moderately to severely decreasedG4 15-29 Severely decreasedG5 <15 Kidney failureThe eGFR was calculated using the Chronic Kidney Disease Epidemiology Collaboration (CKD-EPI) equation. Interpretation is based on recommendations of the National Kidney Foundation-Kidney Disease Outcomes Quality Initiative (NKF-KDOQI) published in 2014. [place] [facility] with platelet and svnufzwjddwi6610-78-61 23:43:44* Test Item Value Reference Range Interpretation Comments WBC (test code = 75596-1) 4.82 4.50- 11.00 k/uL RBC (test code = 47350-3) 4.28 m/uL 4.2-5.5 HGB (test code = 718-7) 10.9 g/dL 12-16 L HCT (test code = 4544-3) 32.6 % 37-47 L MCV (test code = 787-2) 76.2 fL 82-100 L MCH (test code = 785-6) 25.5 pg 27-34 L MCHC (test code = 786-4) 33.4 g/dL 31-37 RDW - SD (test code = 51447-4) 37.8 fL 37-55 MPV (test code = 76613-6) 9.9 fL 8.8-13.2 Platelet count (test code = 44717-8) 188 150- 400 k/uL Nucleated RBC (test code = 07390-5) 0.00 /100 WBC Neutrophils (test code = 40980-4) 45.2 % 39-69 Lymphocytes (test code = 99382-2) 41.7 % 25-45 Monocytes (test code = 90299-7) 10.4 % 0-10 H Eosinophils (test code = 03317-6) 2.3 % 0-5 Basophils (test code = 65675-3) 0.2 % 0-1 Lab Interpretation (test code = 70257-3) Abnormal [facility] Preliminary Interpretation - Not an [id number] 23:14:59* Test Item Value Reference Range Interpretation Comments KAILEE (test code = KAILEE) Chano Chisholm MD 12/13/2019 4:50 AMECG ED Preliminary Interpretation - Not an OrderPerformed by: Chano Chisholm MDAuthorized by: Chano Chisholm MD ECG reviewed by ED Physician in the absence of a fisher trap: yes Interpretation: Interpretation: abnormal Rate: ECG rate: 89 ECG rate assessment: normal Rhythm: Rhythm: sinus rhythm Ectopy: Ectopy: none QRS: QRS axis: Left QRS intervals: NormalConduction: Conduction: normal ST segments: ST segments: NormalT waves: T waves: normal Lab Interpretation (test code = 75142-1) Abnormal [facility] [id number] 01:01:04Hm Interface, Radiology Results 11/05/2019 1:04 AM [...] unremarkable transabdominal and endo vaginal pelvic ultrasound examination.[facility]-[id number] and approved by rad iology resident/fellow: Jayjay Haque, ISELA COLLINS MD, katerina elias reviewed the images and resident's/fellow's findings and agree with the [facility] report.[facility] Qjufjrayftvpmo2518-53-00 01:01:04Hm Interface, Radiology Results Incoming 11/05/2019 1:04 AM CDTEXAMINATION: US PELVIC TRANSVAGINAL, [...] unremarkable transabdominal and endo vaginal pelvic ultrasound examination.[facility]-[id number] and approved by christian scottogy resident/fellow: Jessica Lin M.D.I, ISELA COLLINS MD, katerina elias reviewed the images and resident's/fellow's findings and agree with the [facility] report.[facility] vypxa3024-16-01 23:05:24* Test Item Value Reference Range Interpretation Comments Sodium (test code = 2951-2) 139 135- 148 mEq/L Potassium (test code = 2823-3) 3.5 3.5- 5.0 mEq/L Chloride (test code = 2075-0) 104 98- 112 mEq/L CO2 (test code = 2027-9) 26 24- 31 mEq/L Anion gap (test code = 67717-8) 9@ANIO 7- 15 mEq/L BUN (test code = 3094-0) 20 mg/dL 6-20 Creatinine (test code = 2160-0) 0.40 mg/dL 0.5-0.9 L Glucose (test code = 2345-7) 132 mg/dL 65-99 H Calcium (test code = 87336-1) 9.4 mg/dL 8.3-10.2 Protein (test code = 2885-2) 6.8 g/dL 6.3-8.3 - 4.6- 7.0 g/dL1 week 4.4-7.6 g/dL7 months-1year 5.1-7.3 g/dL1-2 years 5.6-7.5 g/dL>3 years 6.0-8.0 g/dT36-791 6.3-8.3 g/dL Albumin (test code = 1751-7) 4.1 g/dL 3.5-5 A/G ratio (test code = 1759-0) 1.5 0.7-3.8 Alkaline phosphatase (test code = 6768-6) 174 U/L 35-104 H AST (test code = 1920-8) 46 U/L 10-35 H ALT (test code = 1742-6) 51 U/L 5-50 H Total bilirubin (test code = 1975-2) 0.4 mg/dL 0-1.2 Lab Interpretation (test code = 52703-6) Abnormal [facility], urine [id number] 22:59:34* Test Item Value Reference Range Interpretation Comments hCG qualitative, urine (test code = 2106-3) Negative Negative The manufacturers stated sensitivity of HcG test for serum is >/= 10 mIU/ml and urine is >/= 20mIU/ml. [facility]- XR SHOULDER 2 + V [id number] 15:00:00 FAX: Richard Kaur MD [phone] Sandy: B St: [facility] FAX: Edilia Che [phone] Name: ROMEO LARA [facility] : 1970 Age/S: 49/F [address] Unit #: [id number] Loc: [place] [address] Phys: Richard Kaur MD Acct: [id number] Dis Date: Status: REG ER PHONE #: [phone] Exam Date: 07/02/2019 1440 FAX #: [phone] Reason: fall EXAMS: CPT CODE: [id number] XR SHOULDER 2 + [place] RT [address] HISTORY: Fall and pain. COMPARISON: None available. [...] (R) Trnscrd Date/Time/By: 07/02/2019 (1500) : By: [email or web address] Orig Print D/T: S: 07/02/2019 (6535) PAGE 1 Signed Report - CT HEAD/BRAIN W/O [id number] 14:36:00 Name: ROMEO LARA [facility] : 1970 Age/S: 49 / F [address] Unit #: [id number] Loc: [place] [address] Phys: Richard Kaur MD Acct: [id number] Dis Date: Status: PRE ER PHONE #: [phone] Exam Date: 07/02/2019 1423 FAX #: [phone] Reason: fall EXAMS: CPT CODE: [id number] CT HEAD/BRAIN W/O CONT 84913 HISTORY: Fall and pain. COMPARISON: None available. Location: [facility]. CT brain without contrast: Automated exposure control. [...] Canas RT(R),(MR),(CT) CTDI: DLP: Trnscb Date/Time: 07/02/2019 (4296) t.[email or web address].TH4 Orig Print D/T: S: 07/02/2019 (2974) PAGE 1 Signed Report FOOT RIGHT [id number] 14:41:00 [place] [address] Patient Name: ROMEO LARA MR #: [id number] : 1970 Age/Sex: 48/F Req #: [id number] Adm Physician: Ordered by: TANI ROSS CROCODILE FARMER Report #: [id number] Location: ER Room/Bed: Procedure: 4604-2540 D X/FOOT RIGHT COMPLETE Exam Date: 05/25/19 Exam Time: 1407 REPORT STATUS: Signed Foot complete CPT code: 93056 Indication: Pain. No trauma history provided pain [...] changes as described above. Signed by: Dr. Kevyn whitaker MD on 05/25/2019 2:42 PM Dictated By: KEVYN [facility] Signed By: KEVYN DURAN MD on 05/25/191441 Transcribed By: RUSTAM on 05/25/191441 COPY TO: TANI ROSS NP SP LUMBAR AP LATERAL [id number] 19:53:00 [place] [address] Patient Name: ROMEO LARA MR #: [id number] : 1970 Age/Sex: 48/F Req #: [id number] Adm Physician: Ordered by: TANI ROSS NP Report #: [id number] Location: ER Room/Bed: Procedure: 5850-3865 D X/SP LUMBAR AP LATERAL 2-3VWS Exam [...] MD, MD 54 COPY TO: FREDO ROSS CROCODILE FARMER CT CERVICAL SPINE [id number] 17:48:00 [place] [address] Patient Name: ROMEO LARA MR #: [id number] : 1970 Age/Sex: 48/F Req #: [id number] Adm Physician: Ordered by: TANI ROSS CROCODILE FARMER Report #: [id number] Location: ER Room/Bed: Procedure: 9552-6401 C T/CT CERVICAL SPINE WO Exam Date: [...] PM Dictated By: SMITHA WORKMAN MD Elect ronically Signed By: SMITHA WORKMAN MD on 09/19/181751 Transcribed By: RUSTAM on 09/19/181751 COPY TO: TANI ROSS NP CT BRAIN [id number] 17:46:00 [place] [address] Patient Name: ROMEO LARA MR #: [id number] : 1970 Age/Sex: 48/F Req #: [id number] Adm Physician: Ordered by: TANI ROSS CROCODILE FARMER Report #: [id number] Location: ER Room/Bed: Procedure: 0999-2173 C T/CT BRAIN WO Exam Date: 09/19/18 [...] WORKMAN MD 47 COPY TO: TANI ROSS CROCODILE FARMER FOREARM LEFT 2 [id number] 16:54:00 [place] [address] Patient Name: ROMEO LARA MR #: [id number] : 1970 Age/Sex: 48/F Req #: [id number] Adm Physician: Ordered by: TANI ROSS CROCODILE FARMER Report #: [id number] Location: ER Room/Bed: Procedure: 0919-2062 D X/FOREARM LEFT 2 VIEW Exam Date: [...] Diogenes Tabor 09/19/2018 4:57 PM Dictated By: STEVE LIAO MD 56 Transcribed By: RUSTAM on 09/19/181656 COPY TO: TANI ROSS CROCODILE FARMER ELBOW LEFT [id number] 16:54:00 [place] [address] Patient Name: ROMEO LARA MR #: [id number] : [birth year] Age/Sex: 48/F Req #: [id number] Adm Physician: Ordered by: TANI ROSS CROCODILE FARMER Report #: [id number] Location: ER Room/Bed: Procedure: 8611-1423 D X/ELBOW LEFT COMPLETE Exam Date: 09/19/18 [...] PRESSION: No acute bony abnormality. Signed by: Dr. Steve Liao M.D. o n 09/19/2018 4:57 PM Dictated By: STEVE LIAO MD 56 Transcribed By: RUSTAM on 09/19/181656 COPY TO: TANI ROSS CROCODILE FARMER [U] XR CALCANEUS (HEEL) 2 VWS, MIN. LEFT [id number] 11:32:00Images acquired, not reported on this accession number.[facility][U] XRAY TIBIA FIBULA 2 VWS RIGHT [id number] 2017-10-02 15:05:00Images acquired, not reported on this accession number. [facility][U] XRAY ANKLE MIN 3 VWS RIGHT [id number] 16:35:00Images acquired, not reported on this accession number.[facility][U] XRAY TIBIA FIBULA 2 VWS RIGHT [id number] 16:32:00Images acquired, not reported on this accession number.[facility] [U] XRAY TIBIA FIBULA 2 VWS RIGHT [id number] 16:06:00Images acquired, not reported on this accession number.[facility] Ankle 3 views [id number] 09:10:00EXAM: XR RIGHT ANKLE 3 VIEWSDATE: 06/27/2017 [...] 10:47Electronically Signed by: Sherman Hood MD 06/27/1809:47FINAL [facility]PORTUn[facility][U] XRAY KNEE 4 OR MORE VWS BILATERAL [id number] 09:09:00Images acquired, not reported on this accession number.[facility]
[2020-03-02] MEDS ORDERED: AZITHROMYCIN 500MG/NS 250 ML 250 ML IV SCH (19:45)
[2020-03-02] MEDS ORDERED: ONDANSETRON HCL INJ 2MG/ML 2ML 2 MG/ML VIAL IV PRN (19:45)
[2020-03-02] MEDS ORDERED: SODIUM CHLORIDE 0.9% 1000ML 1,000 ML IV SCH (19:45)
[2020-03-02 20:04] LABS: CREATINE KINASE MB 1.5 ng/mL (0-5.0)
[2020-03-02] MEDS ORDERED: HYDRALAZINE HCL 20 MG/ML VIAL IV PRN (20:30)
[2020-03-02] MEDS ORDERED: MELATONIN 5 MG TABLET PO PRN (20:30)
[2020-03-02] MEDS ORDERED: METOPROLOL TARTRATE INJ 1 MG/ML VIAL IV PRN (20:30)
[2020-03-02] MEDS ORDERED: ACETAMINOPHEN 325 MG TAB PO PRN (20:30)
[2020-03-02] MEDS ORDERED: ACETAMINOPHEN/CODEINE 300MG - 30MG TAB PO PRN (20:30)
--- NOTE | 2020-03-02 20:50 | NUR ---
PT HAD RAPID COVID-19 TEST OBTAINED TODAY AT [facility] RESULTING NEGATIVE. PAPER COPY OF DOCUMENTATION IN PT'S CHART.
--- NOTE | 2020-03-02 22:30 | NUR ---
Received report from ER nurse.
[2020-03-02] MEDS: ALBUTEROL/IPRATROPIUM 3 ML NEB NEB SCH (23:00)
--- NOTE | 2020-03-02 23:00 | NUR ---
Patient arrived to floor via w/c. Pt c/o sob with 02 sat at 98-100%. Placed 2L on patient. Called MD to get order for CPAP. Patient on CPAP at home. Patient received a neb tx and placed on CPAP. Continue monitor.
[2020-03-03] VITALS (7 sets, daily range): BP systolic 134–171; BP diastolic 59–83
[2020-03-03] MEDS ORDERED: METHYLPREDNISOLONE SOD SUCC 40 MG/ML VIAL 1ML IV SCH
[2020-03-03] MEDS ORDERED: LOSARTAN POTASS25 MG PO
[2020-03-03] MEDS ORDERED: MULTI-VITAMIN1 EACH PO (00:02)
[2020-03-03] MEDS ORDERED: MELOXICAM7.5 MG PO (00:04)
[2020-03-03 02:38] LABS: CREATINE KINASE MB 1.5 ng/mL (0-5.0)
--- NOTE | 2020-03-03 02:52 | NUR ---
Patient resting quitly at this time. Continue monitor.
[2020-03-03] MEDS: ALBUTEROL/IPRATROPIUM 3 ML NEB NEB SCH ×4 (03:06→16:30)
--- NOTE | 2020-03-03 05:23 | NUR ---
Patient resting quitly with cpap intact.
[2020-03-03] MEDS: FAMOTIDINE 20 MG TAB PO SCH ×2 (07:45→17:33)
[2020-03-03 08:24] LABS: HEMATOCRIT 34.2 % (34.2-44.1); HEMOGLOBIN 11.3 g/dL (12.0-16.0); LYMPHOCYTES # (AUTO) 0.8 (1.0-3.2); LYMPHOCYTES % 17.2 % (18.0-39.1); MEAN CORPUSCULAR HEMOGLOBIN 25.4 pg (28-32); MEAN CORPUSCULAR VOLUME 76.9 fL (81-99); MONOCYTES # (AUTO) 0.1 (0.2-0.8); MONOCYTES % 2.3 % (4.4-11.3); NEUTROPHILS # (AUTO) 3.5 (2.1-6.9); NEUTROPHILS % 80.3 % (38.7-80.0); PLATELET COUNT 202 x10e3/uL (140-360); RED BLOOD COUNT 4.45 x10e6/uL (3.6-5.1); RED CELL DISTRIBUTION WIDTH 13.9 % (11.7-14.4)
[2020-03-03 08:52] LABS: ALANINE AMINOTRANSFERASE 37 IU/L (0-55); ALBUMIN 3.6 g/dL (3.5-5.0); ALBUMIN/GLOBULIN RATIO 1.4 (0.8-2.0); ALKALINE PHOSPHATASE 148 IU/L (40-150); ANION GAP 14.2 mmol/L (8-16); BLOOD UREA NITROGEN 26 mg/dL (7-26); BUN/CREATININE RATIO 51 (6-25); CALCIUM 9.4 mg/dL (8.4-10.2); CARBON DIOXIDE 20 mmol/L (22-29); CHLORIDE 109 mmol/L (98-107); CREATININE, SERUM 0.51 mg/dL (0.57-1.11); EST GLOMERULAR FILTRATION RATE > 60 ML/MIN (60-); GLUCOSE 169 mg/dL (74-118); POTASSIUM 4.2 mmol/L (3.5-5.1); SODIUM 139 mmol/L (136-145)
[2020-03-03] MEDS ORDERED: PROVENTIL HFA6.7 GM INH (09:00)
[2020-03-03] MEDS ORDERED: LORATADINE/PSEUDOEPHEDRINE 24 HR SR TAB PO SCH (09:00)
[2020-03-03] MEDS ORDERED: PREDNISONE 20 MG TAB PO SCH (09:00)
[2020-03-03] MEDS ORDERED: PREDNISONE20 MG PO (09:00)
--- NOTE | 2020-03-03 09:34 | Diagnostic Imaging Report ---
EXAM: CT Chest without intravenous contrast HISTORY: ^SOB, ZULETA ^[id number] ^3411 COMPARISON: None TECHNIQUE: CT of the chest without intravenous contrast. Coronal and sagittal reformations were obtained. DOSE REDUCTION: The examination was performed according to the departmental dose-optimization program, which includes automated exposure control, adjustment of the mA and/or kV according to patient size and/or use of iterative reconstruction technique. FINDINGS: THE ABSENCE OF INTRAVENOUS CONTRAST DECREASES THE SENSITIVITY FOR DETECTION OF FOCAL LESIONS AND VASCULAR PATHOLOGY. LINES and TUBES: None. LUNGS, AIRWAYS AND PLEURA: The lungs and airways are normal without focal abnormality. The pleural spaces are clear. HEART AND MEDIASTINUM: Multinodular thyroid. No significant mediastinal, hilar, or axillary lymphadenopathy. Cardiac. The heart and pericardium are otherwise within normal limits. SOFT TISSUES AND BONES: Unremarkable. UPPER ABDOMEN: Unremarkable. IMPRESSION: The absence of intravenous contrast decreases the sensitivity for detection of focal lesions and vascular pathology. 1. No findings to explain this patient's chart dose of breath. 2. Multinodular thyroid. Recommend nonemergent dedicated ultrasound exam. Signed by: Pee Alvarez MD on 03/03/2020 9:31 AM
[2020-03-03] MEDS ORDERED: POTASSIUM CHLORIDE 10MEQ EA PO ONE (09:40)
[2020-03-03] MEDS ORDERED: FUROSEMIDE INJ 10 MG/ML 2 ML VIAL IV ONE (09:40)
--- NOTE | 2020-03-03 11:21 | NUR ---
Home O2 eval was done. 99% on RA and 98% on exertion on RA. Does not qualify for home oxygen.
--- NOTE | 2020-03-03 12:15 | NUR ---
INFORMED LENNIE LICENSED EMBALMER SUPERVISOR, PATIENTS HEART RATE INCREASED TO 150, UPON ASSESSMENT PATIENT FOUND SITTING IN BED, AND HAD C/O SOB. PATIENT STATES "SHE FEELS LIKE HER CHEST IS TIGHT". PATIENT APPEARS TO BE ANXIOUS AND REDIRECTION PROVIDED. ORDERS RECEIVED AND ENTERED.
[2020-03-03] MEDS ORDERED: LORAZEPAM INJ 2 MG/ML VIAL IV ONE (12:30)
[2020-03-03 13:40] LABS: CREATINE KINASE 19 IU/L (29-168)
--- NOTE | 2020-03-03 15:25 | NUR ---
patient refusing to be discharged and wants to speak with malt house loader. House supp and superannuation funds manager informed about delay and patient refusal.
[2020-03-03] MEDS ORDERED: LORAZEPAM 0.5 MG TAB PO PRN (15:45)
[2020-03-03] MEDS ORDERED: LOSARTAN POTASSIUM 25 MG TAB PO SCH (17:00)
--- NOTE | 2020-03-05 02:53 | Discharge Summary ---
ADMISSION DIAGNOSES: Asthma exacerbation present on admission, hypertension, osteoarthritis, and morbid obesity with a BMI of 42.5. DISCHARGE DIAGNOSES: Asthma exacerbation present on admission, hypertension, osteoarthritis, and morbid obesity with a BMI of 42.5 plus rule out pneumonia, rule out CHF, rule out AL, and rule out PE. HISTORY: Hypertension, osteoarthritis, and asthma. SURGICAL HISTORY: . FAMILY HISTORY: The patient's mom had diabetes. The patient's mom and dad both had a stroke. SOCIAL HISTORY: Noncontributory. HOSPITAL COURSE: A 49-year-old female admits with complaints of shortness of breath for 2 weeks. The symptoms continued to worsen, so she came to the ER. Last week she started having a dry cough and a sore throat. She admits to intermittent bilateral lower extremity edema which is mostly everyday. On admission, chest x-ray showed peribronchial cuffing, which can be seen in bronchitis or asthma exacerbation. BNP was within normal limits. Troponins were negative. CT of the chest was done, which did not show any findings to explain the shortness of breath, multinodular thyroid. The patient was advised to follow up with thyroid ultrasound outpatient. Due to the patient's complaints of persistent shortness of breath home oxygen evaluation was done. She did not qualify for home oxygen. After being exerted her SpO2 only dropped to 98%. Her D-dimer was within normal limits. Her echo showed an EF of 55% to 60%. The patient will be discharged home with new prescriptions for prednisone p.o. The patient appears very anxious, so she was given a prescription for Ativan as well although she initially said she had plenty of albuterol inhalers at home, upon discharge she thinks she needed more so another prescription was written for that as well. She was advised to follow up with pulmonology outpatient. She will follow up with primary care in 1 to 2 weeks. The patient understands discharge instructions and agrees to plan. Dictated by Suzy Arnold NP MD AMANDA Munson/MODL /[id number]
== END 2020-03-03 17:50 | disposition home or self-care (01) ==
LOC: ER 18:48 → ERHOLD 19:41 → MED/SURG 21:22
PROVIDERS: ADMIT Internal Medicine; ATTEND Internal Medicine
DX: J45.901 Unspecified asthma with (acute) exacerbation (principal); Z11.59 Encounter for screening for other viral diseases; I10 Essential (primary) hypertension; M19.90 Unspecified osteoarthritis, unspecified site; E66.01 Morbid (severe) obesity due to excess calories; Z68.41 Body mass index [BMI] 40.0-44.9, adult; R60.0 Localized edema
CPT/HCPCS: 36415 ×2; 71045; 71250; 80053 ×2; 82550 ×2; 82553 ×2; 83880; 84484 ×2; 85025 ×2; 85379; 93005 ×2; 93306; 94640 ×3; 94660 ×3; 99284; G0378 ×2; J0456; J1940; J2060; J2930; J7512

== ENCOUNTER 2022-05-31 21:03 | Emergency (ER) | payer OTHER ==
[~2022-05-31] VITALS: Ht 154.9 cm; Wt 102.1 kg
[~2022-05-31 21:03] MED LIST: LOSARTAN POTASS25 MG PO; MELOXICAM7.5 MG PO; MULTI-VITAMIN1 EACH PO; PREDNISONE20 MG PO; PROVENTIL HFA6.7 GM INH
[2022-05-31] MEDS ORDERED: IBUPROFEN 600 MG TAB PO STA (21:50)
[2022-06-01] MEDS ORDERED: MOTRIN200 MG PO (00:08)
== END 2022-06-01 00:40 | disposition home or self-care (01) ==
LOC: ER 21:19
DX: S80.01XA Contusion of right knee, initial encounter (principal); S80.11XA Contusion of right lower leg, initial encounter; W18.39XA Other fall on same level, initial encounter; Y93.01 Activity, walking, marching and hiking; Y99.0 Civilian activity done for income or pay; I10 Essential (primary) hypertension; J45.909 Unspecified asthma, uncomplicated; G47.30 Sleep apnea, unspecified
CPT/HCPCS: 99283

== ENCOUNTER 2023-03-23 16:26 | Emergency (ER) | payer BC, OTHER ==
[~2023-03-23] VITALS: Ht 154.9 cm; Wt 102.1 kg
[~2023-03-23 16:26] MED LIST changes: +MOTRIN200 MG PO
[2023-03-23] MEDS ORDERED: SODIUM CHLORIDE 0.9% 1000ML 1,000 ML IV STA (16:42)
[2023-03-23] MEDS ORDERED: KETOROLAC TROMETHAMINE 30 MG/ML VIAL IV STA (16:42)
[2023-03-23 16:53] LABS: BASOPHILS # (AUTO) 0.1 (0.0-0.1); BASOPHILS % 0.5 % (0.0-1.0); EOSINOPHILS # (AUTO) 0.3 (0.0-0.4); EOSINOPHILS % 2.7 % (0.0-6.0); HEMATOCRIT 40.9 % (34.2-44.1); LYMPHOCYTES # (AUTO) 2.7 (1.0-3.2); LYMPHOCYTES % 24.7 % (18.0-39.1); MEAN CORPUSCULAR HEMOGLOBIN 27.4 pg (28-32); MEAN CORPUSCULAR HGB CONC 34.2 g/dL (31-35); MONOCYTES % 9.2 % (4.4-11.3); NEUTROPHILS # (AUTO) 6.8 (2.1-6.9); NEUTROPHILS % 62.7 % (38.7-80.0); PLATELET COUNT 288 x10e3/uL (140-360); RED BLOOD COUNT 5.11 x10e6/uL (3.6-5.1); RED CELL DISTRIBUTION WIDTH 12.8 % (11.7-14.4); WHITE BLOOD COUNT 10.87 x10e3/uL (4.8-10.8)
[2023-03-23 17:02] LABS: INR 0.97; PROTHROMBIN TIME 13.1 seconds (11.9-14.5)
[2023-03-23 17:03] LABS: PARTIAL THROMBOPLASTIN TIME 30.4 seconds (23.8-35.5)
[2023-03-23 17:13] LABS: ALANINE AMINOTRANSFERASE 17 IU/L (0-55); ALBUMIN 4.2 g/dL (3.5-5.0); ALBUMIN/GLOBULIN RATIO 1.3 (0.8-2.0); ALKALINE PHOSPHATASE 116 IU/L (40-150); ANION GAP 15.5 mmol/L (8-16); BLOOD UREA NITROGEN 20 mg/dL (7-26); BUN/CREATININE RATIO 25 (6-25); CALCIUM 9.6 mg/dL (8.4-10.2); CARBON DIOXIDE 25 mmol/L (22-29); CHLORIDE 100 mmol/L (98-107); CREATINE KINASE 31 IU/L (29-168); CREATININE, SERUM 0.79 mg/dL (0.57-1.11); LIPASE 16 U/L (8-78); MAGNESIUM 1.7 MG/DL (1.3-2.1); POTASSIUM 3.5 mmol/L (3.5-5.1); SODIUM 137 mmol/L (136-145)
[2023-03-23] MEDS ORDERED: IOPAMIDOL 370 MG/ML 100 ML INFUS..BTL INJ ONE (17:44)
[2023-03-23 18:51] VITALS: O2SAT 99
== END 2023-03-23 19:10 | disposition home or self-care (01) ==
LOC: ER 16:36
DX: R10.12 Left upper quadrant pain (principal); K57.90 Diverticulosis of intestine, part unspecified, without perforation or abscess without bleeding; I10 Essential (primary) hypertension; J45.909 Unspecified asthma, uncomplicated; G47.30 Sleep apnea, unspecified; M19.09 Primary osteoarthritis, other specified site
CPT/HCPCS: 36415; 74177; 80053; 82550; 83690; 83735; 84484; 85025; 85610; 85730; 99284; C9113; J1885; J7030; Q9967